=== PATIENT | female | born 1930 | race Caucasian/White ===

== ENCOUNTER 2016-05-06 11:37 | Inpatient (IN) | payer MEDICARE, OTHER ==
[~2016-05-06] VITALS: Ht 152.4 cm; Wt 64.9 kg
[~2016-05-06 11:37] MED LIST: ALLO100T PO; DILT300C PO; LVT.05T PO; OLME40TA14 PO; VITA1CAP21 PO
--- OUTSIDE RECORDS SUMMARY | 2016-05-06 11:42 | XMS REPORT | Continuity of Care Document ---
Author Author [facility] Organization [facility] Address Unknown Phone Unavailable Care Team Providers Care Steam Box Operator Name Role Phone MARISELA BETH MD PCP Insurance Providers Payer Name Policy Number Subscriber Name Relationship [employer] [id number] Noa Tee 18 Self / Same As Patient [facility] [id number] Noa Tee 18 Self / Same As Patient Advance Directives Directive Response Recorded Date/Time Advance Directives No 12/02/13 9:35am Health Care Power of Sas Administrator No 12/02/13 9:35am Organ Donor Yes 12/02/13 9:35am Problems No known problems or medical conditions. Medications Medication Dose Route Sig Days/Qty Instructions Order Date Discontinued Date Status Allopurinol 100 Mg PO DAILY 12/02/13 Active Olmesartan 1 Tab PO DAILY 12/02/13 Active Levothyroxine Sodium (Levothroid) 1 Each PO DAILY 12/02/13 Active Diltiazem HCl (Cardizem Cd) 1 Each PO DAILY 12/02/13 Active Vitamin B Complex 1 Cap PO DAILY 12/02/13 Active Social History No social history. Hospital Discharge Instructions No hospital discharge instructions. Plan of Care No plan of care. Functional Status No functional status results. Allergies, Adverse Reactions, Alerts Allergen Type Severity Reaction Status Last Updated Sulfa (Sulfonamide Antibiotics) ([id number]) Allergy Unknown Active iodine ([id number]) Allergy Unknown Active 12/02/13 hydrocodone ([id number]) Allergy Unknown Active 12/02/13 propoxyphene ([id number]) Allergy Unknown Active 12/02/13 Meperidine Allergy Unknown Active 12/02/13 Immunizations Name Given Type Date of Pneumonia Vaccine 02/03/10 Historical Vital Signs No known vital signs results. Results No known relevant diagnostic tests, laboratory data and/or discharge summary. Procedures No known history of procedures. Encounters Encounter Location Date/Time Registered Clinic [facility] 10/18/14 9:05pm
[2016-05-06] MEDS ORDERED: LACTATED RINGERS 1,000 ML IV ONE (11:44)
--- NOTE | 2016-05-06 11:50 | ED GI ---
General Chief Complaint: Abdominal/GI Problems Stated Complaint: ABD PAIN Source of Information: Patient History of Present Illness Time Seen By Provider: 11:37 Initial Comments PT ARRIVES VIA EMS FROM HOME--LIVES ALONE C/O SEVERE LOWER ABDOMINAL PAIN SINCE 0200 THIS AM PAIN IS CONSTANT AND WORSE WITH WALKING C/O NAUSEA AND DRY HEAVES--EMS GAVE ZOFRAN AND THAT HAS IMPROVED NO DIARRHEA BUT HAS HAD MULTIPLE BM'S SINCE THIS STARTED--NO BLACK/BLOODY/TARRY STOOLS HAS HAD URINARY FREQUENCY, BUT NO PAIN ON URINATION + CHILLS, BUT NO KNOWN FEVER NO HISTORY OF SIMILAR AND NO HISTORY OF ANY GI/COLON PROBLEMS IN THE PAST HAS NOT TAKEN ANY MEDICATIONS TODAY PCP: DR. RODGERS Allergies and Home Medications Allergies Coded Allergies: Sulfa (Sulfonamide Antibiotics) (Verified Allergy, Unknown, 12/02/13) hydrocodone (Verified Allergy, Unknown, 12/02/13) iodine (Verified Allergy, Unknown, 12/02/13) meperidine (Verified Allergy, Unknown, 12/02/13) propoxyphene (Verified Allergy, Unknown, 12/02/13) Home Medications Allopurinol 100 Mg Tab 100 MG PO DAILY (Reported) Diltiazem Hcl 300 Mg Cap.sr.24h 1 EACH PO DAILY (Reported) Levothyroxine Sodium 50 Mcg Tablet 1 EACH PO DAILY (Reported) Olmesartan Medoxomil 40 Mg Tablet 1 TAB PO DAILY (Reported) Vitamin B Complex 1 Cap Capsule 1 CAP PO DAILY (Reported) Review of Systems Constitutional: see HPI chills EENTM: Other (CLEAR RUNNY NOSE SINCE LAST PM) Respiratory: No Symptoms ReportedDenies Cough, Denies Shortness of Air Cardiovascular: No Symptoms ReportedDenies Chest Pain Gastrointestinal: See HPI Abdominal Pain Nausea Poor AppetiteDenies Vomiting Genitourinary: See HPI FrequencyDenies Flank Pain Musculoskeletal: no symptoms reported Skin: no symptoms reported Psychiatric/Neurological: No Symptoms Reported Endocrine: No Symptoms Reported Hematologic/Lymphatic: No Symptoms Reported Past Vpnuunz-Vmxhyz-Oaoips Hx Patient Social History Alcohol Use: Denies Use Recreational Drug Use: No Smoking Status: Never a Smoker Immunizations Up To Date Date of Pneumonia Vaccine: Feb 03, 2010 Surgeries HX Surgeries: Yes (HYST/BSO FOR BENIGN DISEASE; LEFT SHOULDER REPLACEMENT; C- SECTION X 1) Surgeries: Section, Hysterectomy, Joint Replacement, Oophorectomy, Orthopedic Respiratory Hx Respiratory Disorders: No Cardiovascular Hx Cardiac Disorders: Yes Cardiac Disorders: Hypertension Neurological Hx Neurological Disorders: No 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, Menopausal Genitourinary Hx Genitourinary Disorders: No Gastrointestinal Hx Gastrointestinal Disorders: Yes Gastrointestinal Disorders: Diverticulosis Musculoskeletal Hx Musculoskeletal Disorders: Yes (LEFT SHOULDER REPLACEMENT) Musculoskeletal Disorders: Arthritis, Gout Endocrine Hx Endocrine Disorders: Yes Endocrine Disorders: Hypothyroidsim HEENT HX 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) Hearing Impairment: Hard of Hearing Cancer Hx Cancer: No Psychosocial Hx Psychiatric Problems: No Integumentary HX Skin/Integumentary Disorder: No Blood Transfusions Hx Blood Disorders: No Physical Exam Vital Signs VS - Last 72 Hours, by Label 05/06/16 05/06/16 05/06/16 11:41 11:41 12:48 Temp 98.4 98.4 Pulse 110 Resp 16 B/P 191/94 Pulse Ox 93 95 O2 Delivery Room Air Nasal Cannula O2 Flow Rate 2 Capillary Refill : General Appearance: WD/WN no apparent distress HEENT: PERRL/EOMI Neck: normal inspection Respiratory: normal breath sounds no respiratory distress no accessory muscle use Cardiovascular: tachycardia systolic murmur (05/11) Gastrointestinal: no organomegaly no pulsatile mass abnormal bowel sounds ( RARE)No distended, No guarding, No rebound, tenderness (SIGNIFICANT DIFFUSE LOWER ABDOMINAL TENDERNESS, MILD TO MODERATE DIFFUSE UPPER ABDOMINAL TENDERNESS) No hernia, No mass Extremities: normal inspection no pedal edema no calf tenderness normal capillary refill Back: no CVA tenderness Neurologic/Psychiatric: 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 II-XII nml as tested no motor/sensory deficits alert normal mood/affect oriented x 3 Skin: normal color warm/dry Progress/Results/Core Measures Results/Orders Lab Results Laboratory Tests Test 05/06/16 11:39 05/06/16 12:55 Range/Units Alanine Aminotransferase (ALT/SGPT) 19 0-55 U/L Albumin 3.7 3.2-4.5 G/DL Alkaline Phosphatase 76 40-136 U/L Amylase Level 98 25-125 U/L Anion Gap 13 5-14 MMOL/L Aspartate Amino Transf (AST/SGOT) 17 5-34 U/L BUN/Creatinine Ratio 23 Band Neutrophils 4 % Basophils # (Auto) 0.0 0.0-0.1 10^3/uL Basophils % (Manual) 0 % Basophils (%) (Auto) 0 0-10 % Blood Morphology Comment NORMAL Blood Urea Nitrogen 23 H 7-18 MG/DL Calcium Level 9.5 8.5-10.1 MG/DL Carbon Dioxide Level 21 21-32 MMOL/L Chloride Level 107 98-107 MMOL/L Creatinine 1.02 0.60-1.30 MG/DL Eosinophils # (Auto) 0.0 0.0-0.3 10^3/uL Eosinophils % (Manual) 0 % Eosinophils (%) (Auto) 0 0-10 % Estimat Glomerular Filtration Rate 52 Glucose Level 149 H 70-105 MG/DL Hematocrit 43 35-52 % Hemoglobin 13.9 11.5-16.0 G/DL Lipase 8 8-78 U/L Lymphocytes # (Auto) 0.5 L 1.0-4.0 X 10^3 Lymphocytes % (Manual) 7 % Lymphocytes (%) (Auto) 4 L 12-44 % Magnesium Level 1.7 L 1.8-2.4 MG/DL Mean Corpuscular Hemoglobin 29 25-34 PG Mean Corpuscular Hemoglobin Concent 32 32-36 G/DL Mean Corpuscular Volume 92 80-99 FL Mean Platelet Volume 9.9 7.4-10.4 FL Monocytes # (Auto) 0.5 0.0-1.0 X 10^3 Monocytes % (Manual) 1 % Monocytes (%) (Auto) 4 0-12 % Neutrophils # (Auto) 12.4 H 1.8-7.8 X 10^3 Neutrophils % (Manual) 88 % Neutrophils (%) (Auto) 92 H 42-75 % Platelet Count 304 130-400 10^3/uL Potassium Level 4.3 3.6-5.0 MMOL/L Red Blood Count 4.73 4.35-5.85 10^6/uL Red Cell Distribution Width 15.3 H 10.0-14.5 % Sodium Level 141 135-145 MMOL/L TSH [place] Testing 1.36 0.35-4.94 UIU/ML Total Bilirubin 0.7 0.1-1.0 MG/DL Total Protein 6.4 6.4-8.2 G/DL White Blood Count 13.4 H 4.3-11.0 10^3/uL My Orders Orders-OLGA MAGAÑA DO Saline Lock/Iv-Start (05/06/16 11:44) O2 (05/06/16 11:44) Monitor-Rhythm Ecg Trace Only (05/06/16 11:44) Amylase (05/06/16 11:44) Cbc With Automated Diff (05/06/16 11:44) Comprehensive Metabolic Panel (05/06/16 11:44) Lipase (05/06/16 11:44) Magnesium (05/06/16 11:44) Thyroid Analyzer (05/06/16 11:44) Ua Culture If Indicated (05/06/16 11:44) Saline Lock/Iv-Start (05/06/16 11:44) Lactated Ringers (Lr 1000 Ml Iv Solution (05/06/16 11:44) Manual Differential (05/06/16 11:39) Ct Abdomen/Pelvis Wo (05/06/16 12:08) Acute Abd Series (05/06/16 12:08) Ondansetron Injection (Zofran Injectio (05/06/16 12:15) Fentanyl Injection (Sublimaze Injection (05/06/16 12:10) Scopolamine Patch (Transderm-Scop Patch) (05/06/16 13:15) Ondansetron Injection (Zofran Injectio (05/06/16 13:15) Fentanyl Injection (Sublimaze Injection (05/06/16 13:01) Levofloxacin 750 Mg/150 Ml Iv (Levaquin (05/06/16 13:01) Medications Given in ED Current Medications Medications Dose Ordered Sig/Khadijah Route Start Time Stop Time Status Last Admin Dose Admin Lactated Ringer's 1,000 ml @ 0 mls/hr Q0M ONCE IV 05/06/16 11:44 05/06/16 11:46 DC 05/06/16 11:52 1,000 MLS/HR Ondansetron HCl 4 mg ONCE ONCE IVP 05/06/16 12:15 05/06/16 12:16 DC 05/06/16 12:48 4 MG Vital Signs/I&O Vital Sign - Last 12Hours 05/06/16 05/06/16 05/06/16 11:41 11:41 12:48 Temp 98.4 98.4 Pulse 110 Resp 16 B/P 191/94 Pulse Ox 93 95 O2 Delivery Room Air Nasal Cannula O2 Flow Rate 2 Progress Note : Progress Note NO DETERIORATION IN PT'S CONDITION DURING ER STAY AFTER REVIEWING TEST RESULTS AND DX OF DIVERTICULITIS, PT NOW STATES SHE HAS HAD THIS PROBLEM SEVERAL TIMES ( HAD DENIED THIS ON ARRIVAL) Diagnostic Imaging Comments ACUTE ABDOMEN XRAYS--NON SPECIFIC BOWEL GAS CT ABDOMEN/PELVIS--ACUTE SIGMOID DIVERTICULITI PER RADIOLOGIST REPORTS @ 1257 Reviewed: Reviewed by Me Departure Communication Progress Notes 1303--SPOKE WITH DR. GILMORE, [place] [employer] [place] [employer] LAW CLERK FOR DR. RODGERS, ACCEPTS PT FOR ADMIT. Impression Impression: Primary Impression: Sigmoid diverticulitis Additional Impression: Mild dehydration Disposition: ADMITTED INPATIENT Condition: Stable Decision to Admit Reason: Admit from ER (General) Decision to Admit/Date: May 06, 2016 Time/Decision to Admit Time: 13:00 Departure-Patient Inst. Referrals: UNKNOWN (PCP/Family) Primary Care Physician OLGA MAGAÑA DO May 06, 2016 11:50
[2016-05-06 11:53] LABS: BASOPHILS % (AUTO) 0 % (0-10); EOSINOPHILS % (AUTO) 0 % (0-10); LYMPHOCYTES # (AUTO) 0.5 X 10^3 (1.0-4.0); LYMPHOCYTES % (AUTO) 4 % (12-44); MEAN CORPUSCULAR HEMOGLOBIN 29 PG (25-34); MEAN CORPUSCULAR HGB CONC 32 G/DL (32-36); MEAN CORPUSCULAR VOLUME 92 FL (80-99); MEAN PLATELET VOLUME 9.9 FL (7.4-10.4); MONOCYTES # (AUTO) 0.5 X 10^3 (0.0-1.0); MONOCYTES % (AUTO) 4 % (0-12); NEUTROPHILS # (AUTO) 12.4 X 10^3 (1.8-7.8); NEUTROPHILS % (AUTO) 92 % (42-75); PLATELET COUNT 304 10^3/uL (130-400); RED BLOOD COUNT 4.73 10^6/uL (4.35-5.85); RED CELL DISTRIBUTION WIDTH 15.3 % (10.0-14.5); WHITE BLOOD COUNT 13.4 10^3/uL (4.3-11.0)
[2016-05-06 12:06] LABS: BAND NEUTROPHILS 4 %; BASOPHILS % (MANUAL) 0 %; EOSINOPHILS % (MANUAL) 0 %; LYMPHOCYTES % (MANUAL) 7 %; NEUTROPHILS % (MANUAL) 88 %
[2016-05-06 12:07] LABS: ALBUMIN 3.7 G/DL (3.2-4.5); BILIRUBIN,TOTAL 0.7 MG/DL (0.1-1.0); CALCIUM 9.5 MG/DL (8.5-10.1); CREATININE SERUM 1.02 MG/DL (0.60-1.30); MAGNESIUM 1.7 MG/DL (1.8-2.4); POTASSIUM 4.3 MMOL/L (3.6-5.0); TOTAL PROTEIN 6.4 G/DL (6.4-8.2)
[2016-05-06] MEDS ORDERED: fentaNYL INJECTION 100 MCG/2 ML AMP IVP STA ×2 (12:10→13:01)
[2016-05-06] MEDS ORDERED: ONDANSETRON 4 MG/2 ML (SDV) Z0FRAN IVP ONE ×2 (12:15→13:15)
--- NOTE | 2016-05-06 12:47 | Diagnostic Imaging Report ---
PROCEDURE: CT abdomen and pelvis without contrast. TECHNIQUE: Multiple contiguous axial images were obtained through the abdomen and pelvis without the use of intravenous contrast. DATE: May 06, 2016. COMPARISON: CT abdomen and pelvis October 21, 2013. INDICATION: 86-year-old female, abdominal pain, nausea. FINDINGS: There is mild atelectasis in the visualized lung bases. There is no pericardial effusion. The liver is normal in size and contour. There is a small benign-appearing calcification within the left lobe of the liver. The gallbladder is unremarkable. There is no intrahepatic or extrahepatic bile duct dilation. There is mild fatty atrophy of the pancreatic head. The spleen is not enlarged. The adrenal glands are unremarkable. There is an exophytic right renal lesion on image 30 measuring 1 cm in size which is unchanged since October 21, 2013. The urinary collecting systems are not distended. There is no identified renal or ureteral stone. The urinary bladder is unremarkable. There are pelvic calcifications consistent with phleboliths. There is diverticulosis with abnormal wall thickening and inflammatory stranding of the distal sigmoid colon which is most suggestive of acute diverticulitis. There is no identified significant-volume free intraperitoneal air. There is a small focal area of gas on axial image 70 which may relate to a diverticulum. No additional potential extraluminal gas is identified. There is no drainable fluid collection or abscess. The intestinal tract is not distended. There are surgical clips along the anterior abdominal wall likely relating to prior hernia repair. There is a large hiatal hernia. There are atherosclerotic calcifications. There is no identified abnormally enlarged lymph node within the abdomen or pelvis which meets CT size criteria for adenopathy. There is no identified acute bony abnormality. IMPRESSION: CT ABDOMEN AND PELVIS. Findings most consistent with acute diverticulitis involving the distal sigmoid colon. No evidence of abscess or perforation. Dictated by: Dictated on workstation # [id number]
--- NOTE | 2016-05-06 12:52 | Diagnostic Imaging Report ---
EXAMINATION: Abdominal radiographs, acute series. DATE: May 06, 2016. CLINICAL INDICATION: 86-year-old female, abdominal pain, nausea. COMPARISON: CT abdomen and pelvis May 06, 2016. COMMENTS: There is a large hiatal hernia. There is no identified pneumothorax or pleural effusion. There is mild bibasilar atelectasis. There is a left shoulder prosthesis. There is no identified free intraperitoneal air. There are nondistended gas-filled segments of large bowel. There is a moderate amount of colonic stool. There are pelvic calcifications compatible with phleboliths. IMPRESSION: 1. Unremarkable bowel gas pattern. 2. Please see recently dictated CT abdomen and pelvis report for findings most suggestive of acute diverticulitis. 3. Large hiatal hernia. Dictated by: Dictated on workstation # [id number]
[2016-05-06] MEDS ORDERED: LEVOFLOXACIN 750 MG/150 ML IV 150 ML IV STA (13:01)
[2016-05-06 13:06] LABS: BILIRUBIN,URINE NEGATIVE (NEGATIVE); KETONES,URINE NEGATIVE (NEGATIVE); LEUKOCYTE ESTERASE ,URINE NEGATIVE (NEGATIVE); NITRITE,URINE NEGATIVE (NEGATIVE); PH,URINE 6.5 (5-9); PROTEIN,URINE NEGATIVE (NEGATIVE); UROBILINOGEN,URINE NORMAL (NORMAL)
[2016-05-06] MEDS ORDERED: SCOPOLAMINE 1.5 MG (TRANSDERM-SCOP) PATCH TD ONE (13:15)
[2016-05-06 14:20] VITALS: BP 145/78
[2016-05-06] MEDS ORDERED: ONDANSETRON 4 MG/2 ML (SDV) Z0FRAN IV PRN (14:30)
[2016-05-06] MEDS: D5 1/2 NS 1000 ML IV SOLUTION 1,000 ML IV SCH ×2 (14:45→20:48)
[2016-05-06] MEDS: fentaNYL INJECTION 100 MCG/2 ML AMP IV PRN ×2 (14:46→20:52)
[2016-05-06] MEDS: metroNIDAZOLE 500MG/100ML IVPB 100 ML IV SCH ×2 (15:24→21:19)
[2016-05-06] MEDS ORDERED: DILT240C86 PO (15:55)
[2016-05-06] MEDS ORDERED: CYAN10006 PO (15:55)
[2016-05-06] MEDS ORDERED: CHOL100045 PO (15:55)
[2016-05-06] MEDS ORDERED: ESTR0.5T PO (15:56)
[2016-05-06 16:00] VITALS: BP 132/73
[2016-05-06] MEDS: DILTIAZEM 240 MG (CARDIZEM CD) CAP PO SCH (17:30)
--- NOTE | 2016-05-06 19:08 | History & Physicial ---
History of Present Illness History of Present Illness Reason for visit/HPI pain in my belly across my bottom. Patient states she ate some nuts. Onset 3 a.m. this morning. 2 years ago patient had a history of diverticulitis. Patient came out to the emergency room CAT scan of the abdomen and pelvis shows sigmoid diverticulitis area Surgeries hysterectomy's cyst, and left artificial shoulder. Patient states she gets diarrhea and constipation different days Date of Admission May 06, 2016 at 13:03 I consulted on this patient on 05/06/16 19:05 Attending Physician Tamie Owen DO Admitting Physician Tamie Owen DO Consult Allergies and Home Medications Allergies Coded Allergies: Sulfa (Sulfonamide Antibiotics) (Verified Allergy, Unknown, 12/02/13) hydrocodone (Verified Allergy, Unknown, 12/02/13) iodine (Verified Allergy, Unknown, 12/02/13) meperidine (Verified Allergy, Unknown, 12/02/13) propoxyphene (Verified Allergy, Unknown, 12/02/13) Home Medications Allopurinol 100 Mg Tab 100 MG PO DAILY (Reported) Cholecalciferol (Vitamin D3) 1,000 Unit Tablet #1 1,000 UNIT PO DAILY Prescribed by: JARROD JIMENEZ on 05/06/16 155 Cyanocobalamin (Vitamin B-12) 1,000 Mcg Tablet #1 1,000 MCG PO DAILY Prescribed by: JARROD JIMENEZ on 05/06/16 155 Diltiazem HCl 240 Mg Cap.er.24h #1 240 MG PO DAILY Prescribed by: JARROD JIMENEZ on 05/06/16 155 Estradiol 0.5 Mg Tablet #1 0.5 MG PO DAILY Prescribed by: JARROD JIMENEZ on 05/06/16 155 Levothyroxine Sodium 50 Mcg Tablet 1 EACH PO DAILY (Reported) ONE PILL FOUR TIMES A WEEK AND 1/2 PILL THREE TIMES A WEEK Olmesartan Medoxomil 40 Mg Tablet 1 TAB PO DAILY (Reported) Past [id number]-Nppvxx Hx Patient Social History Alcohol Use: Denies Use Recreational Drug Use: No Smoking Status: Never a Smoker Physical Abuse Screen: No Sexual Abuse: No Recent Foreign Travel: No Contact w/other who traveled: No Recent Hopitalizations: No Recent Infectious Disease Expo: No Immunizations Up To Date Tetanus Booster (TDap): More than 5yrs Date of Pneumonia Vaccine: Feb 03, 2010 Seasonal Allergies Seasonal Allergies: No Surgeries HX Surgeries: Yes (HYST/BSO FOR BENIGN DISEASE; LEFT SHOULDER REPLACEMENT; C- SECTION X 1) Surgeries: Section, Hysterectomy, Joint Replacement, Oophorectomy, Orthopedic Respiratory Hx Respiratory Disorders: No Cardiovascular Hx Cardiovascular Disorders: No Cardiac Disorders: Hypertension Neurological Hx Neurological Disorders: No 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 System Hx 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 Disorders: No Genitourinary Hx Genitourinary Disorders: No Gastrointestinal Hx Gastrointestinal Disorders: Yes Gastrointestinal Disorders: Diverticulosis Musculoskeletal Hx Musculoskeletal Disorders: Yes (LEFT SHOULDER REPLACEMENT) Musculoskeletal Disorders: Arthritis, Scoliosis, Gout Endocrine Hx Endocrine Disorders: Yes Endocrine Disorders: Hypothyroidsim HEENT HX 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) Hearing Impairment: Hard of Hearing Cancer Hx Cancer: No Psychosocial Hx Psychiatric Problems: No Integumentary HX Skin/Integumentary Disorder: No Blood Transfusions Hx Blood Disorders: No Family Medical History Family Hx: Cardiovascular disease 19 FATHER Completed stroke G8 BROTHER Myocardial infarction G8 BROTHER G8 BROTHER G8 BROTHER Constitutional: weakness EENTM: no symptoms reported Respiratory: no symptoms reported Cardiovascular: no symptoms reported Gastrointestinal: RLQ LLQ abdominal pain (RLQ) Physical Exam Vital Signs Vital Sign - Last 12Hours 05/06/16 11:41 Temp 98.4 Pulse 110 Resp 16 B/P 191/94 Pulse Ox 93 O2 Delivery Room Air O2 Flow Rate 2 Capillary Refill : Less Than 3 Seconds General Appearance: No Apparent Distress WD/WN Eyes: Bilateral Eye Normal Inspection HEENT: Normal ENT Inspection Neck: Full Range of Motion Normal Inspection Respiratory: Chest Non Tender Lungs Clear Normal Breath Sounds No Accessory Muscle Use No Respiratory Distress Cardiovascular: Regular Rate, Rhythm Tachycardia Gastrointestinal: Other (lower abdominal pain) Assessment/Plan Assessment and Plan acute diverticulitis. Abdominal pain Clinical Quality Measures DVT/VTE Risk/Contraindication: Risk Factor Score Per Nursin RFS Level Per Nursing on Admit: 2=Moderate DENTON GILMORE DO May 06, 2016 19:08
[2016-05-06 20:00] VITALS: BP 112/64
[2016-05-06] MEDS ORDERED: ENOXAPARIN 40 MG/0.4 ML (LOVENOX) SYR ONE (20:36)
[2016-05-06] MEDS: ENOXAPARIN 40 MG/0.4 ML (LOVENOX) SYR SC SCH (20:48)
[2016-05-07 00:52] VITALS: BP 114/64
[2016-05-07] MEDS: fentaNYL INJECTION 100 MCG/2 ML AMP IV PRN ×2 (00:56→04:24)
[2016-05-07 04:25] VITALS: BP 109/61
[2016-05-07 04:27] LABS: BASOPHILS % (AUTO) 0 % (0-10); EOSINOPHILS % (AUTO) 0 % (0-10); LYMPHOCYTES # (AUTO) 0.5 X 10^3 (1.0-4.0); LYMPHOCYTES % (AUTO) 4 % (12-44); MEAN CORPUSCULAR HEMOGLOBIN 30 PG (25-34); MEAN CORPUSCULAR HGB CONC 32 G/DL (32-36); MEAN CORPUSCULAR VOLUME 92 FL (80-99); MEAN PLATELET VOLUME 10.5 FL (7.4-10.4); MONOCYTES # (AUTO) 0.6 X 10^3 (0.0-1.0); MONOCYTES % (AUTO) 5 % (0-12); NEUTROPHILS # (AUTO) 10.9 X 10^3 (1.8-7.8); NEUTROPHILS % (AUTO) 91 % (42-75); PLATELET COUNT 223 10^3/uL (130-400); RED BLOOD COUNT 3.99 10^6/uL (4.35-5.85); RED CELL DISTRIBUTION WIDTH 15.2 % (10.0-14.5)
[2016-05-07 04:55] LABS: ALBUMIN 2.8 G/DL (3.2-4.5); BILIRUBIN,TOTAL 0.8 MG/DL (0.1-1.0); CALCIUM 8.4 MG/DL (8.5-10.1); CREATININE SERUM 1.03 MG/DL (0.60-1.30)
[2016-05-07] MEDS: metroNIDAZOLE 500MG/100ML IVPB 100 ML IV SCH ×3 (05:05→22:04)
[2016-05-07 07:31] VITALS: BP 108/60
[2016-05-07] MEDS: D5 1/2 NS 1000 ML IV SOLUTION 1,000 ML IV SCH ×2 (08:05→14:08)
[2016-05-07] MEDS ORDERED: NON-FORMULARY MEDICATION 1 EA EA (Cyanocobalamin (Vitamin B-12) (Vitamin B-12) 1,000 MCG) PO SCH (09:00)
[2016-05-07] MEDS ORDERED: OLMESARTAN 20 MG (BENICAR) TABLET PO SCH (09:00)
[2016-05-07] MEDS ORDERED: DILTIAZEM 240 MG (CARDIZEM CD) CAP PO SCH (09:00)
[2016-05-07] MEDS ORDERED: methylPREDNISolone 40 MG/ML (Solu-MEDROL) VIAL IV NR (09:01)
[2016-05-07] MEDS: ALLOPURINOL 100 MG (ZYLOPRIM) TAB PO SCH (09:45)
[2016-05-07] MEDS: OLMESARTAN 20 MG (BENICAR) TABLET PO SCH (09:45)
[2016-05-07] MEDS: CYANOCOBALAMIN 500 MCG TAB (VITAMIN B-12) PO SCH (09:45)
[2016-05-07] MEDS: DILTIAZEM 240 MG (CARDIZEM CD) CAP PO SCH (09:45)
[2016-05-07] MEDS: LEVOTHYROXINE 50 MCG (LEVOTHROID) TAB PO SCH (09:46)
[2016-05-07] MEDS: VITAMIN D3 1,000 UNITS (CHOLECALCIFEROL) TABLET PO SCH (09:46)
[2016-05-07 11:08] VITALS: BP 109/65
--- NOTE | 2016-05-07 13:10 | Progress Note (SOAP) ---
Subjective Subjective/Events-last exam Fwup acute diverticulitis, hypertension. C/O of right leg sciatica. Still with abdominal pain and nausea but no further vomiting and no diarrhea. Objective Exam Vital Signs Date Time Temp Pulse Resp B/P Pulse Ox O2 Delivery O2 Flow Rate FiO2 05/07/16 12:23 Nasal Cannula 2.00 05/07/16 11:08 98.6 69 22 109/65 92 Nasal Cannula 2.00 05/07/16 09:00 Nasal Cannula 2.00 05/07/16 07:31 98.7 78 16 108/60 93 Nasal Cannula 2.00 05/07/16 04:25 98.1 81 24 109/61 93 Nasal Cannula 2.00 05/07/16 00:52 97.6 88 20 114/64 92 Nasal Cannula 2.00 05/06/16 21:15 Nasal Cannula 2.00 05/06/16 20:00 97.4 107 16 112/64 93 Nasal Cannula 2.00 05/06/16 17:23 93 Nasal Cannula 2.00 05/06/16 16:00 97.5 120 20 132/73 88 Room Air 05/06/16 15:18 Room Air 05/06/16 14:20 99.5 116 20 145/78 94 Room Air 05/06/16 14:04 92 16 95 Nasal Cannula 2 05/06/16 14:03 98.4 I & O 05/07/16 07:00 Intake Total 520 ml Output Total 500 ml Balance 20 ml Capillary Refill : Less Than 3 Seconds General Appearance: No Apparent Distress Neck: Supple Respiratory: Lungs Clear Cardiovascular: Regular Rate, Rhythm Gastrointestinal: normal bowel sounds soft tenderness (generalized) Extremity: Non Tender No Calf Tenderness No Pedal Edema Neurologic/Psychiatric: Alert Oriented x3 Results Lab Laboratory Tests 05/06/16 19:02: Lactic Acid Level 1.4 05/07/16 03:37: Alanine Aminotransferase (ALT/SGPT) 15, Albumin 2.8L, Alkaline Phosphatase 55, Anion Gap 10, Aspartate Amino Transf (AST/SGOT) 15, BUN/Creatinine Ratio 19, Basophils # (Auto) 0.0, Basophils (%) (Auto) 0, Blood Urea Nitrogen 20H, Calcium Level 8.4L, Carbon Dioxide Level 21, Chloride Level 105, Creatinine 1.03 , Eosinophils # (Auto) 0.0, Eosinophils (%) (Auto) 0, Estimat Glomerular Filtration Rate 51, Glucose Level 131H, Hematocrit 37, Hemoglobin 11.8, Lymphocytes # (Auto) 0.5L, Lymphocytes (%) (Auto) 4L, Mean Corpuscular Hemoglobin 30, Mean Corpuscular Hemoglobin Concent 32, Mean Corpuscular Volume 92, Mean Platelet Volume 10.5H, Monocytes # (Auto) 0.6, Monocytes (%) (Auto) 5, Neutrophils # (Auto) 10.9H, Neutrophils (%) (Auto) 91H, Platelet Count 223, Potassium Level 4.0, Red Blood Count 3.99L, Red Cell Distribution Width 15.2H, Sodium Level 136, Total Bilirubin 0.8, Total Protein 5.0L, White Blood Count 12.0H Assessment/Plan Assessment/Plan Assess & Plan/Chief Complaint 1. Acute Diverticulitis--continue levaquin, flagyl and stay with clear liquids 2. Right Leg Sciatica--dose of solumedrol now 3. Hypertension--back on home BP meds Diagnosis/Problems: Clinical Quality Measures DVT/VTE Risk/Contraindication: Risk Factor Score Per Nursin RFS Level Per Nursing on Admit: 2=Moderate SIDRA RODGERS DO May 07, 2016 1:10 pm
[2016-05-07 16:00] VITALS: BP 98/59
[2016-05-07 19:23] VITALS: BP 105/63
[2016-05-07] MEDS: ENOXAPARIN 40 MG/0.4 ML (LOVENOX) SYR SC SCH (20:32)
[2016-05-08] VITALS (7 sets, daily range): BP systolic 113–189; BP diastolic 64–104
[2016-05-08] MEDS: D5 1/2 NS 1000 ML IV SOLUTION 1,000 ML IV SCH ×2 (02:13→16:30)
[2016-05-08 04:42] LABS: BASOPHILS % (AUTO) 0 % (0-10); EOSINOPHILS % (AUTO) 0 % (0-10); LYMPHOCYTES # (AUTO) 0.4 X 10^3 (1.0-4.0); LYMPHOCYTES % (AUTO) 4 % (12-44); MEAN CORPUSCULAR HEMOGLOBIN 29 PG (25-34); MEAN CORPUSCULAR HGB CONC 33 G/DL (32-36); MEAN CORPUSCULAR VOLUME 90 FL (80-99); MEAN PLATELET VOLUME 10.4 FL (7.4-10.4); MONOCYTES # (AUTO) 0.3 X 10^3 (0.0-1.0); MONOCYTES % (AUTO) 3 % (0-12); NEUTROPHILS # (AUTO) 9.8 X 10^3 (1.8-7.8); NEUTROPHILS % (AUTO) 93 % (42-75); PLATELET COUNT 232 10^3/uL (130-400); RED BLOOD COUNT 3.84 10^6/uL (4.35-5.85); RED CELL DISTRIBUTION WIDTH 15.1 % (10.0-14.5); WHITE BLOOD COUNT 10.5 10^3/uL (4.3-11.0)
[2016-05-08] MEDS: metroNIDAZOLE 500MG/100ML IVPB 100 ML IV SCH ×3 (06:22→22:00)
[2016-05-08] MEDS: VITAMIN D3 1,000 UNITS (CHOLECALCIFEROL) TABLET PO SCH (08:15)
[2016-05-08] MEDS: CYANOCOBALAMIN 500 MCG TAB (VITAMIN B-12) PO SCH (08:15)
[2016-05-08] MEDS: LEVOTHYROXINE 50 MCG (LEVOTHROID) TAB PO SCH (08:15)
[2016-05-08] MEDS: ALLOPURINOL 100 MG (ZYLOPRIM) TAB PO SCH (08:15)
[2016-05-08] MEDS: OLMESARTAN 20 MG (BENICAR) TABLET PO SCH (08:20)
[2016-05-08] MEDS: DILTIAZEM 240 MG (CARDIZEM CD) CAP PO SCH (08:20)
--- NOTE | 2016-05-08 08:31 | Progress Note (SOAP) ---
Subjective Subjective/Events-last exam Fwup acute diverticulitis, hypertension. Abdominal pain improved but having nausea and poor appetite but refusing anti-emetics. Objective Exam Vital Signs Date Time Temp Pulse Resp B/P Pulse Ox O2 Delivery O2 Flow Rate FiO2 05/08/16 08:21 97.2 65 18 128/71 92 Nasal Cannula 2.00 05/08/16 04:00 96.4 63 16 113/64 91 Nasal Cannula 2.00 05/08/16 00:00 97.5 73 18 117/66 90 Nasal Cannula 2.00 05/07/16 21:00 93 Nasal Cannula 2.00 05/07/16 19:23 97.3 62 19 105/63 93 Nasal Cannula 2.00 05/07/16 16:00 98.1 60 20 98/59 92 Nasal Cannula 2.00 05/07/16 12:23 Nasal Cannula 2.00 05/07/16 11:08 98.6 69 22 109/65 92 Nasal Cannula 2.00 05/07/16 09:00 Nasal Cannula 2.00 I & O 05/08/16 07:00 Intake Total 2625 ml Output Total 950 ml Balance 1675 ml Capillary Refill : Less Than 3 Seconds General Appearance: No Apparent Distress Neck: Supple Respiratory: Lungs Clear Cardiovascular: Regular Rate, Rhythm Gastrointestinal: normal bowel sounds soft tenderness (generalized but less) Extremity: Non Tender No Calf Tenderness No Pedal Edema Neurologic/Psychiatric: Alert Oriented x3 Depressed Affect Results Lab Laboratory Tests 05/08/16 04:10: Basophils # (Auto) 0.0, Basophils (%) (Auto) 0, Eosinophils # (Auto) 0.0, Eosinophils (%) (Auto) 0, Hematocrit 35, Hemoglobin 11.3L, Lymphocytes # (Auto) 0.4L, Lymphocytes (%) (Auto) 4L, Mean Corpuscular Hemoglobin 29, Mean Corpuscular Hemoglobin Concent 33, Mean Corpuscular Volume 90, Mean Platelet Volume 10.4, Monocytes # (Auto) 0.3, Monocytes (%) (Auto) 3, Neutrophils # (Auto ) 9.8H, Neutrophils (%) (Auto) 93H, Platelet Count 232, Red Blood Count 3.84L, Red Cell Distribution Width 15.1H, White Blood Count 10.5 Assessment/Plan Assessment/Plan Assess & Plan/Chief Complaint 1. Acute Diverticulitis--continue levaquin, flagyl and advance diet as tolerated 2. Right Leg Sciatica--improved 3. Hypertension--back on home BP meds 4. Nausea/Dyspepsia--add protonix Diagnosis/Problems: Clinical Quality Measures DVT/VTE Risk/Contraindication: Risk Factor Score Per Nursin RFS Level Per Nursing on Admit: 2=Moderate SIDRA RODGERS DO May 08, 2016 8:31 am
[2016-05-08] MEDS: PANTOPRAZOLE 40 MG/10 ML (PROTONIX) VIAL IV SCH (09:31)
[2016-05-08] MEDS ORDERED: DILT240C PO (10:31)
[2016-05-08] MEDS ORDERED: LEVO50TA6 PO (10:31)
[2016-05-08] MEDS ORDERED: LACT1CAP72 PO (10:37)
[2016-05-08] MEDS ORDERED: CHOL10007 PO (10:37)
[2016-05-08] MEDS ORDERED: CYAN10006 PO (10:37)
[2016-05-08] MEDS ORDERED: ESTR0.5T PO (10:37)
[2016-05-08] MEDS ORDERED: LEVOFLOXACIN 750 MG/150 ML IV 150 ML IV SCH (13:00)
[2016-05-08] MEDS ORDERED: CATHETER FLUSH 10 ML SYR IV PRN (15:15)
[2016-05-08] MEDS: fentaNYL INJECTION 100 MCG/2 ML AMP IV PRN ×2 (19:58→21:52)
[2016-05-08] MEDS: ENOXAPARIN 40 MG/0.4 ML (LOVENOX) SYR SC SCH (20:40)
[2016-05-08] MEDS ORDERED: diphenhydrAMINE 25 MG TAB (BENADRYL) PO PRN (23:30)
[2016-05-09] VITALS: BP 131/73
[2016-05-09 04:00] VITALS: BP 145/78
[2016-05-09] MEDS: D5 1/2 NS 1000 ML IV SOLUTION 1,000 ML IV SCH (05:13)
[2016-05-09] MEDS: fentaNYL INJECTION 100 MCG/2 ML AMP IV PRN (06:06)
[2016-05-09] MEDS: metroNIDAZOLE 500MG/100ML IVPB 100 ML IV SCH ×3 (06:09→23:12)
[2016-05-09] MEDS ORDERED: SENNA W/DOCUSATE (SENOKOT S) TABLET PO NR (08:59)
[2016-05-09] MEDS ORDERED: SCOPOLAMINE PATCH REMOVAL TP SCH (08:59)
[2016-05-09] MEDS ORDERED: MILK OF MAGNESIA 400 MG/5 ML 30 ML UDC PO NR (09:00)
[2016-05-09] MEDS ORDERED: SCOPOLAMINE 1.5 MG (TRANSDERM-SCOP) PATCH TOP SCH (09:00)
[2016-05-09] MEDS: ALLOPURINOL 100 MG (ZYLOPRIM) TAB PO SCH (11:16)
[2016-05-09] MEDS: VITAMIN D3 1,000 UNITS (CHOLECALCIFEROL) TABLET PO SCH (11:16)
[2016-05-09] MEDS: DILTIAZEM 240 MG (CARDIZEM CD) CAP PO SCH (11:17)
[2016-05-09] MEDS: LEVOTHYROXINE 50 MCG (LEVOTHROID) TAB PO SCH (11:18)
[2016-05-09] MEDS: OLMESARTAN 20 MG (BENICAR) TABLET PO SCH (11:18)
[2016-05-09] MEDS: CYANOCOBALAMIN 500 MCG TAB (VITAMIN B-12) PO SCH (11:23)
[2016-05-09] MEDS: PANTOPRAZOLE 40 MG/10 ML (PROTONIX) VIAL IV SCH (11:23)
[2016-05-09 11:55] VITALS: BP 131/72
[2016-05-09 16:00] VITALS: BP 167/71
--- NOTE | 2016-05-09 18:36 | Progress Note (SOAP) ---
Subjective Subjective/Events-last exam Fwup acute diverticulitis, hypertension. Patient has very flat affect and depressed mood. Does admit nausea better but having right sided abdominal pain which after examination appears to be in lovenox injection site. Objective Exam Vital Signs Date Time Temp Pulse Resp B/P Pulse Ox O2 Delivery O2 Flow Rate FiO2 05/09/16 16:00 97.5 93 18 167/71 91 Room Air 05/09/16 11:55 98.4 73 18 131/72 91 Room Air 05/09/16 09:00 Nasal Cannula 2.00 05/09/16 07:38 Nasal Cannula 2.00 05/09/16 04:00 97.0 63 18 145/78 92 Nasal Cannula 2.00 05/09/16 00:00 97.4 63 18 131/73 93 Nasal Cannula 2.00 05/08/16 21:00 92 Nasal Cannula 2.00 05/08/16 20:00 97.3 66 18 148/77 92 Nasal Cannula 2.00 I & O 05/09/16 07:00 Intake Total 1873 ml Output Total 1850 ml Balance 23 ml Capillary Refill : Less Than 3 Seconds General Appearance: No Apparent Distress Neck: Supple Respiratory: Lungs Clear Cardiovascular: Regular Rate, Rhythm Systolic Murmur Gallop/S3 Gastrointestinal: normal bowel sounds soft tenderness (right lower quadrant) Extremity: Non Tender No Calf Tenderness No Pedal Edema Neurologic/Psychiatric: Alert Oriented x3 Depressed Affect Assessment/Plan Assessment/Plan Assess & Plan/Chief Complaint 1. Acute Diverticulitis--continue levaquin, flagyl and advance diet as tolerated, Heplock IV, plan DC in AM if oral intake improved 2. Right Leg Sciatica--improved 3. Hypertension--back on home BP meds 4. Nausea/Dyspepsia--improved 5. Discussed underlying depression with son as patient is new to my practice and he states this has been a problem with the patient so will start low dose antidepressant Diagnosis/Problems: Clinical Quality Measures DVT/VTE Risk/Contraindication: Risk Factor Score Per Nursin RFS Level Per Nursing on Admit: 2=Moderate SIDRA RODGERS DO May 09, 2016 6:36 pm
[2016-05-09 20:00] VITALS: BP 171/81
[2016-05-09] MEDS: ENOXAPARIN 40 MG/0.4 ML (LOVENOX) SYR SC SCH (23:12)
[2016-05-10 00:45] VITALS: BP 177/78
[2016-05-10 04:56] VITALS: BP 177/77
[2016-05-10] MEDS: metroNIDAZOLE 500MG/100ML IVPB 100 ML IV SCH (07:05)
[2016-05-10 08:00] VITALS: BP 153/71
[2016-05-10] MEDS ORDERED: METR500T PO (08:57)
[2016-05-10] MEDS ORDERED: LEVO250T46 PO (08:57)
[2016-05-10] MEDS ORDERED: CITA10TA7 PO (08:57)
[2016-05-10] MEDS: PANTOPRAZOLE 40 MG/10 ML (PROTONIX) VIAL IV SCH (09:26)
[2016-05-10] MEDS: LEVOTHYROXINE 50 MCG (LEVOTHROID) TAB PO SCH (09:27)
[2016-05-10] MEDS: OLMESARTAN 20 MG (BENICAR) TABLET PO SCH (09:27)
[2016-05-10] MEDS: VITAMIN D3 1,000 UNITS (CHOLECALCIFEROL) TABLET PO SCH (09:27)
[2016-05-10] MEDS: ALLOPURINOL 100 MG (ZYLOPRIM) TAB PO SCH (09:27)
[2016-05-10] MEDS: DILTIAZEM 240 MG (CARDIZEM CD) CAP PO SCH (09:27)
[2016-05-10] MEDS: CYANOCOBALAMIN 500 MCG TAB (VITAMIN B-12) PO SCH (09:33)
[2016-05-10 11:59] VITALS: BP 153/71
--- NOTE | 2016-05-27 15:52 | Discharge Summary ---
Diagnosis/Chief Complaint Date of Admission May 06, 2016 at 13:03 Date of Discharge May 10, 2016 at 12:15 Discharge Date: May 10, 2016 Admission Diagnosis Admission Diagnosis acute diverticulitis. Abdominal pain Discharge Diagnosis 1. Acute Sigmoid Diverticulitis--improved 2. Hypertension--stable 3. Nausea/Dyspepsia--improved 4. Right Leg Sciatica--improved 5. Hypothyroidism 6. Depression Discharge Summary Hospital Course Hospital Course This is an 86 year old female brought to the emergency room via EMS with the sudden onset of severe lower abdominal pain with nausea and vomiting. She also reported that she had several loose stools prior to the onset of pain. In the emergency room, she was found to have acute sigmoid diverticulitis with an elevated WBC count of 13,400. She was admitted to medical and started on Levaquin and flagyl, IVF and clear liquids. She was started on IV zofran prn nausea or vomiting. She had fentanyl as need for abdominal pain. The first 2 hospital days she continued to complain of abdominal pain and continued to have nausea and poor oral intake. However, nursing reported that she was not asking or refusing to take any antiemetics when they were offered. Protonix was added as well as a scopolamine patch which did help her nausea. Her abdominal pain improved as well and her diet was advanced to a soft, bland diet. She tolerated this with no increase in pain and no worsening of nausea. She did have an exacerbation of right leg sciatic during her hospital stay and this responded to one dose of IV solumedrol. She also has a very flat affect with what appeared to be depression during her hospital stay so low dose citalopram was added after discussion with her son who felt she was depressed as well. By the day of discharge, she was tolerating a bland diet, had been up ambulating, her pain was much improved, and she was anxious to go home. She will be discharged home on oral levaquin and flagyl and bland diet and fwup with me in my office in 1 week. Procedures None. Discharge Physical Examination Allergies: Coded Allergies: Sulfa (Sulfonamide Antibiotics) (Verified Allergy, Unknown, 12/02/13) hydrocodone (Verified Allergy, Unknown, 12/02/13) iodine (Verified Allergy, Unknown, 12/02/13) meperidine (Verified Allergy, Unknown, 12/02/13) propoxyphene (Verified Allergy, Unknown, 12/02/13) General Appearance: Alert, Oriented X3, No Acute Distress Respiratory: Clear to Auscultation Cardiovascular: Regular Rate Abdominal: Normal Bowel Sounds, Soft, Other (minimal tenderness LLQ) Extremities: No Clubbing, No Cyanosis, No Edema Psych/Mental Status: Mental Status NL, Other (affect less flat) Discharge Home Medications Reviewed and agree with Discharge Medication list on patient's Discharge Instruction sheet Instructions to Patient/Family Please see electonic discharge instructions given to patient. Clinical Quality Measures DVT/VTE Risk/Contraindication: Risk Factor Score Per Nursin RFS Level Per Nursing on Admit: 2=Moderate SIDRA RODGERS DO May 27, 2016 15:52
== END 2016-05-10 12:15 | disposition home or self-care (01) | DRG 392 ==
LOC: EDUNIT# 11:37 → ER 11:38 → ICU 13:03 → CSD 05-07 04:20 → 4TH 05-09 19:18
PROVIDERS: ADMIT Family Medicine; ATTEND Family Medicine
DX: K57.32 Diverticulitis of large intestine without perforation or abscess without bleeding (principal); E86.0 Dehydration; I10 Essential (primary) hypertension; E03.9 Hypothyroidism, unspecified; M54.31 Sciatica, right side; M41.9 Scoliosis, unspecified; M19.90 Unspecified osteoarthritis, unspecified site; M10.9 Gout, unspecified; H91.91 Unspecified hearing loss, right ear; F32.9 Major depressive disorder, single episode, unspecified; R11.0 Nausea
CPT/HCPCS: 36415; 74022; 74176; 80053; 81000; 82150; 83605; 83690; 83735; 84443; 85007; 85025; 85027; 93041; 94760; 96361; 96365; 96375; 96376

== ENCOUNTER 2016-07-26 09:45 | Outpatient (RCR) | payer MEDICARE, OTHER ==
--- OUTSIDE RECORDS SUMMARY | 2016-07-02 08:18 | XMS REPORT | Continuity of Care Document ---
Author Author [facility] Organization [facility] Address Unknown Phone Unavailable Care Team Providers Care Edge Baster Name Role Phone MARISELA BETH MD PCP Insurance Providers Payer Name Policy Number Subscriber Name Relationship Wps Medicare [id number] Noa Tee 18 Self / Same As Patient [facility] [id number] Noa Tee 18 Self / Same As Patient Advance Directives Directive Response Recorded Date/Time Advance Directives No 12/02/13 9:35am Health Care Power of Hotel Superintendent No 12/02/13 9:35am Organ Donor Yes 12/02/13 [...] Reaction Status Last Updated Sulfa (Sulfonamide Antibiotics) ([id number]) Allergy Unknown Active iodine (C171152125) Allergy Unknown Active 12/02/13 hydrocodone ([id number]) Allergy Unknown Active 12/02/13 propoxyphene ([id number]) Allergy Unknown Active 12/02/13 Meperidine Allergy Unknown Active 12/02/13 Immunizations Name Given Type Date of Pneumonia Vaccine 02/03/10 Historical Vital Signs No known vital signs results. Results No known relevant diagnostic tests, laboratory data and/or discharge summary. Procedures No known history of procedures. Encounters Encounter Location Date/Time Registered Clinic [facility] 10/18/14 9:05pm
[~2016-07-26 09:45] MED LIST changes: +CHOL100045 PO; +CHOL10007 PO; +CITA10TA7 PO; +CYAN10006 PO; +DILT240C PO; +DILT240C86 PO; +ESTR0.5T PO; +LACT1CAP72 PO; +LEVO250T46 PO; +LEVO50TA6 PO; +METR500T PO
== END 2016-07-26 10:38 | disposition home or self-care (01) ==
PROVIDERS: ATTEND Neurological Surgery
DX: M54.40 Lumbago with sciatica, unspecified side (principal)

== ENCOUNTER 2017-09-02 11:33 | Outpatient (RCR) | payer MEDICARE, OTHER | END 2017-09-04 | disposition home or self-care (01) | LOC: CR3 11:33 | PROVIDERS: ATTEND Neurological Surgery | DX: Z29.8 Encounter for other specified prophylactic measures (principal) ==

== ENCOUNTER 2017-10-04 10:07 | Outpatient (RCR) | payer MEDICARE, OTHER | END 2017-10-06 | disposition home or self-care (01) | LOC: CR3 10:07 | PROVIDERS: ATTEND Neurological Surgery | DX: Z29.8 Encounter for other specified prophylactic measures (principal) ==

== ENCOUNTER 2017-11-04 10:47 | Outpatient (RCR) | payer MEDICARE, OTHER | END 2017-11-06 | disposition home or self-care (01) | LOC: CR3 10:47 | PROVIDERS: ATTEND Neurological Surgery | DX: Z29.8 Encounter for other specified prophylactic measures (principal) ==

== ENCOUNTER → 2017-11-28 | Outpatient (CLI) | payer MEDICARE, OTHER ==
--- NOTE | 2017-11-28 10:40 | Diagnostic Imaging Report ---
PROCEDURE: US left lower extremity venous. TECHNIQUE: Multiple real-time grayscale images were obtained over the left lower extremity in various projections. Additional duplex Doppler and color Doppler images were also obtained. INDICATION: Left leg pain. FINDINGS: The left common femoral, superficial femoral, popliteal veins and tibial veins demonstrate normal response to compression, augmentation, and Valsalva. There is a Alvarez's cyst measuring 3.4 x 1.2 x 2.1 cm. IMPRESSION: No evidence of deep venous thrombosis in the left lower extremity. Alvarez's cyst. Dictated by: Dictated on workstation # [id number]
== END ==
LOC: RAD 10:02
PROVIDERS: ATTEND Nurse Practitioner Family
DX: M79.89 Other specified soft tissue disorders (principal); M79.605 Pain in left leg

== ENCOUNTER 2017-12-04 10:26 | Outpatient (RCR) | payer MEDICARE, OTHER | END 2017-12-08 | disposition home or self-care (01) | LOC: CR3 10:26 | PROVIDERS: ATTEND Neurological Surgery | DX: Z29.8 Encounter for other specified prophylactic measures (principal) ==

== ENCOUNTER → 2018-01-08 | Outpatient (RCR) | payer MEDICARE, OTHER | END | disposition home or self-care (01) | LOC: CR3 12-09 13:28 | PROVIDERS: ATTEND Neurological Surgery | DX: Z29.8 Encounter for other specified prophylactic measures (principal) ==

== ENCOUNTER → 2018-02-12 | Outpatient (RCR) | payer MEDICARE, OTHER | END | disposition home or self-care (01) | LOC: CR3 01-13 10:00 | PROVIDERS: ATTEND Neurological Surgery | DX: Z29.8 Encounter for other specified prophylactic measures (principal) | CPT/HCPCS: 93798 ==

== ENCOUNTER 2018-03-14 10:29 | Outpatient (RCR) | payer MEDICARE, OTHER | END 2018-03-16 | disposition home or self-care (01) | LOC: CR3 10:29 | PROVIDERS: ATTEND Neurological Surgery | DX: Z29.8 Encounter for other specified prophylactic measures (principal) ==

== ENCOUNTER 2018-04-18 11:09 | Outpatient (RCR) | payer MEDICARE, OTHER | END 2018-04-18 12:23 | disposition home or self-care (01) | PROVIDERS: ATTEND Family Medicine | DX: M51.16 Intervertebral disc disorders with radiculopathy, lumbar region (principal) ==

== ENCOUNTER → 2018-04-18 | Outpatient (RCR) | payer MEDICARE, OTHER | END | disposition home or self-care (01) | LOC: CR3 03-19 10:20 | PROVIDERS: ATTEND Family Medicine | DX: Z29.8 Encounter for other specified prophylactic measures (principal) ==

== ENCOUNTER → 2018-05-21 | Outpatient (RCR) | payer MEDICARE, OTHER | END | disposition home or self-care (01) | LOC: CR3 04-21 10:00 | PROVIDERS: ATTEND Family Medicine | DX: Z29.8 Encounter for other specified prophylactic measures (principal) ==

== ENCOUNTER 2018-06-18 10:25 | Outpatient (RCR) | payer MEDICARE, OTHER | END 2018-06-22 | disposition home or self-care (01) | LOC: CR3 10:25 | PROVIDERS: ATTEND Family Medicine | DX: Z29.8 Encounter for other specified prophylactic measures (principal) ==

== ENCOUNTER 2018-07-23 10:21 | Outpatient (RCR) | payer MEDICARE, OTHER | END 2018-07-24 | disposition home or self-care (01) | LOC: CR3 10:21 | PROVIDERS: ATTEND Family Medicine | DX: Z29.8 Encounter for other specified prophylactic measures (principal) ==

== ENCOUNTER 2018-08-20 10:11 | Outpatient (RCR) | payer MEDICARE, OTHER | END 2018-08-24 | disposition home or self-care (01) | LOC: CR3 10:11 | PROVIDERS: ATTEND Family Medicine | DX: Z29.8 Encounter for other specified prophylactic measures (principal) ==

== ENCOUNTER → 2018-09-24 | Outpatient (RCR) | payer MEDICARE, OTHER | END | disposition home or self-care (01) | LOC: CR3 08-25 10:00 | PROVIDERS: ATTEND Family Medicine | DX: Z29.8 Encounter for other specified prophylactic measures (principal) ==

== ENCOUNTER → 2018-11-28 | Outpatient (RCR) | payer MEDICARE, OTHER | END | disposition home or self-care (01) | LOC: CR3 10-29 15:23 | PROVIDERS: ATTEND Family Medicine | DX: Z29.8 Encounter for other specified prophylactic measures (principal) ==

== ENCOUNTER → 2018-12-31 | Outpatient (RCR) | payer MEDICARE, OTHER ==
[~2018-12-31] MED LIST changes: +CYAN-41 PO; -CYAN10006 PO
== END | disposition home or self-care (01) ==
LOC: CR3 12-01 10:00
PROVIDERS: ATTEND Family Medicine
DX: Z29.8 Encounter for other specified prophylactic measures (principal)

== ENCOUNTER 2019-01-30 13:34 | Outpatient (RCR) | payer MEDICARE, OTHER | END 2019-02-01 | disposition home or self-care (01) | LOC: CR3 13:34 | PROVIDERS: ATTEND Family Medicine | DX: Z29.8 Encounter for other specified prophylactic measures (principal) ==

== ENCOUNTER → 2019-03-04 | Outpatient (RCR) | payer MEDICARE, OTHER | END | disposition home or self-care (01) | LOC: CR3 02-02 11:00 | PROVIDERS: ATTEND Family Medicine | DX: Z29.8 Encounter for other specified prophylactic measures (principal) ==

== ENCOUNTER 2019-03-31 06:00 | Outpatient (RCR) | payer MEDICARE, OTHER | END 2019-04-05 | disposition home or self-care (01) | LOC: CR3 06:00 | PROVIDERS: ATTEND Family Medicine | DX: Z29.8 Encounter for other specified prophylactic measures (principal) ==

== ENCOUNTER 2019-05-04 13:27 | Outpatient (RCR) | payer MEDICARE, OTHER | END 2019-05-06 | disposition home or self-care (01) | LOC: CR3 13:27 | PROVIDERS: ATTEND Family Medicine | DX: Z29.8 Encounter for other specified prophylactic measures (principal) ==

== ENCOUNTER 2019-06-04 06:00 | Outpatient (RCR) | payer MEDICARE, OTHER ==
[~2019-06-04 06:00] MED LIST changes: -DILT240C PO; +DILT240C91 PO
== END 2019-06-07 | disposition home or self-care (01) ==
LOC: CR3 06:00
PROVIDERS: ATTEND Family Medicine
DX: Z29.8 Encounter for other specified prophylactic measures (principal)

== ENCOUNTER 2019-06-15 11:02 | Outpatient (RCR) | payer MEDICARE, OTHER ==
[2019-06-17] MEDS ORDERED: CHOL10002 PO (08:46)
[2019-06-17] MEDS ORDERED: OLME40TA12 PO (08:46)
[2019-06-17] MEDS ORDERED: HYDR12.5 PO (08:46)
[2019-06-17] MEDS ORDERED: ALLO100T PO (08:46)
[2019-06-17] MEDS ORDERED: LEVO50TA6 PO (08:46)
[2019-06-17] MEDS ORDERED: ACET-2267 PO (09:50)
[2019-06-20] MEDS ORDERED: PANT40TA3 PO (10:59)
[2019-06-20] MEDS ORDERED: AMLO5TAB9 PO (10:59)
[2019-06-20] MEDS ORDERED: DOXY100T2 PO (10:59)
[2019-06-20] MEDS ORDERED: MTP100TCR PO (10:59)
[2019-06-20] MEDS ORDERED: ONDA-105 PO (11:01)
== END 2019-07-08 | disposition home or self-care (01) ==
LOC: CR3 11:02
PROVIDERS: ATTEND Family Medicine
DX: Z29.8 Encounter for other specified prophylactic measures (principal)

== ENCOUNTER 2019-06-16 16:44 | Inpatient (IN) | payer MEDICARE, OTHER ==
[2019-06-16] VITALS (8 sets, daily range): BP systolic 167–216; BP diastolic 55–67
[~2019-06-16] VITALS: Ht 150 cm; Wt 64.1 kg
[2019-06-16 16:58] LABS: BASOPHILS # (AUTO) 0.1 10^3/uL (0.0-0.1); BASOPHILS % (AUTO) 1 % (0-10); EOSINOPHILS # (AUTO) 0.1 10^3/uL (0.0-0.3); EOSINOPHILS % (AUTO) 2 % (0-10); HEMATOCRIT 42 % (35-52); HEMOGLOBIN 13.1 G/DL (11.5-16.0); LYMPHOCYTES % (AUTO) 33 % (12-44); MEAN CORPUSCULAR HEMOGLOBIN 28 PG (25-34); MEAN CORPUSCULAR HGB CONC 31 G/DL (32-36); MEAN CORPUSCULAR VOLUME 90 FL (80-99); MEAN PLATELET VOLUME 10.3 FL (7.4-10.4); MONOCYTES # (AUTO) 0.8 X 10^3 (0.0-1.0); MONOCYTES % (AUTO) 13 % (0-12); NEUTROPHILS # (AUTO) 3.1 X 10^3 (1.8-7.8); NEUTROPHILS % (AUTO) 52 % (42-75); PLATELET COUNT 272 10^3/uL (130-400)
[2019-06-16] MEDS ORDERED: ASPIRIN 81 MG CHEW (CHILDREN'S ASA) PO ONE (17:00)
--- NOTE | 2019-06-16 17:05 | ED Cardiac General ---
History of Present Illness General Chief Complaint: Cardiac/General Problems Stated Complaint: RAPID HEART RATE Source: patient Exam Limitations: no limitations History of Present Illness Date Seen by Provider: Jun 16, 2019 Time Seen by Provider: 17:02 Initial Comments To ER with reports of high blood pressure. Initially reported as high heart rate, seems to have been a misunderstanding however, because heart rate is 47 sinus bradycardia. She states that she is scheduled for pacemaker placement in the upcoming few weeks. She denies any lightheadedness, does report a slight "dull headache". States her blood pressure has been high 200s over 100s. She denies chest pain or shortness of breath. Timing/Duration: changing over time Severity: moderate Activities at Onset: none NTG SL ELECTRON TUBE ASSEMBLER: No ASA po ELECTRON TUBE ASSEMBLER: No Associated Systoms: Denies Symptoms Allergies and Home Medications Allergies Coded Allergies: Sulfa (Sulfonamide Antibiotics) (Verified Allergy, Unknown, 12/02/13) hydrocodone (Verified Allergy, Unknown, 12/02/13) iodine (Verified Allergy, Unknown, 12/02/13) meperidine (Verified Allergy, Unknown, 12/02/13) propoxyphene (Verified Allergy, Unknown, 12/02/13) Home Medications Allopurinol 100 Mg Tab, 100 MG PO HS, (Reported) Cholecalciferol (Vitamin D3) 1,000 Unit Capsule, 1,000 UNIT PO HS, (Reported) Citalopram Hydrobromide 10 Mg Tablet, 5 MG PO HS Prescribed by: SIDRA RODGERS on 05/10/16856 Cyanocobalamin (Vitamin B-12) 1,000 Mcg Tablet, 1,000 MCG PO HS, (Reported) Diltiazem HCl 240 Mg Cap.er.24h, 240 MG PO HS, (Reported) Lactobacillus Combo No.10 1 Each Capsule, 1 CAP PO HS, (Reported) Levofloxacin 250 Mg Tablet, 250 MG PO DAILY Prescribed by: SIDRA RODGERS on 05/10/16856 Levothyroxine Sodium 50 Mcg Tablet, 50 MCG PO SuMoWeFr, (Reported) ONE PILL FOUR TIMES A WEEK AND 1/2 PILL THREE TIMES A WEEK Levothyroxine Sodium 50 Mcg Tablet, 25 MCG PO TuThSa, (Reported) TAKES 1/2 (50MCG) TABLET Metronidazole 500 Mg Tablet, 500 MG PO TID Prescribed by: SIDRA RODGERS on 05/10/16 0857 Olmesartan Medoxomil 40 Mg Tablet, 40 MG PO HS, (Reported) Patient Home Medication List Home Medication List Reviewed: Yes Review of Systems Review of Systems Constitutional: see HPI EENTM: No Symptoms Reported Respiratory: No Symptoms Reported; Denies Cough, Denies Orthopnea, Denies Shortness of Air, Denies SOA With Exertion, Denies SOA at Rest Cardiovascular: No Symptoms Reported; Denies Chest Pain, Denies Edema, Denies Irregular Heart Rate Gastrointestinal: See HPI; Denies Abdominal Pain, Denies Nausea Genitourinary: No Symptoms Reported Musculoskeletal: no symptoms reported Skin: no symptoms reported Psychiatric/Neurological: See HPI, Headache Endocrine: No Symptoms Reported Hematologic/Lymphatic: No Symptoms Reported Past Cdpjrme-Gxshvn-Bcabux Hx Patient Social History Recent Foreign Travel: No Contact w/Someone Who Travel: No Recent Hopitalizations: No Immunizations Up To Date Tetanus Booster (TDap): More than 5yrs PED Vaccines UTD: No Date of Pneumonia Vaccine: Feb 03, 2010 Date of Influenza Vaccine: Feb 04, 2016 Seasonal Allergies Seasonal Allergies: No Past Medical History Section, Hysterectomy, Joint Replacement, Oophorectomy, Orthopedic Currently Using CPAP: No Currently Using BIPAP: No Hypertension 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 Disorders: No [employer] History: Hysterectomy, Menopausal Diverticulosis Arthritis, Scoliosis, Gout Hypothyroidsim Hearing Impairment: Hard of Hearing Family Medical History Cardiovascular disease 19 FATHER Completed stroke G8 BROTHER Myocardial infarction G8 BROTHER G8 BROTHER G8 BROTHER Physical Exam Vital Signs Vital Signs - First Documented 06/16/19 16:45 Pulse 47 Resp 18 B/P (MAP) 202/67 (112) Pulse Ox 98 O2 Delivery Room Air Capillary Refill : Height, Weight, BMI Height: 5'0.00" Weight: 143lbs. 0.0oz. 64.820809nj; 27.9 BMI Method:Stated General Appearance: No Apparent Distress, WD/WN, Other (alert and oriented no distress, well put together very pleasant. Ambulatory from the waiting room to room 3 without abnormal gait or evidence of difficulty with walking.) HEENT: PERRL/EOMI, TMs Normal Neck: Full Range of Motion, Normal Inspection Respiratory: No Accessory Muscle Use, No Respiratory Distress Cardiovascular: Normal Peripheral Pulses, Bradycardia Gastrointestinal: Normal Bowel Sounds, Non Tender, Soft Neurologic/Psychiatric: Alert, Oriented x3 Skin: Normal Color, Warm/Dry Progress/Results/Core Measures Results/Orders Lab Results Laboratory Tests Test 06/16/19 16:50 Range/Units White Blood Count 6.0 4.3-11.0 10^3/uL Red Blood Count 4.69 4.35-5.85 10^6/uL Hemoglobin 13.1 11.5-16.0 G/DL Hematocrit 42 35-52 % Mean Corpuscular Volume 90 80-99 FL Mean Corpuscular Hemoglobin 28 25-34 PG Mean Corpuscular Hemoglobin Concent 31 L 32-36 G/DL Red Cell Distribution Width 14.0 10.0-14.5 % Platelet Count 272 130-400 10^3/uL Mean Platelet Volume 10.3 7.4-10.4 FL Neutrophils (%) (Auto) 52 42-75 % Lymphocytes (%) (Auto) 33 12-44 % Monocytes (%) (Auto) 13 H 0-12 % Eosinophils (%) (Auto) 2 0-10 % Basophils (%) (Auto) 1 0-10 % Neutrophils # (Auto) 3.1 1.8-7.8 X 10^3 Lymphocytes # (Auto) 2.0 1.0-4.0 X 10^3 Monocytes # (Auto) 0.8 0.0-1.0 X 10^3 Eosinophils # (Auto) 0.1 0.0-0.3 10^3/uL Basophils # (Auto) 0.1 0.0-0.1 10^3/uL Prothrombin Time 12.7 12.2-14.7 SEC INR Comment 0.9 0.8-1.4 Activated Partial Thromboplast Time 30 24-35 SEC Sodium Level 139 135-145 MMOL/L Potassium Level 3.9 3.6-5.0 MMOL/L Chloride Level 106 98-107 MMOL/L Carbon Dioxide Level 23 21-32 MMOL/L Anion Gap 10 5-14 MMOL/L Blood Urea Nitrogen 35 H 7-18 MG/DL Creatinine 1.31 H 0.60-1.30 MG/DL Estimat Glomerular Filtration Rate 38 BUN/Creatinine Ratio 27 Glucose Level 96 70-105 MG/DL Calcium Level 9.2 8.5-10.1 MG/DL Corrected Calcium 9.3 8.5-10.1 MG/DL Magnesium Level 2.2 1.6-2.4 MG/DL Total Bilirubin 0.4 0.1-1.0 MG/DL Aspartate Amino Transf (AST/SGOT) 19 5-34 U/L Alanine Aminotransferase (ALT/SGPT) 18 0-55 U/L Alkaline Phosphatase 78 40-136 U/L Myoglobin 77.7 10.0-92.0 NG/ML Troponin I < 0.028 <0.028 NG/ML B-Type Natriuretic Peptide 229.4 H <100.0 PG/ML Total Protein 6.9 6.4-8.2 GM/DL Albumin 3.9 3.2-4.5 GM/DL My Orders Orders - CALEB DE LOS SANTOS APRN Cbc With Automated Diff (06/16/19 16:51) Magnesium (06/16/19 16:51) Chest 1 View, Ap/Pa Only (06/16/19 16:51) Ekg Tracing (06/16/19 16:51) Comprehensive Metabolic Panel (06/16/19 16:51) Myoglobin Serum (06/16/19 16:51) Protime With Inr (06/16/19 16:51) Partial Thromboplastin Time (06/16/19 16:51) O2 (06/16/19 16:51) Monitor-Rhythm Ecg Trace Only (06/16/19 16:51) Lipid Panel (06/17/19 06:00) Ed Iv/Invasive Line Start (06/16/19 16:51) BNP (06/16/19 16:51) Troponin I (06/16/19 16:51) Aspirin Chewable Tablet (Baby Aspirin Ch (06/16/19 17:00) Hydralazine Tablet (Apresoline Tablet) (06/16/19 17:15) Ekg Tracing (06/16/19 17:22) Medications Given in ED Current Medications Medications Dose Ordered Sig/Khadijah Route Start Time Stop Time Status Last Admin Dose Admin Aspirin 324 mg ONCE ONCE PO 06/16/19 17:00 06/16/19 17:01 DC 06/16/19 17:28 324 MG Vital Signs/I&O 06/16/19 16:45 Pulse 47 Resp 18 B/P (MAP) 202/67 (112) Pulse Ox 98 O2 Delivery Room Air Departure Communication (Admissions) Time/Spoke to Admitting Phy: 17:[address] Rodgers, will admit, consult Dr. Ernandez. I spoke with Dr. Ernandez, recommends Norvasc 5 mg by mouth now, nothing by mouth after clear liquid breakfast tomorrow morning. I also discussed CODE STATUS with the patient. She states that if her heart stops suddenly or she requires ventilator she wants to be a DO NOT RESUSCITATE status. Impression Primary Impression: Bradycardia Disposition: 01 HOME, SELF-CARE Condition: Stable Admissions Decision to Admit Reason: Admit from ER (General) Decision to Admit/Date: Jun 16, 2019 Time/Decision to Admit Time: 17:50 Departure-Patient Inst. Referrals: SIDRA RODGERS DO (PCP/Family) Primary Care Physician CALEB DE LOS SANTOS APRN Jun 16, 2019 17:05
[2019-06-16 17:13] LABS: INR 0.9 (0.8-1.4); PROTHROMBIN TIME PATIENT 12.7 SEC (12.2-14.7)
[2019-06-16] MEDS ORDERED: hydrALAZINE (APRESOLINE) 25 MG TAB PO ONE (17:15)
[2019-06-16 17:24] LABS: ALBUMIN 3.9 GM/DL (3.2-4.5); BILIRUBIN,TOTAL 0.4 MG/DL (0.1-1.0); CALCIUM 9.2 MG/DL (8.5-10.1); CREATININE SERUM 1.31 MG/DL (0.60-1.30); MAGNESIUM 2.2 MG/DL (1.6-2.4); POTASSIUM 3.9 MMOL/L (3.6-5.0); TOTAL PROTEIN 6.9 GM/DL (6.4-8.2)
--- NOTE | 2019-06-16 17:46 | Diagnostic Imaging Report ---
INDICATION: Rapid heart rate. Headache. High blood pressure. EXAMINATION: Chest 06/16/2019. Comparison made to 05/06/2016. FINDINGS: There is cardiomegaly. Pulmonary vasculature is minimally prominent. There may be a mild infiltrate or atelectasis developing at the left lung base. There is a likely large hiatal hernia. Remaining lungs are clear. No effusions. No pneumothorax. Postoperative change in the left shoulder is unremarkable. IMPRESSION: 1. Possible infiltrate or atelectasis in the left lung base. 2. Cardiomegaly with mild pulmonary vascular congestion suspected. Other findings as above. Dictated by: Dictated on workstation # [id number]
[2019-06-16] MEDS ORDERED: amLODIPine 5 MG (NORVASC) TAB PO ONE (18:00)
--- NOTE | 2019-06-16 18:15 | NUR ---
Dr. Ernandez in room visiting with pt et family at this time.
--- NOTE | 2019-06-16 18:23 | NUR ---
Manual blood pressure taken by this RN @ this time with reading of 200/90.
[2019-06-16 18:25] LABS: FREE T4 (FREE THYROXINE) 1.23 NG/DL (0.70-1.48)
--- NOTE | 2019-06-16 18:28 | Consultation-Cardiology ---
HPI-Cardiology Cardiology Consultation: Date of Consultation 06/16/19 Time Seen by a Provider: 18:00 Date of Admission Attending Physician Tamie Owen DO Admitting Physician Tamie Owen DO Consulting Physician ADELINA PUGA MD, MA, FACP, FACC, FSCAI, CCDS HPI: Chief Complaint: CC: slow heart beat, hypertension HPI 89 yo woman who regularly follows with Dr Giordano at [place]. She states Dr Giordano office called her today and told her that she would need to be scheduled for a pacemaker in 2 weeks from now. That caused her concern. She was anxious, took her bp, was high, came to our ER. Denies cp or palp or syncope or leg swelling or shortness of breath. Has mild gen malaise Review of Systems-Cardiology Review of Systems Constitutional: malaise, tiredness; No weight loss, No weight gain Eyes: No vision change Ears/Nose/Throat: No ear discharge, No nasal drainage, No recent hearing loss Respiratory: As described under HPI, other (poor stamina, able to do much less lately than had been able to several months ago) Cardiovascular: As described under HPI Gastrointestinal: As described under HPI Genitourinary: No dysuria, No hematuria, No urine frequency changes, No urine coloration changes Musculoskeletal: back pain (chronic) Skin: No rash on exposed areas, No ulcerations on exposed areas Psychiatric/Neurological: No seizure, No focal weakness, No syncope Hematologic: No bleeding abnormalities WIY-Rzdfdx-Dnwnpy Hx Patient Social History Alcohol Use: Denies Use Recreational Drug Use: No Smoking Status: Never a Smoker Recent Foreign Travel: No Recent Infectious Disease Expo: No Hospitalization with Isolation: Denies Immunizations Up To Date Tetanus Booster (TDap): More than 5yrs Date of Pneumonia Vaccine: Feb 03, 2010 Date of Influenza Vaccine: Feb 04, 2016 Past Medical History PMH As described under Assessment. Family Medical History Family History: Cardiovascular disease 19 FATHER Completed stroke G8 BROTHER Myocardial infarction G8 BROTHER G8 BROTHER G8 BROTHER Allergies and Home Medications Allergies Coded Allergies: Sulfa (Sulfonamide Antibiotics) (Verified Allergy, Unknown, 12/02/13) hydrocodone (Verified Allergy, Unknown, 12/02/13) iodine (Verified Allergy, Unknown, 12/02/13) meperidine (Verified Allergy, Unknown, 12/02/13) propoxyphene (Verified Allergy, Unknown, 12/02/13) Home Medications Allopurinol 100 Mg Tab, 100 MG PO HS, (Reported) Cholecalciferol (Vitamin D3) 1,000 Unit Capsule, 1,000 UNIT PO HS, (Reported) Citalopram Hydrobromide 10 Mg Tablet, 5 MG PO HS Prescribed by: TAMIE OWEN on 05/10/16856 Cyanocobalamin (Vitamin B-12) 1,000 Mcg Tablet, 1,000 MCG PO HS, (Reported) Diltiazem HCl 240 Mg Cap.er.24h, 240 MG PO HS, (Reported) Lactobacillus Combo No.10 1 Each Capsule, 1 CAP PO HS, (Reported) Levofloxacin 250 Mg Tablet, 250 MG PO DAILY Prescribed by: TAMIE OWEN on 05/10/16856 Levothyroxine Sodium 50 Mcg Tablet, 50 MCG PO SuMoWeFr, (Reported) ONE PILL FOUR TIMES A WEEK AND 1/2 PILL THREE TIMES A WEEK Levothyroxine Sodium 50 Mcg Tablet, 25 MCG PO TuThSa, (Reported) TAKES 1/2 (50MCG) TABLET Metronidazole 500 Mg Tablet, 500 MG PO TID Prescribed by: TAMIE OWEN on 05/10/16856 Olmesartan Medoxomil 40 Mg Tablet, 40 MG PO HS, (Reported) Patient Home Medication List Home Medication List Reviewed: Yes Physical Exam-Cardiology Physical Exam Vital Signs/I&O 06/16/19 16:45 Pulse 47 Resp 18 B/P (MAP) 202/67 (112) Pulse Ox 98 O2 Delivery Room Air Capillary Refill : Less Than 3 Seconds Constitutional: AAO x 3, well-developed, well-nourished HEENT: EOMI, hearing is well preserved; No xanthelasmas are seen Neck: carotid pulses are 2 + bilaterally, with good upstrokes Respiratory: No accessory muscle use; lungs clear to percussion, lungs clear to auscultation Cardiovascular: regular rate-rhythm, bradycardia, S1 and S2, systolic murmur (soft ENRIQUE at card base) Gastrointestinal: No tender; soft; No guarding, No rebound; audible bowel sounds Extremities: No clubbing, No cyanosis, No significant edema Neurologic/Psychiatric: oriented x 3, other (moves all limbs equally) Skin: No rash on exposed areas, No ulcerations on exposed areas Data Review Labs Laboratory Tests 06/16/19 16:50: White Blood Count 6.0, Red Blood Count 4.69, Hemoglobin 13.1, Hematocrit 42, Mean Corpuscular Volume 90, Mean Corpuscular Hemoglobin 28, Mean Corpuscular Hemoglobin Concent 31L, Red Cell Distribution Width 14.0, Platelet Count 272, Mean Platelet Volume 10.3, Neutrophils (%) (Auto) 52, Lymphocytes (%) (Auto) 33, Monocytes (%) (Auto) 13H, Eosinophils (%) (Auto) 2, Basophils (%) (Auto) 1, Neutrophils # (Auto) 3.1, Lymphocytes # (Auto) 2.0, Monocytes # (Auto) 0.8, E osinophils # (Auto) 0.1, Basophils # (Auto) 0.1, Prothrombin Time 12.7, INR Comment 0.9, Activated Partial Thromboplast Time 30, Sodium Level 139, Potassium Level 3.9, Chloride Level 106, Carbon Dioxide Level 23, Anion Gap 10, Blood Urea Nitrogen 35H, Creatinine 1.31H, Estimat Glomerular Filtration Rate 38, BUN/Creatinine Ratio 27, Glucose Level 96, Calcium Level 9.2, Corrected Calcium 9.3, Magnesium Level 2.2, Total Bilirubin 0.4, Aspartate Amino Transf (AST/SGOT) 19, Alanine Aminotransferase (ALT/SGPT) 18, Alkaline Phosphatase 78, Myoglobin 77.7, Troponin I < 0.028, B-Type Natriuretic Peptide 229.4H, Total Protein 6.9, Albumin 3.9 Laboratory Tests 06/16/19 16:50 A/P-Cardiology Assessment/Admission Diagnosis 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 She notes symptoms of poor stamina. No syncope Hypertension Renal insuff, moderate, age undetermined Discussion and Recomendations * Given intermittent, advanced AV block in the absence of any rate-lowering agents and in the presence of poor stamina, it appears reasonable to consider pacemaker. (The list of meds noted above is from automatically added from her last visit her in 2017. It lists diltiazem, but pt is not on it. She has informed us that she is on Benicar, HCTZ and levothyroxine * We discussed the rationale, procedure, risks, and benefits of permanent pacemaker. She is considering * Echo in am to eval for structural heart disease * Her regular group leader is in [place]. We gave her the option of transfer to [place]. She wishes to stay here Clinical Quality Measures AMI/AHF: ASA po Prior to arrival: ADELINA Anthony MD FACP FAC CCDS Jun 16, 2019 18:28
[2019-06-16] MEDS ORDERED: hydrALAZINE (APESOLINE) 20 MG/ML VIAL IV ONE (19:00)
[2019-06-16] MEDS ORDERED: hydrALAZINE (APESOLINE) 20 MG/ML VIAL IV PRN (19:30)
[2019-06-16] MEDS ORDERED: LACTATED RINGERS 1,000 ML IV ONE (19:50)
[2019-06-16] MEDS ORDERED: CATHETER FLUSH 10 ML SYR IV PRN (20:00)
[2019-06-16] MEDS: LACTATED RINGERS 1,000 ML IV SCH (21:19)
[2019-06-17] VITALS (21 sets, daily range): BP systolic 115–200; BP diastolic 36–80
[2019-06-17 03:37] LABS: BASOPHILS % (AUTO) 0 % (0-10); EOSINOPHILS # (AUTO) 0.1 10^3/uL (0.0-0.3); EOSINOPHILS % (AUTO) 2 % (0-10); HEMATOCRIT 37 % (35-52); HEMOGLOBIN 11.5 G/DL (11.5-16.0); LYMPHOCYTES # (AUTO) 1.3 X 10^3 (1.0-4.0); LYMPHOCYTES % (AUTO) 25 % (12-44); MEAN CORPUSCULAR HEMOGLOBIN 28 PG (25-34); MEAN CORPUSCULAR HGB CONC 31 G/DL (32-36); MEAN CORPUSCULAR VOLUME 90 FL (80-99); MONOCYTES # (AUTO) 0.7 X 10^3 (0.0-1.0); MONOCYTES % (AUTO) 13 % (0-12); NEUTROPHILS # (AUTO) 3.1 X 10^3 (1.8-7.8); NEUTROPHILS % (AUTO) 60 % (42-75); PLATELET COUNT 225 10^3/uL (130-400); RED CELL DISTRIBUTION WIDTH 13.8 % (10.0-14.5); WHITE BLOOD COUNT 5.2 10^3/uL (4.3-11.0)
[2019-06-17 04:03] LABS: CALCIUM 9.6 MG/DL (8.5-10.1); MAGNESIUM 2.3 MG/DL (1.6-2.4); PHOSPHORUS 4.3 MG/DL (2.3-4.7); POTASSIUM 3.8 MMOL/L (3.6-5.0)
[2019-06-17] MEDS: LACTATED RINGERS 1,000 ML IV SCH ×3 (06:00→21:27)
[2019-06-17] MEDS ORDERED: NS IV 1000 ML 1,000 ML IV ONE (08:00)
[2019-06-17] MEDS ORDERED: BACITRACIN INJECTION 50,000 UNIT, SODIUM CHLORIDE 0.9% IRRIGATIO 500 ML IR ONE ×2 (08:00)
[2019-06-17] MEDS ORDERED: VANCOMYCIN INJECTION 1,000 MG in NS (IVPB) 250 ML IV ONE (08:00)
[2019-06-17] MEDS ORDERED: LIDOCAINE 1% INJ 20 ML 20 ML VIAL ONE (08:01)
[2019-06-17] MEDS ORDERED: HEParin (CATH LAB) 1,000 ML IV ONE (08:01)
--- NOTE | 2019-06-17 08:32 | Diagnostic Imaging Report ---
INDICATION: Bradycardia. Comparison is made with prior examination from 06/16/2019. FINDINGS: There is cardiomegaly. There is some venous congestion. There is patchy right base infiltrate. There is no pleural effusion or pneumothorax. Mediastinum is unremarkable. IMPRESSION: Patchy right base infiltrate. Cardiomegaly and some central pulmonary venous congestion. Dictated by: Dictated on workstation # [id number]
[2019-06-17] MEDS ORDERED: OLME40TA12 PO (08:46)
[2019-06-17] MEDS ORDERED: HYDR12.5 PO (08:46)
[2019-06-17] MEDS ORDERED: LEVO50TA6 PO (08:46)
[2019-06-17] MEDS ORDERED: ALLO100T PO (08:46)
[2019-06-17] MEDS ORDERED: CHOL10003 PO (08:46)
--- NOTE | 2019-06-17 09:09 | Progress Note - Cardiology ---
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 [place] showed a slow heart beat and pacemaker was recommended and she was due to see the implanting physician at the end of this ness, but she came to our hosp because she had been feeling quite unwell and did not wish to wait laura long Objective: I&O/Vital Signs 06/16/19 06/16/19 06/16/19 06/17/19 21:14 22:00 23:00 00:00 Temp 36.5 Pulse 42 42 43 Resp 17 B/P (MAP) 173/58 (96) 167/55 (92) Pulse Ox 95 94 O2 Delivery Room Air Room Air 06/17/19 06/17/19 06/17/19 06/17/19 00:00 00:00 01:00 01:18 Pulse 43 43 43 Resp 21 9 B/P (MAP) 156/51 (86) 134/36 (68) Pulse Ox 96 93 95 O2 Delivery Room Air Room Air Room Air 06/17/19 06/17/19 06/17/19 06/17/19 02:00 03:00 04:00 04:00 Pulse 41 43 39 Resp 16 24 23 B/P (MAP) 115/36 (62) 150/50 (83) 158/48 (84) Pulse Ox 94 94 94 94 O2 Delivery Room Air Room Air Room Air Room Air 06/17/19 06/17/19 05:00 06:00 Pulse 40 37 Resp 23 15 B/P (MAP) 169/58 (95) 148/54 (85) Pulse Ox 95 94 O2 Delivery Room Air Room Air 06/17/19 00:00 Intake Total 0 ml Output Total 200 ml Balance -200 ml Weight (Pounds): 143 Weight (Ounces): 0.0 Weight (Calculated Kilograms): 64.422243 Constitutional: AAO x 3, well-developed, well-nourished Respiratory: No accessory muscle use; lungs clear to percussion, lungs clear to auscultation Cardiovascular: regular rate-rhythm, bradycardia, S1 and S2, systolic murmur (soft ENRIQUE at card base) Gastrointestional: No tender; soft; No guarding, No rebound; audible bowel so unds Extremities: No clubbing, No cyanosis, No significant edema Neurologic/Psychiatric: oriented x 3, other (moves all limbs equally) Skin: No rash on exposed areas, No ulcerations on exposed areas Results/Procedures: Labs Laboratory Tests 06/16/19 16:50: White Blood Count 6.0, Red Blood Count 4.69, Hemoglobin 13.1, Hematocrit 42, Mean Corpuscular Volume 90, Mean Corpuscular Hemoglobin 28, Mean Corpuscular Hemoglobin Concent 31L, Red Cell Distribution Width 14.0, Platelet Count 272, Mean Platelet Volume 10.3, Neutrophils (%) (Auto) 52, Lymphocytes (%) (Auto) 33, Monocytes (%) (Auto) 13H, Eosinophils (%) (Auto) 2, Basophils (%) (Auto) 1, Neutrophils # (Auto) 3.1, Lymphocytes # (Auto) 2.0, Monocytes # (Auto) 0.8, Eosinophils # (Auto) 0.1, Basophils # (Auto) 0.1, Prothrombin Time 12.7, INR Comment 0.9, Activated Partial Thromboplast Time 30, Sodium Level 139, Potassium Level 3.9, Chloride Level 106, Carbon Dioxide Level 23, Anion Gap 10, Blood Urea Nitrogen 35H, Creatinine 1.31H, Estimat Glomerular Filtration Rate 38, BUN/Creatinine Ratio 27, Glucose Level 96, Calcium Level 9.2, Corrected Calcium 9.3, Magnesium Level 2.2, Total Bilirubin 0.4, Aspartate Amino Transf (AST/SGOT) 19, Alanine Aminotransferase (ALT/SGPT) 18, Alkaline Phosphatase 78, Myoglobin 77.7, Troponin I < 0.028, B-Type Natriuretic Peptide 229.4H, Total Protein 6.9, Albumin 3.9, Thyroid Stimulating Hormone (TSH) 1.01, Free Thyroxine 1.23 06/16/19 21:00: Troponin I < 0.028 06/17/19 02:57: White Blood Count 5.2, Red Blood Count 4.10L, Hemoglobin 11.5, Hematocrit 37, Mean Corpuscular Volume 90, Mean Corpuscular Hemoglobin 28, Mean Corpuscular Hemoglobin Concent 31L, Red Cell Distribution Width 13.8, Platelet Count 225, Mean Platelet Volume 11.0H, Neutrophils (%) (Auto) 60, Lymphocytes (%) (Auto) 25, Monocytes (%) (Auto) 13H, Eosinophils (%) (Auto) 2, Basophils (%) (Auto) 0, Neutrophils # (Auto) 3.1, Lymphocytes # (Auto) 1.3, Monocytes # (Auto) 0.7, Eosinophils # (Auto) 0.1, Basophils # (Auto) 0.0, Sodium Level 141, Potassium Level 3.8, Chloride Level 110H, Carbon Dioxide Level 21, Anion Gap 10, Blood Urea Nitrogen 35H, Creatinine 1.00, Estimat Glomerular Filtration Rate 52, BUN/Creatinine Ratio 35, Glucose Level 107H, Calcium Level 9.6, Magnesium Level 2.3, Phosphorus Level 4.3, Triglycerides Level 86, Cholesterol Level 147, LDL Cholesterol Direct 95, VLDL Cholesterol 17, HDL Cholesterol 51 Laboratory Tests 06/16/19 16:50 06/17/19 02:57 A/P: Assessment: 2:1 AV block, symptomatic. One transient episode of complete / advanced AV block documented on ECG of 06/16/19 at 17:22 Hypertension Renal insuff, moderate, age undetermined Plan: * I had a long and detailed discussion with her and her fam (including her mehrdad hter who works at [facility]) * Given persistent, symptomatic 2:1 AV block in absence of any rate-lowering agents, it appears appropriate to proceed with pacemaker implantation * I explained the rationale, procedure, risks, benefits, and potential complications to her and her family. They understand. 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 I again gave her the option of transfer to [place]. She wishes to stay here Clinical Quality Measures AMI/AHF: ASA po Prior to arrival: ADELINA Anthony MD FACP [facility] CCDS Jun 17, 2019 09:09
[2019-06-17] MEDS ORDERED: ACET-2267 PO (09:50)
--- NOTE | 2019-06-17 09:53 | NUR ---
This nurse called to update him on patients SBP 180's DBP 60's HR in the 30's. Order received to give Norvasc 5mg PO now and daily. 1343 this nurse called updating him on patients elevated blood pressure order received for IV Hydralazine 5mg PRN for SBP >180 1540 this nurse called to clarify hydralazine order, order received to change order to 20mg Hydralazine IV PRN for SBP >180 will continue to monitor.
--- NOTE | 2019-06-17 10:00 | NUR ---
PATIENT HAD A LIST OF HER MEDICATIONS. I COMPARED IT WITH THE EXT MED HX AND WENT OVER EACH MEDICATION VERBALLY WITH HER. SHE VERIFIED SHE TAKES EVERYTHING AT HS EXCEPT HER THYROID MEDICATION. SHE STATES THE DILTIAZEM ER 120MG #30 THAT WAS FILLED 05-15-19 WAS DISCONTINUED ABOUT A MONTH AGO. SHE TAKES THE FOLLOWING OTC: VITAMIN D HS B12 DAILY PROBIOTIC DAILY TYLENOL PRN
--- NOTE | 2019-06-17 10:10 | NUR ---
Initial visit with the pt and her . Offered active listening as pt shared she feels ready to have her procedure and feels she will be "a new person." They describe personal anabella in God and express appreciation for pastoral support.
[2019-06-17] MEDS: amLODIPine 5 MG (NORVASC) TAB PO SCH (10:16)
[2019-06-17] MEDS ORDERED: hydrALAZINE (APESOLINE) 20 MG/ML VIAL IV PRN (13:35)
--- NOTE | 2019-06-17 15:37 | NUR ---
This nurse notified att about patients elevated blood pressure. Order placed by
[2019-06-17] MEDS: hydrALAZINE (APRESOLINE) 25 MG TAB PO PRN (16:05)
--- NOTE | 2019-06-17 16:16 | Cardiac Procedure Note-CS/ASA ---
Pre-Procedure Note Pre-Op Procedure Note H&P Reviewed The H&P was reviewed, patient examined and no changes noted. Date H&P Reviewed: Jun 17, 2019 Time H&P Reviewed: 16:16 Conscious Sedation Pre-Proced Time 16:16 ASA Score 3 For ASA 3 and 4: Consider anesthesia and medical clearance. Also, for patients with a history of failed moderate sedation consider anesthesia. Airway Lungs Heart ASA score ASA 1: a normal healthy patient ASA 2: a patient with a mild systemic disease (mid diabetes, controlled hypertension, obesity ASA 3: a patient with a severe systemic disease that limits activity (angina, COPD, prior Myocardial infarction) ASA 4: a patient with an incapacitating disease that is a constant threat to life (CHF, renal failure) ASA 5: a moribund patient not expected to survive 24 hrs. (ruptured aneurysm) ASA 6: a declared brain- patient whose organs are being harvested. For emergent operations, add the letter E after the classification Mallampati Classification Grade 2 Sedation Plan Analgesia, Amnesia, Plan communicated to team members, Discussed options with patient/fam, Discussed risks with patient/fam The patient is an appropriate candidate to undergo the planned procedure, sedation, and anesthesia. The patient immediately re-assessed prior to indication. ADELINA PUGA MD FACP FAC [facility]S Jun 17, 2019 16:16
--- NOTE | 2019-06-17 16:58 | History & Physical ---
History of Present Illness History of Present Illness Reason for visit/HPI This is an 89 year old female who presented to the emergency room with worsening fatigue and chest discomfort. She has been feeling more fatigued since April of 2019 and has seen her visualizer in [place] and was told she needed a pacemaker. She reports her heart rate has been in the 30s to 40 at the highest recently. She was found to be significantly hypertensive with a BP of 202/67 and she was also found to be in a second degree heart block. There were no beds available at [facility] in [place] where her visualizer is on staff so she agreed to admission and pacemaker placement at [facility]. Date of Admission Jun 16, 2019 at 17:47 Date Seen by a Provider: Jun 17, 2019 Time Seen by a Provider: 12:30 I consulted on this patient on 06/17/19 16:53 Attending Physician Tamie Owen DO Admitting Physician Tamie Owen DO Consult Allergies and Home Medications Allergies Coded Allergies: Sulfa (Sulfonamide Antibiotics) (Verified Allergy, Unknown, 12/02/13) acetaminophen (Verified Allergy, Unknown, 06/16/19) cephalexin (Verified Allergy, Unknown, 06/16/19) ciprofloxacin (Verified Allergy, Unknown, 06/16/19) hydrocodone (Verified Allergy, Unknown, 12/02/13) iodine (Verified Allergy, Unknown, 12/02/13) meperidine (Verified Allergy, Unknown, 12/02/13) metronidazole (Verified Allergy, Unknown, 06/16/19) propoxyphene (Verified Allergy, Unknown, 12/02/13) rosuvastatin (Verified Allergy, Unknown, 06/16/19) simvastatin (Verified Allergy, Unknown, 06/16/19) Home Medications Acetaminophen 500 Mg Tablet, 500-1,000 MG PO Q4H PRN for PAIN-MILD (1-4), (Reported) Allopurinol 100 Mg Tablet, 100 MG PO HS, (Reported) Cholecalciferol (Vitamin D3) 25 Mcg Tablet, 25 MCG PO HS, (Reported) Cyanocobalamin (Vitamin B-12) 1,000 Mcg Tablet, 1,000 MCG PO HS, (Reported) Hydrochlorothiazide 12.5 Mg Capsule, 12.5 MG PO MoWeFr, (Reported) Lactobacillus Combo No.10 1 Each Capsule, 1 CAP PO HS, (Reported) Levothyroxine Sodium 50 Mcg Tablet, 50 MCG PO DAILY, (Reported) Olmesartan Medoxomil 40 Mg Tablet, 40 MG PO HS, (Reported) Patient Home Medication List Home Medication List Reviewed: Yes Past Mgskvuw-Dykdxh-Pjmihn Hx Past Med/Social Hx: Reviewed Nursing Past Med/Soc Hx Patient Social History Alcohol Use: Denies Use Recreational Drug Use: No Smoking Status: Never a Smoker Recent Foreign Travel: No Contact w/other who traveled: No Recent Hopitalizations: No Recent Infectious Disease Expo: No Immunizations Up To Date Tetanus Booster (TDap): More than 5yrs Pediatric: No Date of Pneumonia Vaccine: Feb 03, 2010 Date of Influenza Vaccine: Feb 03, 2019 Seasonal Allergies Seasonal Allergies: No Past Medical History Surgeries: Section, Hysterectomy, Joint Replacement, Oophorectomy, Orthopedic Currently Using CPAP: No Currently Using BIPAP: No Cardiac: Hypertension 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: No Hysterectomy, Menopausal Gastrointestinal: Diverticulosis Musculoskeletal: Arthritis, Scoliosis, Gout Endocrine: Hypothyroidsim Hearing Impairment: Hard of Hearing History of Blood Disorders: No Family History Cardiovascular disease 20 FATHER Completed stroke G8 BROTHER Myocardial infarction G8 BROTHER G8 BROTHER G8 BROTHER Review of Systems Constitutional: weakness EENTM: No see HPI, No no symptoms reported, No ear discharge, No hearing loss, No ear pain, No blurred vision, No double vision, No eye pain, No tearing, No vision loss, No dental problems, No hoarseness, No mouth pain, No mouth swelling, No epistaxis, No nose congestion, No nose pain, No throat pain, No throat swelling, No other Respiratory: No no symptoms reported, No see HPI, No cough, No dyspnea on exertion, No hemoptysis, No orthopnea, No phlegm, No short of breath, No stridor, No wheezing, No other Cardiovascular: chest pain, other (bradycardia) Gastrointestinal: No RUQ, No LUQ, No RLQ, No LLQ, No no symptoms reported, No see HPI, No abdominal pain, No constipation, No diarrhea, No dysphagia, No hematemesis, No heartburn, No jaundice, No loss of appetite, No melena, No nausea, No vomiting, No other Genitourinary: No no symptoms reported, No see HPI, No decreased output, No discharge, No dysuria, No frequency, No hematuria, No hesitancy, No incontinence, No nocturia, No pain, No other Musculoskeletal: muscle weakness Skin: No no symptoms reported, No see HPI, No change in color, No change in hair/nails, No dryness, No hx of skin cancer, No lesions, No lumps, No pruritus, No rash, No other Psychiatric/Neurological: Weakness Physical Exam Vital Signs Vital Signs - First Documented 06/16/19 06/16/19 16:45 19:42 Temp 36.6 Pulse 47 Resp 18 B/P (MAP) 202/67 (112) Pulse Ox 98 O2 Delivery Room Air Capillary Refill : Less Than 3 Seconds Height, Weight, BMI Height: 5'0.00" Weight: 143lbs. 0.0oz. 64.060817my; 25.64 BMI Method:Stated General Appearance: No Apparent Distress HEENT: Normal ENT Inspection Neck: Supple Respiratory: Lungs Clear Cardiovascular: Bradycardia, Systolic Murmur Gastrointestinal: Normal Bowel Sounds, Non Tender, Soft Rectal: Deferred Extremity: Non Tender, No Calf Tenderness, No Pedal Edema Neurologic/Psychiatric: Alert, Oriented x3 Skin: Warm/Dry Comments Laboratory Tests 06/16/19 21:00: Troponin I < 0.028 06/17/19 02:57: White Blood Count 5.2, Red Blood Count 4.10L, Hemoglobin 11.5, Hematocrit 37, Mean Corpuscular Volume 90, Mean Corpuscular Hemoglobin 28, Mean Corpuscular Hemoglobin Concent 31L, Red Cell Distribution Width 13.8, Platelet Count 225, Mean Platelet Volume 11.0H, Neutrophils (%) (Auto) 60, Lymphocytes (%) (Auto) 25, Monocytes (%) (Auto) 13H, Eosinophils (%) (Auto) 2, Basophils (%) (Auto) 0, Neutrophils # (Auto) 3.1, Lymphocytes # (Auto) 1.3, Monocytes # (Auto) 0.7, Eosinophils # (Auto) 0.1, Basophils # (Auto) 0.0, Sodium Level 141, Potassium Level 3.8, Chloride Level 110H, Carbon Dioxide Level 21, Anion Gap 10, Blood U ancelmo Nitrogen 35H, Creatinine 1.00, Estimat Glomerular Filtration Rate 52, BUN/Creatinine Ratio 35, Glucose Level 107H, Calcium Level 9.6, Phosphorus Level 4.3, Magnesium Level 2.3, Triglycerides Level 86, Cholesterol Level 147, LDL Cholesterol Direct 95, VLDL Cholesterol 17, HDL Cholesterol 51 Assessment/Plan Assessment and Plan 1. Symptomatic Bradycardia with Second Degree Heart Block--admit for pacemaker placement by cardiology 2. Hypertensive Urgency--started on amlodopine and given one dose of hydralazine and BP is much improved 3. Acute Renal Insufficiency--hydrate and recheck Cr 4. Hypothyroidism--restart levothyroxine Admission Diagnosis Admission Status: Inpatient Order (span 2 midnights) Reason for Inpatient Admission: Will need ICU admission for monitoring of heart rate/BP and cardiology for pacemaker placement Clinical Quality Measures AMI/AHF: ASA po Prior to arrival: No DVT/VTE Risk/Contraindication: Risk Factor Score Per Nursin RFS Level Per Nursing on Admit: 2=Moderate TAMIE OWEN DO Jun 17, 2019 16:58
--- NOTE | 2019-06-17 16:58 | NUR ---
Patient leaving floor via bed with cardiac nurse att. Patients daughter is at bedside.
[2019-06-17] MEDS ORDERED: NS IV 1000 ML 1,000 ML ONE (17:07)
[2019-06-17] MEDS ORDERED: fentaNYL INJECTION 100 MCG/2 ML AMP ONE ×2 (17:09→18:11)
[2019-06-17] MEDS ORDERED: MIDAZOLAM 5 MG/5 ML (VERSED) VIAL ONE ×2 (17:09→18:11)
[2019-06-17] MEDS ORDERED: diphenhydrAMINE 50 MG/ML INJ (BENADRYL) ONE (17:59)
[2019-06-17] MEDS ORDERED: methylPREDNISolone 125 MG (Solu-MEDROL) VIAL ONE (17:59)
[2019-06-17] MEDS ORDERED: NS IV 1000 ML 1,000 ML IV SCH (19:46)
[2019-06-17] MEDS ORDERED: meTOprolol SUCCINATE 100 MG (TOPROL XL) TAB PO NR (20:00)
[2019-06-17] MEDS ORDERED: PATIENT MAY USE OWN MEDS, ALL PO SCH (20:00)
--- NOTE | 2019-06-17 20:24 | Diagnostic Imaging Report ---
INDICATION: Cardiac dysrhythmia PA and lateral views of the chest are obtained with comparison made to the study of earlier in the day. There has been placement of left anterior chest wall dual-chamber cardiac pacemaker with leads projecting over the right atrium and ventricle. There is no evidence of pneumothorax. There is generalized cardiomegaly with blunting of the left costophrenic sulcus and continued atelectasis and/or pneumonitis in the lung bases. IMPRESSION: No evidence of pneumothorax. There is mild basilar atelectasis and/or pneumonitis with probable mild left pleural fluid. Dictated by: Dictated on workstation # [id number]
[2019-06-17] MEDS ORDERED: fentaNYL INJECTION 100 MCG/2 ML AMP IV PRN (23:15)
[2019-06-18] VITALS (24 sets, daily range): BP systolic 127–166; BP diastolic 60–84
[2019-06-18 03:43] LABS: BASOPHILS % (AUTO) 0 % (0-10); EOSINOPHILS % (AUTO) 0 % (0-10); HEMATOCRIT 38 % (35-52); HEMOGLOBIN 11.9 G/DL (11.5-16.0); LYMPHOCYTES # (AUTO) 0.3 X 10^3 (1.0-4.0); LYMPHOCYTES % (AUTO) 5 % (12-44); MEAN CORPUSCULAR HEMOGLOBIN 28 PG (25-34); MEAN CORPUSCULAR HGB CONC 32 G/DL (32-36); MEAN CORPUSCULAR VOLUME 90 FL (80-99); MEAN PLATELET VOLUME 10.9 FL (7.4-10.4); MONOCYTES % (AUTO) 1 % (0-12); NEUTROPHILS % (AUTO) 94 % (42-75); PLATELET COUNT 225 10^3/uL (130-400); RED CELL DISTRIBUTION WIDTH 13.7 % (10.0-14.5); WHITE BLOOD COUNT 6.4 10^3/uL (4.3-11.0)
[2019-06-18 04:06] LABS: ALANINE AMINOTRANSFERASE 13 U/L (0-55); ALBUMIN 3.3 GM/DL (3.2-4.5); ALKALINE PHOSPHATASE 66 U/L (40-136); BILIRUBIN,TOTAL 0.4 MG/DL (0.1-1.0); BUN/CREATININE RATIO 34; CALCIUM 9.2 MG/DL (8.5-10.1); CARBON DIOXIDE 19 MMOL/L (21-32); CHLORIDE 112 MMOL/L (98-107); CREATININE SERUM 0.88 MG/DL (0.60-1.30); GFR ESTIMATED > 60; GLUCOSE 154 MG/DL (70-105); PHOSPHORUS 3.8 MG/DL (2.3-4.7); POTASSIUM 3.9 MMOL/L (3.6-5.0); SODIUM 140 MMOL/L (135-145); TOTAL PROTEIN 5.7 GM/DL (6.4-8.2)
--- NOTE | 2019-06-18 04:06 | OPERATIVE REPORT ---
DATE OF SERVICE: 06/17/2019 PREOPERATIVE DIAGNOSIS: A 2:1 AV block and intermittent advanced AV block, symptomatic. POSTOPERATIVE DIAGNOSIS: A 2:1 AV block and intermittent advanced AV block, symptomatic. PROCEDURE: Dual chamber pacemaker implantation. INDICATIONS: The patient is an 89-year-old lady, who presented to the emergency room with symptoms of marked fatigue and diminishing stamina for several months. She was found to be in permanent 2:1 AV block and she was also exhibiting intermittent complete heart block. Dual chamber pacemaker implantation was carried out after having obtained an informed consent. DESCRIPTION OF PROCEDURE: She was brought to the cardiac catheterization laboratory in a fasting state. The left prepectoral area was prepared and draped in the usual sterile fashion. Lidocaine 1% was used for local anesthesia. We gave 20 mL of intravenous contrast after premedicating with intravenous Benadryl and Solu-Medrol. This was done because she was reporting nonspecific intolerance to contrast. Contrast delineated her left subclavian vein anatomy. We were able to cannulate it. We used the Seldinger technique to advance a guidewire into the subclavian vein and the tip of that was placed in the right atrium. We used sharp and blunt dissection to make a pacemaker pocket. Good hemostasis was assured. The wire was used to advance a 7-Frisian sheath. We were able to place another wire through the sheath and then the sheath was removed. We then used each guidewire for advancing 7-Frisian sheath and the wires were removed and the sheaths were used to advance ventricular and atrial leads. All lead positioning was carried out under fluoroscopy. The ventricular lead is Medtronic model 5076-52 with serial #[id number]. It was difficult to place this lead at the right ventricular apex. We were able to place it at a high septal location with good capture and sensing thresholds. The lead was tested multiple times and it continued to remain stable with excellent capture threshold and stable impedance. The leads were sutured to the prepectoral fascia using sleeves and 0 Ethibond. The atrial lead was placed at the right atrial appendage and good capture and sensing thresholds were obtained. The lead was sutured to the prepectoral fascia using sleeve and Ethibond. Both leads are active fixation leads and we were actively fixed to the site within the right heart. The pocket was thoroughly irrigated with an antibiotic solution. Good hemostasis was assured. The right atrial lead is Medtronic model [id number], serial #[id number]. The leads were attached to a dual chamber Medtronic pacemaker. The pacemaker is Medtronic model [id number] with serial #[id number]. The leads and the pacemaker were placed in the pacemaker pocket and the pocket was closed in two layers using 3.0 Vicryl. She tolerated the procedure well. The atrial lead impedance is 475 ohms. P waves are 1.1 millivolts. Atrial capture threshold is 0.5 volts at 0.4 milliseconds. Right ventricular pacing impedance is 722 ohms. R waves are measured at 4.1 millivolts. Ventricular capture threshold is 0.5 volts at 0.4 milliseconds. Job ID: [id number] DocumentID: [id number] Dictated Date: 06/17/2019 19:42:41 Side Panel Hanger Date: 06/18/2019 04:05:49 Dictated By: ADELINA PUGA MD, MA, FACP, FACC,
[2019-06-18 04:07] LABS: BAND NEUTROPHILS 0 %; BASOPHILS % (MANUAL) 0 %; EOSINOPHILS % (MANUAL) 0 %; LYMPHOCYTES % (MANUAL) 5 %; MONOCYTES % (MANUAL) 1 %; NEUTROPHILS % (MANUAL) 94 %; RBC MORPH NORMAL
[2019-06-18] MEDS ORDERED: VANCOMYCIN INJECTION 1,000 MG in NS (IVPB) 250 ML IV SCH (05:30)
[2019-06-18] MEDS: LEVOTHYROXINE 50 MCG (LEVOTHROID) TAB PO SCH (06:00)
--- NOTE | 2019-06-18 07:40 | NUR ---
PT C/O CHEST PRESSURE 7/10 THAT RADIATES UP BOTH SIDES OF NECK. BP 165/79, PULSE LOW 100'S. EKG OBTAINED AND DR PUGA NOTIFIED. NEW ORDERS RECEIVED.
--- NOTE | 2019-06-18 08:05 | Diagnostic Imaging Report ---
CHEST 1 VIEW, AP/PA ONLY INDICATION: Bradycardia, pacemaker placement. COMPARISON: 06/17/2019 FINDINGS: Stable left pectoral transvenous pacemaker with electrodes terminating in the right atrium and right ventricle. Stable cardiomegaly. Visualized lungs are clear. No pneumothorax. Left total shoulder arthroplasty. IMPRESSION: 1. No pneumothorax status post pacemaker placement. Dictated by: Dictated on workstation # [id number]
[2019-06-18] MEDS: amLODIPine 5 MG (NORVASC) TAB PO SCH (08:15)
[2019-06-18] MEDS: meTOprolol SUCCINATE 100 MG (TOPROL XL) TAB PO SCH (08:15)
[2019-06-18] MEDS ORDERED: fentaNYL INJECTION 100 MCG/2 ML AMP IVP NR (08:15)
[2019-06-18] MEDS ORDERED: IBUPROFEN TABLET 200 MG TAB PO SCH (09:00)
[2019-06-18] MEDS ORDERED: PANTOPRAZOLE 40 MG (PROTONIX) VIAL IV NR (09:45)
[2019-06-18] MEDS ORDERED: IBUPROFEN TABLET 200 MG TAB PO NR (09:45)
[2019-06-18] MEDS: LACTATED RINGERS 1,000 ML IV SCH (12:29)
[2019-06-18] MEDS: IBUPROFEN 600 MG (MOTRIN) TAB PO SCH ×2 (13:19→21:08)
--- NOTE | 2019-06-18 18:58 | Progress Note - Cardiology ---
Cardiology SOAP Progress Note Subjective: Chest discomfort this am: trans-thoracic, mod to mod severe, lasting about an hour, w/o aggravating or relieving factors, self-resolving, w/o associated symptoms No shortness of breath No palp or syncope No n/v/d Feeling better at time of my exam around 8:30 am today Objective: I&O/Vital Signs 06/18/19 06/18/19 06/18/19 06/18/19 07:00 07:00 08:00 08:00 Pulse 83 83 96 Resp 20 22 B/P (MAP) 165/79 (107) 161/75 (103) Pulse Ox 93 96 O2 Delivery Room Air Room Air Room Air 06/18/19 06/18/19 06/18/19 06/18/19 08:32 09:00 09:24 10:00 Temp 36.4 Pulse 70 60 Resp 30 19 B/P (MAP) 156/78 (104) 142/72 (95) Pulse Ox 93 93 O2 Delivery Room Air Room Air Room Air 06/18/19 06/18/19 06/18/19 06/18/19 11:00 12:00 12:00 12:10 Temp 37.0 Pulse 60 65 Resp 20 25 B/P (MAP) 145/73 (97) 144/74 (97) Pulse Ox 94 94 O2 Delivery Room Air Room Air Room Air 06/18/19 06/18/19 06/18/19 06/18/19 12:10 12:23 13:00 14:00 Temp 37.0 Pulse 61 64 60 Resp 22 25 B/P (MAP) 127/60 (82) 140/68 (92) Pulse Ox 93 93 O2 Delivery Room Air Room Air 06/18/19 06/18/19 06/18/19 06/18/19 15:00 15:31 16:00 16:00 Temp 37.1 Pulse 60 62 Resp 25 23 B/P (MAP) 138/65 (89) 144/63 (90) Pulse Ox 94 93 O2 Delivery Room Air Room Air Room Air 06/18/19 06/18/19 17:00 18:00 Pulse 60 63 Resp 22 35 B/P (MAP) 144/70 (94) 138/63 (88) Pulse Ox 94 96 O2 Delivery Room Air Room Air 06/18/19 00:00 Intake Total 0 ml Output Total 670 ml Balance -670 ml Weight (Pounds): 143 Weight (Ounces): 0.0 Weight (Calculated Kilograms): 64.073180 Constitutional: AAO x 3, well-developed, well-nourished Respiratory: No accessory muscle use; lungs clear to percussion, lungs clear to auscultation Cardiovascular: regular rate-rhythm, bradycardia, S1 and S2, systolic murmur (soft ENRIQUE at card base) Gastrointestional: No tender; soft; No guarding, No rebound; audible bowel sounds Extremities: No clubbing, No cyanosis, No significant edema Neurologic/Psychiatric: oriented x 3, other (moves all limbs equally) Skin: No rash on exposed areas, No ulcerations on exposed areas Results/Procedures: Labs Laboratory Tests 06/18/19 03:15: White Blood Count 6.4, Red Blood Count 4.20L, Hemoglobin 11.9, Hematocrit 38, Mean Corpuscular Volume 90, Mean Corpuscular Hemoglobin 28, Mean Corpuscular Hemoglobin Concent 32, Red Cell Distribution Width 13.7, Platelet Count 225, Mean Platelet Volume 10.9H, Neutrophils (%) (Auto) 94H, Lymphocytes (%) (Auto) 5L, Monocytes (%) (Auto) 1, Eosinophils (%) (Auto) 0, Basophils (%) (Auto) 0, Neutrophils # (Auto) 6.0, Lymphocytes # (Auto) 0.3L, Monocytes # (Auto) 0.0, Eosinophils # (Auto) 0.0, Basophils # (Auto) 0.0, Neutrophils % (Manual) 94, Lymphocytes % (Manual) 5, Monocytes % (Manual) 1, Eosinophils % (Manual) 0, Basophils % (Manual) 0, Band Neutrophils 0, Blood Morphology Comment NORMAL, Sodium Level 140, Potassium Level 3.9, Chloride Level 112H, Carbon Dioxide Level 19L, Anion Gap 9, Blood Urea Nitrogen 30H, Creatinine 0.88, Estimat Glomerular Filtration Rate > 60, BUN/Creatinine Ratio 34, Glucose Level 154H, Calcium Level 9.2, Corrected Calcium 9.8, Phosphorus Level 3.8, Magnesium Level 2.0, Total Bilirubin 0.4, Aspartate Amino Transf (AST/SGOT) 14, Alanine Aminotransferase (ALT/SGPT) 13, Alkaline Phosphatase 66, Total Protein 5.7L, Albumin 3.3 Microbiology 06/16/19 MRSA Screen - Final, Complete MRSA not isolated Laboratory Tests 06/17/19 02:57 06/18/19 03:15 A/P: Assessment: Symptomatic, persistent 2:1 AV block corrected with dual chamber pacemaker on 06/17/19, functioning normally on interrogation of 06/18/19 Chest discomfort of undetermined etiology on 04/17/20, resolved Echo on 06/17/19: LVEF 60-65%, mild MR, mild enlargement of LA, RVSP 34 mmHg. Limited echo on 06/18/19: normal LVEF, minimal pericardial fluid (within physiologic limit and not much different from 06/18/19) Hypertension, improved with beta-bubba Renal insuff, mild to mod, resolved with hydration Plan: * No distinct evidence of post-pacemaker pericarditis or other complication at this time. No clinical evidence of ACS * Continue to monitor * Hold d/c today due to episode of chest discomfort this am and keep in ICU Clinical Quality Measures AMI/AHF: ASA po Prior to arrival: ADELINA Anthony MD FACP FAC CCDS Jun 18, 2019 18:58
[2019-06-18] MEDS ORDERED: DOXYCYCLINE 100 MG (VIBRAMYCIN) TABLET PO NR (19:15)
[2019-06-19] VITALS (14 sets, daily range): BP systolic 125–175; BP diastolic 58–87
[2019-06-19 03:45] LABS: BASOPHILS % (AUTO) 0 % (0-10); EOSINOPHILS % (AUTO) 0 % (0-10); HEMATOCRIT 31 % (35-52); HEMOGLOBIN 9.9 G/DL (11.5-16.0); LYMPHOCYTES # (AUTO) 0.8 X 10^3 (1.0-4.0); LYMPHOCYTES % (AUTO) 9 % (12-44); MEAN CORPUSCULAR HEMOGLOBIN 28 PG (25-34); MEAN CORPUSCULAR HGB CONC 32 G/DL (32-36); MEAN CORPUSCULAR VOLUME 90 FL (80-99); MEAN PLATELET VOLUME 10.6 FL (7.4-10.4); MONOCYTES # (AUTO) 0.8 X 10^3 (0.0-1.0); MONOCYTES % (AUTO) 10 % (0-12); NEUTROPHILS # (AUTO) 6.9 X 10^3 (1.8-7.8); NEUTROPHILS % (AUTO) 81 % (42-75); PLATELET COUNT 236 10^3/uL (130-400); RED CELL DISTRIBUTION WIDTH 14.2 % (10.0-14.5); WHITE BLOOD COUNT 8.6 10^3/uL (4.3-11.0)
[2019-06-19 04:08] LABS: CALCIUM 8.8 MG/DL (8.5-10.1); CREATININE SERUM 1.81 MG/DL (0.60-1.30); PHOSPHORUS 4.1 MG/DL (2.3-4.7); POTASSIUM 4.2 MMOL/L (3.6-5.0)
--- NOTE | 2019-06-19 04:54 | NUR ---
NOTIFIED E-ICU OF PT URINE OUTPUT AND DECREASED KIDNEY FX.
[2019-06-19] MEDS ORDERED: NS IV 1000 ML 1,000 ML IV SCH ×2 (05:30→09:30)
[2019-06-19] MEDS: DOXYCYCLINE 100 MG (VIBRAMYCIN) TABLET PO SCH ×2 (06:38→16:24)
[2019-06-19] MEDS: LEVOTHYROXINE 50 MCG (LEVOTHROID) TAB PO SCH (06:38)
--- NOTE | 2019-06-19 07:16 | Diagnostic Imaging Report ---
CHEST 1 VIEW, AP/PA ONLY Indication: Bradycardia Comparison: 06/18/2019 Findings: Low lung volumes. Potential trace bilateral pleural effusions are unchanged. No pneumothorax. Stable cardiomediastinal silhouette with left pectoral transvenous pacemaker in place. Impression: 1. No substantial change since yesterday's exam. Dictated by: Dictated on workstation # [id number]
[2019-06-19] MEDS: amLODIPine 5 MG (NORVASC) TAB PO SCH (09:07)
[2019-06-19] MEDS: PANTOPRAZOLE 40 MG (PROTONIX) TAB PO SCH (09:23)
[2019-06-19] MEDS: meTOprolol SUCCINATE 100 MG (TOPROL XL) TAB PO SCH (09:23)
--- NOTE | 2019-06-19 11:06 | Physical Therapy Evaluation ---
PT Evaluation-General Medical Diagnosis Admission Date Jun 16, 2019 at 17:47 Medical Diagnosis: bradycardia/pacemaker Onset Date: Jun 16, 2019 Therapy Diagnosis Therapy Diagnosis: debility Height/Weight Height (Feet): 5 Height (Inches): 0.00 Weight (Pounds): 143 Weight (Ounces): 0.0 Precautions Precautions/Isolations: Fall Prevention, Standard Precautions Referral Physician: Awais Reason for Referral: Evaluation/Treatment Medical History Pertinent Medical History: HTN, Hypothroidism Additional Medical History scoliosis Current History ER with elevated HTN and fatigue Reviewed History: Yes Social History Home: Single Level Current Living Status: Alone Prior Prior Level of Function SCALE: Activities may be completed with or without assistive devices. 2-Ncraqitdjl-gekhxmd completes the activity by him/herself with no assistance from a helper. 5-Set-up or Clean-up Assistance-helper sets up or cleans up; patient completes activity. Coden assists only prior to or following the activity. 4-Supervision or Touching Assistance-helper provides verbal cues and/or touching/steadying and/or contact guard assistance as patient completes acti vity. Assistance may be provided throughout the activity or intermittently. 3-Partial/Moderate Assistance-helper does LESS THAN HALF the effort. Coden lifts, holds or supports trunk or limbs, but provides less than half the effort. 2-Substantial/Maximal Assistance-helper does MORE THAN HALF the effort. Coden lifts or holds trunk or limbs and provides more than half the effort. 1-Dozenwrvg-zyjuzj does ALL the effort. Patient does none of the effort to complete the activity. Or, the assistance of 2 or more helpers is required for the patient to complete the activity. If activity was not attempted, code reason: 7-Patient Refused. 9-Not Applicable-not attempted and the patient did not perform the activity before the current illness, exacerbation or injury. 10-Not Attempted due to Environmental Limitations-(lack of equipment, weather restraints, etc.). 88-Not Attempted due to Medical Conditions or Safety Concerns. Bed Mobility: 6 Transfers (B,C,W/C): 6 Gait: 6 Stairs: 6 Indoor Mobility (Ambulation): Independent Stairs: Independent Prior Devices Use: Other-see list below [facility] PT Evaluation-Current Subjective Patient is very agreeable to participate with PT. Family present. Pain Numeric Pain Scale: 0-No Pain Location: No Pain Reported Objective Patient Orientation: Normal For Age ROM/Strength ROM Lower Extremities bilateral LE WFL Strength Lower Extremities 4/5 grossly bilateral LE Integumentary/Posture Integumentary refer to nursing notes Bowel Incontinence: No Bladder Incontinence: No Posture scoliosis Neuromuscular (Tone, Coordination, Reflexes) grossly intact Sensory Vision: Functional Hearing: Impaired (right ear) Sensation Right Lower Extremit: Intact Sensation Left Lower Extremity: Intact Transfers Roll Left to Right (QC): 6 Sit to Lying (QC): 6 Lying to Sitting/Side of Bed(Q: 6 Sit to Stand (QC): 6 Chair/Hax-ig-Fxhtg Xfer(QC): 6 Gait Does the Patient Walk?: Yes Mode of Locomotion: Walk Anticipated Mode of Locomotion: Walk Walk 10 feet (QC): 6 Walk 50 ft with 2 Turns(QC): 6 Walk 150 ft (QC): 6 Gait Assistive Device: Cane Small Base Quad Comments/Gait Description safe and functional with AD Balance Sitting Static: Normal Sitting Dynamic: Normal Standing Static: Normal Standing Dynamic: Normal Assessment/Needs Patient will be seen short term to address functional mobility to ensure safe return to home. Patient instructed to ambulate with family or nursing PRN in critical access hospital. Rehab Potential: Fair PT Seed Specialist Goals Mcc Goals PT Mcc Goals Time Frame: Jun 24, 2019 Roll Left & Right (QC): 6 Sit to Lying (QC): 6 Lying-Sitting on Side/Bed(QC): 6 Sit to Stand (QC): 6 Chair/Uxq-dm-Dfxkx Xfer(QC): 6 Toilet Transfer (QC): 6 Does the Patient Walk: Yes Walk 10 feet (QC): 6 Walk 50ft with 2 Turns (QC): 6 Walk 150 ft (QC): 6 PT Plan Treatment/Plan Treatment Plan: Continue Plan of Care Treatment Plan: Education, Functional Activity Getachew, Functional Strength, Gait, Safety, Therapeutic Exercise, Transfers Treatment Duration: Jun 24, 2019 Frequency: 5 times per week Estimated Hrs Per Day: .25 hour per day Patient and/or Family Agrees t: Yes Time/GCodes Time In: 1045 Time Out: 1058 Total Billed Treatment Time: 13 Total Billed Treatment 1 visit EVLowC 13 min KYLE DIEZ PT Jun 19, 2019 11:06
[2019-06-19] MEDS: NS IV 1000 ML 1,000 ML IV SCH (12:33)
[2019-06-19 13:02] LABS: BILIRUBIN,URINE NEGATIVE (NEGATIVE); CLARITY,URINE CLEAR; COLOR,URINE YELLOW; GLUCOSE, URINE (UA) NEGATIVE (NEGATIVE); KETONES,URINE NEGATIVE (NEGATIVE); LEUKOCYTE ESTERASE ,URINE NEGATIVE (NEGATIVE); NITRITE,URINE NEGATIVE (NEGATIVE); PROTEIN,URINE NEGATIVE (NEGATIVE)
[2019-06-19 13:10] LABS: BACTERIA,URINE TRACE /HPF
--- NOTE | 2019-06-19 14:54 | NUR ---
"RD ASSESSMENT PMHx: HTN; diverticulosis; hyperthyroidism PT INTERACTION: Pt was awake and pleasant during nutrition assessment. Pt states current appetite is fine and that she is normally not a big eater. Note avg PO intake of 50% x2d, per chart review. Pt states following a regular diet at home and has no issues with chewing/swallowing food. Pt states no recent issues with n/v/c/d at this time. Note last BM was 06/19 and pt not currently on bowel regimen per chart review. Pt states no recent wt changes. Note unable to determine recent wt hx, per chart review. ABNORMAL NUTRITION-RELATED LAB VALUES LOW: HIGH: Cl 108; BUN 49; cr 1.81; glu 108 Est. kcal needs: 9205-6920 kcal | 25-30 kcal/kg Est. Pro needs: 46-58 g Pro | 0.8-1.0 g Pro/kg PES STATEMENT: Inadequate oral intake (NI-2.1) related to loss of appetite as evidenced by pt interview | avg PO intake 50% x2d INTERVENTION: Continue with current diet order of 2000mg Na diet. Pt may benefit from nutrition supplementation if PO intake declines. Will continue to follow and reassess as pt needs and status change. MONITOR/EVALUATE: PO Intake; Plan of Care; Hydration Status; Weight Status; Lab Values Pastora Steinberg, MS, RD, LD"
--- NOTE | 2019-06-19 15:57 | Progress Note - Cardiology ---
Cardiology SOAP Progress Note Subjective: No cp or palp or syncope Gen malaise and weakness No n/v/d Objective: I&O/Vital Signs 06/19/19 06/19/19 06/19/19 06/19/19 04:00 04:00 04:00 05:00 Temp 36.3 Pulse 60 60 Resp 17 16 B/P (MAP) 134/64 (87) 142/66 (91) Pulse Ox 94 94 O2 Delivery Room Air Room Air Room Air 06/19/19 06/19/19 06/19/19 06/19/19 06:00 07:00 07:00 07:17 Temp 36.0 Pulse 60 60 67 64 Resp 15 18 18 B/P (MAP) 154/70 (98) 148/67 (94) 148/67 (94) Pulse Ox 95 96 93 O2 Delivery Room Air Room Air Room Air 06/19/19 06/19/19 06/19/19 06/19/19 08:00 08:00 09:00 11:57 Pulse 62 75 B/P (MAP) 125/58 (80) 139/68 (91) Pulse Ox 96 95 O2 Delivery Room Air Room Air Room Air Room Air 06/19/19 06/19/19 06/19/19 12:00 12:51 15:09 Temp 36.5 Pulse 59 60 Resp 19 B/P (MAP) 174/87 (116) Pulse Ox 96 O2 Delivery Room Air Room Air 06/19/19 00:00 Intake Total 780 ml Output Total 300 ml Balance 480 ml Weight (Pounds): 143 Weight (Ounces): 0.0 Weight (Calculated Kilograms): 64.246114 Device Insertion Site: without hematoma Bruising: mild bruising Constitutional: AAO x 3, well-developed, well-nourished Respiratory: No accessory muscle use; lungs clear to percussion, lungs clear to auscultation Cardiovascular: regular rate-rhythm, bradycardia, S1 and S2, systolic murmur (soft ENRIQUE at card base) Gastrointestional: No tender; soft; No guarding, No rebound; audible bowel sounds Extremities: No clubbing, No cyanosis, No significant edema Neurologic/Psychiatric: oriented x 3, other (moves all limbs equally) Skin: No rash on exposed areas, No ulcerations on exposed areas Results/Procedures: Labs Laboratory Tests 06/19/19 03:25: White Blood Count 8.6, Red Blood Count 3.49L, Hemoglobin 9.9L, Hematocrit 31L, Mean Corpuscular Volume 90, Mean Corpuscular Hemoglobin 28, Mean Corpuscular Hemoglobin Concent 32, Red Cell Distribution Width 14.2, Platelet Count 236, Mean Platelet Volume 10.6H, Neutrophils (%) (Auto) 81H, Lymphocytes (%) (Auto) 9L, Monocytes (%) (Auto) 10, Eosinophils (%) (Auto) 0, Basophils (%) (Auto) 0, Neutrophils # (Auto) 6.9, Lymphocytes # (Auto) 0.8L, Monocytes # (Auto) 0.8, Eosinophils # (Auto) 0.0, Basophils # (Auto) 0.0, Sodium Level 136, Potassium [place] 4.2, Chloride Level 108H, Carbon Dioxide Level 19L, Anion Gap 9, Blood Urea Nitrogen 49H, Creatinine 1.81H, Estimat Glomerular Filtration Rate 26, BUN/Creatinine Ratio 27, Glucose Level 108H, Calcium Level 8.8, Phosphorus Level 4.1, Magnesium Level 2.0 06/19/19 12:55: Urine Color YELLOW, Urine Clarity CLEAR, Urine pH 6.0, Urine Specific [place] 1.010L, Urine Protein NEGATIVE, Urine Glucose (UA) NEGATIVE, Urine Ketones NEGATIVE, Urine Nitrite NEGATIVE, Urine Bilirubin NEGATIVE, Urine Urobilinogen 0.2, Urine Leukocyte Esterase NEGATIVE, Urine RBC (Auto) NEGATIVE, Urine RBC NONE, Urine WBC 2-5, Urine Squamous Epithelial Cells 2-5, Urine Crystals NONE, Urine Bacteria TRACE, Urine Casts NONE, Urine Mucus NEGATIVE, Urine Culture Indicated NO Microbiology 06/16/19 MRSA Screen - Final, Complete MRSA not isolated Laboratory Tests 06/18/19 03:15 06/19/19 03:25 A/P: Assessment: JULIA - 2, probably due to volume depletion and use of NSAIDs (for suspected post- pacemaker pericarditis) No distinct evidence of pericarditis. 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 L imited echo on 06/18/19: normal LVEF, small amount pericardial fluid (within physiologic limit and not much different from 06/18/19). Limited echo non 06/19/19: normal LVEF, small amount of pericardial fluid (no significant change compared to 06/18/19) Hypertension, improved with beta-bubba Presented with renal insuff that improved with hydration Plan: * D/c NSAIDs * Slow iv hydration * Monitor in cardiac stepdown * Dr Pereyra covering Card svce over the weekend Clinical Quality Measures AMI/AHF: ASA po Prior to arrival: ADELINA Anthony MD FACP FACC CCDS Jun 19, 2019 15:57
[2019-06-19] MEDS ORDERED: TROUGH ORDER-PHARMACY XX NR (16:30)
--- NOTE | 2019-06-19 19:53 | Progress Note ---
Subjective Date Seen by a Provider: Jun 18, 2019 Time Seen by a Provider: 12:30 Subjective/Events-last exam Fwup symptomatic bradycardia with 2nd degree heart block. Had pacemaker placed yesterday but had episode of chest pain with elevated blood pressure last night so cardiology wants her to stay. Objective Exam Vital Signs Date Time Temp Pulse Resp B/P (MAP) Pulse Ox O2 Delivery O2 Flow Rate FiO2 06/19/19 16:00 36.3 60 17 175/78 (110) 94 Room Air 06/19/19 15:09 Room Air 06/19/19 12:51 60 06/19/19 12:00 36.5 59 19 174/87 (116) 96 Room Air 06/19/19 11:57 Room Air 06/19/19 09:00 75 139/68 (91) 95 Room Air 06/19/19 08:00 62 125/58 (80) 96 Room Air 06/19/19 08:00 Room Air 06/19/19 07:17 36.0 64 18 148/67 (94) 93 Room Air 06/19/19 07:00 67 18 148/67 (94) 96 Room Air 06/19/19 07:00 60 06/19/19 06:00 60 15 154/70 (98) 95 Room Air 06/19/19 05:00 60 16 142/66 (91) 94 Room Air 06/19/19 04:00 36.3 06/19/19 04:00 60 17 134/64 (87) 94 Room Air 06/19/19 04:00 Room Air 06/19/19 03:00 60 33 138/65 (89) 95 Room Air 06/19/19 02:00 60 18 143/69 (93) 95 Room Air 06/19/19 01:00 60 33 137/59 (85) 94 Room Air 06/19/19 01:00 60 06/19/19 00:00 60 15 144/64 (90) 94 Room Air 06/19/19 00:00 Room Air 06/18/19 23:59 36.3 06/18/19 23:00 60 20 150/70 (96) 94 Room Air 06/18/19 22:00 60 19 150/74 (99) 95 Room Air 06/18/19 21:00 60 14 143/64 (90) 96 Room Air 06/18/19 20:00 69 23 157/77 (103) 96 Room Air 06/18/19 20:00 Room Air I & O 06/19/19 07:00 Intake Total 1355 ml Output Total 500 ml Balance 855 ml Capillary Refill : Less Than 3 Seconds General Appearance: No Apparent Distress Neck: Supple Respiratory: Lungs Clear Cardiovascular: Regular Rate, Rhythm, Systolic Murmur Gastrointestinal: normal bowel sounds, non tender, soft Extremity: Non Tender, No Calf Tenderness, No Pedal Edema Neurologic/Psychiatric: Alert, Oriented x3 Skin: Warm/Dry Results Lab Laboratory Tests 06/19/19 03:25: White Blood Count 8.6, Red Blood Count 3.49L, Hemoglobin 9.9L, Hematocrit 31L, Mean Corpuscular Volume 90, Mean Corpuscular Hemoglobin 28, Mean Corpuscular Hemoglobin Concent 32, Red Cell Distribution Width 14.2, Platelet Count 236, Mean Platelet Volume 10.6H, Neutrophils (%) (Auto) 81H, Lymphocytes (%) (Auto) 9L, Monocytes (%) (Auto) 10, Eosinophils (%) (Auto) 0, Basophils (%) (Auto) 0, Neutrophils # (Auto) 6.9, Lymphocytes # (Auto) 0.8L, Monocytes # (Auto) 0.8, Eosinophils # (Auto) 0.0, Basophils # (Auto) 0.0, Sodium Level 136, Potassium Level 4.2, Chloride Level 108H, Carbon Dioxide Level 19L, Anion Gap 9, Blood Urea Nitrogen 49H, Creatinine 1.81H, Estimat Glomerular Filtration Rate 26, BUN/Creatinine Ratio 27, Glucose Level 108H, Calcium Level 8.8, Phosphorus Level 4.1, Magnesium Level 2.0 06/19/19 12:55: Urine Color YELLOW, Urine Clarity CLEAR, Urine pH 6.0, Urine Specific [place] 1.010L, Urine Protein NEGATIVE, Urine Glucose (UA) NEGATIVE, Urine Ketones NEGAT [place], Urine Nitrite NEGATIVE, Urine Bilirubin NEGATIVE, Urine Urobilinogen 0.2, Urine Leukocyte Esterase NEGATIVE, Urine RBC (Auto) NEGATIVE, Urine RBC NONE, Urine WBC 2-5, Urine Squamous Epithelial Cells 2-5, Urine Crystals NONE, Urine Bacteria TRACE, Urine Casts NONE, Urine Mucus NEGATIVE, Urine Culture Indicated NO Microbiology 06/16/19 MRSA Screen - Final, Complete MRSA not isolated Assessment/Plan Assessment/Plan Assess & Plan/Chief Complaint 1. Symptomatic Bradycardia with 2nd Degree Heart Block--S/P pacemaker placement 2. Chest Pain--uncertain etiology 3. Hypertensive Urgency--metoprolol added Clinical Quality Measures Admission Status Admission Dx 1. Symptomatic Bradycardia with Second Degree Heart Block--admit for pacemaker placement by cardiology 2. Hypertensive Urgency--started on amlodopine and given one dose of hydralazine and BP is much improved 3. Acute Renal Insufficiency--hydrate and recheck Cr 4. Hypothyroidism--restart levothyroxine AMI/AHF: ASA po Prior to arrival: No DVT/VTE Risk/Contraindication: Risk Factor Score Per Nursin RFS Level Per Nursing on Admit: 2=Moderate SIDRA RODGERS DO Jun 19, 2019 19:53
--- NOTE | 2019-06-19 19:59 | Progress Note ---
Subjective Date Seen by a Provider: Jun 19, 2019 Time Seen by a Provider: 09:30 Subjective/Events-last exam Fwup symptomatic bradycardia/2nd Degree Heart Block--S/P pacemaker placement, Hypertensive Urgency. No further chest pain but creatinine elevated today. Objective Exam Vital Signs Date Time Temp Pulse Resp B/P (MAP) Pulse Ox O2 Delivery O2 Flow Rate FiO2 06/19/19 16:00 36.3 60 17 175/78 (110) 94 Room Air 06/19/19 15:09 Room Air 06/19/19 12:51 60 06/19/19 12:00 36.5 59 19 174/87 (116) 96 Room Air 06/19/19 11:57 Room Air 06/19/19 09:00 75 139/68 (91) 95 Room Air 06/19/19 08:00 62 125/58 (80) 96 Room Air 06/19/19 08:00 Room Air 06/19/19 07:17 36.0 64 18 148/67 (94) 93 Room Air 06/19/19 07:00 67 18 148/67 (94) 96 Room Air 06/19/19 07:00 60 06/19/19 06:00 60 15 154/70 (98) 95 Room Air 06/19/19 05:00 60 16 142/66 (91) 94 Room Air 06/19/19 04:00 36.3 06/19/19 04:00 60 17 134/64 (87) 94 Room Air 06/19/19 04:00 Room Air 06/19/19 03:00 60 33 138/65 (89) 95 Room Air 06/19/19 02:00 60 18 143/69 (93) 95 Room Air 06/19/19 01:00 60 33 137/59 (85) 94 Room Air 06/19/19 01:00 60 06/19/19 00:00 60 15 144/64 (90) 94 Room Air 06/19/19 00:00 Room Air 06/18/19 23:59 36.3 06/18/19 23:00 60 20 150/70 (96) 94 Room Air 06/18/19 22:00 60 19 150/74 (99) 95 Room Air 06/18/19 21:00 60 14 143/64 (90) 96 Room Air 06/18/19 20:00 69 23 157/77 (103) 96 Room Air 06/18/19 20:00 Room Air I & O 06/19/19 07:00 Intake Total 1355 ml Output Total 500 ml Balance 855 ml Capillary Refill : Less Than 3 Seconds General Appearance: No Apparent Distress Neck: Supple Respiratory: Lungs Clear Cardiovascular: Regular Rate, Rhythm, Systolic Murmur Extremity: Non Tender, No Calf Tenderness, No Pedal Edema Neurologic/Psychiatric: Alert, Oriented x3 Skin: Other (left upper chest with dry dressing in place) Results Lab Laboratory Tests 06/19/19 03:25: White Blood Count 8.6, Red Blood Count 3.49L, Hemoglobin 9.9L, Hematocrit 31L, Mean Corpuscular Volume 90, Mean Corpuscular Hemoglobin 28, Mean Corpuscular Hemoglobin Concent 32, Red Cell Distribution Width 14.2, Platelet Count 236, Mean Platelet Volume 10.6H, Neutrophils (%) (Auto) 81H, Lymphocytes (%) (Auto) 9L, Monocytes (%) (Auto) 10, Eosinophils (%) (Auto) 0, Basophils (%) (Auto) 0, Neutrophils # (Auto) 6.9, Lymphocytes # (Auto) 0.8L, Monocytes # (Auto) 0.8, Eosinophils # (Auto) 0.0, Basophils # (Auto) 0.0, Sodium Level 136, Potassium Level 4.2, Chloride Level 108H, Carbon Dioxide Level 19L, Anion Gap 9, Blood Urea Nitrogen 49H, Creatinine 1.81H, Estimat Glomerular Filtration Rate 26, BUN/Creatinine Ratio 27, Glucose Level 108H, Calcium Level 8.8, Phosphorus Level 4.1, Magnesium Level 2.0 06/19/19 12:55: Urine Color YELLOW, Urine Clarity CLEAR, Urine pH 6.0, Urine Specific [place] 1.010L, Urine Protein NEGATIVE, Urine Glucose (UA) NEGATIVE, Urine Ketones NEGATIVE, Urine Nitrite NEGATIVE, Urine Bilirubin NEGATIVE, Urine Urobilinogen 0.2, Urine Leukocyte Esterase NEGATIVE, Urine RBC (Auto) NEGATIVE, Urine RBC NONE, Urine WBC 2-5, Urine Squamous Epithelial Cells 2-5, Urine Crystals NONE, Urine Bacteria TRACE, Urine Casts NONE, Urine Mucus NEGATIVE, Urine Culture Indicated NO Microbiology 06/16/19 MRSA Screen - Final, Complete MRSA not isolated Assessment/Plan Assessment/Plan Assess & Plan/Chief Complaint 1. Symptomatic Bradycardia with 2nd Degree Heart Block--S/P pacemaker placement 2. Chest Pain--resolved 3. Hypertension--improved 4. Acute Renal Failure--check UA, restart IVFs Clinical Quality Measures Admission Status Admission Dx 1. Symptomatic Bradycardia with Second Degree Heart Block--admit for pacemaker placement by cardiology 2. Hypertensive Urgency--started on amlodopine and given one dose of hydralazine and BP is much improved 3. Acute Renal Insufficiency--hydrate and recheck Cr 4. Hypothyroidism--restart levothyroxine AMI/AHF: ASA po Prior to arrival: No DVT/VTE Risk/Contraindication: Risk Factor Score Per Nursin RFS Level Per Nursing on Admit: 2=Moderate SIDRA RODGERS DO Jun 19, 2019 19:59
[2019-06-20 00:07] VITALS: BP 169/66
[2019-06-20 04:00] LABS: BASOPHILS % (AUTO) 0 % (0-10); EOSINOPHILS # (AUTO) 0.1 10^3/uL (0.0-0.3); EOSINOPHILS % (AUTO) 1 % (0-10); HEMATOCRIT 32 % (35-52); HEMOGLOBIN 10.1 G/DL (11.5-16.0); LYMPHOCYTES % (AUTO) 20 % (12-44); MEAN CORPUSCULAR HEMOGLOBIN 29 PG (25-34); MEAN CORPUSCULAR HGB CONC 32 G/DL (32-36); MEAN CORPUSCULAR VOLUME 90 FL (80-99); MEAN PLATELET VOLUME 10.5 FL (7.4-10.4); MONOCYTES # (AUTO) 0.5 X 10^3 (0.0-1.0); MONOCYTES % (AUTO) 10 % (0-12); NEUTROPHILS # (AUTO) 3.2 X 10^3 (1.8-7.8); NEUTROPHILS % (AUTO) 68 % (42-75); PLATELET COUNT 199 10^3/uL (130-400); RED CELL DISTRIBUTION WIDTH 14.1 % (10.0-14.5); WHITE BLOOD COUNT 4.7 10^3/uL (4.3-11.0)
[2019-06-20 04:26] LABS: CALCIUM 8.9 MG/DL (8.5-10.1); CREATININE SERUM 1.14 MG/DL (0.60-1.30); PHOSPHORUS 3.1 MG/DL (2.3-4.7); POTASSIUM 3.7 MMOL/L (3.6-5.0)
[2019-06-20 04:33] VITALS: BP 184/43
[2019-06-20] MEDS: hydrALAZINE (APRESOLINE) 25 MG TAB PO PRN ×2 (04:42→12:34)
[2019-06-20] MEDS: LEVOTHYROXINE 50 MCG (LEVOTHROID) TAB PO SCH (06:52)
[2019-06-20] MEDS: DOXYCYCLINE 100 MG (VIBRAMYCIN) TABLET PO SCH (06:52)
[2019-06-20] MEDS: NS IV 1000 ML 1,000 ML IV SCH (06:53)
[2019-06-20] MEDS: PANTOPRAZOLE 40 MG (PROTONIX) TAB PO SCH (07:52)
[2019-06-20] MEDS: meTOprolol SUCCINATE 100 MG (TOPROL XL) TAB PO SCH (07:53)
--- NOTE | 2019-06-20 07:59 | Diagnostic Imaging Report ---
INDICATION: Bradycardia. TECHNIQUE: Single view chest 3:56 AM. CORRELATION STUDY: 06/19/2019 FINDINGS: Left-sided pacemaker is present. Heart size and mediastinum are generally stable. Vasculature slightly increased from prior study. Elevated right diaphragm. Some atelectasis or infiltrate at the lung bases along with small effusions. Left-sided shoulder prosthesis. IMPRESSION: 1. Stable heart size. Vasculature is slightly prominent may reflect early fluid overload or failure. Right lung volume loss elevated right diaphragm. Dictated by: Dictated on workstation # [id number]
[2019-06-20 08:00] VITALS: BP 165/71
--- NOTE | 2019-06-20 09:11 | Cardiology Progress Note ---
Subjective Date Seen by Provider: Jun 20, 2019 Time Seen by Provider: 09:08 Subjective/Events-last exam Patient is laying down in bed, feeling better, had mild nausea this morning, currently asymptomatic. No chest pain. Review of Systems General: No Chills, No Night Sweats, No Fatigue, No Malaise, No Appetite, No Other HEENT: No Head Aches, No Visual Changes, No Eye Pain, No Ear Pain, No Dysphasia, No Sinus Congestion, No Post Nasal Drip, No Sore Throat, No Other Pulmonary: No Dyspnea, No Cough, No Pleuritic Chest Pain, No Other Cardiovascular: No: Chest Pain, Palpitations, Orthopnea, Paroxysmal Noc. Dyspnea, Edema, Lt Headedness, Other Objective-Cardiology Exam Last Set of Vital Signs Vital Signs 06/18/19 06/20/19 05:00 04:33 Temp 36.5 Pulse 60 Resp 18 B/P (MAP) 184/43 (90) Pulse Ox 95 O2 Delivery Room Air O2 Flow Rate 2.00 Capillary Refill : Less Than 3 Seconds I&O Intake and Output 06/20/19 00:00 Intake Total 1650 ml Output Total 1800 ml Balance -150 ml Intake Oral 1250 ml IV Total 400 ml Output Urine Total 1800 ml # Voids 1 # Bowel Movements 1 General: Alert, Oriented X3, Cooperative HEENT: Atraumatic, PERRLA Neck: Supple, No JVD, No Thyromegaly Lungs: Clear to Auscultation, Normal Air Movement Heart: Regular Rate, Normal S1, Normal S2, No Murmurs Abdomen: Normal Bowel Sounds, Soft, No Tenderness, No Hepatosplenomegaly, No Masses Extremities: No Clubbing, No Cyanosis, No Edema, Normal Pulses, No Tenderness/Swelling Skin: No Rashes, No Breakdown, No Significant Lesion Neuro: Normal Gait, Normal Speech, Strength at 5/5 X4 Ext, Normal Tone, Sensation Intact Psych/Mental Status: Mental Status NL, Mood NL Results Lab Laboratory Tests 06/20/19 03:47 A/P-Cardiology Admission Diagnosis High-grade AV block Cardiac pacemaker Chest pain Hypertension Assessment/Plan High-grade AV block, symptomatic, status post dual-chamber pacemaker implantation on June 17, 2019, done by Dr. Ernandez, functioning normally. Chest pain, resolved. Currently asymptomatic. Acute on chronic renal insufficiency, improved with hydration, renal function are back to normal. Hypertension, poor control, add amlodipine 5 mg daily and monitor blood pressure as an outpatient Clinically stable, okay for discharge from cardiology standpoint, follow-up with Dr. Ernandez in one week for wound check Clinical Quality Measures AMI/AHF: ASA po Prior to arrival: No DVT/VTE Risk/Contraindication: Risk Factor Score Per Nursin RFS Level Per Nursing on Admit: 2=Moderate REYNOLD MALDONADO MD Jun 20, 2019 09:11
[2019-06-20] MEDS ORDERED: amLODIPine 5 MG (NORVASC) TAB PO SCH (09:30)
[2019-06-20] MEDS ORDERED: PANT40TA3 PO (10:59)
[2019-06-20] MEDS ORDERED: DOXY100T2 PO (10:59)
[2019-06-20] MEDS ORDERED: AMLO5TAB9 PO (10:59)
[2019-06-20] MEDS ORDERED: MTP100TCR PO (10:59)
[2019-06-20] MEDS ORDERED: ONDA4TAB10 PO (11:01)
[2019-06-20 12:00] VITALS: BP 216/81
--- NOTE | 2019-06-20 12:10 | Discharge Summary ---
Diagnosis/Chief Complaint Date of Admission Jun 16, 2019 at 17:47 Date of Discharge Discharge Date: Jun 20, 2019 Discharge Diagnosis 1. 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 Hypertensive Urgency--Improved 3. Acute Renal Failure--Improved 4. Hypothyroidism--Stable 5. Dyspepsia--likely due to abx 6. Chest Pain, uncertain etiology, appears noncardiac in origin--resolved Reason Hospital Visit This is an 89 year old female who presented to the emergency room with worsening fatigue and chest discomfort. She has been feeling more fatigued since April of 2019 and has seen her nascar pit crew person in [place] and was told she needed a pacemaker. She reports her heart rate has been in the 30s to 40 at the highest recently. She was found to be significantly hypertensive with a BP of 202/67 and she was also found to be in a second degree heart block. There were no beds available at [facility] where her nascar pit crew person is on staff so she agreed to admission and pacemaker placement at [facility]. Discharge Summary Hospital Course Was the Problem List Reviewed?: Yes Hospital Course This is an 89 year old female who presented to the emergency room with worsening fatigue and chest discomfort. She has been feeling more fatigued since April of 2019 and has seen her nascar pit crew person in [place] and was told she needed a pacemaker. She reports her heart rate has been in the 30s to 40 at the highest recently. She was found to be significantly hypertensive with a BP of 202/67 and she was also found to be in a second degree heart block. There were no beds available at [facility] where her nascar pit crew person is on staff so she agreed to admission and pacemaker placement at [facility]. She was admitted to the ICU and underwent a pacemaker placement by Dr. Ernandez the following day. The evening after her pacemaker placement she had an episode of chest pain with hypertensive urgency. Metoprolol was added for her blood pressure. She was kept another day due to her episode of chest pain and had no further chest pain but the following hospital day, she had an elevation in her creatinine to 1.8. She was started on IVFs at 50cc/hr and a UA was checked which was normal. On the day of discharge, her creatinine is down to 1.14. She has been up ambulating with PT and feels good. She has had no further chest pain. She is having some nausea which seems to be related to the doxycycline dosing. She would like to go home and her daughter states they will be with her this weekend. She will follow up with Dr. Ernandez next week and me in 2 weeks. Labs Laboratory Tests 06/18/19 03:15: Red Blood Count 4.20L, Mean Platelet Volume 10.9H, Neutrophils (%) (Auto) 94H, Lymphocytes (%) (Auto) 5L, Lymphocytes # (Auto) 0.3L, Chloride Level 112H, Carbon Dioxide Level 19L, Blood Urea Nitrogen 30H, Glucose Level 154H, Total Protein 5.7L 06/19/19 03:25: Red Blood Count 3.49L, Mean Platelet Volume 10.6H, Neutrophils (%) (Auto) 81H, Lymphocytes (%) (Auto) 9L, Lymphocytes # (Auto) 0.8L, Chloride Level 108H, Carbon Dioxide Level 19L, Blood Urea Nitrogen 49H, Glucose Level 108H, Hemog lobin 9.9L, Hematocrit 31L, Creatinine 1.81H 06/19/19 12:55: Urine Specific [place] 1.010L 06/20/19 03:47: Red Blood Count 3.54L, Mean Platelet Volume 10.5H, Chloride Level 113H, Carbon Dioxide Level 19L, Blood Urea Nitrogen 39H, Hemoglobin 10.1L, Hematocrit 32L Procedures Pacemaker placement on 06/18/[address] Ernandez Discharge Physical Examination Allergies: Coded Allergies: Sulfa (Sulfonamide Antibiotics) (Verified Allergy, Unknown, 12/02/13) acetaminophen (Verified Allergy, Unknown, 06/16/19) cephalexin (Verified Allergy, Unknown, 06/16/19) ciprofloxacin (Verified Allergy, Unknown, 06/16/19) hydrocodone (Verified Allergy, Unknown, 12/02/13) iodine (Verified Allergy, Unknown, 12/02/13) meperidine (Verified Allergy, Unknown, 12/02/13) metronidazole (Verified Allergy, Unknown, 06/16/19) propoxyphene (Verified Allergy, Unknown, 12/02/13) rosuvastatin (Verified Allergy, Unknown, 06/16/19) simvastatin (Verified Allergy, Unknown, 06/16/19) Vitals & I&Os Vital Signs Date Time Temp Pulse Resp B/P (MAP) Pulse Ox O2 Delivery O2 Flow Rate FiO2 06/20/19 08:00 Room Air 06/20/19 08:00 36.5 63 18 165/71 (102) 97 06/18/19 05:00 2.00 General Appearance: Alert, Oriented X3, Cooperative, No Acute Distress Respiratory: Clear to Auscultation Cardiovascular: Regular Rate Abdominal: Normal Bowel Sounds, Soft, No Tenderness Extremities: No Clubbing, No Cyanosis, No Edema Skin: Other (left upper chest with dry dressing in place) Psych/Mental Status: Mental Status NL Discharge Home Medications Reviewed and agree with Discharge Medication list on patient's Discharge Instruction sheet Instructions to Patient/Family Please see electronic discharge instructions given to patient. Clinical Quality Measures AMI/AHF: ASA po Prior to arrival: No DVT/VTE Risk/Contraindication: Risk Factor Score Per Nursin RFS Level Per Nursing on Admit: 2=Moderate SIDRA RODGERS DO Jun 20, 2019 12:10
[2019-06-20 13:00] VITALS: BP 188/74
--- NOTE | 2019-06-20 13:30 | NUR ---
Pt discharged at this time. IV removed. Pt escorted to private car by Nurse Tech via wheelchair. Daughter at bedside during discharge instructions. No questions at this time.
--- NOTE | 2019-06-22 10:59 | Physician Query Clarification ---
PQ-Conflicting Diagnosis Admission/Discharge Admission Date: Jun 16, 2019 at 17:47 Discharge Date: Jun 20, 2019 at 13:29 The medical record reflects the following clinical scenario: History/Risk Factors: Second degree AV block, Complete AV block, HTN w/ CKD Clinical Findings: Bun/CR 06/16(admit) 35/1.31 2 49/1.81 06/20 39/1.14 Treatment: IVF Question: Do you agree with the impression of the acute renal insufficiency per Dr. Ernandez or acute renal failure per Dr. Owen. Please document a response in Progress Note or Discharge Summary. 1. Yes, acute renal insufficiency per Dr. Ernandez and No to acute renal failure per Dr. Owen 2. No, acute renal insufficiency per Dr. Ernandez and Yes to acute renal failure kper Dr. Owen 3. Other, with explanation of clinical findings 4. Clinically undetermined, no explanation for clinical findings. PHYSICIAN RESPONSE Do you agree w/Consulting Dx?: No Explanation of clincal finding See my discharge summary which says acute renal failure Please remember a lack of response to the above will prompt a phone page by CDI/Coding staff. In responding to this query, please exercise your independent professional judgment. The purpose of this communication is to more accurately reflect the complexity of your patients condition. The fact that a question is asked does not imply that any particular answer is desired or expected. Thank you for your timely response to this clarification. Requestors name: Simona THIS PHYSICIAN QUERY FORM IS A PERMANENT PART OF THE MEDICAL RECORD SIMONA BASS Jun 22, 2019 10:59 SIDRA OWEN DO Jun 22, 2019 18:03
== END 2019-06-20 13:29 | disposition home or self-care (01) | DRG 243 ==
LOC: EDUNIT# 16:44 → ER 16:45 → ICU 17:47 → CSD 06-19 09:38
PROVIDERS: ADMIT Family Medicine; ATTEND Family Medicine
PROC: 02H63JZ Insertion of Pacemaker Lead into Right Atrium, Percutaneous Approach (ICD-10-PCS; principal; 2019-06-17)
PROC: 02HK3JZ Insertion of Pacemaker Lead into Right Ventricle, Percutaneous Approach (ICD-10-PCS; 2019-06-17)
PROC: 0JH606Z Insertion of Pacemaker, Dual Chamber into Chest Subcutaneous Tissue and Fascia, Open Approach (ICD-10-PCS; 2019-06-17)
DX: I44.2 Atrioventricular block, complete (principal); I44.1 Atrioventricular block, second degree; R00.1 Bradycardia, unspecified; N17.9 Acute kidney failure, unspecified; E86.9 Volume depletion, unspecified; I12.9 Hypertensive chronic kidney disease with stage 1 through stage 4 chronic kidney disease, or unspecified chronic kidney disease; N18.9 Chronic kidney disease, unspecified; E03.9 Hypothyroidism, unspecified; Z66 Do not resuscitate; M10.9 Gout, unspecified; R10.13 Epigastric pain; R07.89 Other chest pain
CPT/HCPCS: 33208; 36415; 71045; 71046; 75820; 80048; 80053; 80061; 81000; 83735; 83874; 83880; 84100; 84439; 84443; 84484; 85007; 85025; 85027; 85610; 85730; 87081; 93005; 93041; 93306; 93308; 96374

== ENCOUNTER → 2019-07-08 | Outpatient (CLI) | payer MEDICARE, OTHER ==
[~2019-07-08] MED LIST changes: +ACET-2267 PO; +AMLO5TAB9 PO; +CHOL10002 PO; +DOXY100T2 PO; +HYDR12.5 PO; +MTP100TCR PO; +OLME40TA12 PO; +ONDA-105 PO; +PANT40TA3 PO
[2019-07-08 10:41] LABS: CALCIUM 9.6 MG/DL (8.5-10.1); CREATININE SERUM 0.94 MG/DL (0.60-1.30); POTASSIUM 3.6 MMOL/L (3.6-5.0)
== END ==
LOC: LAB 10:10
PROVIDERS: ATTEND Family Medicine
DX: N28.9 Disorder of kidney and ureter, unspecified (principal)
CPT/HCPCS: 36415; 80048

== ENCOUNTER 2019-11-13 14:31 | Observation (INO) | payer MEDICARE, OTHER ==
[~2019-11-13] VITALS: Ht 149.9 cm; Wt 56.7 kg
[2019-11-13] MEDS ORDERED: ONDANSETRON 4 MG/2 ML (SDV) Z0FRAN IVP PRN (15:00)
[2019-11-13] MEDS ORDERED: MELATONIN 3 MG TABLET PO PRN (15:00)
[2019-11-13] MEDS ORDERED: DOCUSATE SODIUM 100 MG (COLACE) CAP PO PRN (15:00)
[2019-11-13] MEDS ORDERED: ACETAMINOPHEN 500 MG TAB (TYLENOL) PO PRN (15:00)
[2019-11-13] MEDS ORDERED: diphenhydrAMINE 25 MG TAB (BENADRYL) PO PRN (15:00)
[2019-11-13] MEDS ORDERED: ONDANSETRON 4 MG (ZOFRAN) ORAL DISSOLVE TAB PO PRN (15:00)
[2019-11-13] MEDS ORDERED: CALCIUM CARBONATE 500 MG (TUMS) TAB.CHEW PO PRN (15:00)
--- NOTE | 2019-11-13 15:20 | NUR ---
CHARMAINE TORRES admitted to room 407-1, with an admitting diagnosis of hematoma of the right knee, on 11/13/[address] Krishnan office via wheelchair, accompanied by staff.CHARMAINE TORRES introduced to surroundings, call light, bed controls, phone, TV, temperature control, lights, meal times, smoking policy, visitor policy, side rail policy, bathrooms and showers. Patient Rights given to patient in the handbook. CHARMAINE TORRES verbalizes understanding that [facility] is not responsible for the loss or damage to any personal effects or valuables that are kept in the patients posession during their hospitalization.
[2019-11-13 15:24] VITALS: BP 196/88
[2019-11-13] MEDS ORDERED: CLON0.1T PO (15:47)
[2019-11-13] MEDS ORDERED: DILT240C87 PO (15:47)
[2019-11-13] MEDS ORDERED: L GA1CAP2 PO (15:47)
[2019-11-13] MEDS ORDERED: APIX5TAB PO (15:47)
--- NOTE | 2019-11-13 15:54 | NUR ---
SPOKE WITH THE PT (SHE HAD HER MED BOTTLES WITH HER) AND WENT THRU THE EXT MED HISTORY TO COMPLETE THE MED REC ALL MEDICATIONS THE PT HAD ARE LISTED ON THE EXT MED HISTORY AND THE PT WAS ABLE TO TELL ME HOW/WHEN SHE TAKES EACH MED. HER INFORMATION MATCHED THE BOTTLES/EXT MED HISTORY OTC MEDS: VIT D VIT B12 [facility] TYLENOL
[2019-11-13 15:56] VITALS: BP 196/88
--- NOTE | 2019-11-13 16:49 | Consultation-Cardiology ---
HPI-Cardiology Cardiology Consultation Date of Consultation 11/13/19 Date of Admission Time Seen by Provider: 16:44 Indication: atrial fibrillation HPI 89-year-old lady with history of symptomatic AV block and dual-chamber pacemaker, paroxysmal atrial fibrillation. Has been maintained on oral anticoagulation. Had sudden onset right knee pain and swelling and erythema. No trauma to her knee. Developed sudden bruising on her right thigh yesterday. She was seen by Dr. Norris and admitted. On my evaluation she denied any chest pain, no shortness of breath. No palpitation. No syncope or trauma to her thigh or knee. Home Medications & Allergies Allergies: Coded Allergies: Sulfa (Sulfonamide Antibiotics) (Verified Allergy, Unknown, 12/02/13) acetaminophen (Verified Allergy, Unknown, 06/16/19) cephalexin (Verified Allergy, Unknown, 06/16/19) ciprofloxacin (Verified Allergy, Unknown, 06/16/19) hydrocodone (Verified Allergy, Unknown, 12/02/13) iodine (Verified Allergy, Unknown, 12/02/13) meperidine (Verified Allergy, Unknown, 12/02/13) metronidazole (Verified Allergy, Unknown, 06/16/19) propoxyphene (Verified Allergy, Unknown, 12/02/13) rosuvastatin (Verified Allergy, Unknown, 06/16/19) simvastatin (Verified Allergy, Unknown, 06/16/19) Home Medication List Reviewed: Yes DIQ-Sdopnn-Qjikqf Hx Patient Social History Marital Status: Employed/Student: retired Alcohol Use: Denies Use Recreational Drug Use: No Recent Foreign Travel: No Recent Infectious Disease Expo: No Recent Hopitalizations: No Physical Abuse Screen: No Sexual Abuse: No Immunizations Up To Date Tetanus Booster (TDap): More than 5yrs Date of Pneumonia Vaccine: Jul 13, 2017 Date of Influenza Vaccine: Feb 03, 2019 Past Medical History Discussed below Family Medical History Family History: Cardiovascular disease 19 FATHER Completed stroke G8 BROTHER Myocardial infarction G8 BROTHER G8 BROTHER G8 BROTHER Review of Systems-General Review of Systems Constitutional: see HPI, malaise EENTM: see HPI, no symptoms reported Respiratory: see HPI; No cough, No dyspnea on exertion, No hemoptysis, No orthopnea, No phlegm, No short of breath, No stridor, No wheezing, No other Cardiovascular: see HPI; No chest pain, No edema, No Hx of Intervention, No palpitations, No syncope, No vascular heart diseas, No other Gastrointestinal: no symptoms reported, see HPI Genitourinary: no symptoms reported, see HPI Musculoskeletal: see HPI, joint pain (right knee and thigh pain) Skin: no symptoms reported, see HPI Psychiatric/Neurological: No Symptoms Reported, See HPI Physical Exam Physical Exam Vital Signs Vital Signs - First Documented 11/13/19 15:24 Temp 37.1 Pulse 89 Resp 16 B/P (MAP) 196/88 Pulse Ox 95 O2 Delivery Room Air Capillary Refill : Height, Weight, BMI Height: 5'0.00" Weight: 143lbs. 0.0oz. [id number]; 25.23 BMI Method:Stated General Appearance: No Apparent Distress, WD/WN Eyes: Bilateral Eye Normal Inspection, Bilateral Eye PERRL, Bilateral Eye EOMI HEENT: PERRL/EOMI, TMs Normal, Normal ENT Inspection, Pharynx Normal, Moist Muc ous Membranes Neck: Full Range of Motion, Normal Inspection, Non Tender, Supple, Carotid Bruit Respiratory: Chest Non Tender, Normal Breath Sounds, No Accessory Muscle Use, No Respiratory Distress Cardiovascular: Regular Rate, Rhythm, No Edema, No Gallop, No JVD, No Murmur, Normal Peripheral Pulses Gastrointestinal: Normal Bowel Sounds, No Organomegaly, No Pulsatile Mass, Non Tender, Soft Back: Normal Inspection, No CVA Tenderness, No Vertebral Tenderness Extremity: Normal Capillary Refill, Other (bruising on the right thigh, swelling and erythema on the right knee) Neurologic/Psychiatric: Alert, Oriented x3, No Motor/Sensory Deficits, Normal Mood/Affect Skin: Normal Color, Warm/Dry Lymphatic: No Adenopathy A/P-Cardiology Admission Diagnosis Paroxysmal atrial fibrillation High-grade AV block Cardiac pacemaker Hypertension Assessment/Plan Erythema and pain on the right knee patient was admitted, consulting or so for evaluation. Spontaneous bruising on the right thigh probably due to oral anticoagulation, hold for now and monitor Paroxysmal atrial fibrillation, discovered on pacemaker interrogation in July 2019, has been on oral anticoagulation without any complication until this admission Symptomatic bradycardia with 2-1 AV block, had dual-chamber pacemaker implanted on June 17, [address] Ernandez. History of chest pain, no further episodes were reported Mild bilateral carotid stenosis. Continue to monitor Hypertension, restart Cardizem and monitor blood pressure Hypothyroidism maintained on levothyroxine Clinical Quality Measures DVT/VTE Risk/Contraindication: Risk Factor Score Per Nursin RFS Level Per Nursing on Admit: 2=Moderate Contraindications-Pharm: Other *list below* Contraindications-Mechi: Other *list below* Other: hematoma spontaeous and leg hematomas REYNOLD MALDONADO MD Nov 13, 2019 16:49
[2019-11-13] MEDS ORDERED: cloNIDine 0.1 MG (CATAPRES) TAB PO PRN (17:00)
[2019-11-13] MEDS ORDERED: hydrALAZINE (APESOLINE) 20 MG/ML VIAL IV PRN (17:00)
--- NOTE | 2019-11-13 17:06 | Diagnostic Imaging Report ---
INDICATION: Hip pain. EXAMINATION: Two views were obtained. FINDINGS: The alignment is normal. There are mild degenerative changes. There is no fracture or dislocation. Soft tissues are unremarkable. IMPRESSION: Mild degenerative changes, otherwise unremarkable. Dictated by: Dictated on workstation # [id number]
--- NOTE | 2019-11-13 17:07 | Diagnostic Imaging Report ---
HISTORY: Right knee pain. TECHNIQUE: Three views of the right knee. COMPARISON: None. FINDINGS: There are marked degenerative changes in all three compartments of the right knee. No acute fracture or dislocation is seen in the right knee. There is diffuse osteopenia. Alignment appears normal. There is a small right knee joint effusion. IMPRESSION: 1. 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 No acute fracture is seen. Dictated by: Dictated on workstation # [id number]
[2019-11-13 17:50] LABS: BASOPHILS # (AUTO) 0.1 10^3/uL (0.0-0.1); BASOPHILS % (AUTO) 1 % (0-10); EOSINOPHILS % (AUTO) 0 % (0-10); HEMATOCRIT 37 % (35-52); HEMOGLOBIN 12.1 G/DL (11.5-16.0); LYMPHOCYTES # (AUTO) 1.5 X 10^3 (1.0-4.0); LYMPHOCYTES % (AUTO) 20 % (12-44); MEAN CORPUSCULAR HGB CONC 33 G/DL (32-36); MEAN CORPUSCULAR VOLUME 88 FL (80-99); MEAN PLATELET VOLUME 9.6 FL (7.4-10.4); MONOCYTES # (AUTO) 0.6 X 10^3 (0.0-1.0); MONOCYTES % (AUTO) 8 % (0-12); NEUTROPHILS # (AUTO) 5.3 X 10^3 (1.8-7.8); NEUTROPHILS % (AUTO) 71 % (42-75); PLATELET COUNT 316 10^3/uL (130-400); RED CELL DISTRIBUTION WIDTH 14.8 % (10.0-14.5); WHITE BLOOD COUNT 7.4 10^3/uL (4.3-11.0)
[2019-11-13 17:51] LABS: MEAN CORPUSCULAR HEMOGLOBIN 28 PG (25-34)
[2019-11-13 18:00] LABS: POTASSIUM 4.2 MMOL/L (3.6-5.0)
[2019-11-13 18:02] LABS: CALCIUM 10.2 MG/DL (8.5-10.1)
[2019-11-13 18:03] LABS: TOTAL PROTEIN 7.2 GM/DL (6.4-8.2)
[2019-11-13 18:05] LABS: BILIRUBIN,TOTAL 0.6 MG/DL (0.1-1.0)
[2019-11-13 18:06] LABS: CREATININE SERUM 1.15 MG/DL (0.60-1.30)
[2019-11-13 18:16] LABS: INR 0.9 (0.8-1.4); PROTHROMBIN TIME PATIENT 12.9 SEC (12.2-14.7)
[2019-11-13 18:30] VITALS: BP 160/80
--- NOTE | 2019-11-13 18:45 | NUR ---
Attempted to start IV. Patient stuck 6 times by 3 different nurses. All attempts failed. Dr. Norris notified and ordered to leave IV out.
[2019-11-13 19:17] VITALS: BP 156/66
[2019-11-13] MEDS: cloNIDine 0.1 MG (CATAPRES) TAB PO SCH (20:33)
[2019-11-13] MEDS ORDERED: NON-FORMULARY MEDICATION 1 EA EA (Diltiazem HCl (Diltiazem ER) 240 MG) PO SCH (21:00)
--- NOTE | 2019-11-13 22:02 | Consultation - Surgery ---
History of Present Illness History of Present Illness Patient Consulted On(chip/time) 11/13/19 21:56 Date Seen by Provider: Nov 13, 2019 Time Seen by Provider: 17:08 Reason for Visit: atrial fibrillation History of Present Illness Consult requested by Dr. Norris for hematoma Patient is an 89 year old female who states she had sudden swelling and bruising/hematoma to right lower extremity. She denies any trauma to the leg. Has had progressive growth of hematoma/bruising. Making it extremely hard to walk, now having use a walker due to weakness and pain. She is on anticoagulation. Nothing is making it better. Moderate discomfort at right thigh/knee. No other complaints at this time. Denies n/v fever sweats chills shortness of breath or chest pain. Allergies and Home Medications Allergies Coded Allergies: Sulfa (Sulfonamide Antibiotics) (Verified Allergy, Unknown, 12/02/13) acetaminophen (Verified Allergy, Unknown, 06/16/19) cephalexin (Verified Allergy, Unknown, 06/16/19) ciprofloxacin (Verified Allergy, Unknown, 06/16/19) hydrocodone (Verified Allergy, Unknown, 12/02/13) iodine (Verified Allergy, Unknown, 12/02/13) meperidine (Verified Allergy, Unknown, 12/02/13) metronidazole (Verified Allergy, Unknown, 06/16/19) propoxyphene (Verified Allergy, Unknown, 12/02/13) rosuvastatin (Verified Allergy, Unknown, 06/16/19) simvastatin (Verified Allergy, Unknown, 06/16/19) Home Medications Acetaminophen 500 Mg Tablet, 500-1,000 MG PO Q4H PRN for PAIN-MILD (1-4), (Reported) Allopurinol 100 Mg Tablet, 100 MG PO HS, (Reported) Apixaban 5 Mg Tablet, 5 MG PO BID, (Reported) Cholecalciferol (Vitamin D3) 25 Mcg Tablet, 25 MCG PO HS, (Reported) Clonidine HCl 0.1 Mg Tablet, 0.1 MG PO TID, (Reported) Cyanocobalamin (Vitamin B-12) 1,000 Mcg Tablet, 1,000 MCG PO HS, (Reported) Diltiazem HCl 240 Mg Capsule.er, 240 MG PO HS, (Reported) Levothyroxine Sodium 50 Mcg Tablet, 50 MCG PO DAILY, (Reported) l Gasseri/B Bifidum/B Longum 1 Each Capsule, 1 EACH PO HS, (Reported) Patient Home Medication List Home Medication List Reviewed: Yes Past Btntgwj-Wwqmhr-Gsoxru Hx Patient Social History Alcohol Use: Denies Use Recreational Drug Use: No Recent Foreign Travel: No Contact w/Someone Who Travel: No Recent Infectious Disease Expo: No Recent Hopitalizations: No Physical Abuse Screen: No Sexual Abuse: No Immunizations Up To Date Tetanus Booster (TDap): More than 5yrs PED Vaccines UTD: No Date of Pneumonia Vaccine: Jul 13, 2017 Date of Influenza Vaccine: Feb 03, 2019 Seasonal Allergies Seasonal Allergies: No Surgeries History of Surgeries: Yes (HYST/BSO FOR BENIGN DISEASE; LEFT SHOULDER REPLACEMENT; X 1) Surgeries: Section, Hysterectomy, Joint Replacement, Oophorectomy, Orthopedic Respiratory History of Respiratory Disorde: No Cardiovascular History of Cardiac Disorders: Yes Cardiac Disorders: Hypertension Neurological History of Neurological Disord: No 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 System Hx 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 Disorders: No 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, Menopausal Genitourinary History of Genitourinary Disor: No Gastrointestinal History of Gastrointestinal Di: Yes Gastrointestinal Disorders: Diverticulosis Musculoskeletal History of Musculoskeletal Dis: Yes (LEFT SHOULDER REPLACEMENT) Musculoskeletal Disorders: Arthritis, Scoliosis, Gout Endocrine History of Endocrine Disorders: Yes Endocrine Disorders: Hypothyroidsim HEENT Hearing Impairment: Hard of Hearing Cancer History of Cancer: No Psychosocial History of Psychiatric Problem: No Integumentary History of Skin or Integumenta: No Blood Transfusions History of Blood Disorders: No Reviewed Nursing Assessment Reviewed/Agree w Nursing PMH: Yes Family Medical History Significant Family History: No Pertinent Family Hx Family Medial History: Cardiovascular disease 19 FATHER Completed stroke G8 BROTHER Myocardial infarction G8 BROTHER G8 BROTHER G8 BROTHER Review of Systems-General Constitutional: No chills, No diaphoresis, No fever; weakness EENTM: No ear pain, No blurred vision, No double vision Respiratory: No cough, No dyspnea on exertion, No short of breath Cardiovascular: No chest pain, No edema Gastrointestinal: No abdominal pain, No nausea, No vomiting Genitourinary: No dysuria, No frequency Musculoskeletal: No back pain; joint pain (right knee) Skin: change in color Psychiatric/Neurological: Denies Anxiety, Denies Depressed, Denies Emotional Problems All Other Systems Reviewed Negative Unless Noted: Yes (Negative excepted noted.) Physical Exam-General Problems Physical Exam Vital Signs Vital Signs - First Documented 11/13/19 15:24 Temp 37.1 Pulse 89 Resp 16 B/P (MAP) 196/88 Pulse Ox 95 O2 Delivery Room Air Capillary Refill : General Appearance: no apparent distress, thin HEENT: PERRL/EOMI, normal ENT inspection Neck: non-tender, full range of motion, supple, normal inspection Respiratory: chest non-tender, no respiratory distress, no accessory muscle use Cardiovascular: regular rate, rhythm, other (minimal lower extremity edema) Gastrointestinal: non tender, soft, no organomegaly Rectal: deferred Back: normal inspection, no CVA tenderness Extremities: swelling (right knee, echymosis and hematoma right lower extremity tenderness with palpation) Neurologic/Psychiatric: manual plate filler II-XII nml as tested, alert, normal mood/affect, oriented x 3 Skin: warm/dry, ecchymosis (right lower extremity) Lymphatic: no adenopathy Data Review Labs Laboratory Tests 11/13/19 17:40: White Blood Count 7.4, Red Blood Count 4.25L, Hemoglobin 12.1, Hematocrit 37, Mean Corpuscular Volume 88, Mean Corpuscular Hemoglobin 28, Mean Corpuscular Hemoglobin Concent 33, Red Cell Distribution Width 14.8H, Platelet Count 316, Mean Platelet Volume 9.6, Neutrophils (%) (Auto) 71, Lymphocytes (%) (Auto) 20, Monocytes (%) (Auto) 8, Eosinophils (%) (Auto) 0, Basophils (%) (Auto) 1, Neutrophils # (Auto) 5.3, Lymphocytes # (Auto) 1.5, Monocytes # (Auto) 0.6, Eosinophils # (Auto) 0.0, Basophils # (Auto) 0.1, Prothrombin Time 12.9, INR Comment 0.9, Sodium Level 140, Potassium Level 4.2, Chloride Level 105, Carbon Dioxide Level 24, Anion Gap 11, Blood Urea Nitrogen 25H, Creatinine 1.15, Estimat Glomerular Filtration Rate 45, BUN/Creatinine Ratio 22, Glucose Level 117H, Calcium Level 10.2H, Corrected Calcium 10.2H, Total Bilirubin 0.6, Aspartate Amino Transf (AST/SGOT) 28, Alanine Aminotransferase (ALT/SGPT) 19, Alkaline Phosphatase 77, Total Protein 7.2, Albumin 4.0 Assessment/Plan Assessment/Plan Assessment/Plan spontaneous hematoma right lower extremity long-term anticoagulation weakness No surgical intervention needed at this time would hold anticoagulation monitor, hematoma should reabsorb will follow Clinical Quality Measures DVT/VTE Risk/Contraindication: Risk Factor Score Per Nursin RFS Level Per Nursing on Admit: 2=Moderate Contraindications-Pharm: Other *list below* Contraindications-Mechi: Other *list below* Other: hematoma spontaeous and leg hematomas GINA MALHOTRA DO Nov 13, 2019 22:01
--- NOTE | 2019-11-13 22:48 | CONSULTATION REPORT ---
DATE OF SERVICE: REASON FOR CONSULTATION: Right knee hemarthrosis. HISTORY OF PRESENT ILLNESS: The patient is an 89-year-old independently living female who Melissa while getting into bed, noticed some pain in her knee. She reports no fall, no twist, no significant trauma, but following this, she had swelling in her knee and since then has had some bruising noted also in the medial aspect of her thigh. She was seen by Dr. Norris and admitted for observation. The patient anticoagulants, it was felt that this contributed to her spontaneous bleeding. She reports no groin pain. On exam, the right knee demonstrates ecchymosis. There is also ecchymosis noted on her mid aspect of her medial thigh. She has no pain with hip range of motion. Knee range of motion is painful with flexion due to the swelling, but there is no varus valgus laxity. Negative anterior and posterior drawer. No signs of trauma. No skin lesions are noted. ASSESSMENT: Right knee hemarthrosis with right thigh hematoma. PLAN: I discussed options with the patient and offered to aspirate the knee. She asked if this was necessary. I told her it is not necessary as her knee is not tense. She is several days out from her bleeding episode and at this point, I feel that it is fine to continue with observation. I would recommend ice and range of motion. She can weightbear as tolerated. If she elects to proceed with an aspiration at a later date that can be arranged. Otherwise, we will see her as needed. Thank you for the consultation. Job ID: [id number] DocumentID: [id number] Dictated Date: 11/13/2019 16:56:10 Study Assistant Date: 11/13/2019 22:47:27 Dictated By: EDWINA BAÑUELOS MD
--- NOTE | 2019-11-13 23:27 | NUR ---
DR. GALARZA NOTIFIED OF PT'S PAIN NOT BEING CONTROLLED AFTER BEING GIVEN TYLENOL. NEW ORDERS RECEIVED FOR OXYCODONE 5MG PO Q4HR
[2019-11-14] VITALS: BP 135/57
[2019-11-14 04:00] VITALS: BP 153/66
--- NOTE | 2019-11-14 05:33 | Progress Note - Surgery ---
Subjective Date Seen by a Provider: Nov 14, 2019 Time Seen by a Provider: 05:26 Subjective/Events-last exam Patient states right lower extremity about the same. No increase in size and or worsening ecchymosis. Has some aches all over. Still feels weak. Denies n/v fever sweats chills shortness of breath or chest pain. Objective Exam Vital Signs Date Time Temp Pulse Resp B/P (MAP) Pulse Ox O2 Delivery O2 Flow Rate FiO2 11/14/19 04:00 37.1 63 20 153/66 (95) 96 Room Air 11/14/19 01:00 60 11/14/19 00:00 36.7 59 20 135/57 (83) 95 Room Air 11/13/19 20:35 Room Air 11/13/19 19:17 36.6 76 20 156/66 (96) 96 Room Air 11/13/19 19:00 67 11/13/19 18:30 82 16 160/80 (106) 95 11/13/19 17:36 Room Air 11/13/19 16:16 73 11/13/19 15:56 37.1 89 16 196/88 (124) 95 Room Air 11/13/19 15:24 37.1 89 16 196/88 95 Room Air I & O 11/14/19 07:00 Intake Total 340 ml Balance 340 ml Capillary Refill : Less Than 3 Seconds General Appearance: No Apparent Distress, WD/WN HEENT: PERRL/EOMI, Normal ENT Inspection Neck: Full Range of Motion, Normal Inspection, Non Tender, Supple Respiratory: Chest Non Tender, No Accessory Muscle Use, No Respiratory Distress Cardiovascular: Regular Rate, Rhythm, No Edema, Normal Peripheral Pulses Gastrointestinal: non tender, soft, no organomegaly Extremity: Normal Capillary Refill, Other (bruising on the right thigh, swelling and erythema on the right knee unchanged) Neurologic/Psychiatric: Alert, Oriented x3, No Motor/Sensory Deficits, Normal Mood/Affect Skin: Normal Color, Warm/Dry Lymphatic: No Adenopathy Results Lab Laboratory Tests 11/13/19 17:40: White Blood Count 7.4, Red Blood Count 4.25L, Hemoglobin 12.1, Hematocrit 37, M idania Corpuscular Volume 88, Mean Corpuscular Hemoglobin 28, Mean Corpuscular Hemoglobin Concent 33, Red Cell Distribution Width 14.8H, Platelet Count 316, Mean Platelet Volume 9.6, Neutrophils (%) (Auto) 71, Lymphocytes (%) (Auto) 20, Monocytes (%) (Auto) 8, Eosinophils (%) (Auto) 0, Basophils (%) (Auto) 1, Neutrophils # (Auto) 5.3, Lymphocytes # (Auto) 1.5, Monocytes # (Auto) 0.6, Eosinophils # (Auto) 0.0, Basophils # (Auto) 0.1, Prothrombin Time 12.9, INR Comment 0.9, Sodium Level 140, Potassium Level 4.2, Chloride Level 105, Carbon Dioxide Level 24, Anion Gap 11, Blood Urea Nitrogen 25H, Creatinine 1.15, Estimat Glomerular Filtration Rate 45, BUN/Creatinine Ratio 22, Glucose Level 117H, Calcium Level 10.2H, Corrected Calcium 10.2H, Total Bilirubin 0.6, Aspartate Amino Transf (AST/SGOT) 28, Alanine Aminotransferase (ALT/SGPT) 19, Alkaline Phosphatase 77, Total Protein 7.2, Albumin 4.0 Assessment/Plan Assessment/Plan Assessment/Plan spontaneous hematoma right lower extremity long-term anticoagulation weakness monitor, hematoma should reabsorb no surgical intervention will follow try and increase strength Clinical Quality Measures DVT/VTE Risk/Contraindication: Risk Factor Score Per Nursin RFS Level Per Nursing on Admit: 2=Moderate Contraindications-Pharm: Other *list below* Contraindications-Mechi: Other *list below* Other: hematoma spontaeous and leg hematomas GINA MALHOTRA DO Nov 14, 2019 05:33
--- NOTE | 2019-11-14 05:49 | NUR ---
DR. GALARZA NOTIFIED OF PT'S REQUEST FOR DR. BAÑUELOS TO DRAIN THE FLUID FROM HER KNEE, DR. GALARZA INSTRUCTED RN TO NOTIFY DR. BAÑUELOS OF PT'S WISHES.
[2019-11-14 06:04] LABS: BASOPHILS % (AUTO) 1 % (0-10); EOSINOPHILS % (AUTO) 1 % (0-10); HEMATOCRIT 34 % (35-52); HEMOGLOBIN 10.8 G/DL (11.5-16.0); LYMPHOCYTES # (AUTO) 1.2 X 10^3 (1.0-4.0); LYMPHOCYTES % (AUTO) 19 % (12-44); MEAN CORPUSCULAR HEMOGLOBIN 27 PG (25-34); MEAN CORPUSCULAR HGB CONC 32 G/DL (32-36); MEAN CORPUSCULAR VOLUME 87 FL (80-99); MEAN PLATELET VOLUME 10.4 FL (7.4-10.4); MONOCYTES # (AUTO) 0.6 X 10^3 (0.0-1.0); MONOCYTES % (AUTO) 9 % (0-12); NEUTROPHILS # (AUTO) 4.5 X 10^3 (1.8-7.8); NEUTROPHILS % (AUTO) 71 % (42-75); PLATELET COUNT 270 10^3/uL (130-400); RED CELL DISTRIBUTION WIDTH 14.8 % (10.0-14.5); WHITE BLOOD COUNT 6.3 10^3/uL (4.3-11.0)
[2019-11-14 06:23] LABS: ALBUMIN 3.5 GM/DL (3.2-4.5); POTASSIUM 4.3 MMOL/L (3.6-5.0)
[2019-11-14 06:24] LABS: CALCIUM 9.7 MG/DL (8.5-10.1)
[2019-11-14 06:25] LABS: TOTAL PROTEIN 6.2 GM/DL (6.4-8.2)
--- NOTE | 2019-11-14 06:25 | NUR ---
DR. BAÑUELOS NOTIFIED BY REQUEST OF DR. GALARZA OF PT'S WISHES FOR HER KNEE TO BE DRAINED. DR BAÑUELOS TOLD RN HE WILL COME UP LATER AND DRAIN IT. PT NOTIFIED OF DR. BAÑUELOS'S RESPONSE.
[2019-11-14 06:27] LABS: BILIRUBIN,TOTAL 0.7 MG/DL (0.1-1.0)
[2019-11-14 06:29] LABS: CREATININE SERUM 1.03 MG/DL (0.60-1.30)
[2019-11-14 07:47] VITALS: BP 151/62
[2019-11-14] MEDS: cloNIDine 0.1 MG (CATAPRES) TAB PO SCH (09:02)
--- NOTE | 2019-11-14 10:19 | History & Physical ---
History of Present Illness HPI/Chief Complaint CC: Spontaneous right knee hemarthrosis and right thigh hematoma on OAC with anemia from acute blood loss into leg HPI: Pt presents to my clinic for an injured knee Pt's right knee is bruised and swollen. Pt states that Saturday morning at 4 AM she thought she had sprained something. Pt states that it hurt Saturday, but was okay on , but when she went to bed her bruising and swelling was there. I state that since she is on Eliquis she is having spontaneous hematomas. Pt said that she is not brusing or swelling anywhere else. Pt said that she did not take her blood thinner today. Pt's heart doctor is Awais. I state that we will take her off of her blood thinner for a while. I state that she did not hit her leg or thigh and she is having this deep tissue bruising. Pt states she feels better now than she did this morning. I state that she may be losing a lot of blood in her hematomas. Pt denies back pain. Pt states that since she had her heart monitor her sciatica has not been bad at all. I state that I spoke with general surgery for advice and we should probably put her in observation at the hospital. Pt's last dose of Eliquis was last night. I state that sometimes this can bleed more in other areas and we would like to keep an eye on her. Pt states that she is okay with going in over night. I state that I do not want her to have the risk of a fall while she is having issues with her knee. I state that our goal will be to get her home tomorrow. I state that we may need to drain her knee. Pt states that her son lives in town here. Pt will go home and get some things then come to the hospital. I state I need to make sure she does not bleed anymore. Pt states that her son brought her today and will be back to pick him up. Pt will be admitted to observation. Pt will bring her medicines and an overnight bag. Pt's sons _#: [phone] Scribed by: Zain Marshall Patient is currently having less pain than last night and Dr Del Angel came back to see her and attempted to aspirate blood which was unsuccessful. OAC will be held for the time being. Walking with a walker now and not required this before and she has steps in her house so the decision was made to admit her IRF for rahul s brandy. Source: patient Exam Limitations: no limitations Date Seen 11/14/19 Time Seen by a Provider: 10:30 Attending Physician Aliya Galarza DO PCP Aliya Galarza DO Referring Physician Date of Admission Nov 13, 2019 at 15:11 Home Medications & Allergies Home Medications Reviewed patient Home Medication Reconciliation performed by pharmacy medication reconciliations isotope technician and/or nursing. Patients Allergies have been reviewed. Allergies Allergies Coded Allergies Sulfa (Sulfonamide Antibiotics) (Verified Allergy, Unknown, 12/02/13) acetaminophen (Verified Allergy, Unknown, 06/16/19) cephalexin (Verified Allergy, Unknown, 06/16/19) ciprofloxacin (Verified Allergy, Unknown, 06/16/19) hydrocodone (Verified Allergy, Unknown, 12/02/13) iodine (Verified Allergy, Unknown, 12/02/13) meperidine (Verified Allergy, Unknown, 12/02/13) metronidazole (Verified Allergy, Unknown, 06/16/19) propoxyphene (Verified Allergy, Unknown, 12/02/13) rosuvastatin (Verified Allergy, Unknown, 06/16/19) simvastatin (Verified Allergy, Unknown, 06/16/19) Past Hzovonp-Bitusj-Mhfqdb Hx Past Med/Social Hx: Reviewed Nursing Past Med/Soc Hx, Reviewed and Corrections made Patient Social History Marrital Status: Employed/Student: retired Alcohol Use: Denies Use Recreational Drug Use: No Smoking Status: Never a Smoker Physical Abuse Screen: No Sexual Abuse: No Recent Foreign Travel: No Contact w/other who traveled: No Recent Hopitalizations: No Recent Infectious Disease Expo: No Immunizations Up To Date Tetanus Booster (TDap): More than 5yrs Pediatric: No Date of Pneumonia Vaccine: Jul 13, 2017 Date of Influenza Vaccine: Feb 03, 2019 Seasonal Allergies Seasonal Allergies: No Past Medical History Surgeries: Section, Hysterectomy, Joint Replacement, Oophorectomy, Orthopedic Currently Using CPAP: No Currently Using BIPAP: No Cardiac: Atrial Fibrillation, Hypertension pacemaker Dr Ernandez 2019 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: No Hysterectomy, Menopausal Gastrointestinal: Diverticulosis Musculoskeletal: Arthritis, Scoliosis, Gout Endocrine: Hypothyroidsim Hearing Impairment: Hard of Hearing History of Blood Disorders: No Family History Cardiovascular disease 19 FATHER Completed stroke G8 BROTHER Myocardial infarction G8 BROTHER G8 BROTHER G8 BROTHER No Pertinent Family Hx Review of Systems Constitutional: see HPI, malaise, weakness Musculoskeletal: joint pain, muscle pain, muscle stiffness, muscle cramps Physical Exam Physical Exam Vital Signs Vital Signs - First Documented 11/13/19 15:24 Temp 37.1 Pulse 89 Resp 16 B/P (MAP) 196/88 Pulse Ox 95 O2 Delivery Room Air Capillary Refill : Less Than 3 Seconds Height, Weight, BMI Height: 5'0.00" Weight: 143lbs. 0.0oz. [id number]; 25.23 BMI Method:Stated General Appearance: No Apparent Distress, WD/WN, Chronically ill, Thin Eyes: Bilateral Eye Normal Inspection, Bilateral Eye PERRL, Bilateral Eye EOMI HEENT: PERRL/EOMI, Normal ENT Inspection Neck: Full Range of Motion, Normal Inspection, Non Tender, Supple Respiratory: Chest Non Tender, Lungs Clear, Normal Breath Sounds, No Accessory Muscle Use, No Respiratory Distress Cardiovascular: Regular Rate, Rhythm, No Edema, Normal Peripheral Pulses Gastrointestinal: Normal Bowel Sounds, No Organomegaly, No Pulsatile Mass, Non Tender, Soft Back: Normal Inspection, No CVA Tenderness, No Vertebral Tenderness Extremity: Normal Capillary Refill, Other (bruising on the right thigh, swelling and erythema on the right knee unchanged) Neurologic/Psychiatric: Alert, Oriented x3, No Motor/Sensory Deficits, Normal Mood/Affect Skin: Normal Color, Warm/Dry Lymphatic: No Adenopathy Results Results/Procedures Labs Laboratory Tests 11/13/19 17:40 11/14/19 05:34 11/14/19 05:43 Patient resulted labs reviewed. Assessment/Plan Admission Diagnosis Assessment: Spontaneous right knee hemarthrosis and right thigh hematoma on Eliquis for CVA PPx per Cardiology Acute blood loss anemia 2 points loss in right leg tissue Pacemaker permanent Gout HTN CRI Lives alone OP Advanced age Plan: IRF PT OT Appreciate Ortho Surgery Cardiology DVT PPx bit SCD and Lovenox contraindicated Admission Status: Observation Diagnosis/Problems Diagnosis/Problems (1) Spontaneous hematoma of lower leg (2) Debility (3) Pacemaker Clinical Quality Measures DVT/VTE Risk/Contraindication: Risk Factor Score Per Nursin RFS Level Per Nursing on Admit: 2=Moderate Contraindications-Pharm: Other *list below* Contraindications-Mechi: Other *list below* Other: hematoma spontaeous and leg hematomas ALIYA GALARZA DO Nov 14, 2019 10:18
--- NOTE | 2019-11-14 10:37 | Physical Therapy Evaluation ---
PT Evaluation-General Medical Diagnosis Admission Date Nov 13, 2019 at 15:11 Medical Diagnosis: Hematoma right knee Onset Date: Nov 10, 2019 Therapy Diagnosis Therapy Diagnosis: Unsteady gait Height/Weight Height (Feet): 5 Height (Inches): 0.00 Weight (Pounds): 143 Weight (Ounces): 0.0 Precautions Precautions/Isolations: Standard Precautions Weight Bear Status Full Weight Bearing Full Weight Bearing Referral Physician: Aliya Norris Reason for Referral: Evaluation/Treatment, Strengthening, Gait Medical History Pertinent Medical History: HTN, Hypothroidism Additional Medical History pacemaker placement Current History Pt is an independent living 89 y/o female that repoted onset of knee pain and swelling starting 11/10/19. She indicates there was not injury. She was simply getting into bed and felt pain in the knee. She presented to the hospital due to progressive pain and immobility. Social History Home: Single Level Current Living Status: Alone Entry Into Home: Stairs With Railing PT Steps Into Home: 3 Prior Prior Level of Function SCALE: Activities may be completed with or without assistive devices. 8-Jbwqhotzxl-ffoszvc completes the activity by him/herself with no assistance from a helper. 5-Set-up or Clean-up Assistance-helper sets up or cleans up; patient completes activity. [place] assists only prior to or following the activity. 4-Supervision or Touching Assistance-helper provides verbal cues and/or touching/steadying and/or contact guard assistance as patient completes activity. Assistance may be provided throughout the activity or intermittently. 3-Partial/Moderate Assistance-helper does LESS THAN HALF the effort. [place] lifts, holds or supports trunk or limbs, but provides less than half the effort. 2-Substantial/Maximal Assistance-helper does MORE THAN HALF the effort. [place] lifts or holds trunk or limbs and provides more than half the effort. 2-Lvngyexlk-ayszfs does ALL the effort. Patient does none of the effort to complete the activity. Or, the assistance of 2 or more helpers is required for the patient to complete the activity. If activity was not attempted, code reason: 7-Patient Refused. 9-Not Applicable-not attempted and the patient did not perform the activity before the current illness, exacerbation or injury. 10-Not Attempted due to Environmental Limitations-(lack of equipment, weather restraints, etc.). 88-Not Attempted due to Medical Conditions or Safety Concerns. Bed Mobility: 6 Transfers (B,C,W/C): 6 Gait: 6 Stairs: 6 Indoor Mobility (Ambulation): Independent Stairs: Independent Prior Device Use: single point cane PT Evaluation-Current Subjective Pt reports her knee is painful and difficult to bend. She does report progress over the last 24 hours. Objective Patient Orientation: Normal For Age ROM/Strength ROM Lower Extremities right knee 0-85degrees Strength Lower Extremities gross 4/5 with exception of right knee flex/ ext 3/5 Sensory Vision: Functional Hearing: Functional Sensation Right Lower Extremit: Intact Sensation Left Lower Extremity: Intact Transfers Roll Left to Right (QC): 6 Sit to Lying (QC): 5 Lying to Sitting/Side of Bed(Q: 5 Sit to Stand (QC): 4 Chair/Dta-cw-Wtioc Xfer(QC): 4 Toilet Transfer (QC): 4 Car Transfer (QC): 88 Min Assist overall for stability during stand pivot transfers using FWW. Pt is not used to utilizing a walker for mobility. Gait Walk 10 feet (QC): 4 Walk 50 ft with 2 Turns(QC): 4 Distance: 75 Gait Assistive Device: FWW Comments/Gait Description Ambulate 75ft using FWW. Requires verbal cues for walker safety. (R) knee is stiff with decreased flexion during swing through. Wheelchair Training Does the Pt Use a Wheelchair?: No Balance Sitting Static: Normal Sitting Dynamic: Normal Standing Static: Fair Standing Dynamic: Fair Assessment/Needs Pt has stiffness and pain in the right knee that restricts sit to stand, bed mobility, and gait. She has gait instability and walker safety issues. She will benefit from PT to restore (I) function and return to home. Rehab Potential: Good PT Short Term Goals Short Term Goals Time Frame: Nov 18, 2019 PT Metal Template Maker Goals Shelter Goals PT Shelter Goals Time Frame: Nov 20, 2019 Roll Left & Right (QC): 6 Sit to Lying (QC): 6 Lying-Sitting on Side/Bed(QC): 6 Sit to Stand (QC): 6 Chair/Rqw-gm-Lcsze Xfer(QC): 6 Toilet Transfer (QC): 6 Does the Patient Walk: Yes Walk 10 feet (QC): 6 Walk 50ft with 2 Turns (QC): 6 Walk 150 ft (QC): 6 Walking 10ft on Uneven Surface: 6 1 Step (curb) (QC): 6 4 Steps (QC): 6 12 Steps (QC): 9 Picking up an Object (QC): 6 Does the Pt use WC or Scooter?: No PT Plan Problem List Problem List: Activity Tolerance, Functional Strength, Safety, Balance, Gait, ROM Treatment/Plan Treatment Plan: Continue Plan of Care Treatment Duration: Nov 20, 2019 Frequency: 6 times per week Estimated Hrs Per Day: .25 hour per day Safety Risks/Education Patient Education: Gait Training, Steps, Issued Written HEP Teaching Recipient: Patient Teaching Methods: Demonstration, Discussion Discharge Recommendations Therapy Discharge Recommendati: Post Acute PT Target Placement home Time/GCodes Time In: 1000 Time Out: 1040 Total Billed Treatment Time: 40 Total Billed Treatment visit, EVALMODERATE COMPLEXITY 40 MIN BREANNA NAVARRO PT Nov 14, 2019 10:37
--- NOTE | 2019-11-14 11:00 | NUR ---
Dr. Del Angel here, right knee aspirated, bandaid intact. Ice pack to knee.
[2019-11-14 11:54] VITALS: BP 151/62
--- NOTE | 2019-11-14 11:58 | NUR ---
Transferred to room 231 for rehab
--- NOTE | 2019-11-14 12:38 | CONSULTATION REPORT ---
DATE OF SERVICE: HISTORY OF PRESENT ILLNESS: The patient today decided that she would like to attempt to drain her knee. PHYSICAL EXAMINATION: EXTREMITIES: On exam, her knee area demonstrated actually less swelling than yesterday. Unfortunately, it appears that a lot of the swelling is extracapsular. PROCEDURE: Under sterile conditions, the right knee was aspirated with no gross fluid obtained. Attempts were then made to aspirate the prepatellar bursa area and a small amount of bloody fluid was obtained. IMPRESSION: Extracapsular soft tissue swelling secondary to bleeding. RECOMMENDATIONS: She can weightbear as tolerated. She can work on range of motion as tolerated. A compressive wrap may be of benefit symptomatically. I would recommend ice, but would encourage range of motion as tolerated and weightbearing. There are no signs or symptoms of infection. Her radiographs were negative for acute injury. At this point, there is nothing else I can offer other than conservative management as above. Thank you for the consultation. Job ID: [id number] DocumentID: [id number] Dictated Date: 11/14/2019 10:18:50 [place] In Date: 11/14/2019 12:38:01 Dictated By: EDWINA BAÑUELOS MD
--- NOTE | 2019-11-14 13:09 | Discharge Summary ---
Diagnosis/Chief Complaint Date of Admission Nov 13, 2019 at 15:11 Date of Discharge Nov 14, 2019 at 11:50 Discharge Date: Nov 14, 2019 Discharge Diagnosis Right knee hemarthrosis Right thigh hematoma OAC Debility Fall risk Advanced age Discharge Summary Discharge Physical Examination Allergies: Coded Allergies: Sulfa (Sulfonamide Antibiotics) (Verified Allergy, Unknown, 12/02/13) acetaminophen (Verified Allergy, Unknown, 06/16/19) cephalexin (Verified Allergy, Unknown, 06/16/19) ciprofloxacin (Verified Allergy, Unknown, 06/16/19) hydrocodone (Verified Allergy, Unknown, 12/02/13) iodine (Verified Allergy, Unknown, 12/02/13) meperidine (Verified Allergy, Unknown, 12/02/13) metronidazole (Verified Allergy, Unknown, 06/16/19) propoxyphene (Verified Allergy, Unknown, 12/02/13) rosuvastatin (Verified Allergy, Unknown, 06/16/19) simvastatin (Verified Allergy, Unknown, 06/16/19) Vitals & I&Os Vital Signs Date Time Temp Pulse Resp B/P (MAP) Pulse Ox O2 Delivery O2 Flow Rate FiO2 11/14/19 11:54 36.4 67 16 151/62 96 Room Air Hospital Course Was the Problem List Reviewed?: Yes See HPI Labs (last 24 hrs) Laboratory Tests 11/13/19 17:40: White Blood Count 7.4, Red Blood Count 4.25L, Hemoglobin 12.1, Hematocrit 37, Mean Corpuscular Volume 88, Mean Corpuscular Hemoglobin 28, Mean Corpuscular Hemoglobin Concent 33, Red Cell Distribution Width 14.8H, Platelet Count 316, Mean Platelet Volume 9.6, Neutrophils (%) (Auto) 71, Lymphocytes (%) (Auto) 20, Monocytes (%) (Auto) 8, Eosinophils (%) (Auto) 0, Basophils (%) (Auto) 1, Neutrophils # (Auto) 5.3, Lymphocytes # (Auto) 1.5, Monocytes # (Auto) 0.6, Eosinophils # (Auto) 0.0, Basophils # (Auto) 0.1, Prothrombin Time 12.9, INR Comment 0.9, Sodium Level 140, Potassium Level 4.2, Chloride Level 105, Carbon Dioxide Level 24, Anion Gap 11, Blood Urea Nitrogen 25H, Creatinine 1.15, Estimat Glomerular Filtration Rate 45, BUN/Creatinine Ratio 22, Glucose Level 117H, Calcium Level 10.2H, Corrected Calcium 10.2H, Total Bilirubin 0.6, Aspartate Amino Transf (AST/SGOT) 28, Alanine Aminotransferase (ALT/SGPT) 19, Alkaline Phosphatase 77, Total Protein 7.2, Albumin 4.0 11/14/19 05:34: Sodium Level 140, Potassium Level 4.3, Chloride Level 106, Carbon Dioxide Level 24, Anion Gap 10, Blood Urea Nitrogen 25H, Creatinine 1.03, Estimat Glomerular Filtration Rate 51, BUN/Creatinine Ratio 24, Glucose Level 101, Calcium Level 9.7, Corrected Calcium 10.1, Total Bilirubin 0.7, Aspartate Amino Transf (AST/SGOT) 23, Alanine Aminotransferase (ALT/SGPT) 16, Alkaline Phosphatase 74, Total Protein 6.2L, Albumin 3.5 11/14/19 05:43: White Blood Count 6.3, Red Blood Count 3.94L, Hemoglobin 10.8L, Hematocrit 34L, Mean Corpuscular Volume 87, Mean Corpuscular Hemoglobin 27, Mean Corpuscular Hemoglobin Concent 32, Red Cell Distribution Width 14.8H, Platelet Count 270, Mean Platelet Volume 10.4, Neutrophils (%) (Auto) 71, Lymphocytes (%) (Auto) 19, Monocytes (%) (Auto) 9, Eosinophils (%) (Auto) 1, Basophils (%) (Auto) 1, Neutrophils # (Auto) 4.5, Lymphocytes # (Auto) 1.2, Monocytes # (Auto) 0.6, Eosinophils # (Auto) 0.0, Basophils # (Auto) 0.0 Pending Labs Laboratory Tests 11/13/19 17:40: White Blood Count 7.4, Red Blood Count 4.25, Hemoglobin 12.1, Hematocrit 37, Mean Corpuscular Volume 88, Mean Corpuscular Hemoglobin 28, Mean Corpuscular Hemoglobin Concent 33, Red Cell Distribution Width 14.8, Platelet Count 316, Mean Platelet Volume 9.6, Neutrophils (%) (Auto) 71, Lymphocytes (%) (Auto) 20, Monocytes (%) (Auto) 8, Eosinophils (%) (Auto) 0, Basophils (%) (Auto) 1, Neutrophils # (Auto) 5.3, Lymphocytes # (Auto) 1.5, Monocytes # (Auto) 0.6, Eosinophils # (Auto) 0.0, Basophils # (Auto) 0.1, Prothrombin Time 12.9, INR Comment 0.9, Sodium Level 140, Potassium Level 4.2, Chloride Level 105, Carbon Dioxide Level 24, Anion Gap 11, Blood Urea Nitrogen 25, Creatinine 1.15, Estimat Glomerular Filtration Rate 45, BUN/Creatinine Ratio 22, Glucose Level 117, Calcium Level 10.2, Corrected Calcium 10.2, Total Bilirubin 0.6, Aspartate Amino Transf (AST/SGOT) 28, Alanine Aminotransferase (ALT/SGPT) 19, Alkaline Phosphatase 77, Total Protein 7.2, Albumin 4.0 11/14/19 05:34: Sodium Level 140, Potassium Level 4.3, Chloride Level 106, Carbon Dioxide Level 24, Anion Gap 10, Blood Urea Nitrogen 25, Creatinine 1.03, Estimat Glomerular Filtration Rate 51, BUN/Creatinine Ratio 24, Glucose Level 101, Calcium Level 9.7, Corrected Calcium 10.1, Total Bilirubin 0.7, Aspartate Amino Transf (AST/SGOT) 23, Alanine Aminotransferase (ALT/SGPT) 16, Alkaline Phosphatase 74, Total Protein 6.2, Albumin 3.5 11/14/19 05:43: White Blood Count 6.3, Red Blood Count 3.94, Hemoglobin 10.8, Hematocrit 34, Mean Corpuscular Volume 87, Mean Corpuscular Hemoglobin 27, Mean Corpuscular Hemoglobin Concent 32, Red Cell Distribution Width 14.8, Platelet Count 270, Mean Platelet Volume 10.4, Neutrophils (%) (Auto) 71, Lymphocytes (%) (Auto) 19, Monocytes (%) (Auto) 9, Eosinophils (%) (Auto) 1, Basophils (%) (Auto) 1, Neutrophils # (Auto) 4.5, Lymphocytes # (Auto) 1.2, Monocytes # (Auto) 0.6, Eosinophils # (Auto) 0.0, Basophils # (Auto) 0.0 Discharge Home Medications: Active Scripts Active Reported Clonidine HCl 0.1 Mg Tablet 0.1 Mg PO TID Diltiazem ER (Diltiazem HCl) 240 Mg Capsule.er 240 Mg PO HS [employer] FX Capsule (l Gasseri/B Bifidum/B Longum) 1 Each Capsule 1 Each PO HS Tylenol Extra Strength (Acetaminophen) 500 Mg Tablet 500-1,000 Mg PO Q4H PRN Allopurinol 100 Mg Tablet 100 Mg PO HS Vitamin D3 (Cholecalciferol (Vitamin D3)) 25 Mcg Tablet 25 Mcg PO HS Levothyroxine Sodium 50 Mcg Tablet 50 Mcg PO DAILY Vitamin B-12 (Cyanocobalamin (Vitamin B-12)) 1,000 Mcg Tablet 1,000 Mcg PO HS Instructions to patient/family Please see electronic discharge instructions given to patient. Clinical Quality Measures DVT/VTE Risk/Contraindication: Risk Factor Score Per Nursin RFS Level Per Nursing on Admit: 2=Moderate Contraindications-Pharm: Other *list below* Contraindications-Mechi: Other *list below* Other: hematoma spontaeous and leg hematomas DANA GALARZA DO Nov 14, 2019 13:09
== END 2019-11-14 11:50 ==
LOC: 4TH 15:11
PROVIDERS: ADMIT Internal Medicine; ATTEND Internal Medicine
DX: M25.061 Hemarthrosis, right knee (principal); S70.11XA Contusion of right thigh, initial encounter; R53.81 Other malaise; E03.9 Hypothyroidism, unspecified; M10.9 Gout, unspecified; K57.90 Diverticulosis of intestine, part unspecified, without perforation or abscess without bleeding; I12.9 Hypertensive chronic kidney disease with stage 1 through stage 4 chronic kidney disease, or unspecified chronic kidney disease; N18.9 Chronic kidney disease, unspecified; I48.0 Paroxysmal atrial fibrillation; I65.23 Occlusion and stenosis of bilateral carotid arteries; Z79.01 Long term (current) use of anticoagulants; Z79.899 Other long term (current) drug therapy; Z88.2 Allergy status to sulfonamides; Z88.1 Allergy status to other antibiotic agents; Z88.5 Allergy status to narcotic agent; Z88.8 Allergy status to other drugs, medicaments and biological substances; Z91.041 Radiographic dye allergy status; Z90.710 Acquired absence of both cervix and uterus; Z91.81 History of falling; Z95.0 Presence of cardiac pacemaker; Z82.3 Family history of stroke
CPT/HCPCS: 36415; 73502; 73562; 80053; 85025; 85027; 85610

== ENCOUNTER 2019-11-14 11:00 | Inpatient (IN) | payer MEDICARE, OTHER ==
[~2019-11-14] VITALS: Ht 149.9 cm; Wt 56.9 kg
[~2019-11-14 11:00] MED LIST changes: +APIX5TAB PO; +CLON0.1T PO; +DILT240C87 PO; +L GA1CAP2 PO
[2019-11-14] MEDS ORDERED: LOPERAMIDE 2 MG (IMODIUM) TABLET PO PRN (11:15)
[2019-11-14] MEDS ORDERED: ALPRAZolam 0.25 MG (XANAX) TAB PO PRN (11:15)
[2019-11-14] MEDS ORDERED: ONDANSETRON 4 MG (ZOFRAN) ORAL DISSOLVE TAB PO PRN (11:15)
[2019-11-14] MEDS ORDERED: CALCIUM CARBONATE 500 MG (TUMS) TAB.CHEW PO PRN (11:15)
[2019-11-14] MEDS ORDERED: DOCUSATE SODIUM 100 MG (COLACE) CAP PO PRN (11:15)
[2019-11-14] MEDS ORDERED: LACTULOSE SYRUP 10GM/15ML (ENULOSE) 30ML UDC PO PRN (11:15)
[2019-11-14] MEDS ORDERED: guaiFENesin/CODEINE (ROBITUSSIN AC) 10ML UDC PO PRN (11:15)
[2019-11-14] MEDS ORDERED: FLEET ENEMA ADULT 1 EA BTL PR PRN (11:15)
[2019-11-14] MEDS ORDERED: diphenhydrAMINE 25 MG TAB (BENADRYL) PO PRN (11:15)
[2019-11-14] MEDS ORDERED: BISACODYL 10 MG SUPP (DULCOLAX) PR PRN (11:15)
--- NOTE | 2019-11-14 11:45 | NUR ---
CHARMAINE TORRES, admitted to room 231-1, with an admitting diagnosis of DEBILITY, on 11/14/19 from via 4TH FLOOR, accompanied by STAFF.CHARMAINE TORRES introduced to surroundings, call light, bed controls, phone, TV, temperature control, lights, meal times, smoking policy, visitor policy, side rail policy, bathrooms and showers. Patient Rights given to patient in the handbook.CHARMAINE TORRES verbalizes understanding that [facility] is not responsible for the loss or damage to any personal effects or valuables that are kept in the patients posession during their hospitalization. The following Patient Care Plans were discussed with the PATIENT: Discharge Planning, ACTIVITY INTOLERANCE,and FALLS. CHARMAINE TORRES verbalizes understanding of Interdisciplinary Patient Education. Patient and/or family were informed about the Rapid Response Team and its purpose. Patient received Patient Rights Booklet, which includes Privacy Act Statement and Data Collection Information Summary.
--- NOTE | 2019-11-14 13:04 | PM&R Post Admission Assessment ---
PM&R Date of Visit: Nov 14, 2019 Time of Visit: 13:10 History of Present Illness CC: Debility from spontaneous right knee hemarthrosis and right thigh hematoma on OAC with anemia from acute blood loss into leg HPI: Pt presents to my clinic for an injured knee Pt's right knee is bruised and swollen. Pt states that Saturday morning at 4 AM she thought she had sprained something. Pt states that it hurt Saturday, but was okay on , but when she went to bed her bruising and swelling was there. I state that since she is on Eliquis she is having spontaneous hematomas. Pt said that she is not brusing or swelling anywhere else. Pt said that she did not take her blood thinner today. Pt's heart doctor is Awais. I state that we will take her off of her blood thinner for a while. I state that she did not hit her leg or thigh and she is having this deep tissue bruising. Pt states she feels better now than she did this morning. I state that she may be losing a lot of blood in her hematomas. Pt denies back pain. Pt states that since she had her heart monitor her sciatica has not been bad at all. I state that I spoke with general surgery for advice and we should probably put her in observation at the hospital. Pt's last dose of Eliquis was last night. I state that sometimes this can bleed more in other areas and we would like to keep an eye on her. Pt states that she is okay with going in over night. I state that I do not want her to have the risk of a fall while she is having issues with her knee. I state that our goal will be to get her home tomorrow. I state that we may need to drain her knee. Pt states that her son lives in town here. Pt will go home and get some things then come to the hospital. I state I need to make sure she does not bleed anymore. Pt states that her son brought her today and will be back to pick him up. Pt will be admitted to observation. Pt will bring her medicines and an overnight bag. Pt's sons _#: [phone] Scribed by: Zain Marshall Patient is currently having less pain than last night and Dr Del Angel came back to see her and attempted to aspirate blood which was unsuccessful. OAC will be held for the time being. Walking with a walker now and not required this before and she has steps in her house so the decision was made to admit her IRF for short stay. Past Rzrqtly-Xhunjd-Ymmrij Hx Past Med/Social Hx: Reviewed Nursing Past Med/Soc Hx, Reviewed and Corrections made Patient Social History Marrital Status: Employed/Student: retired Alcohol Use: Denies Use Smoking Status: Never a Smoker Recent Hopitalizations: No Immunizations Up To Date Tetanus Booster (TDap): More than 5yrs Pediatric: No Date of Pneumonia Vaccine: Jul 13, 2017 Date of Influenza Vaccine: Feb 03, 2019 Seasonal Allergies Seasonal Allergies: No Past Medical History Surgeries: Section, Hysterectomy, Joint Replacement, Oophorectomy, Orthopedic Currently Using CPAP: No Currently Using BIPAP: No Cardiac: Atrial Fibrillation, Hypertension pacemaker 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: No Hysterectomy, Menopausal Gastrointestinal: Diverticulosis Musculoskeletal: Arthritis, Scoliosis, Gout Endocrine: Hypothyroidsim Hearing Impairment: Hard of Hearing History of Blood Disorders: No Family History Cardiovascular disease 19 FATHER Completed stroke G8 BROTHER Myocardial infarction G8 BROTHER G8 BROTHER G8 BROTHER No Pertinent Family Hx PM&R Allergy/Meds/Data Review Allergies Coded Allergies: Sulfa (Sulfonamide Antibiotics) (Verified Allergy, Unknown, 12/02/13) acetaminophen (Verified Allergy, Unknown, 06/16/19) cephalexin (Verified Allergy, Unknown, 06/16/19) ciprofloxacin (Verified Allergy, Unknown, 06/16/19) hydrocodone (Verified Allergy, Unknown, 12/02/13) iodine (Verified Allergy, Unknown, 12/02/13) meperidine (Verified Allergy, Unknown, 12/02/13) metronidazole (Verified Allergy, Unknown, 06/16/19) propoxyphene (Verified Allergy, Unknown, 12/02/13) rosuvastatin (Verified Allergy, Unknown, 06/16/19) simvastatin (Verified Allergy, Unknown, 06/16/19) Home Medications Scheduled Allopurinol (Allopurinol), 100 MG PO HS, (Reported) Cholecalciferol (Vitamin D3) (Vitamin D3), 25 MCG PO HS, (Reported) Clonidine HCl (Clonidine HCl), 0.1 MG PO TID, (Reported) Cyanocobalamin (Vitamin B-12) (Vitamin B-12), 1,000 MCG PO HS, (Reported) Diltiazem HCl (Diltiazem ER), 240 MG PO HS, (Reported) Levothyroxine Sodium (Levothyroxine Sodium), 50 MCG PO DAILY, (Reported) l Gasseri/B Bifidum/B Longum (M87 Capsule), 1 EACH PO HS, (Reported) Scheduled PRN Acetaminophen (Tylenol Extra Strength), 500-1,000 MG PO Q4H PRN for PAIN-MILD (1-4), (Reported) Discontinued Medications Amlodipine Besylate (Amlodipine Besylate), 5 MG PO DAILY Discontinued Reason: Duplicate Order Apixaban (Eliquis), 5 MG PO BID, (Reported) Doxycycline Hyclate (Doxycycline Hyclate), 100 MG PO BID@ Discontinued Reason: Duplicate Order Lactobacillus Combo No.10 (Probiotic), 1 CAP PO HS, (Reported) Discontinued Reason: Prescription changed Metoprolol Succinate (Metoprolol Succinate), 100 MG PO BID Discontinued Reason: No Longer Taking Ondansetron HCl (Ondansetron HCl), 4 MG PO Q4H Discontinued Reason: No Longer Taking Pantoprazole Sodium (Pantoprazole Sodium), 40 MG PO DAILY Discontinued Reason: No Longer Taking Current Medications Current Medications Reviewed Review of Systems Constitutional: see HPI, malaise, weakness EENTM: no symptoms reported Respiratory: no symptoms reported Cardiovascular: no symptoms reported Gastrointestinal: no symptoms reported Genitourinary: no symptoms reported Musculoskeletal: joint pain, muscle pain, muscle stiffness, muscle cramps, muscle twitching, muscle weakness Skin: no symptoms reported Psychiatric/Neurological: No Symptoms Reported All Other Systems Reviewed Negative Unless Noted: Yes Physical Exam Physical Exam Vital Signs Vital Signs - First Documented 11/14/19 12:57 Pulse 61 Capillary Refill : Height, Weight, BMI Height: 5'0.00" Weight: 143lbs. 0.0oz. [id number]; 25.23 BMI Method:Stated General Appearance: No Apparent Distress, WD/WN, Chronically ill, Thin Eyes: Bilateral Eye Normal Inspection, Bilateral Eye PERRL HEENT: PERRL/EOMI, Normal ENT Inspection, Pharynx Normal Neck: Full Range of Motion, Normal Inspection, Non Tender, Supple, Carotid Bruit Respiratory: Chest Non Tender, Lungs Clear, Normal Breath Sounds, No Accessory Muscle Use, No Respiratory Distress Cardiovascular: Regular Rate, Rhythm, No Edema, No Gallop, No JVD, No Murmur, Normal Peripheral Pulses Gastrointestinal: Normal Bowel Sounds, No Organomegaly, No Pulsatile Mass, Non Tender, Soft Back: Normal Inspection, No CVA Tenderness, No Vertebral Tenderness Extremity: Normal Capillary Refill, Normal Inspection, Normal Range of Motion, Non Tender, No Calf Tenderness, No Pedal Edema Neurologic/Psychiatric: Alert, Oriented x3, No Motor/Sensory Deficits (except right leg with right knee swelling and right thigh hematoma), Normal Mood/Affect, 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-XII Norm as Tested, Abnormal Gait Skin: Normal Color, Warm/Dry Lymphatic: No Adenopathy PM&R Medical Assessment & Plan REHAB/MEDICAL ASSESSMENT AND PLAN: REHAB IMPAIRMENT GROUP: Debility following right knee hemarthrosis and right thigh hematoma spontaneous type with OAC maintenance ETIOLOGIC DIAGNOSIS: Debility following right knee hemarthrosis and right thigh hematoma spontaneous type with OAC maintenance The comorbidities that impact the patients function and/or functional outcome by: advanced age, frail status, fall risk, pacemaker, HTN severe type, acute blood loss anemia REHAB PLAN: The patient is being admitted to our comprehensive inpatient rehabilitation facility and can tolerate the intensity of service consisting of at least: 180 minutes of therapy a day, 5 out of 7 days a week Rehab treatment will consist of: PT OT will help patient navigate walker and focus on fall prevention and increase stamina and increase stair climbing The patient/family has a good understanding of our discharge process and will benefit from an interdisciplinary inpatient rehabilitation program. The patient has potential to make improvement and is in need of at least two of the following multidisciplinary therapies including but not limited to physical, occupational, speech, and prosthetics and orthotics. Additionally the patient will need services from respiratory, nutritional services, wound care, psychology, etc. (Customize this to each patient). Given the patients complex condition and risk of further medical complications, rehabilitation services cannot be safely or effectively provided at a lower level of care such as a [facility]. BARRIERS TO DISCHARGE: Lives alone ESTIMATED LOS: 5 days DISPOSITION: Home RELEVANT CHANGES SINCE PREADMISSION SCREENING: I have compared the patients medical and functional status at the time of the preadmission screening and there are: no changes PROGNOSIS: Good REHABILITATION GOALS: 1. PT OT will help patient navigate walker and focus on fall prevention and increase stamina and increase stair climbing All the above goals were reviewed with the patient and he/she is in agreement. By signing this document, I acknowledge that I have personally performed a full physical examination on this patient within 24 hours of admission to this inpatient rehabilitation facility and have determined the patient to be able to tolerate the above course of treatment at an intensive level for a reasonable period of time. I will be completing a detailed individualized Plan of Care for this patient by day #4 of the patients stay based upon the Preadmission Screen, the Post-Admission Evaluation, and the therapy evaluations. Admission Dx/Comorbidities: (1) Debility ICD Codes: R53.81 - Other malaise (2) Spontaneous hematoma of lower leg ICD Codes: R23.3 - Spontaneous ecchymoses (3) Pacemaker ICD Codes: Z95.0 - Presence of cardiac pacemaker (4) Acute blood loss anemia ICD Codes: D62 - Acute posthemorrhagic anemia (5) Hemarthrosis involving knee joint ICD Codes: M25.069 - Hemarthrosis, unspecified knee (6) On continuous oral anticoagulation ICD Codes: Z79.01 - intermission coordinator (current) use of anticoagulants (7) Hypertension ICD Codes: I10 - Essential (primary) hypertension (8) Diverticulosis ICD Codes: K57.90 - Diverticulosis of intestine, part unspecified, without perforation or abscess without bleeding (9) Advanced age ICD Codes: R54 - Age-related physical debility Assessment/Plan Assessment and Plan Assess & Plan/Chief Complaint Assessment: Spontaneous right knee hemarthrosis and right thigh hematoma on Eliquis for CVA PPx per Cardiology Acute blood loss anemia 2 points loss in right leg tissue Pacemaker permanent Gout HTN CRI Lives alone OP Advanced age Plan: IRF PT OT Appreciate Ortho Surgery Cardiology DVT PPx bit SCD and Lovenox contraindicated DANA GALARZA DO Nov 14, 2019 13:04
[2019-11-14 13:56] VITALS: BP 140/67
--- NOTE | 2019-11-14 14:21 | Physical Therapy Evaluation ---
PT Evaluation-General Medical Diagnosis Admission Date Nov 14, 2019 at 11:35 Medical Diagnosis: (R) knee hematoma Onset Date: Nov 10, 2019 Therapy Diagnosis Therapy Diagnosis: Unsteady gait Height/Weight Height (Feet): 5 Height (Inches): 0.00 Weight (Pounds): 143 Weight (Ounces): 0.0 Precautions Precautions/Isolations: Fall Prevention, Standard Precautions Weight Bear Status Right Lower Extremity: Right Weight Bearing/Tolerated Left Lower Extremity: Left Weight Bearing/Tolerated Referral Reason for Referral: Evaluation/Treatment Medical History Pertinent Medical History: HTN, Hypothroidism Additional 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 5-Iuabddmyst-ntktnwf completes the activity by him/herself with no assistance from a helper. 5-Set-up or Clean-up Assistance-helper sets up or cleans up; patient completes activity. [place] assists only prior to or following the activity. 4-Supervision or Touching Assistance-helper provides verbal cues and/or touching/steadying and/or contact guard assistance as patient completes activity. Assistance may be provided throughout the activity or intermittently. 3-Partial/Moderate Assistance-helper does LESS THAN HALF the effort. [place] lifts, holds or supports trunk or limbs, but provides less than half the effort. 2-Substantial/Maximal Assistance-helper does MORE THAN HALF the effort. [place] lifts or holds trunk or limbs and provides more than half the effort. 1-Bsffbkxpf-aoqynb does ALL the effort. Patient does none of the effort to complete the activity. Or, the assistance of 2 or more helpers is required for the patient to complete the activity. If activity was not attempted, code reason: 7-Patient Refused. 9-Not Applicable-not attempted and the patient did not perform the activity before the current illness, exacerbation or injury. 10-Not Attempted due to Environmental Limitations-(lack of equipment, weather restraints, etc.). 88-Not Attempted due to Medical Conditions or Safety Concerns. Bed Mobility: 6 Transfers (B,C,W/C): 6 Gait: 6 Stairs: 6 Indoor Mobility (Ambulation): Independent Stairs: Independent PT Evaluation-Current Subjective Pt is an independent living 89 y/o female with spontaneous onset of right pain and hematoma. Pt reports she was getting into bed and had sudden onset of knee pain. She was admitted to the hospital due to progressive pain and inability to function at home. Objective Patient Orientation: Normal For Age ROM/Strength ROM Upper Extremities WFL ROM Lower Extremities right knee 0-85 degrees Strength Upper Extremities gross 4/5 Strength Lower Extremities knee 3/5 Sensory Vision: Functional Hearing: Functional Sensation Right Upper Extremit: Intact Sensation Left Upper Extremity: Intact Sensation Right Lower Extremit: Intact Sensation Left Lower Extremity: Intact Transfers Roll Left to Right (QC): 6 Sit to Lying (QC): 6 Lying to Sitting/Side of Bed(Q: 5 Sit to Stand (QC): 5 Chair/Vez-mm-Tftto Xfer(QC): 5 Toilet Transfer (QC): 5 Car Transfer (QC): 88 Gait Does the Patient Walk?: Yes Anticipated Mode of Locomotion: Walk Walk 10 feet (QC): 5 Walk 50 ft with 2 Turns(QC): 5 Walk 150 ft (QC): 1 Walking 10ft/uneven surface-QC: 5 Gait Assistive Device: FWW Comments/Gait Description Pt had instability with turns using FWW. She is not familiar with using an assistive device. Wheelchair Training Does the Pt Use a Wheelchair?: No Wheel 50 ft with 2 turns (QC): 9 Wheel 150 ft (QC): 9 Stairs 1 Step (curb) (QC): 88 4 Steps (QC): 88 12 Steps (QC): 88 Balance Sitting Static: Normal Sitting Dynamic: Normal Standing Static: Fair Standing Dynamic: Fair Picking up an Object (QC): 2 Assessment/Needs Rehab Potential: Good PT Short Term Goals Short Term Goals Time Frame: Nov 17, 2019 Roll Left & Right: 6 Sit to lyin Lying to sitting on side of be: 6 Sit to stand: 5 Chair/jaj-vc-bzwby transfer: 5 Toilet transfer: 5 Car transfer: 5 Walk 10 feet: 5 Walk 50 feet with two turns: 5 Walk 150 feet: 5 Walking 10ft on uneven surface: 5 1 step (curb): 5 4 steps: 5 Picking up objects: 5 PT Administrative Staff Supervisor Goals Administrative Staff Supervisor Goals PT Administrative Staff Supervisor Goals Time Frame: Nov 20, 2019 Roll Left & Right (QC): 6 Sit to Lying (QC): 6 Lying-Sitting on Side/Bed(QC): 6 Sit to Stand (QC): 6 Chair/Vcq-oa-Dezxr Xfer(QC): 6 Toilet Transfer (QC): 6 Car Transfer (QC): 6 Does the Patient Walk: Yes Walk 10 feet (QC): 6 Walk 50ft with 2 Turns (QC): 6 Walk 150 ft (QC): 6 Walking 10ft on Uneven Surface: 6 1 Step (curb) (QC): 6 4 Steps (QC): 6 12 Steps (QC): 6 Picking up an Object (QC): 6 Wheel 50 feet with 2 turns (QC: 9 Type: Manual Wheel 150 feet: 9 Type: Manual PT Plan Problem List Problem List: Balance, Gait, ROM Treatment/Plan Treatment Plan: Continue Plan of Care Treatment Plan: Functional Strength, Group Therapy, Gait, Safety, Therapeutic Exercise Treatment Duration: Nov 20, 2019 Frequency: At least 5 of 7 days/Wk (IRF) Estimated Hrs Per Day: 1.5 hours per day Patient and/or Family Agrees t: Yes Discharge Recommendations Discharge Status/Home Program home Target Placement home Time/GCodes Time In: 1415 Time Out: 1430 Total Billed Treatment Time: 15 Total Billed Treatment visit, eval low complexity 15 min BREANNA NAVARRO PT Nov 14, 2019 14:21
[2019-11-14 18:00] VITALS: BP 151/78
[2019-11-14] MEDS ORDERED: B LONGUM PO SCH (21:00)
[2019-11-14] MEDS ORDERED: B BIFIDUM PO SCH (21:00)
[2019-11-14] MEDS ORDERED: [UNRECOGNIZED DRUG - OTHER] PO SCH (21:00)
[2019-11-14] MEDS ORDERED: GASSERI PO SCH (21:00)
[2019-11-14] MEDS: ALLOPURINOL 100 MG (ZYLOPRIM) TAB PO SCH (21:36)
[2019-11-14] MEDS: MELATONIN 3 MG TABLET PO PRN (21:37)
[2019-11-14] MEDS: CYANOCOBALAMIN 1,000 MCG (VITAMIN B-12) TABLET PO SCH (21:37)
[2019-11-14] MEDS: VITAMIN D3 25 MCG (1,000 UNITS) TABLET PO SCH (21:37)
[2019-11-14] MEDS: cloNIDine 0.1 MG (CATAPRES) TAB PO SCH (21:37)
[2019-11-14] MEDS: DOCUSATE SODIUM 100 MG (COLACE) CAP PO SCH (21:46)
[2019-11-14] MEDS: SENNA W/DOCUSATE (SENOKOT S) TABLET PO SCH (21:47)
[2019-11-14] MEDS: polyethylene glycoL POWDER 17 GM (MIRALAX) PACK PO SCH (21:47)
[2019-11-15 06:00] VITALS: BP 159/77
[2019-11-15] MEDS: cloNIDine 0.1 MG (CATAPRES) TAB PO SCH ×3 (09:46→20:15)
[2019-11-15] MEDS: LEVOTHYROXINE 50 MCG (LEVOTHROID) TAB PO SCH (09:47)
[2019-11-15] MEDS: ACETAMINOPHEN 325 MG TABLET PO PRN ×2 (09:47→23:15)
[2019-11-15] MEDS: DOCUSATE SODIUM 100 MG (COLACE) CAP PO SCH ×2 (09:48→20:22)
[2019-11-15] MEDS: polyethylene glycoL POWDER 17 GM (MIRALAX) PACK PO SCH ×2 (09:49→20:22)
[2019-11-15] MEDS: SENNA W/DOCUSATE (SENOKOT S) TABLET PO SCH ×2 (09:49→20:23)
--- NOTE | 2019-11-15 11:01 | PM&R Progress Note ---
Subjective HPI/CC On Admission Date Seen by Provider: Nov 15, 2019 Time Seen by Provider: 11:00 Subjective/Events-last exam Patient doing very well Short stay suspected Stiffness a bit in her right knee No progression of hematomas No falls No pain otherwise Checked meds and labs Conferred with RN Reviewed therapy notes Review of Systems General: Fatigue, Malaise Musculoskeletal: leg pain Objective Exam Vital Signs Vital Signs Date Time Temp Pulse Resp B/P (MAP) Pulse Ox O2 Delivery O2 Flow Rate FiO2 11/15/19 16:42 36.4 85 20 152/66 (94) 97 Room Air Capillary Refill : Less Than 3 Seconds General Appearance: No Apparent Distress, WD/WN, Chronically ill, Thin HEENT: PERRL/EOMI, Normal ENT Inspection, Pharynx Normal Neck: Full Range of Motion, Normal Inspection, Non Tender, Supple, Carotid Bruit Respiratory: Chest Non Tender, Lungs Clear, Normal Breath Sounds, No Accessory Muscle Use, No Respiratory Distress Cardiovascular: Regular Rate, Rhythm, No Edema, No Gallop, No JVD, No Murmur, Normal Peripheral Pulses Gastrointestinal: Normal Bowel Sounds, No Organomegaly, No Pulsatile Mass, Non Tender, Soft Back: Normal Inspection, No CVA Tenderness, No Vertebral Tenderness Extremity: Normal Capillary Refill, Normal Inspection, Normal Range of Motion, Non Tender, No Calf Tenderness, No Pedal Edema Neurologic/Psychiatric: Alert, Oriented x3, No Motor/Sensory Deficits (except right leg with right knee swelling and right thigh hematoma), Normal Mood/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 FIM Transfers Therapy Code Descriptions/Definitions Functional [place] Measure: 0=Not Assessed/NA 4=Minimal Assistance 1=Total Assistance 5=Supervision or Setup 2=Maximal Assistance 6=Modified [place] 3=Moderate Assistance 7=Complete IndependenceSCALE: Activities may be completed with or without assistive devices. 0-Omacjmthqv-ykjafod completes the activity by him/herself with no assistance from a helper. 5-Set-up or Clean-up Assistance-helper sets up or cleans up; patient completes activity. [place] assists only prior to or following the activity. 4-Supervision or Touching Assistance-helper provides verbal cues and/or touching/steadying and/or contact guard assistance as patient completes a ctivity. Assistance may be provided throughout the activity or intermittently. 3-Partial/Moderate Assistance-helper does LESS THAN HALF the effort. [place] lifts, holds or supports trunk or limbs, but provides less than half the effort. 2-Substantial/Maximal Assistance-helper does MORE THAN HALF the effort. [place] lifts or holds trunk or limbs and provides more than half the effort. 8-Rplpwdrzg-memxbc does ALL the effort. Patient does none of the effort to complete the activity. Or, the assistance of 2 or more helpers is required for the patient to complete the activity. If activity was not attempted, code reason: 7-Patient Refused. 9-Not Applicable-not attempted and the patient did not perform the activity before the current illness, exacerbation or injury. 10-Not Attempted due to Environmental Limitations-(lack of equipment, weather restraints, etc.). 88-Not Attempted due to Medical Conditions or Safety Concerns. Roll Left to Right (QC): 6 Sit to Lying (QC): 6 Sit to Stand (QC): 5 Chair/Unr-ji-Nkhhx Xfer(QC): 5 Car Transfer (QC): 88 Gait Training Does the Patient Walk?: Yes Walk 10 feet (QC): 5 Walk 50 ft with 2 Turns(QC): 5 Walk 150 ft (QC): 1 Walking 10ft/uneven surface-QC: 5 Gait Assistive Device: FWW Wheelchair Training Does the Pt Use a Wheelchair?: No Wheel 50 ft with 2 turns (QC): 9 Wheel 150 ft (QC): 9 Stair Training 1 Step (curb) (QC): 88 4 Steps (QC): 88 12 Steps (QC): 88 Balance Picking up an Object (QC): 2 Assessment/Plan Assessment and Plan Assess & Plan/Chief Complaint Assessment: Spontaneous right knee hemarthrosis and right thigh hematoma on Eliquis for CVA PPx per Cardiology Acute blood loss anemia 2 points loss in right leg tissue Pacemaker permanent Gout HTN CRI Lives alone OP Advanced age Plan: IRF PT OT Appreciate Ortho Surgery Cardiology DVT PPx bit SCD and Lovenox contraindicated (1) Debility (2) Spontaneous hematoma of lower leg (3) Pacemaker (4) Acute blood loss anemia (5) Hemarthrosis involving knee joint (6) On continuous oral anticoagulation (7) Hypertension (8) Diverticulosis (9) Advanced age DANA GALARZA DO Nov 15, 2019 11:01
--- NOTE | 2019-11-15 11:29 | NUR ---
CALL MADE TO [facility] AGAIN REGARDING PHONE NOT WORKING IN PT ROOM. PT IS ABLE TO RECEIVE CALLS, BUT, NOT MAKE CALLS OUT. STAFF HAS PROVIDED PHONE FOR PT TO CALL OUT ON IF DESIRED. THIS RN CALLED [facility] YESTERDAY AFTERNOON REGARDING THE SAME ISSUE.
--- NOTE | 2019-11-15 15:51 | NUR ---
Pt, & belongings transferred to 232 d/t pt phone not working in 231, even after [employer] worked on it a few hours ago. The phone did work immediately after tech worked on it, but isn't now. Pt's dgtr was upset that pt's phone wasn't working yesterday, or today. Dgtr states that they had the same problem when pt was on 4th floor; that the phone didn't work. Notified [facility] supervisor, Romana, of the phone issues. Dgtr moved pt's personal belongings from 231 to 232. Dgtr took pt's home meds home w her with pt's consent. Dgtr is happy now that pt has a working phone. Dgtr & I both checked out the phone in 232 before transferring pt to room. Was able to make & receive calls.
[2019-11-15 16:42] VITALS: BP 152/66
[2019-11-15] MEDS: VITAMIN D3 25 MCG (1,000 UNITS) TABLET PO SCH (20:15)
[2019-11-15] MEDS: ALLOPURINOL 100 MG (ZYLOPRIM) TAB PO SCH (20:15)
[2019-11-15] MEDS: CYANOCOBALAMIN 1,000 MCG (VITAMIN B-12) TABLET PO SCH (20:18)
[2019-11-16 06:00] VITALS: BP 160/71
[2019-11-16 08:00] VITALS: BP 167/69
--- NOTE | 2019-11-16 08:30 | NUR ---
COMPLAIN "PAIN ALL OVER" AND MEDICATED WITH TYLENOL. MILD HYPERTENSION. DR. GALARZA AWARE AND NO CHANGE IN MEDICATIONS. STATES FEELS MORE STIFF TODAY AND DOESN'T FEEL READY TO GO HOME.
[2019-11-16] MEDS: ACETAMINOPHEN 325 MG TABLET PO PRN ×2 (08:33→23:36)
[2019-11-16] MEDS: LEVOTHYROXINE 50 MCG (LEVOTHROID) TAB PO SCH (08:33)
[2019-11-16] MEDS: cloNIDine 0.1 MG (CATAPRES) TAB PO SCH ×3 (08:34→20:12)
[2019-11-16] MEDS: polyethylene glycoL POWDER 17 GM (MIRALAX) PACK PO SCH ×2 (08:34→21:02)
[2019-11-16] MEDS: SENNA W/DOCUSATE (SENOKOT S) TABLET PO SCH ×2 (08:34→21:02)
[2019-11-16] MEDS: DOCUSATE SODIUM 100 MG (COLACE) CAP PO SCH ×2 (08:34→21:02)
--- NOTE | 2019-11-16 10:07 | Physical Therapy Daily Note ---
PT Daily Note-Current Subjective Pt. initially c/o pain in her right knee that she rates at 6/10 and is hesitant to agree to therapies but after slow initiation of exercises in sitting and application of RADHA wrap pt. states she feels much better and is so glad she got up and about. After rx pt. stated all her discomfort was mostly gone Pain Numeric Pain Scale: 6 Location: Right Location Body Site: Knee Pain Description: Pressure Appearance edema and ecchymosis right knee full circumference as well as distal to knee Mental Status Patient Orientation: Listless Transfers SCALE: Activities may be completed with or without assistive devices. 2-Fbsgbrlrbb-zfwbsup completes the activity by him/herself with no assistance from a helper. 5-Set-up or Clean-up Assistance-helper sets up or cleans up; patient completes activity. [place] assists only prior to or following the activity. 4-Supervision or Touching Assistance-helper provides verbal cues and/or touching/steadying and/or contact guard assistance as patient completes activity. Assistance may be provided throughout the activity or intermittently. 3-Partial/Moderate Assistance-helper does LESS THAN HALF the effort. [place] lifts, holds or supports trunk or limbs, but provides less than half the effort. 2-Substantial/Maximal Assistance-helper does MORE THAN HALF the effort. [place] lifts or holds trunk or limbs and provides more than half the effort. 5-Cnfrwhnoc-janjyv does ALL the effort. Patient does none of the effort to complete the activity. Or, the assistance of 2 or more helpers is required for the patient to complete the activity. If activity was not attempted, code reason: 7-Patient Refused. 9-Not Applicable-not attempted and the patient did not perform the activity before the current illness, exacerbation or injury. 10-Not Attempted due to Environmental Limitations-(lack of equipment, weather restraints, etc.). 88-Not Attempted due to Medical Conditions or Safety Concerns. Roll Left & Right (QC): 6 Sit to Lying (QC): 6 Lying to Sitting/Side of Bed(Q: 6 Sit to Stand (QC): 6 Chair/Nan-ve-Pwcfe Xfer(QC): 6 Car Transfer (QC): 5 car TRF required instruction and SBA pt moving slowly , very guarded but SBA throughou Weight Bearing Right Lower Extremity: Right Weight Bearing/Tolerated Left Lower Extremity: Left Weight Bearing/Tolerated Gait Training Does the Patient Walk?: Yes Walk 10 feet (QC): 5 Walk 50 ft with 2 Turns(QC): 5 Walk 150 ft (QC): 5 Gait Persons Needed: 1 Gait Assistive Device: FWW slow, moderate wt bearing on FWW, lacks good extension for heel strike but improves with Rx and activity Wheelchair Training Does the Pt Use a Wheelchair?: No Stair Training Stair Training: Handrails/: 2 handrails #of Steps: 4 1 Step (curb) (QC): 4 4 Steps (QC): 4 12 Steps (QC): 77 Stairs: Pattern: Step to instruction for sequence , CGA and slow careful stepping etc Exercises Supine Ex: Ankle pumps, Quad Set, Rolling, Glut sets, Heel Slides, Short Arc Quads, Scooting, Straight leg raise (assisted right x 5 reps), Hip abd/add Supine Reps: 15 Seated Therapy Exercises: Ankle pumps, Sit to stand, Long arc quads, Hip flexion, Hip abd/add Seated Reps: 12 NuStep Minutes: 10 NuStep Workload: 5 Treatments nustep giving pt. control in increasing flexion of right knee. pt. able to advance and flex further etc Assessment Current Status: Good Progress PT Short Term Goals Short Term Goals Time Frame: Nov 17, 2019 Roll Left & Right: 6 Sit to lyin Lying to sitting on side of be: 6 Sit to stand: 5 Chair/asy-gw-txpar transfer: 5 Toilet transfer: 5 Car transfer: 5 Walk 10 feet: 5 Walk 50 feet with two turns: 5 Walk 150 feet: 5 Walking 10ft on uneven surface: 5 1 step (curb): 5 4 steps: 5 Picking up objects: 5 PT Jail Goals [place] Work Goals PT Jail Goals Time Frame: Nov 20, 2019 Roll Left & Right (QC): 6 Sit to Lying (QC): 6 Lying-Sitting on Side/Bed(QC): 6 Sit to Stand (QC): 6 Chair/Zie-wv-Mrkgt Xfer(QC): 6 Toilet Transfer (QC): 6 Car Transfer (QC): 6 Does the Patient Walk: Yes Walk 10 feet (QC): 6 Walk 50ft with 2 Turns (QC): 6 Walk 150 ft (QC): 6 Walking 10ft on Uneven Surface: 6 1 Step (curb) (QC): 6 4 Steps (QC): 6 12 Steps (QC): 6 Picking up an Object (QC): 6 Wheel 50 feet with 2 turns (QC: 9 Type: Manual Wheel 150 feet: 9 Type: Manual PT Plan Treatment/Plan Treatment Plan: Continue Plan of Care Treatment Plan: Functional Strength, Group Therapy, Gait, Safety, Therapeutic Exercise Treatment Duration: Nov 20, 2019 Frequency: At least 5 of 7 days/Wk (IRF) Estimated Hrs Per Day: 1.5 hours per day Patient and/or Family Agrees t: Yes Safety Risks/Education Patient Education: Gait Training, Transfer Techniques, Steps, Correct Position ing, Disease Process, Safety Issues Teaching Recipient: Patient Teaching Methods: Demonstration, Discussion Response to Teaching: Verbalize Understanding, Return Demonstration, Reinforcement Needed Time/GCodes Time In: 900 Time Out: 1000 Total Billed Treatment Time: 60 Total Billed Treatment 1,EX30m,FA15m,GT15m [employer]IL[employer] Nov 16, 2019 10:07
--- NOTE | 2019-11-16 10:39 | Individualized Plan of Care ---
Individualized Plan of Care Rehab Nursing IPOC Order Admission Date Nov 14, 2019 at 11:35 Current Orders Orders Admission Order(Inpt,Obs,Sdc) (11/14/19 11:01) Vital Signs: Per Unit Policy ( 08,16,00 (11/14/19 11:01) Ricky Lee 09,21 (11/14/19 11:01) Sequential Compression Device Q4H (11/14/19 11:01) Rand Butter-Inpt Rehab Con (11/14/19 11:01) Rehab Nursing Orders-Ipoc (11/14/19 11:01) Physical Therapy Rehab Orders (11/14/19 11:01) Occupational Therapy Rehab Ord (11/14/19 11:01) Speech Therapy Rehab Orders (11/14/19 11:01) General/Regular (11/14/19 Lunch) Intake & Output 06,14,22 (11/14/19 11:01) Precautions (Aru) (11/14/19 11:01) Rehab-Intensity Of Therapy (11/14/19 11:01) Initiate Admission Nursing Pro .admission (11/14/19 11:01) Alprazolam Tablet (Xanax Tablet) (11/14/19 11:15) Calcium Carbonate Chew Tablet (Antacid C (11/14/19 11:15) Diphenhydramine Tablet (Benadryl Tablet) (11/14/19 11:15) Docusate Sodium Capsule (Colace Capsule) (11/14/19 21:00) Docusate Sodium Capsule (Colace Capsule) (11/14/19 11:15) Bisacodyl Suppository (Dulcolax Supposit (11/14/19 11:15) Lactulose Oral Solution (Enulose Oral So (11/14/19 11:15) Na Phos/Na Biphos Enema (Fleet Enema Cisco (11/14/19 11:15) Guaifenesin/Codeine Syrup (Robitussin Ac (11/14/19 11:15) Loperamide Tablet (Imodium Tablet) (11/14/19 11:15) Melatonin Tablet (Melatonin Tablet) (11/14/19 11:15) Polyethylene Glycol Powder Pkt (Miralax (11/14/19 21:00) Ondansetron Oral Dissolve Tab (Zofran (11/14/19 11:15) Senna S Tablet (Senokot S Tablet) (11/14/19 21:00) Initiate Admission Nursing Pro .admission (11/14/19 11:01) Oxycodone Immediate Rel Tablet (Oxyir Ta (11/14/19 11:15) Admission Arrival Bed Request (11/14/19 11:35) Acetaminophen Tablet/Caplet (Tylenol T (11/14/19 13:00) Code/Resuscitation (11/14/19 12:51) Vte Contraindication (11/14/19 13:03) Allopurinol Tablet (Zyloprim Tablet) (11/14/19 21:00) Cholecalciferol Capsule/Tablet (Vitamin (11/14/19 21:00) Clonidine Tablet (Catapres Tablet) (11/14/19 21:00) Cyanocobalamin Tablet (Vitamin B-12 Tabl (11/14/19 21:00) Levothyroxine Tablet (Synthroid Tablet) (11/15/19 09:00) Diltiazem Cd 24 Hr Capsule (Cardizem Cd (11/14/19 21:00) (Nf) L Gasseri/B Bifidum/B Longum (Sam (11/14/19 21:00) Patient Visit (11/14/19 ) Pt Eval Low Complexity (11/14/19 ) Ambulate 08,12,20 (11/14/19 19:46) Sequential Compression Device Q4H (11/14/19 19:46) Dvt/Vte Risk - Notifiy Physici Q4H (11/14/19 19:46) Transfer - Bed/Room/Location (11/15/19 15:50) Patient Visit (11/16/19 ) Exercise Therap, Ea 15 Min (11/16/19 ) Gait Training, Ea 15 Min (11/16/19 ) Functional Activities, Ea 15 (11/16/19 ) Patient Visit (11/16/19 ) Speech Sound Lang Comp (11/16/19 ) Rehab Nursing Orders: Ongoing Assess. of Cognitive Status, Ongoing Assess. of Function Status, Bladder Management, Bladder Scan, Bladder Training, Bowel Management, Bowel Training, Disease Management & Educaiton, DVT Prophylaxis, Fall Prevention, Fluid/Electrolyte/Nutrition Mgmt, Infection Prevention, Medication Management & Education, Management of Risks & Complications, Management of Skin Intergrity, Nutrition Management, Pain Management, Patient/Family Support, Safety Management Intensity of Therapy to be met Patient to be seen: Min.3h per day/5 of 7d PT IPOC Problem List: Balance, Gait, ROM Treatment Plan: Continue Plan of Care Functional Strength, Group Therapy, Gait, Safety, Therapeutic Exercise Treatment Duration: Nov 20, 2019 Frequency: At least 5 of 7 days/Wk (IRF) Estimated Hrs Per Day: 1.5 hours per day OT IPOC Problems: Impaired Bed Mobility, Impaired Coordination, Impaired Funct Balance, Impaired Self-Care Skills, Restricted Funct UE ROM OT Treatment, Training and Edu: Yes Plan of Care: Functional Mobility Treatment Duration: Nov 16, 2019 Frequency: 5 times per week Estimated Hrs Per Day: .[address] IPOC Speech Therapy Treatment Plan: Modify Plan, See Comments Treatment Duration: Nov 16, 2019 Frequency: Modified Program (IRF) Estimated Hrs Per Day: Other Rand Butter/Case Mgmt Rand Butter/Case Managemen: Discharge Planning Dietitian/Jockey Room Custodian Dietitian/Jockey Room Custodian to monitor nutritional status and make changes and/or recommendations as needed and work with speech pathology on dietary upgrades as the occur. Physician IPOC Medical Issues being managed closely and that require the 24 hour availability of a physician: Advanced age with spontaneous hematomas on thigh and right knee hemarthrosis will need close monitoring considering OAC held at risk for CVA Medical Issues: Bowel/Bladder Function, DVT Prophylaxis, Falls Precautions, Fluid/Electrolyte/Nutrition Balance, Infection Protection, Pain Management Brief Synthesis of Preadmission Screen, Post-Admission Evaluation, and Therapy Evaluations: PT OT will focus on navigating with walker with right knee stiffness and right thigh pain from hematoma and will work on fall prevention Medical Prognosis: Good Anticipated Length of Stay: 6 days DANA GALARZA DO Nov 16, 2019 10:39
--- NOTE | 2019-11-16 10:39 | PM&R Progress Note ---
Subjective HPI/CC On Admission Date Seen by Provider: Nov 16, 2019 Time Seen by Provider: 10:00 Subjective/Events-last exam Pt originally though she was going to go home today but now she is really stiff and having a hard time getting around Will hold DC Doing pretty well otherwise Bowels are moving No falls Monitoring closely Checked meds and labs Conferred with RN Reviewed therapy notes Review of Systems General: Fatigue, Malaise Musculoskeletal: leg pain Objective Exam Vital Signs Vital Signs Date Time Temp Pulse Resp B/P (MAP) Pulse Ox O2 Delivery O2 Flow Rate FiO2 11/16/19 18:27 37.0 74 18 131/61 (84) 96 Room Air Capillary Refill : Less Than 3 Seconds General Appearance: No Apparent Distress, WD/WN, Chronically ill, Thin HEENT: PERRL/EOMI, Normal ENT Inspection, Pharynx Normal Neck: Full Range of Motion, Normal Inspection, Non Tender, Supple, Carotid Br uit Respiratory: Chest Non Tender, Lungs Clear, Normal Breath Sounds, No Accessory Muscle Use, No Respiratory Distress Cardiovascular: Regular Rate, Rhythm, No Edema, No Gallop, No JVD, No Murmur, Normal Peripheral Pulses Gastrointestinal: Normal Bowel Sounds, No Organomegaly, No Pulsatile Mass, Non Tender, Soft Back: Normal Inspection, No CVA Tenderness, No Vertebral Tenderness Extremity: Normal Capillary Refill, Normal Inspection, Normal Range of Motion, Non Tender, No Calf Tenderness, No Pedal Edema Neurologic/Psychiatric: Alert, Oriented x3, No Motor/Sensory Deficits, Normal Mood/Affect, external grinder 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 FIM Transfers Therapy Code Descriptions/Definitions Functional [place] Measure: 0=Not Assessed/NA 4=Minimal Assistance 1=Total Assistance 5=Supervision or Setup 2=Maximal Assistance 6=Modified [place] 3=Moderate Assistance 7=Complete IndependenceSCALE: Activities may be completed with or without assistive devices. 9-Zoavvuofai-fhzcytd completes the activity by him/herself with no assistance from a helper. 5-Set-up or Clean-up Assistance-helper sets up or cleans up; patient completes activity. [place] assists only prior to or following the activity. 4-Supervision or Touching Assistance-helper provides verbal cues and/or touching/steadying and/or contact guard assistance as patient completes activity. Assistance may be provided throughout the activity or intermittently. 3-Partial/Moderate Assistance-helper does LESS THAN HALF the effort. [place] lifts, holds or supports trunk or limbs, but provides less than half the effort. 2-Substantial/Maximal Assistance-helper does MORE THAN HALF the effort. [place] lifts or holds trunk or limbs and provides more than half the effort. 8-Nzcjcplvt-exgjru does ALL the effort. Patient does none of the effort to complete the activity. Or, the assistance of 2 or more helpers is required for the patient to complete the activity. If activity was not attempted, code reason: 7-Patient Refused. 9-Not Applicable-not attempted and the patient did not perform the activity before the current illness, exacerbation or injury. 10-Not Attempted due to Environmental Limitations-(lack of equipment, weather restraints, etc.). 88-Not Attempted due to Medical Conditions or Safety Concerns. Roll Left to Right (QC): 6 Sit to Lying (QC): 6 Sit to Stand (QC): 6 Chair/Ulz-qe-Fapnp Xfer(QC): 6 Car Transfer (QC): 5 Gait Training Does the Patient Walk?: Yes Walk 10 feet (QC): 5 Walk 50 ft with 2 Turns(QC): 5 Walk 150 ft (QC): 5 Walking 10ft/uneven surface-QC: 5 Gait Persons Needed: 1 Gait Assistive Device: FWW Wheelchair Training Does the Pt Use a Wheelchair?: No Wheel 50 ft with 2 turns (QC): 9 Wheel 150 ft (QC): 9 Stair Training Stair Training: Handrails/: 2 handrails #of Steps: 4 1 Step (curb) (QC): 4 4 Steps (QC): 4 12 Steps (QC): 77 Stairs: Pattern: Step to Balance Picking up an Object (QC): 2 Assessment/Plan Assessment and Plan Assess & Plan/Chief Complaint Assessment: Spontaneous right knee hemarthrosis and right thigh hematoma on Eliquis for CVA PPx per Cardiology Acute blood loss anemia 2 points loss in right leg tissue Pacemaker permanent Gout HTN CRI Lives alone OP Advanced age Plan: IRF PT OT Appreciate Ortho Surgery Cardiology DVT PPx bit SCD and Lovenox contraindicated Discharge home this week (1) Debility (2) Spontaneous hematoma of lower leg (3) Pacemaker (4) Acute blood loss anemia (5) Hemarthrosis involving knee joint (6) On continuous oral anticoagulation (7) Hypertension (8) Diverticulosis (9) Advanced age DANA GALARZA DO Nov 16, 2019 10:39
--- NOTE | 2019-11-16 11:49 | Occupational Therapy Eval ---
OT Evaluation-General/PLF Medical Diagnosis Admission Date Nov 14, 2019 at 11:35 Medical Diagnosis: (R) knee hematoma Onset Date: Nov 10, 2019 Therapy Diagnosis Therapy Diagnosis: Decreased ADL status Height/Weight Height (Feet): 5 Height (Inches): 0.00 Weight (Pounds): 143 Weight (Ounces): 0.0 Precautions Precautions/Isolations: Fall Prevention, Standard Precautions Weight Bear Status Weight Bearing Restriction: Weight Bearing/Tolerated Referral Physician: Jr Referral Reason: Activity Tolerance, Self Care, Evaluation/Treatment, Strengthening/ROM Medical History Pertinent Medical History: HTN, Hypothroidism Additional Medical History see nursing. Current History Pt attempted to get in to bed by raising RLE in, states felt immediate pain, R knee hematoma and pain. Reviewed History: Yes Social History Home: Single Level Current Living Status: Alone Entry Into Home: Stairs With Railing Steps Into Home: 3 ADL-Prior Level of Function SCALE: Activities may be completed with or without assistive devices. 3-Yjwltwvtjh-hsmtxwz completes the activity by him/herself with no assistance from a helper. 5-Set-up or Clean-up Assistance-helper sets up or cleans up; patient completes activity. [place] assists only prior to or following the activity. 4-Supervision or Touching Assistance-helper provides verbal cues and/or touching/steadying and/or contact guard assistance as patient completes activity. Assistance may be provided throughout the activity or intermittently. 3-Partial/Moderate Assistance-helper does LESS THAN HALF the effort. [place] lifts, holds or supports trunk or limbs, but provides less than half the effort. 2-Substantial/Maximal Assistance-helper does MORE THAN HALF the effort. [place] lifts or holds trunk or limbs and provides more than half the effort. 7-Fghkabppb-rpylui does ALL the effort. Patient does none of the effort to complete the activity. Or, the assistance of 2 or more helpers is required for the patient to complete the activity. If activity was not attempted, code reason: 7-Patient Refused. 9-Not Applicable-not attempted and the patient did not perform the activity before the current illness, exacerbation or injury. 10-Not Attempted due to Environmental Limitations-(lack of equipment, weather restraints, etc.). 88-Not Attempted due to Medical Conditions or Safety Concerns. ADL PLOF Comments Pt was IND, use of AD at times (owns 4WW) Self Care: Independent Functional Cognition: Independent DME/Equipment: Bath Chair, Shower DME/Equipment Comments walk in shower, sc, no gb, high toilet. 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 Pt alert/ oriented, very pleasant. Pt states 2/10 pain in R knee, agrees to OT eval/ treat. Mental Status/Objective Patient Orientation: Person, Place, Time, Situation, Normal For Age Current Glasses/Contacts: Yes (at home) Hearing Aids: No Dentures/Partials: Yes (partials, at home.) Hand Dominance: Right Upper Extremity ROM WFL RUE L limited shoulder flexion (AROM to ~90*) Upper Extremity Coordination WFL BUE Upper Extremity Sensation WFL BUE Upper Extremity Strength Decreased bilaterally (3+/5) Edema: slight non-pitting Rknee ADL-Treatment Eating (QC): 6 Oral Hygiene (QC): 4 (completes with SBA at sink (standing with 4WW)) Shower/Bathe Self (QC): 4 (SBA in stance, SUP in sit.shower transfer with SBA, use of gbs and walker.) Upper Body Dressing (QC): 5 (s/u) Lower Body Dressing (QC): 4 (SBA, educated on use of AE though does not utilize.) On/Off Footwear (QC): 4 (SBA) Toileting Hygiene (QC): 4 (SBA) Other Treatments Pt completes eval/ MMT/ROM screening. 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 Pt completes erwin ex at home, limited to AROM of 90* shoulder flexion. Pt states she has modified activities/ routines due to limited AROM. Pt educated on OT role and ARU expectations, pt states she was told she would only be staying over night. Pt educated on typical standard and to refer to nursing/ DO. Pt completes ADLs in room with SBA primarily, no LOB, good safety awareness, limited pain/ non-restricting. Pt stands at sink, good balance during bilateral UE movements/ no support on walker. Pt returns to chair, completes HEP/ Ther ex with therabands with demonstration and reference to handout with skilled cues throughout for LUE movement. pt instructed to complete AROM (non resistance) of LUE shoulder flexion due to uncomfort. Pt completes 10- 20 reps bilaterally of 5/5 exercises, all needs met, call light in reach, pt left with BLE elevated in chair and ice packs applied. Education OT Patient Education: Correct positioning, Exercise program, Home exercise program, Modified ADL techniques, Progress toward Goal/Update tx plan, Purpose of tx/functional activities, Rehab process, Safety issues, Use of adapted equipment Teaching Recipient: Patient Teaching Methods: Demonstration, Discussion Response to Teaching: Verbalize Understanding, Return Demonstration, [place] nforcement Needed OT Residential Goals Residential Goals Time Frame: Nov 30, 2019 Eating (QC): 6 Oral Hygiene (QC): 6 Toileting Hygiene (QC): 6 Shower/Bathe Self (QC): 6 Upper Body Dressing (QC): 6 Lower Body Dressing (QC): 6 On/Off Footwear (QC): 6 Additional Goals: 1-Demonstrate ADL Tasks, 2-Verbalize Understanding, 3- ImproveStrength/[place] 1=Demonstrate adherence to instructed precautions during ADL tasks. 2=Patient will verbalize/demonstrate understanding of assistive devices/modifications for ADL. 3=Patient will improve strength/tolerance for activity to enable patient to perform ADL's. OT Education/Plan Problem List/Assessment Assessment: Decreased Activ Tolerance, Decreased UE Strength, Edema, Impaired I ADL's, Impaired Self-Care Skills Discharge Recommendations Plan/Recommendations: Continue POC Therapy Discharge Recommendati: Home & Family Equpiment Recommendations-D/C: Rails on Tub/Shower Treatment Plan/Plan of Care Treatment,Training & Education: Yes Patient would benefit from OT for education, treatment and training to promote independence in ADL's, mobility, safety and/or upper extremity function for ADL's. Plan of Care: ADL Retraining, Functional Mobility, Group Exercise/Act as Ind, UE Funct Exercise/Act Treatment Duration: Nov 30, 2019 Frequency: At least 5 of 7 days/Wk (IRF) Estimated Hrs Per Day: 1.5 hours per day Agreement: Yes Rehab Potential: Good Time/GCodes Start Time: 10:00 Stop Time: 11:30 Total Time Billed (hr/min): 90 Billed Treatment Time 1, EVL (15), ADL 3 (45), EX 2 (30)= 90 NANCY SALOMON OTR Nov 16, 2019 11:49
--- NOTE | 2019-11-16 12:46 | ST Cognitive Linguistic Eval ---
Speech Evaluation-General Medical Diagnosis (R) knee hematoma Onset Date: Nov 10, 2019 Therapy Diagnosis Therapy Diagnosis: Cognitive-communication Referral Referring Physician: Dr. Norris Medical History Pertinent Medical History: HTN, Hypothroidism Reviewed History: Yes Social History Current Living Status: Alone Speech PLF-Current Status Prior Level of Function Patient lives alone in her own home where she was independent for most of her daily needs. Subjective Patient was pleasant and cooperative with cognitive assessment. Language Eval: Auditory Comprehends Simple Yes/No Ques: Functional Indent/Objects Multiple Hernandez: Functional Ident/Pics in Multiple Hernandez: Functional Follows 1-Step Commands: Functional Follows Complex Directions: Functional Follows General Conversations: Functional Language Eval: Verbal Language Completes Spontaneous Greeting: Functional Produces Auto, Serial Info: Functional Imitates Simple Words/Phrases: Functional Word Finding: Functional Requests Basic Needs: Functional States Basic Personal Info: Functional Expresses Complex Ideas: Functional Objective Cognitive Domain Attention: WNL Memory: WNL Problem Solving: Functional Executive Functions: WNL Visuospatial Skills: WNL Composite Severity Rating: WNL Clock Drawing Severity Rating: WNL Objective Formal/Standardized Tests [facility] Mental Status ([facility]) Results 28/30, within normal limits Oral Motor/Speech Production Within Normal Limits Impression Patient is a pleasant 89 y/o female who was admitted to the ARU due to a knee hematoma. Patient was given the UMS with a score of 28 obtained. This score is within the normal limits. Patient does not require further ST services at this time. Speech Patient Assess Expression of Ideas/Wants: Expression (4) Understanding Verbal Content: Understands (4) Brief Interview-Mental Status: Yes Repetition of Three Words: Three (3) Temporal Orientation: Year: Correct (3) Temporal Orientation: Month: Accurate within 5 days(2) Temporal Orientation: Day: Correct (1) Recall : Wear to say "Sock": Yes, no cue required (2) Recall : Color: Yes, no cue required (2) Recall : Bed: Yes,after cueing (1) Memory/Recall Ability: Current season, Location of own room, That he or she is in a hsp/hsp unit Speech-Plan Patient/Family Goals Patient/Family Goals: Patient plans on returning to her own home. Treatment Plan Speech Therapy Treatment Plan: Discontinue ST Treatment Duration: Nov 16, 2019 Frequency: 1 time per week Estimated Hrs Per Day: .25 hour per day Rehab Potential: Good Barriers to Learning: None identified Pt/Family Agrees to Plan: Yes Safety Risks/Education Teaching Recipient: Patient Teaching Methods: Discussion Response to Teaching: Verbalize Understanding Education Topics Provided: Safety within her room and communication of wants/needs Time Speech Therapy Time In: 08:45 Speech Therapy Time Out: 09:00 Total Billed Time: 15 Billed Treatment Time 1, SPSNDCOMP KATTY Jacobs Nov 16, 2019 12:46
--- NOTE | 2019-11-16 12:51 | NUR ---
CM/SS ADMISSION Patient was admitted from [facility] OBS status to ARU 11/14/19 for debility. Other comorbidities are, in part, spontaneous hematoma of lower leg, acute blood loss anemia, hemarthrosis involving knee joint, HTN. Patient resides home alone and her goal is return there when able. She has been independent for daily activities but is assisted by her children as needed. 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 PCP: Dr. Aliya Norris, , [place], [place] PHARMACY: [facility] INSURANCE: Medicare, [employer] DME: Has FWW, cane. Her shower has a built in bench and she has her system to use windowsill and door handles for stability. BARRIERS TO DISCHARGE PLAN: Age and recovery, maximum level of functioning if less than before acute onset. CONTACTS: Patient has 3 children, 2 sons and one daughter. Iggy Tee [address] [id number] Mulugeta Tee [address] [place] [address] Laura, Daughter Patient understood the purpose and process of the patient care conference and that her first review will be 11/18/19. 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 He about 7 years ago, the policy has matured and continues to be available for her at any point it is needed.
--- NOTE | 2019-11-16 13:27 | Physical Therapy Daily Note ---
PT Daily Note-Current Subjective Agrees to Rx and states she is feeling so much better than she did this morning. Pain Location: No Pain Reported Mental Status Patient Orientation: Normal For Age Transfers SCALE: Activities may be completed with or without assistive devices. 0-Xozeyaioux-ahbkaor completes the activity by him/herself with no assistance from a helper. 5-Set-up or Clean-up Assistance-helper sets up or cleans up; patient completes activity. [place] assists only prior to or following the activity. 4-Supervision or Touching Assistance-helper provides verbal cues and/or touching/steadying and/or contact guard assistance as patient completes activity. Assistance may be provided throughout the activity or intermittently. 3-Partial/Moderate Assistance-helper does LESS THAN HALF the effort. [place] lifts, holds or supports trunk or limbs, but provides less than half the effort. 2-Substantial/Maximal Assistance-helper does MORE THAN HALF the effort. [place] lifts or holds trunk or limbs and provides more than half the effort. 8-Hiafxhodq-ljmorj does ALL the effort. Patient does none of the effort to complete the activity. Or, the assistance of 2 or more helpers is required for the patient to complete the activity. If activity was not attempted, code reason: 7-Patient Refused. 9-Not Applicable-not attempted and the patient did not perform the activity before the current illness, exacerbation or injury. 10-Not Attempted due to Environmental Limitations-(lack of equipment, weather restraints, etc.). 88-Not Attempted due to Medical Conditions or Safety Concerns. sit to stand indep Weight Bearing Right Lower Extremity: Right Weight Bearing/Tolerated Left Lower Extremity: Left Weight Bearing/Tolerated Gait Training Gait Assistive Device: FWW 165ft x 2 SBA, no LOB, slow, good control Exercises Seated Therapy Exercises: Ankle pumps, Sit to stand, Long arc quads, Hip flexion, Hip abd/add Seated Reps: 12 Standing: Hip Abduction, Heel/toe raises, 3 way Ex=Flex, Abd, Ext, Side steps Standing Reps: 12 Assessment Current Status: Good Progress PT Short Term Goals Short Term Goals Time Frame: Nov 17, 2019 Roll Left & Right: 6 Sit to lyin Lying to sitting on side of be: 6 Sit to stand: 5 Chair/tzx-ks-pcamo transfer: 5 Toilet transfer: 5 Car transfer: 5 Walk 10 feet: 5 Walk 50 feet with two turns: 5 Walk 150 feet: 5 Walking 10ft on uneven surface: 5 1 step (curb): 5 4 steps: 5 Picking up objects: 5 PT Half-Way Goals Nurse Infection Control Goals PT Nurse Infection Control Goals Time Frame: Nov 20, 2019 Roll Left & Right (QC): 6 Sit to Lying (QC): 6 Lying-Sitting on Side/Bed(QC): 6 Sit to Stand (QC): 6 Chair/Ezt-el-Tporh Xfer(QC): 6 Toilet Transfer (QC): 6 Car Transfer (QC): 6 Does the Patient Walk: Yes Walk 10 feet (QC): 6 Walk 50ft with 2 Turns (QC): 6 Walk 150 ft (QC): 6 Walking 10ft on Uneven Surface: 6 1 Step (curb) (QC): 6 4 Steps (QC): 6 12 Steps (QC): 6 Picking up an Object (QC): 6 Wheel 50 feet with 2 turns (QC: 9 Type: Manual Wheel 150 feet: 9 Type: Manual PT Plan Treatment/Plan Treatment Plan: Continue Plan of Care Treatment Plan: Functional Strength, Group Therapy, Gait, Safety, Therapeutic Exercise Treatment Duration: Nov 20, 2019 Frequency: At least 5 of 7 days/Wk (IRF) Estimated Hrs Per Day: 1.5 hours per day Patient and/or Family Agrees t: Yes Safety Risks/Education Patient Education: Gait Training, Transfer Techniques, Correct Positioning, Safety Issues Teaching Recipient: Patient Teaching Methods: Demonstration, Discussion Response to Teaching: Verbalize Understanding, Return Demonstration, Reinforcement Needed discussed LE elevation in bed with head down for edema RLE Time/GCodes Time In: 1130 Time Out: 1200 Total Billed Treatment Time: 30 Total Billed Treatment 1,EX20m,GT10m ZOE CHILDS FAC ENGINEER Nov 16, 2019 13:27
--- NOTE | 2019-11-16 18:00 | NUR ---
AMBULATED WITH ASST. IN MICHAEL SEVERAL TIMES TODAY. STATES FEELING BETTER THIS AFTERNOON.
[2019-11-16 18:27] VITALS: BP 131/61
[2019-11-16] MEDS: VITAMIN D3 25 MCG (1,000 UNITS) TABLET PO SCH (20:12)
[2019-11-16] MEDS: CYANOCOBALAMIN 1,000 MCG (VITAMIN B-12) TABLET PO SCH (20:13)
[2019-11-16] MEDS: ALLOPURINOL 100 MG (ZYLOPRIM) TAB PO SCH (20:13)
[2019-11-17] MEDS: MELATONIN 3 MG TABLET PO PRN (01:18)
[2019-11-17 05:05] VITALS: BP 143/67
--- NOTE | 2019-11-17 06:09 | PM&R Progress Note ---
Subjective HPI/CC On Admission Date Seen by Provider: Nov 17, 2019 Time Seen by Provider: 10:00 Subjective/Events-last exam Pt is doing well overall RADHA wrap to right leg has been helpful Probiotic will be ordered BP really good on home meds Off anticoagulation for now, unsure what her candidacy will because of the spontaneous hemarthrosis and hematoma will be Checked meds and labs Conferred with RN Reviewed therapy notes Review of Systems General: Fatigue Musculoskeletal: leg pain Objective Exam Vital Signs Vital Signs Date Time Temp Pulse Resp B/P (MAP) Pulse Ox O2 Delivery O2 Flow Rate FiO2 11/17/19 17:15 37.0 67 18 147/64 (91) 96 Room Air Capillary Refill : Less Than 3 Seconds General Appearance: No Apparent Distress, WD/WN, Chronically ill, Thin HEENT: PERRL/EOMI, Normal ENT Inspection, Pharynx Normal Neck: Full Range of Motion, Normal Inspection, Non Tender, Supple, Carotid Bruit Respiratory: Chest Non Tender, Lungs Clear, Normal Breath Sounds, No Accessory Muscle Use, No Respiratory Distress Cardiovascular: Regular Rate, Rhythm, No Edema, No Gallop, No JVD, No Murmur, Normal Peripheral Pulses Gastrointestinal: Normal Bowel Sounds, No Organomegaly, No Pulsatile Mass, Non Tender, Soft Back: Normal Inspection, No CVA Tenderness, No Vertebral Tenderness Extremity: Normal Capillary Refill, Normal Inspection, Normal Range of Motion, Non Tender, No Calf Tenderness, No Pedal Edema Neurologic/Psychiatric: Alert, Oriented x3, No Motor/Sensory Deficits, Normal Mood/Affect, vba programmer II-XII Norm as Tested, Abnormal Gait Skin: Normal Color, Warm/Dry Lymphatic: No Adenopathy Results/Procedures Lab Patient resulted labs reviewed. FIM Transfers Therapy Code Descriptions/Definitions Functional [place] Measure: 0=Not Assessed/NA 4=Minimal Assistance 1=Total Assistance 5=Supervision or Setup 2=Maximal Assistance 6=Modified [place] 3=Moderate Assistance 7=Complete IndependenceSCALE: Activities may be completed with or without assistive devices. 7-Hxvlgwmgvv-hgkjwrk completes the activity by him/herself with no assistance from a helper. 5-Set-up or Clean-up Assistance-helper sets up or cleans up; patient completes activity. [place] assists only prior to or following the activity. 4-Supervision or Touching Assistance-helper provides verbal cues and/or touching/steadying and/or contact guard assistance as patient completes activity. Assistance may be provided throughout the activity or intermittently. 3-Partial/Moderate Assistance-helper does LESS THAN HALF the effort. [place] lifts, holds or supports trunk or limbs, but provides less than half the effort. 2-Substantial/Maximal Assistance-helper does MORE THAN HALF the effort. [place] lifts or holds trunk or limbs and provides more than half the effort. 3-Ikpdopnro-ygqnsr does ALL the effort. Patient does none of the effort to complete the activity. Or, the assistance of 2 or more helpers is required for the patient to complete the activity. If activity was not attempted, code reason: 7-Patient Refused. 9-Not Applicable-not attempted and the patient did not perform the activity before the current illness, exacerbation or injury. 10-Not Attempted due to Environmental Limitations-(lack of equipment, weather restraints, etc.). 88-Not Attempted due to Medical Conditions or Safety Concerns. Roll Left to Right (QC): 6 Sit to Lying (QC): 6 Sit to Stand (QC): 6 Chair/Pnw-co-Ngela Xfer(QC): 6 Car Transfer (QC): 5 Gait Training Does the Patient Walk?: Yes Walk 10 feet (QC): 5 Walk 50 ft with 2 Turns(QC): 5 Walk 150 ft (QC): 5 Walking 10ft/uneven surface-QC: 5 Gait Persons Needed: 1 Gait Assistive Device: FWW Wheelchair Training Does the Pt Use a Wheelchair?: No Wheel 50 ft with 2 turns (QC): 9 Wheel 150 ft (QC): 9 Stair Training Stair Training: Handrails/: 2 handrails #of Steps: 4 1 Step (curb) (QC): 4 4 Steps (QC): 4 12 Steps (QC): 77 Stairs: Pattern: Step to Balance Picking up an Object (QC): 2 ADL-Treatment Eating (QC): 6 Oral Hygiene (QC): 4 (completes with SBA at sink (standing with 4WW)) Shower/Bathe Self (QC): 4 (SBA in stance, SUP in sit.shower transfer with SBA, use of gbs and walker.) Upper Body Dressing (QC): 5 (s/u) Lower Body Dressing (QC): 4 (SBA, educated on use of AE though does not utilize.) On/Off Footwear (QC): 4 (SBA) Toileting Hygiene (QC): 4 (SBA) Assessment/Plan Assessment and Plan Assess & Plan/Chief Complaint Assessment: Spontaneous right knee hemarthrosis and right thigh hematoma on Eliquis for CVA PPx per Cardiology Acute blood loss anemia 2 points loss in right leg tissue Pacemaker permanent Gout HTN CRI Lives alone OP Advanced age Plan: IRF PT OT Appreciate Ortho Surgery Cardiology DVT PPx bit SCD and Lovenox contraindicated Discharge home this week (1) Debility (2) Spontaneous hematoma of lower leg (3) Pacemaker (4) Acute blood loss anemia (5) Hemarthrosis involving knee joint (6) On continuous oral anticoagulation (7) Hypertension (8) Diverticulosis (9) Advanced age DANA GALARZA DO Nov 17, 2019 06:09
[2019-11-17 08:00] VITALS: BP 138/71
[2019-11-17] MEDS: LEVOTHYROXINE 50 MCG (LEVOTHROID) TAB PO SCH (08:26)
[2019-11-17] MEDS: cloNIDine 0.1 MG (CATAPRES) TAB PO SCH ×3 (08:26→21:28)
[2019-11-17] MEDS: ACETAMINOPHEN 325 MG TABLET PO PRN (08:28)
[2019-11-17] MEDS: SENNA W/DOCUSATE (SENOKOT S) TABLET PO SCH ×2 (08:34→21:28)
[2019-11-17] MEDS: polyethylene glycoL POWDER 17 GM (MIRALAX) PACK PO SCH ×2 (08:34→21:28)
[2019-11-17] MEDS: DOCUSATE SODIUM 100 MG (COLACE) CAP PO SCH ×2 (08:34→21:27)
--- NOTE | 2019-11-17 09:00 | NUR ---
MEDICATED WITH TYLENOL PRE-THERAPY. STATES MELATONIN DID NOT HELP HER SLEEP LAST NIGHT. RIGHT KNEE SWELLING IMPROVED FROM YESTERDAY AND REFUSES RADHA WRAP TODAY. REQUESTED PROBIOTIC AND ORDER OBTAINED.
--- NOTE | 2019-11-17 09:28 | Occupational Ther Daily Note ---
OT Current Status-Daily Note Subjective Pt in bed, states she did not sleep well last night. Agrees to therapy. Pt reports 4/10 pain at rest and 8/10 pain with movement. ADL-Treatment Therapy Code Descriptions/Definitions Functional [place] Measure: 0=Not Assessed/NA 4=Minimal Assistance 1=Total Assistance 5=Supervision or Setup 2=Maximal Assistance 6=Modified [place] 3=Moderate Assistance 7=Complete IndependenceSCALE: Activities may be completed with or without assistive devices. 0-Ghnsgbzvct-uadvwnu completes the activity by him/herself with no assistance from a helper. 5-Set-up or Clean-up Assistance-helper sets up or cleans up; patient completes activity. [place] assists only prior to or following the activity. 4-Supervision or Touching Assistance-helper provides verbal cues and/or touching/steadying and/or contact guard assistance as patient completes activity. Assistance may be provided throughout the activity or intermittently. 3-Partial/Moderate Assistance-helper does LESS THAN HALF the effort. [place] lifts, holds or supports trunk or limbs, but provides less than half the effort. 2-Substantial/Maximal Assistance-helper does MORE THAN HALF the effort. [place] lifts or holds trunk or limbs and provides more than half the effort. 3-Agrqbxejh-gteuyk does ALL the effort. Patient does none of the effort to complete the activity. Or, the assistance of 2 or more helpers is required for the patient to complete the activity. If activity was not attempted, code reason: 7-Patient Refused. 9-Not Applicable-not attempted and the patient did not perform the activity before the current illness, exacerbation or injury. 10-Not Attempted due to Environmental Limitations-(lack of equipment, weather restraints, etc.). 88-Not Attempted due to Medical Conditions or Safety Concerns. Oral Hygiene (QC): 6 (Pt stood at sink to brush teeth without assist. Pt also combed hair independently) Shower/Bathe Self (QC): 5 (Pt completed bathing tasks after set up while seated on shower bench and using hand held shower. Pt completed shower transfer using grab bars for safety.) Upper Body Dressing (QC): 5 (Pt donned pullover shirt with set up) Lower Body Dressing (QC): 5 (Pt doffed/donned underwear and pants with set up. Stood without LOB during pant hike.) On/Off Footwear: 5 (Pt doffed right sock using dressing stick. Able to doff left sock without assist. Donned slip on shoes with set up.) Other Treatment Pt completed UE exercises to increase strength needed for ADLs and transfers. Pt able to recall exercises from previous session while referencing handout. Rest breaks taken between exercises. Pt sitting in chair with needs met after session. OT Fpc Goals Fpc Goals Time Frame: Nov 30, 2019 Eating (QC): 6 Oral Hygiene (QC): 6 Toileting Hygiene (QC): 6 Shower/Bathe Self (QC): 6 Upper Body Dressing (QC): 6 Lower Body Dressing (QC): 6 On/Off Footwear (QC): 6 Additional Goals: 1-Demonstrate ADL Tasks, 2-Verbalize Understanding, 3- ImproveStrength/Get[place]w 1=Demonstrate adherence to instructed precautions during ADL tasks. 2=Patient will verbalize/demonstrate understanding of assistive devices/modifications for ADL. 3=Patient will improve strength/tolerance for activity to enable patient to perform ADL's. OT Education/Plan Discharge Recommendations Plan/Recommendations: Continue POC Treatment Plan/Plan of Care Patient would benefit from OT for education, treatment and training to promote independence in ADL's, mobility, safety and/or upper extremity function for ADL's. Plan of Care: Functional Mobility Treatment Duration: Nov 16, 2019 Frequency: 5 times per week Estimated Hrs Per Day: .5 hour per day Agreement: Yes Rehab Potential: Good Time/GCodes Start Time: 08:15 Stop Time: 09:15 Total Time Billed (hr/min): 60 Billed Treatment Time 1 visit, ADLx3(45minutes), EX(15minutes) ATILIO WRIGHT OT Nov 17, 2019 09:28
--- NOTE | 2019-11-17 10:11 | Physical Therapy Daily Note ---
PT Daily Note-Current Subjective Pt in recliner upon arrival and agrees to tx. Pt states pain in R knee 10. Pain Numeric Pain Scale: 7 Location: Right Location Body Site: Knee Pain Description: Sharp Mental Status Patient Orientation: Person, Place, Time, Situation Transfers SCALE: Activities may be completed with or without assistive devices. 9-Arsgdjbvxs-wnomnew completes the activity by him/herself with no assistance from a helper. 5-Set-up or Clean-up Assistance-helper sets up or cleans up; patient completes activity. [place] assists only prior to or following the activity. 4-Supervision or Touching Assistance-helper provides verbal cues and/or touching /steadying and/or contact guard assistance as patient completes activity. Assistance may be provided throughout the activity or intermittently. 3-Partial/Moderate Assistance-helper does LESS THAN HALF the effort. [place] lifts, holds or supports trunk or limbs, but provides less than half the effort. 2-Substantial/Maximal Assistance-helper does MORE THAN HALF the effort. [place] lifts or holds trunk or limbs and provides more than half the effort. 9-Fkndyzygx-ogfcyj does ALL the effort. Patient does none of the effort to complete the activity. Or, the assistance of 2 or more helpers is required for the patient to complete the activity. If activity was not attempted, code reason: 7-Patient Refused. 9-Not Applicable-not attempted and the patient did not perform the activity before the current illness, exacerbation or injury. 10-Not Attempted due to Environmental Limitations-(lack of equipment, weather restraints, etc.). 88-Not Attempted due to Medical Conditions or Safety Concerns. Sit to Stand (QC): 6 Weight Bearing Right Lower Extremity: Right Weight Bearing/Tolerated Left Lower Extremity: Left Weight Bearing/Tolerated Gait Training Does the Patient Walk?: Yes Distance: 500 Walk 10 feet (QC): 5 Walk 50 ft with 2 Turns(QC): 5 Walk 150 ft (QC): 5 Gait Persons Needed: 1 Gait Assistive Device: FWW Pt began amb with slow, antalgic, step to gait. At end of tx pt had equal stride length and better speed Stair Training Stair Training: Handrails/: 2 handrails #of Steps: 4 1 Step (curb) (QC): 5 4 Steps (QC): 5 Stairs: Pattern: Step to Pt stated she has hand rails on both sides at home. Exercises Seated Therapy Exercises: Ankle pumps, Sit to stand, Long arc quads, Hip flexion (L leg only), Kicking activity (L leg only), Hip abd/add, Glut set Seated Reps: 12 NuStep Minutes: 15 NuStep Workload: 5 Treatments Pt amb in hallway prior to going to [facility]. Pt performs seated exercises and amb around hallway back to room. Once in room pt walker corrected to right height. Pt is now ad jasmin in room with use of FWW. Pt left in chair with all needs met, call light in hand. Assessment Current Status: Excellent Progress Pt unable to do certain exercises d/t pain but requires few seated rest breaks. PT Short Term Goals Short Term Goals Time Frame: Nov 17, 2019 Roll Left & Right: 6 Sit to lyin Lying to sitting on side of be: 6 Sit to stand: 5 Chair/bok-iy-djjns transfer: 5 Toilet transfer: 5 Car transfer: 5 Walk 10 feet: 5 Walk 50 feet with two turns: 5 Walk 150 feet: 5 Walking 10ft on uneven surface: 5 1 step (curb): 5 4 steps: 5 Picking up objects: 5 PT Snf Goals Snf Goals PT Email Marketing Assistant Goals Time Frame: Nov 20, 2019 Roll Left & Right (QC): 6 Sit to Lying (QC): 6 Lying-Sitting on Side/Bed(QC): 6 Sit to Stand (QC): 6 Chair/Mtn-jx-Oqzkl Xfer(QC): 6 Toilet Transfer (QC): 6 Car Transfer (QC): 6 Does the Patient Walk: Yes Walk 10 feet (QC): 6 Walk 50ft with 2 Turns (QC): 6 Walk 150 ft (QC): 6 Walking 10ft on Uneven Surface: 6 1 Step (curb) (QC): 6 4 Steps (QC): 6 12 Steps (QC): 6 Picking up an Object (QC): 6 Wheel 50 feet with 2 turns (QC: 9 Type: Manual Wheel 150 feet: 9 Type: Manual PT Plan Problem List Problem List: ROM Treatment/Plan Treatment Plan: Continue Plan of Care Treatment Plan: Functional Strength, Group Therapy, Gait, Safety, Therapeutic Exercise Treatment Duration: Nov 20, 2019 Frequency: At least 5 of 7 days/Wk (IRF) Estimated Hrs Per Day: 1.5 hours per day Patient and/or Family Agrees t: Yes Safety Risks/Education Patient Education: Gait Training, Steps, Correct Positioning, Safety Issues Teaching Recipient: Patient Teaching Methods: Demonstration, Discussion Response to Teaching: Verbalize Understanding, Return Demonstration Time/GCodes Time In: 915 Time Out: 1015 Total Billed Treatment Time: 60 Total Billed Treatment 1, Ex x2 (30m), GT (15m), FA (15m) BRADLEY PETERS PSYCHOLOGIST RESEARCH ASSISTANT Nov 17, 2019 10:10
--- NOTE | 2019-11-17 10:30 | NUR ---
UP AD STEVEN PER BRADLEY, PT. PATIENT VOICES UNDERSTANDING TO USE WALKER AND USE CAUTION AND TO CALL NURSE IF NEEDED.
[2019-11-17] MEDS: LACTOBACILLUS ACIDOPHILUS (PROBIOTIC) CAPSULE PO SCH ×2 (13:05→17:19)
--- NOTE | 2019-11-17 13:18 | Occupational Ther Daily Note ---
OT Current Status-Daily Note Subjective Pt sitting in chair, agrees to therapy ADL-Treatment Therapy Code Descriptions/Definitions Functional [place] Measure: 0=Not Assessed/NA 4=Minimal Assistance 1=Total Assistance 5=Supervision or Setup 2=Maximal Assistance 6=Modified [place] 3=Moderate Assistance 7=Complete IndependenceSCALE: Activities may be completed with or without assistive devices. 1-Qibpiywrrw-asgvibi completes the activity by him/herself with no assistance from a helper. 5-Set-up or Clean-up Assistance-helper sets up or cleans up; patient completes activity. [place] assists only prior to or following the activity. 4-Supervision or Touching Assistance-helper provides verbal cues and/or touching/steadying and/or contact guard assistance as patient completes activity. Assistance may be provided throughout the activity or intermittently. 3-Partial/Moderate Assistance-helper does LESS THAN HALF the effort. [place] lifts, holds or supports trunk or limbs, but provides less than half the effort. 2-Substantial/Maximal Assistance-helper does MORE THAN HALF the effort. [place] lifts or holds trunk or limbs and provides more than half the effort. 2-Loocgdqqj-biqexo does ALL the effort. Patient does none of the effort to co mplete the activity. Or, the assistance of 2 or more helpers is required for the patient to complete the activity. If activity was not attempted, code reason: 7-Patient Refused. 9-Not Applicable-not attempted and the patient did not perform the activity before the current illness, exacerbation or injury. 10-Not Attempted due to Environmental Limitations-(lack of equipment, weather restraints, etc.). 88-Not Attempted due to Medical Conditions or Safety Concerns. Other Treatment Pt sit to stand without assist. Gait to therapy gym with FWW, no LOB noted. Pt completed fine motor task with nuts and bolts to increase UE activity tolerance and coordination/manipulation skills. Pt completed task with increased time. Graded clothespins activity with bilateral hands to increase healthcare interpreter/pinch strength. Pt returned to room, transferred to chair with FWW. Sitting in chair with needs met after session. OT Industrial Retrofit Designer Goals Industrial Retrofit Designer Goals Time Frame: Nov 30, 2019 Eating (QC): 6 Oral Hygiene (QC): 6 Toileting Hygiene (QC): 6 Shower/Bathe Self (QC): 6 Upper Body Dressing (QC): 6 Lower Body Dressing (QC): 6 On/Off Footwear (QC): 6 Additional Goals: 1-Demonstrate ADL Tasks, 2-Verbalize Understanding, 3- ImproveStrength/Getachew 1=Demonstrate adherence to instructed precautions during ADL tasks. 2=Patient will verbalize/demonstrate understanding of assistive devices/modifications for ADL. 3=Patient will improve strength/tolerance for activity to enable patient to perform ADL's. OT Education/Plan Discharge Recommendations Plan/Recommendations: Continue POC Treatment Plan/Plan of Care Patient would benefit from OT for education, treatment and training to promote independence in ADL's, mobility, safety and/or upper extremity function for ADL's. Plan of Care: Functional Mobility Treatment Duration: Nov 16, 2019 Frequency: 5 times per week Estimated Hrs Per Day: .5 hour per day Agreement: Yes Rehab Potential: Good Time/GCodes Start Time: 11:30 Stop Time: 12:00 Total Time Billed (hr/min): 30 Billed Treatment Time 1 visit, EXx2(30minutes) ATILIO WRIGHT OT Nov 17, 2019 13:18
--- NOTE | 2019-11-17 13:32 | Physical Therapy Daily Note ---
PT Daily Note-Current Subjective Pt in recliner upon arrival. Pt agrees to tx. Mental Status Patient Orientation: Person, Place, Time, Situation Transfers SCALE: Activities may be completed with or without assistive devices. 5-Bmmwaeonsw-dtssnya completes the activity by him/herself with no assistance from a helper. 5-Set-up or Clean-up Assistance-helper sets up or cleans up; patient completes activity. [place] assists only prior to or following the activity. 4-Supervision or Touching Assistance-helper provides verbal cues and/or touching/steadying and/or contact guard assistance as patient completes activity. Assistance may be provided throughout the activity or intermittently. 3-Partial/Moderate Assistance-helper does LESS THAN HALF the effort. [place] lifts, holds or supports trunk or limbs, but provides less than half the effort. 2-Substantial/Maximal Assistance-helper does MORE THAN HALF the effort. [place] lifts or holds trunk or limbs and provides more than half the effort. 2-Tycutlnjf-bpgpem does ALL the effort. Patient does none of the effort to complete the activity. Or, the assistance of 2 or more helpers is required for the patient to complete the activity. If activity was not attempted, code reason: 7-Patient Refused. 9-Not Applicable-not attempted and the patient did not perform the activity before the current illness, exacerbation or injury. 10-Not Attempted due to Environmental Limitations-(lack of equipment, weather restraints, etc.). 88-Not Attempted due to Medical Conditions or Safety Concerns. Weight Bearing Right Lower Extremity: Right Weight Bearing/Tolerated Left Lower Extremity: Left Weight Bearing/Tolerated Gait Training Does the Patient Walk?: Yes Distance: 600 Walk 10 feet (QC): 5 Walk 50 ft with 2 Turns(QC): 5 Walk 150 ft (QC): 5 Gait Assistive Device: FWW Pt occasionally shuffles R foot, but corrects it herself Wheelchair Training Does the Pt Use a Wheelchair?: No Treatments Pt uses restroom prior to tx. Pt amb in hallway 600', using landscape foreman to pickling drum operator castorena bags placed around sitting around on unit. Pt returned to bed and was left with all needs met, call light in hand. Assessment Current Status: Excellent Progress Pt had no LOB during tx and required no rest breaks. PT Short Term Goals Short Term Goals Time Frame: Nov 17, 2019 Roll Left & Right: 6 Sit to lyin Lying to sitting on side of be: 6 Sit to stand: 5 Chair/yup-up-kalea transfer: 5 Toilet transfer: 5 Car transfer: 5 Walk 10 feet: 5 Walk 50 feet with two turns: 5 Walk 150 feet: 5 Walking 10ft on uneven surface: 5 1 step (curb): 5 4 steps: 5 Picking up objects: 5 PT Programming Specialist Goals Programming Specialist Goals PT [facility]sp Goals Time Frame: Nov 20, 2019 Roll Left & Right (QC): 6 Sit to Lying (QC): 6 Lying-Sitting on Side/Bed(QC): 6 Sit to Stand (QC): 6 Chair/Bss-xp-Hpcgy Xfer(QC): 6 Toilet Transfer (QC): 6 Car Transfer (QC): 6 Does the Patient Walk: Yes Walk 10 feet (QC): 6 Walk 50ft with 2 Turns (QC): 6 Walk 150 ft (QC): 6 Walking 10ft on Uneven Surface: 6 1 Step (curb) (QC): 6 4 Steps (QC): 6 12 Steps (QC): 6 Picking up an Object (QC): 6 Wheel 50 feet with 2 turns (QC: 9 Type: Manual Wheel 150 feet: 9 Type: Manual PT Plan Treatment/Plan Treatment Plan: Continue Plan of Care Treatment Plan: Functional Strength, Group Therapy, Gait, Safety, Therapeutic Exercise Treatment Duration: Nov 20, 2019 Frequency: At least 5 of 7 days/Wk (IRF) Estimated Hrs Per Day: 1.5 hours per day Patient and/or Family Agrees t: Yes Safety Risks/Education Patient Education: Gait Training, Correct Positioning, Safety Issues Teaching Recipient: Patient Teaching Methods: Discussion Response to Teaching: Verbalize Understanding Time/GCodes Time In: 1300 Time Out: 1330 Total Billed Treatment Time: 30 Total Billed Treatment 1, FA (15m), GT (15m) BRADLEY PETERS PTA Nov 17, 2019 13:32
--- NOTE | 2019-11-17 15:23 | NUR ---
RD ASSESSMENT PMHx: afib; HTN; diverticulosis; gout; scoliosis; hypothyroidism PT INTERACTION: Pt was awake and pleasant during nutrition assessment. Pt states current appetite is good. Note avg PO intake 78% x3d, per chart review. Pt states following a regular diet at home, and has no issues with chewing/swallowing food. Pt states no recent issues with nausea, vomiting, constipation, or diarrhea. Note last BM was 11/15 and pt currently on bowel regimen of colace BID; senna BID; and miralax BID, per chart review. Pt states some recent wt loss, but unsure of amount/timeframe. Pt states it "was just a little bit." Note unable to determine recent wt hx, per chart review. ABNORMAL NUTRITION-RELATED LAB VALUES No labs drawn at this time Est. kcal needs: 1425 kcal | 25 kcal/kg Est. Pro needs: 68 g Pro | 1.2 g Pro/kg PES STATEMENT: Given current appetite and PO intake, no nutrition diagnosis at this time (NO-1.1) INTERVENTION: Continue with current diet order of Regular diet. Will continue to follow and reassess as pt needs, intake, and status change. MONITOR/EVALUATE: PO Intake; Plan of Care; Hydration Status; Weight Status; Lab Values Pastora Steinberg, MS, RD, LD
[2019-11-17 17:15] VITALS: BP 147/64
--- NOTE | 2019-11-17 18:00 | NUR ---
A BETTER DAY COMPARED TO YESTERDAY. HAS DENIED NEED FOR ANY FURTHER TYLENOL. RADHA WRAP LEFT OFF RIGHT LEG PER PATIENT REQUEST.
[2019-11-17] MEDS: VITAMIN D3 25 MCG (1,000 UNITS) TABLET PO SCH (21:27)
[2019-11-17] MEDS: CYANOCOBALAMIN 1,000 MCG (VITAMIN B-12) TABLET PO SCH (21:28)
[2019-11-17] MEDS: ALLOPURINOL 100 MG (ZYLOPRIM) TAB PO SCH (21:28)
[2019-11-18] MEDS: ACETAMINOPHEN 325 MG TABLET PO PRN (02:23)
[2019-11-18 05:42] VITALS: BP 147/93
[2019-11-18] MEDS: LEVOTHYROXINE 50 MCG (LEVOTHROID) TAB PO SCH (08:53)
[2019-11-18] MEDS: SENNA W/DOCUSATE (SENOKOT S) TABLET PO SCH (08:53)
[2019-11-18] MEDS: DOCUSATE SODIUM 100 MG (COLACE) CAP PO SCH (08:53)
[2019-11-18] MEDS: polyethylene glycoL POWDER 17 GM (MIRALAX) PACK PO SCH (08:53)
[2019-11-18] MEDS: LACTOBACILLUS ACIDOPHILUS (PROBIOTIC) CAPSULE PO SCH (08:53)
[2019-11-18] MEDS: cloNIDine 0.1 MG (CATAPRES) TAB PO SCH (08:53)
--- NOTE | 2019-11-18 09:37 | Occupational Ther Daily Note ---
OT Current Status-Daily Note Subjective Pt in bed, agrees to treatment. States she is feeling better today. Pt reports 1/10 pain in right LE.. ADL-Treatment Therapy Code Descriptions/Definitions Functional [place] Measure: 0=Not Assessed/NA 4=Minimal Assistance 1=Total Assistance 5=Supervision or Setup 2=Maximal Assistance 6=Modified [place] 3=Moderate Assistance 7=Complete IndependenceSCALE: Activities may be completed with or without assistive devices. 0-Lcujhychnl-yxtlihq completes the activity by him/herself with no assistance from a helper. 5-Set-up or Clean-up Assistance-helper sets up or cleans up; patient completes activity. [place] assists only prior to or following the activity. 4-Supervision or Touching Assistance-helper provides verbal cues and/or touching/steadying and/or contact guard assistance as patient completes activity. Assistance may be provided throughout the activity or intermittently. 3-Partial/Moderate Assistance-helper does LESS THAN HALF the effort. [place] lifts, holds or supports trunk or limbs, but provides less than half the effort. 2-Substantial/Maximal Assistance-helper does MORE THAN HALF the effort. [place] lifts or holds trunk or limbs and provides more than half the effort. 5-Gbarzupza-eukewa does ALL the effort. Patient does none of the effort to complete the activity. Or, the assistance of 2 or more helpers is required for the patient to complete the activity. If activity was not attempted, code reason: 7-Patient Refused. 9-Not Applicable-not attempted and the patient did not perform the activity before the current illness, exacerbation or injury. 10-Not Attempted due to Environmental Limitations-(lack of equipment, weather restraints, etc.). 88-Not Attempted due to Medical Conditions or Safety Concerns. Eating (QC): 6 Oral Hygiene (QC): 6 (Pt completed oral care without assist while standing at sink) Shower/Bathe Self (QC): 6 (Pt able to wash/dry all areas without assist while seated on shower bench and using hand held shower.) Upper Body Dressing (QC): 6 (Pt doffed/donned pullover shirt independently) Lower Body Dressing (QC): 6 (Pt able to thread bilateral LE into underwear and pants without assist. Stood with good balance during pant hike.) On/Off Footwear: 6 (Pt donned slip on shoes without assist) Toileting Hygiene (QC): 6 (Pt completed toileting hygiene and clothing management independently) Toilet Transfer (QC): 6 (Pt completed transfer to [facility] [place] without assist.) Pt ambulated in hallway with FWW, no LOB noted. Pt filled cup with ice and water independently. Pt performed sit to nemours foundation x5 trials to increase safety and strength for transfers. Pt able to stand without assist. Pt performed bilateral UE exercises to increase strength needed for ADLs and transfers. Pt performed bicep curls and triceps extension exercises x10 reps with mild resistance ther aband. Rest breaks between exercises.Pt completed standing cast[place]na bag toss to increase standing balance and activity tolerance. Pt demonstrates good balance during task. Putty activity with bilateral hands to increase strength and manipulation skills. Pt able to remove small beads from moderate resistance putty without difficulty. Pt sitting in chair with needs met after session. OT Delivery Table Feeder Goals Delivery Table Feeder Goals Time Frame: Nov 30, 2019 Eating (QC): 6 Oral Hygiene (QC): 6 Toileting Hygiene (QC): 6 Shower/Bathe Self (QC): 6 Upper Body Dressing (QC): 6 Lower Body Dressing (QC): 6 On/Off Footwear (QC): 6 Additional Goals: 1-Demonstrate ADL Tasks, 2-Verbalize Understanding, 3- ImproveStrength/Getachew 1=Demonstrate adherence to instructed precautions during ADL tasks. 2=Patient will verbalize/demonstrate understanding of assistive devices/modifications for ADL. 3=Patient will improve strength/tolerance for activity to enable patient to perform ADL's. OT Education/Plan Discharge Recommendations Plan/Recommendations: Continue POC Treatment Plan/Plan of Care Patient would benefit from OT for education, treatment and training to promote independence in ADL's, mobility, safety and/or upper extremity function for ADL's. Plan of Care: Functional Mobility Treatment Duration: Nov 16, 2019 Frequency: 5 times per week Estimated Hrs Per Day: .5 hour per day Agreement: Yes Rehab Potential: Good Time/GCodes Start Time: 08:00 Stop Time: 09:30 Total Time Billed (hr/min): 90 Billed Treatment Time 1 visit, ADLx3(50minutes), FAx2(25minutes), EX(15minutes) ATILIO WRIGHT OT Nov 18, 2019 09:37
--- NOTE | 2019-11-18 09:42 | D/C HH Face to Face Order ---
D/C Face to Face Orders Reconcile Patient Problems Problems Reviewed?: Yes Instructions for Patient Via [facility], Patient Instructions/FollowUp: Dr Ernandez in [address] Norris in 1 week Physician to follow Patient: Jr Discharge Diet for Home: No Restrictions Patient Problems: Spontaneous hematoma and right hemarthrosis Patient Data-Allergies,Ht & Wt Patient Allergies: Coded Allergies: Sulfa (Sulfonamide Antibiotics) (Verified Allergy, Unknown, 12/02/13) acetaminophen (Verified Allergy, Unknown, 06/16/19) cephalexin (Verified Allergy, Unknown, 06/16/19) ciprofloxacin (Verified Allergy, Unknown, 06/16/19) hydrocodone (Verified Allergy, Unknown, 12/02/13) iodine (Verified Allergy, Unknown, 12/02/13) meperidine (Verified Allergy, Unknown, 12/02/13) metronidazole (Verified Allergy, Unknown, 06/16/19) propoxyphene (Verified Allergy, Unknown, 12/02/13) rosuvastatin (Verified Allergy, Unknown, 06/16/19) simvastatin (Verified Allergy, Unknown, 06/16/19) Height (Feet): 5 Height (Inches): 0.00 Weight (Pounds): 143 Weight (Ounces): 0.0 Home Health Need/Face to Face Date of Face to Face: Nov 18, 2019 Clinical Findings: Instability, Muscle weakness, Unsteady gait I have seen Pt [id number]-mt-[id number]: Yes Discharged To: Home Diagnosis/Conditions: Spontaneous hematoma and right hemarthrosis Patient is Homebound due to: Jose M fall risk due to instabilty, Muscle weakness, Pain w/ambulation Homebound Status Due to the above stated illness, injury or surgical procedure (medical condition or diagnosis) and associated clinical findings, the patient is homebound because of his/her inability to leave home except with aid of a supportive device and/or person AND leaving the home requires a considerable and taxing effort or is medically contraindicated. Pt req the following assistanc: Walker Home Health Nursing Orders Home Health Services Order: Physical Therapy-Evaluate & Treat Certify Stmt I certify that this patient is under my care and that I, a nurse practitioner or a physician; a endodontic assistant working with me, had a face to face encounter that -violeta ts the physician face to face encounter requirements with this patient as dated. DANA NORRIS DO Nov 18, 2019 09:42
--- NOTE | 2019-11-18 09:44 | Discharge Summary ---
Diagnosis/Chief Complaint Date of Admission Nov 14, 2019 at 11:35 Date of Discharge Discharge Date: Nov 18, 2019 Discharge Diagnosis Assess & Plan/Chief Complaint Assessment: Spontaneous right knee hemarthrosis and right thigh hematoma on Eliquis for CVA PPx per Cardiology Acute blood loss anemia 2 points loss in right leg tissue Pacemaker permanent Gout HTN CRI Lives alone OP Advanced age Plan: IRF PT OT Appreciate Ortho Surgery Cardiology DVT PPx bit SCD and Lovenox contraindicated Discharge home (1) Debility (2) Spontaneous hematoma of lower leg (3) Pacemaker (4) Acute blood loss anemia (5) Hemarthrosis involving knee joint (6) On continuous oral anticoagulation (7) Hypertension (8) Diverticulosis (9) Advanced age Discharge Summary Discharge Physical Examination Allergies: Coded Allergies: Sulfa (Sulfonamide Antibiotics) (Verified Allergy, Unknown, 12/02/13) acetaminophen (Verified Allergy, Unknown, 06/16/19) cephalexin (Verified Allergy, Unknown, 06/16/19) ciprofloxacin (Verified Allergy, Unknown, 06/16/19) hydrocodone (Verified Allergy, Unknown, 12/02/13) iodine (Verified Allergy, Unknown, 12/02/13) meperidine (Verified Allergy, Unknown, 12/02/13) metronidazole (Verified Allergy, Unknown, 06/16/19) propoxyphene (Verified Allergy, Unknown, 12/02/13) rosuvastatin (Verified Allergy, Unknown, 06/16/19) simvastatin (Verified Allergy, Unknown, 06/16/19) Vitals & I&Os Vital Signs Date Time Temp Pulse Resp B/P (MAP) Pulse Ox O2 Delivery O2 Flow Rate FiO2 11/18/19 11:48 11/18/19 08:10 Room Air 11/18/19 05:42 36.5 62 16 98 General Appearance: Alert Respiratory: Clear to Auscultation Cardiovascular: Regular Rate Neuro: Normal Gait, Normal Speech, Strength at 5/5 X4 Ext Psych/Mental Status: Mental Status NL Hospital Course Was the Problem List Reviewed?: Yes Hospital Course: Pt had an uneventful five day hospital course in inpatient fang ab after she was admitted for observation for right knee hemarthrosis in addition to spontaneous right hematoma without trauma. Oral anticoagulation was held. Cardiology monitored pt closely. Telemetry was DC and pt overall was able to regain enough function and strength and was DC in an uncomplicated manner with no significant concerns and will have home PT to continue strengthening. I will see her in one week and she will see Dr. Ernandez in one week also. Discharge Home Medications: Active Scripts Active Reported Clonidine HCl 0.1 Mg Tablet 0.1 Mg PO TID Diltiazem ER (Diltiazem HCl) 240 Mg Capsule.er 240 Mg PO HS Channelinsight Capsule (l Gasseri/B Bifidum/B Longum) 1 Each Capsule 1 Each PO HS Tylenol Extra Strength (Acetaminophen) 500 Mg Tablet 500-1,000 Mg PO Q4H PRN Allopurinol 100 Mg Tablet 100 Mg PO HS Vitamin D3 (Cholecalciferol (Vitamin D3)) 25 Mcg Tablet 25 Mcg PO HS Levothyroxine Sodium 50 Mcg Tablet 50 Mcg PO DAILY Vitamin B-12 (Cyanocobalamin (Vitamin B-12)) 1,000 Mcg Tablet 1,000 Mcg PO HS Instructions to patient/family Please see electronic discharge instructions given to patient. Diagnosis/Problems Diagnosis/Problems (1) Debility (2) Spontaneous hematoma of lower leg (3) Pacemaker (4) Acute blood loss anemia (5) Hemarthrosis involving knee joint (6) On continuous oral anticoagulation (7) Hypertension (8) Diverticulosis (9) Advanced age Clinical Quality Measures DVT/VTE Risk/Contraindication: Risk Factor Score Per Nursin RFS Level Per Nursing on Admit: 3=High Contraindications-Pharm: Other *list below* Contraindications-Mechi: Other *list below* Other: spontaneous hematoma into right knee and thigh cant have lovenox or scd DANA GALARZA DO Nov 18, 2019 09:44
--- NOTE | 2019-11-18 10:22 | NUR ---
CM/SS DISCHARGE Patient discharged home as before. IMM2 presented, reviewed, signed, charted. [facility]: Medicare compare reviewed with patient, coordinated home PT with her preferred agency, [facility]. Patient will contact her son Mulugeta for transport once all discharge process is completed, Unit RN aware.
--- NOTE | 2019-11-18 11:28 | Physical Therapy Daily Note ---
PT Daily Note-Current Subjective Pt in recliner and agrees to PT. Pt supposed to be DC soon. Mental Status Patient Orientation: Person, Place, Time, Situation Transfers SCALE: Activities may be completed with or without assistive devices. 6-Ohtdwwieqc-heanvgw completes the activity by him/herself with no assistance from a helper. 5-Set-up or Clean-up Assistance-helper sets up or cleans up; patient completes activity. [place] assists only prior to or following the activity. 4-Supervision or Touching Assistance-helper provides verbal cues and/or touching/steadying and/or contact guard assistance as patient completes activity. Assistance may be provided throughout the activity or intermittently. 3-Partial/Moderate Assistance-helper does LESS THAN HALF the effort. [place] lifts, holds or supports trunk or limbs, but provides less than half the effort. 2-Substantial/Maximal Assistance-helper does MORE THAN HALF the effort. [place] lifts or holds trunk or limbs and provides more than half the effort. 0-Uxwgplnga-flpjxs does ALL the effort. Patient does none of the effort to complete the activity. Or, the assistance of 2 or more helpers is required for the patient to complete the activity. If activity was not attempted, code reason: 7-Patient Refused. 9-Not Applicable-not attempted and the patient did not perform the activity before the current illness, exacerbation or injury. 10-Not Attempted due to Environmental Limitations-(lack of equipment, weather restraints, etc.). 88-Not Attempted due to Medical Conditions or Safety Concerns. Roll Left & Right (QC): 6 Sit to Lying (QC): 6 Lying to Sitting/Side of Bed(Q: 6 Sit to Stand (QC): 6 Chair/Ttj-wp-Oguov Xfer(QC): 6 Toilet Transfer (QC): 6 Car Transfer (QC): 6 Weight Bearing Right Lower Extremity: Right Weight Bearing/Tolerated Left Lower Extremity: Left Weight Bearing/Tolerated Gait Training Does the Patient Walk?: Yes Distance: 150 Walk 10 feet (QC): 6 Walk 50 ft with 2 Turns(QC): 6 Walk 150 ft (QC): 6 Walking 10ft/uneven surface-QC: 6 Gait Assistive Device: FWW Wheelchair Training Does the Pt Use a Wheelchair?: No Stair Training Stair Training: Handrails/: 2 handrails #of Steps: 4 1 Step (curb) (QC): 6 4 Steps (QC): 6 12 Steps (QC): 7 Stairs: Pattern: Step to Pt reports only having 3 steps at home. Balance Picking up an Object (QC): 6 Treatments Pt performs bed mobility in room prior to amb to car transfer. Pt amb in hallway then to gym. Pt amb on uneven surface and on stairs. Pt returns to room and was left with all needs met. Assessment Current Status: Excellent Progress Pt didn't require any rest breaks throughout tx. PT Short Term Goals Short Term Goals Time Frame: Nov 17, 2019 Roll Left & Right: 6 Sit to lyin Lying to sitting on side of be: 6 Sit to stand: 5 Chair/uco-sw-tpgay transfer: 5 Toilet transfer: 5 Car transfer: 5 Walk 10 feet: 5 Walk 50 feet with two turns: 5 Walk 150 feet: 5 Walking 10ft on uneven surface: 5 1 step (curb): 5 4 steps: 5 Picking up objects: 5 PT Tank Driver Goals Tank Driver Goals PT Tank Driver Goals Time Frame: Nov 20, 2019 Roll Left & Right (QC): 6 Sit to Lying (QC): 6 Lying-Sitting on Side/Bed(QC): 6 Sit to Stand (QC): 6 Chair/Lvh-ki-Nkixo Xfer(QC): 6 Toilet Transfer (QC): 6 Car Transfer (QC): 6 Does the Patient Walk: Yes Walk 10 feet (QC): 6 Walk 50ft with 2 Turns (QC): 6 Walk 150 ft (QC): 6 Walking 10ft on Uneven Surface: 6 1 Step (curb) (QC): 6 4 Steps (QC): 6 12 Steps (QC): 6 Picking up an Object (QC): 6 Wheel 50 feet with 2 turns (QC: 9 Type: Manual Wheel 150 feet: 9 Type: Manual PT Plan Treatment/Plan Treatment Plan: Continue Plan of Care Treatment Plan: Functional Strength, Group Therapy, Gait, Safety, Therapeutic Exercise Treatment Duration: Nov 20, 2019 Frequency: At least 5 of 7 days/Wk (IRF) Estimated Hrs Per Day: 1.5 hours per day Patient and/or Family Agrees t: Yes Safety Risks/Education Patient Education: Gait Training, Transfer Techniques, Correct Positioning, Safety Issues Teaching Recipient: Patient Teaching Methods: Discussion Response to Teaching: Verbalize Understanding Time/GCodes Time In: 1100 Time Out: 1115 Total Billed Treatment Time: 15 Total Billed Treatment 1, BRADLEY BROWN WOOD BORING MACHINE OPERATOR Nov 18, 2019 11:28
--- NOTE | 2019-11-18 14:51 | Therapy Team Discharge Summary ---
Therapy Discharge Summary Discharge Recommendations Date of Discharge Nov 18, 2019 at 11:48 Therapy D/C Recommendations: Physical Therapy Home Care Physical Therapy This patient was admitted to ARU with dx of debility and noted right knee hematoma. Pt transferred from acute to ARU> Prior to her hospital stay, she was indep at home. Upon admit to ARU, pt was indep with bed mobility, setup with transfers and gait and CGA on steps. Treatment has focused on pain management right knee, functional strength and balance to improve transfers and gait. She has made good progress and is mod indep with all functional mobiltiy. She has achieved all goals. Pt expresses that she feels ready to discharge home. DC this date. Occupational Therapy Impaired Bed Mobility, Impaired Coordination, Impaired Funct Balance, Impaired Self-Care Skills, Restricted Funct UE ROM PT Halfway Goals Halfway Goals PT Chemical Research Engineer Goals Time Frame: Nov 20, 2019 Roll Left to Right (QC): 6 Sit to Lying (QC): 6 Lying-Sitting on Side/Bed(QC): 6 Sit to Stand (QC): 6 Chair/Lmz-lb-Fqnao Xfer(QC): 6 Car Transfer (QC): 6 Does the Patient Walk: Yes Walk 10 feet (QC): 6 Walk 10ft-Uneven Surface(QC): 6 Walk 50ft with 2 Turns (QC): 6 Walk 150 ft (QC): 6 Wheel 50 feet with 2 turns (QC: 9 1 Step (curb) (QC): 6 4 Steps (QC): 6 12 Steps (QC): 6 Picking up an Object (QC): 6 All goals met to a satisfactory level. OT Chemical Research Engineer Goals Halfway Goals Time Frame: Nov 30, 2019 Eating (QC): 6 Oral Hygiene (QC): 6 Shower/Bathe Self (QC): 6 Upper Body Dressing (QC): 6 Lower Body Dressing (QC): 6 On/Off Footwear (QC): 6 Toileting Hygiene (QC): 6 Toilet/Commode Transfer (QC): 6 Additional Goals: 1-Demonstrate ADL Tasks, 2-Verbalize Understanding, 3- ImproveStrength/Getachew 1=Demonstrate adherence to instructed precautions during ADL tasks. 2=Patient will verbalize/demonstrate understanding of assistive devices/modifications for ADL. 3=Patient will improve strength/tolerance for activity to enable patient to perform ADL's. CAITLYN PARR PT Nov 18, 2019 14:51
--- NOTE | 2019-11-20 08:20 | Therapy Team Discharge Summary ---
Therapy Discharge Summary Discharge Recommendations Date of Discharge Nov 18, 2019 at 11:48 Therapy D/C Recommendations: Physical Therapy Home Care Occupational Therapy Pt admitted to ARU with right knee hematoma. On admission pt required SBA for bathing and LE dressing, and was set up for UE dressing. Skilled OT intervention focused on ADL training, transfers, strengthening, and safety. Pt made good progress with therapy and by discharge is completing basic ADLs and transfers with modified independence. Pt met all OT LTG. Pt discharged home. D/c ARU OT. Impaired Bed Mobility, Impaired Coordination, Impaired Funct Balance, Impaired Self-Care Skills, Restricted Funct UE ROM PT Shelter Goals Vocational Nursing Instructor Goals PT Shelter Goals Time Frame: Nov 20, 2019 Roll Left to Right (QC): 6 Sit to Lying (QC): 6 Lying-Sitting on Side/Bed(QC): 6 Sit to Stand (QC): 6 Chair/Xso-nq-Gaxub Xfer(QC): 6 Car Transfer (QC): 6 Does the Patient Walk: Yes Walk 10 feet (QC): 6 Walk 10ft-Uneven Surface(QC): 6 Walk 50ft with 2 Turns (QC): 6 Walk 150 ft (QC): 6 Wheel 50 feet with 2 turns (QC: 9 1 Step (curb) (QC): 6 4 Steps (QC): 6 12 Steps (QC): 6 Picking up an Object (QC): 6 OT Vocational Nursing Instructor Goals Vocational Nursing Instructor Goals Time Frame: Nov 30, 2019 Eating (QC): 6 Oral Hygiene (QC): 6 Shower/Bathe Self (QC): 6 Upper Body Dressing (QC): 6 Lower Body Dressing (QC): 6 On/Off Footwear (QC): 6 Toileting Hygiene (QC): 6 Toilet/Commode Transfer (QC): 6 Additional Goals: 1-Demonstrate ADL Tasks, 2-Verbalize Understanding, 3- ImproveStrength/Getachew 1=Demonstrate adherence to instructed precautions during ADL tasks. 2=Patient will verbalize/demonstrate understanding of assistive devices/modifications for ADL. 3=Patient will improve strength/tolerance for activity to enable patient to perform ADL's. ATILIO WRIGHT OT Nov 20, 2019 08:20
== END 2019-11-18 11:48 | disposition home health service (06) | DRG 554 ==
PROVIDERS: ADMIT Internal Medicine; ATTEND Internal Medicine
DX: M25.061 Hemarthrosis, right knee (principal); D62 Acute posthemorrhagic anemia; R23.3 Spontaneous ecchymoses; Z79.01 Long term (current) use of anticoagulants; I48.91 Unspecified atrial fibrillation; I12.9 Hypertensive chronic kidney disease with stage 1 through stage 4 chronic kidney disease, or unspecified chronic kidney disease; N18.9 Chronic kidney disease, unspecified; R54 Age-related physical debility; Z66 Do not resuscitate; K57.90 Diverticulosis of intestine, part unspecified, without perforation or abscess without bleeding; M19.91 Primary osteoarthritis, unspecified site; M41.9 Scoliosis, unspecified; M10.9 Gout, unspecified; E03.9 Hypothyroidism, unspecified; M81.0 Age-related osteoporosis without current pathological fracture; Z95.0 Presence of cardiac pacemaker; Z90.710 Acquired absence of both cervix and uterus; Z90.722 Acquired absence of ovaries, bilateral

== ENCOUNTER → 2019-11-26 | Outpatient (CLI) | payer MEDICARE, OTHER ==
--- NOTE | 2019-11-26 15:46 | Diagnostic Imaging Report ---
PROCEDURE: US right lower extremity venous. TECHNIQUE: Multiple real-time grayscale images were obtained over the right lower extremity in various projections. Additional spectral analysis and color Doppler duplex images were also obtained. INDICATION: Right lower extremity edema and bruising. FINDINGS: Color Doppler imaging shows normal blood flow throughout the right lower extremity venous system from external iliac vein to the ankle. Calf compression showed normal augmentation of flow at the popliteal level. No evidence of popliteal cyst. IMPRESSION: Negative right lower extremity venous ultrasound for venous thrombosis. Dictated by: Dictated on workstation # [id number]
== END ==
LOC: RAD 14:39
PROVIDERS: ATTEND Internal Medicine
DX: S80.11XA Contusion of right lower leg, initial encounter (principal); X58.XXXA Exposure to other specified factors, initial encounter

== ENCOUNTER 2020-07-04 15:21 | Observation (INO) | payer MEDICARE, OTHER ==
[~2020-07-04] VITALS: Ht 149.9 cm; Wt 57.0 kg
[~2020-07-04 15:21] MED LIST changes: +AMLO-250 PO; -AMLO5TAB9 PO; +CHOL-34 PO; -CHOL10002 PO; +CLN.1T PO; -CLON0.1T PO; -PANT40TA3 PO; +PANT40TA52 PO
[2020-07-04] MEDS ORDERED: CALCIUM CARBONATE 500 MG (TUMS) TAB.CHEW PO PRN (15:45)
[2020-07-04] MEDS ORDERED: diphenhydrAMINE 25 MG TAB (BENADRYL) PO PRN (15:45)
[2020-07-04] MEDS ORDERED: MELATONIN 3 MG TABLET PO PRN (15:45)
[2020-07-04] MEDS ORDERED: DOCUSATE SODIUM 100 MG (COLACE) CAP PO PRN (15:45)
[2020-07-04] MEDS ORDERED: ONDANSETRON 4 MG/2 ML (SDV) Z0FRAN IVP PRN (15:45)
[2020-07-04] MEDS ORDERED: ACETAMINOPHEN 500 MG TAB (TYLENOL) PO PRN (15:45)
[2020-07-04] MEDS ORDERED: ASPI-999 PO (15:54)
[2020-07-04] MEDS ORDERED: DILT240C91 PO (15:54)
[2020-07-04] MEDS ORDERED: ACETAMINOPHEN 325 MG TABLET PO PRN (16:00)
[2020-07-04] MEDS ORDERED: CATHETER FLUSH 10 ML SYR IV PRN (16:00)
[2020-07-04] MEDS ORDERED: PIPERACILLIN/TAZO 4.5 GM/NS 100 ML IV NR ×2 (16:00)
[2020-07-04] MEDS: NS IV 1000 ML 1,000 ML IV SCH (16:07)
[2020-07-04 16:27] VITALS: BP 163/76
[2020-07-04 16:44] LABS: BASOPHILS # (AUTO) 0.1 10^3/uL (0.0-0.1); BASOPHILS % (AUTO) 1 % (0-10); EOSINOPHILS % (AUTO) 0 % (0-10); HEMATOCRIT 41 % (35-52); HEMOGLOBIN 12.9 g/dL (11.5-16.0); LYMPHOCYTES # (AUTO) 0.8 10^3/uL (1.0-4.0); LYMPHOCYTES % (AUTO) 8 % (12-44); MEAN CORPUSCULAR HEMOGLOBIN 28 pg (25-34); MEAN CORPUSCULAR HGB CONC 31 g/dL (32-36); MEAN CORPUSCULAR VOLUME 90 fL (80-99); MEAN PLATELET VOLUME 10.1 fL (9.0-12.2); MONOCYTES # (AUTO) 0.7 10^3/uL (0.0-1.0); MONOCYTES % (AUTO) 8 % (0-12); NEUTROPHILS # (AUTO) 7.6 10^3/uL (1.8-7.8); NEUTROPHILS % (AUTO) 83 % (42-75); PLATELET COUNT 248 10^3/uL (130-400); WHITE BLOOD COUNT 9.2 10^3/uL (4.3-11.0)
[2020-07-04 18:02] LABS: ALBUMIN 3.6 GM/DL (3.2-4.5); POTASSIUM 4.4 MMOL/L (3.6-5.0)
[2020-07-04 18:06] LABS: BILIRUBIN,TOTAL 0.8 MG/DL (0.1-1.0)
[2020-07-04 18:08] LABS: CREATININE SERUM 0.99 MG/DL (0.60-1.30)
[2020-07-04 19:20] VITALS: BP 169/71
--- NOTE | 2020-07-04 19:23 | Diagnostic Imaging Report ---
INDICATION: Fever and left-sided neck swelling. History of iodine allergy. TECHNIQUE: Multiple contiguous axial images were obtained through the neck without the use of intravenous contrast. Auto Exposure Controls were utilized during the CT exam to meet ALARA standards for radiation dose reduction. COMPARISON: There is no previous study for comparison. There is asymmetric enlargement of the left parotid gland with some edema in the adjacent fat. I do not see a definitive mass without contrast, although the lack of contrast limits this study. The right parotid gland appears normal. The submandibular glands appear symmetric. Thyroid gland appears normal. There are no appreciably enlarged nodes in the neck soft tissues. There is a prominent retention cyst or polyp in the right maxillary sinus. Bony windows show diffuse degenerative changes in the cervical spine. There is anterolisthesis of C4 on C5 which is probably degenerative. IMPRESSION: There is asymmetric enlargement of the left parotid gland with some edema in the adjacent fat. This may represent an inflammatory process. A discrete mass is not visualized without contrast. There is no definitive abscess. There is a prominent retention cyst versus polyp in the right maxillary sinus. There are degenerative changes in the cervical spine. Dictated by: Dictated on workstation # [id number]
[2020-07-04] MEDS: SENNA W/DOCUSATE (SENOKOT S) TABLET PO SCH (20:29)
[2020-07-04] MEDS: PIPERACILLIN/TAZOBACTAM (BULK) 4.5 GM in NS (IVPB) 100 ML IV SCH (21:30)
[2020-07-04 23:37] VITALS: BP 170/76
[2020-07-05 04:00] VITALS: BP 187/89
[2020-07-05 05:01] VITALS: BP 187/89
[2020-07-05 05:43] LABS: BASOPHILS % (AUTO) 1 % (0-10); EOSINOPHILS # (AUTO) 0.1 10^3/uL (0.0-0.3); EOSINOPHILS % (AUTO) 1 % (0-10); HEMATOCRIT 38 % (35-52); LYMPHOCYTES # (AUTO) 1.1 10^3/uL (1.0-4.0); LYMPHOCYTES % (AUTO) 18 % (12-44); MEAN CORPUSCULAR HEMOGLOBIN 29 pg (25-34); MEAN CORPUSCULAR HGB CONC 32 g/dL (32-36); MEAN CORPUSCULAR VOLUME 89 fL (80-99); MEAN PLATELET VOLUME 9.6 fL (9.0-12.2); MONOCYTES # (AUTO) 0.7 10^3/uL (0.0-1.0); MONOCYTES % (AUTO) 11 % (0-12); NEUTROPHILS # (AUTO) 4.3 10^3/uL (1.8-7.8); NEUTROPHILS % (AUTO) 69 % (42-75); PLATELET COUNT 268 10^3/uL (130-400); WHITE BLOOD COUNT 6.2 10^3/uL (4.3-11.0)
[2020-07-05 05:54] LABS: ALBUMIN 3.3 GM/DL (3.2-4.5)
[2020-07-05 05:55] LABS: POTASSIUM 3.8 MMOL/L (3.6-5.0)
[2020-07-05 05:56] LABS: CALCIUM 8.4 MG/DL (8.5-10.1)
[2020-07-05 05:57] LABS: TOTAL PROTEIN 6.3 GM/DL (6.4-8.2)
[2020-07-05 05:59] LABS: BILIRUBIN,TOTAL 0.6 MG/DL (0.1-1.0)
[2020-07-05 06:01] LABS: CREATININE SERUM 1.09 MG/DL (0.60-1.30)
[2020-07-05] MEDS: PIPERACILLIN/TAZOBACTAM (BULK) 4.5 GM in NS (IVPB) 100 ML IV SCH ×3 (06:21→21:39)
[2020-07-05] MEDS: cloNIDine 0.1 MG (CATAPRES) TAB PO SCH ×3 (07:45→21:38)
[2020-07-05] MEDS: ASPIRIN 81 MG CHEW (CHILDREN'S ASA) PO SCH (07:45)
[2020-07-05] MEDS: LEVOTHYROXINE 50 MCG (LEVOTHROID) TAB PO SCH (07:45)
[2020-07-05] MEDS: NS IV 1000 ML 1,000 ML IV SCH ×2 (07:45→21:39)
[2020-07-05] MEDS: SENNA W/DOCUSATE (SENOKOT S) TABLET PO SCH ×2 (07:46→21:38)
[2020-07-05 08:13] VITALS: BP 199/91
[2020-07-05] MEDS ORDERED: METOCLOPRAMIDE INJ 10 MG/2 ML (REGLAN) IVP NR (09:30)
--- NOTE | 2020-07-05 10:41 | History & Physical-Hospitalist ---
SUDHA MONTANO MED STUDENT 07/05/20 1041: History of Present Illness HPI/Chief Complaint 89 yo F presents to [facility] from Dr. Krishnan office due to left facial cellulitis with parotid swelling. Pt notes that the swelling began the previous Saturday (07/01) evening with tenderness, erythema, swelling, and over all not feeling well. Through the weekend it continued to progressively grown in size and the erythema to spread to the neck/ chest. The pt decided to wait until her scheduled appointment with Dr. Galarza on Saturday (07/04) to be seen. Pt was di rectly admitted from the clinic by Dr. Galarza for observation and initiation of IV antibiotics. Today the swelling has decreased and the erythema has dulled in color. Pt still remains tender to palpation on left face/ neck. Source: patient Exam Limitations: no limitations Date Seen 07/05/20 Time Seen by a Provider: 07:45 Attending Physician Aliya Galarza DO PCP Aliya Galarza DO Referring Physician Date of Admission Jul 04, 2020 at 15:36 Home Medications & Allergies Home Medications Reviewed patient Home Medication Reconciliation performed by pharmacy medication reconciliations skin care technician and/or nursing. Patients Allergies have been reviewed. Allergies Allergies Coded Allergies Sulfa (Sulfonamide Antibiotics) (Verified Allergy, Unknown, 07/04/20) acetaminophen (Verified Allergy, Unknown, 07/04/20) cephalexin (Verified Allergy, Unknown, 07/04/20) ciprofloxacin (Verified Allergy, Unknown, 07/04/20) hydrocodone (Verified Allergy, Unknown, 07/04/20) iodine (Verified Allergy, Unknown, 07/04/20) meperidine (Verified Allergy, Unknown, 07/04/20) metronidazole (Verified Allergy, Unknown, 07/04/20) propoxyphene (Verified Allergy, Unknown, 07/04/20) rosuvastatin (Verified Allergy, Unknown, 07/04/20) simvastatin (Verified Allergy, Unknown, 07/04/20) Past Irzbbyq-Qzbitw-Jyzkra Hx Patient Social History Marrital Status: Recent Foreign Travel: No Contact w/other who traveled: No Recent Hopitalizations: Yes Immunizations Up To Date Tetanus Booster (TDap): More than 5yrs Pediatric: No Date of Pneumonia Vaccine: Jul 13, 2017 Date of Influenza Vaccine: Feb 03, 2021 Seasonal Allergies Seasonal Allergies: No Past Medical History Surgeries: Section, Hysterectomy, Joint Replacement, Oophorectomy, Orthopedic Currently Using CPAP: No Currently Using BIPAP: No Cardiac: Atrial Fibrillation, Hypertension pacemaker 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: No Hysterectomy, Menopausal Gastrointestinal: Diverticulosis Musculoskeletal: Arthritis, Scoliosis, Gout Endocrine: Hypothyroidsim Hearing Impairment: Deaf History of Blood Disorders: No Family History Cardiovascular disease 19 FATHER Completed stroke G8 BROTHER Myocardial infarction G8 BROTHER G8 BROTHER G8 BROTHER No Pertinent Family Hx Review of Systems Constitutional: chills; No weakness EENTM: No hearing loss, No hoarseness Respiratory: No cough, No short of breath Cardiovascular: No chest pain, No edema, No palpitations Gastrointestinal: No abdominal pain, No dysphagia; nausea; No vomiting Genitourinary: No dysuria, No hematuria : No Musculoskeletal: No back pain, No muscle pain Skin: see HPI Psychiatric/Neurological: Denies Headache, Denies Numbness Physical Exam Physical Exam Vital Signs Vital Signs - First Documented 07/04/20 16:27 Temp 36.6 Pulse 80 Resp 18 B/P (MAP) 163/76 (105) Pulse Ox 92 O2 Delivery Room Air Capillary Refill : Height, Weight, BMI Height: 5'0.00" Weight: 143lbs. 0.0oz. [id number]; 25.36 BMI Method:Stated General Appearance: No Apparent Distress, WD/WN Eyes: Bilateral Eye PERRL, Bilateral Eye EOMI HEENT: PERRL/EOMI, Moist Mucous Membranes Neck: Full Range of Motion, Supple, Tender Lateral (Left), Other (Left cellulitis) Respiratory: Chest Non Tender, Lungs Clear, Normal Breath Sounds, No Accessory Muscle Use, No Respiratory Distress Cardiovascular: Regular Rate, Rhythm, No Edema, No Murmur Gastrointestinal: Normal Bowel Sounds, Non Tender, Soft Rectal: Deferred Back: Normal Inspection, No Vertebral Tenderness Extremity: Normal Inspection, No Calf Tenderness, No Pedal Edema, Other (Anteri or tibia tenderness bilateral) Neurologic/Psychiatric: Alert, Oriented x3, No Motor/Sensory Deficits, Normal Mood/Affect Skin: Warm/Dry, Erythema (cellulitis left neck/ chest), Other (Left facial/ parotid swelling) Lymphatic: Other (Left submandibular node tenderness) Results Results/Procedures Labs Laboratory Tests 07/04/20 14:32 07/04/20 17:44 07/05/20 05:35 Patient resulted labs reviewed. Assessment/Plan Assessment and Plan ASSESSMENT: Facial/ neck/ chest cellulitis Parotid swelling HTN PLAN: IV zosyn Monitor labs Continue home medication Control nausea ALIYA GALARZA DO 07/06/20 0533: History of Present Illness HPI/Chief Complaint CC: Left facial swelling with cellulitis HPI: This is an 89yoWF I admitted from my clinic directly due to left jaw mass with cellulitis of the neck. Corresponded with Dr. Alvarez who recommended CT scan and IV antibiotics. CT scan revealed enlarged parotid gland and Zosyn was initiated. Currently she is much better. She is doing overall very well. Source: patient Exam Limitations: no limitations Past Bjcqkaw-Fsfvtw-Raotyh Hx Past Med/Social Hx: Reviewed Nursing Past Med/Soc Hx, Reviewed and Corrections made Patient Social History Marrital Status: Employed/Student: retired Alcohol Use: Denies Use Smoking Status: Never a Smoker Past Medical History Surgeries: Pacemaker Cardiac: Atrial Fibrillation, High Cholesterol, Hypertension Neurological: Neuropathy Genitourinary: Bladder Infection Musculoskeletal: Gout Family History Cardiovascular disease 19 FATHER Completed stroke G8 BROTHER Myocardial infarction G8 BROTHER G8 BROTHER G8 BROTHER Review of Systems Constitutional: see HPI EENTM: throat pain, throat swelling Physical Exam Physical Exam General Appearance: No Apparent Distress, Chronically ill Eyes: Right Eye Normal Inspection, Right Eye PERRL HEENT: PERRL/EOMI, Normal ENT Inspection, Pharynx Normal, Moist Mucous Membranes Neck: Full Range of Motion, Tender Lateral (Left), Other (Left cellulitis) Respiratory: Chest Non Tender, Lungs Clear, Normal Breath Sounds, No Accessory Muscle Use, No Respiratory Distress Cardiovascular: Regular Rate, Rhythm, No Edema, No Gallop, No JVD, No Murmur, Normal Peripheral Pulses Gastrointestinal: Normal Bowel Sounds, No Organomegaly, No Pulsatile Mass, Non Tender, Soft Back: Normal Inspection, No CVA Tenderness, No Vertebral Tenderness Extremity: Normal Capillary Refill, Normal Inspection, Normal Range of Motion, Non Tender, No Calf Tenderness, No Pedal Edema Neurologic/Psychiatric: Alert, Oriented x3, No Motor/Sensory Deficits, Normal Mood/Affect Skin: Normal Color, Warm/Dry Lymphatic: No Adenopathy Assessment/Plan Admission Diagnosis Assessment: Left parotitis Cellulitis HTN severe type h/o right leg hematoma severe tranfusion requiring preventing restart of Coumadin treatment Pacemaker Gout OA Plan: IV abx Monitor BP Home meds CT scan Admission Status: Observation Diagnosis/Problems Diagnosis/Problems (1) Swelling of left parotid gland (2) Cellulitis, neck (3) Hypertension (4) Pacemaker Supervisory-Addendum Brief Verification & Attestation Participated in pt care: history, MDM, physical Personally performed: exam, history, MDM, supervision of care Care discussed with: Medical Student Procedures: n/a Results interpretation: Verified all documentation Verification and Attestation of Medical Student E/M Service A medical student performed and documented this service in my presence. I reviewed and verified all information documented by the medical student and made modifications to such information, when appropriate. I personally performed the physical exam and medical decision making. Aliya Galarza, Jul 06, 2020,05:33 SUDHA MONTANO MED STUDENT Jul 05, 2020 10:41 ALIYA GALARZA DO Jul 06, 2020 05:33
[2020-07-05] MEDS ORDERED: METOCLOPRAMIDE INJ 10 MG/2 ML (REGLAN) IVP PRN (11:15)
[2020-07-05 12:00] VITALS: BP 170/81
[2020-07-05] MEDS: cloNIDine 0.1 MG (CATAPRES) TAB PO PRN (13:51)
[2020-07-05 14:15] LABS: ERYTHROCYTE SEDIMENTATION RATE 36 MM/HR (0-30)
[2020-07-05 16:00] VITALS: BP 134/63
[2020-07-05 21:35] VITALS: BP 185/77
[2020-07-05] MEDS: ALLOPURINOL 100 MG (ZYLOPRIM) TAB PO SCH (21:38)
[2020-07-05] MEDS: VITAMIN D3 25 MCG (1,000 UNITS) TABLET PO SCH (21:38)
[2020-07-05] MEDS: CYANOCOBALAMIN 1,000 MCG (VITAMIN B-12) TABLET PO SCH (21:38)
[2020-07-06] VITALS (7 sets, daily range): BP systolic 148–183; BP diastolic 67–77
[2020-07-06 05:44] LABS: BASOPHILS % (AUTO) 1 % (0-10); EOSINOPHILS # (AUTO) 0.1 10^3/uL (0.0-0.3); EOSINOPHILS % (AUTO) 2 % (0-10); HEMATOCRIT 34 % (35-52); HEMOGLOBIN 10.6 g/dL (11.5-16.0); LYMPHOCYTES # (AUTO) 1.1 10^3/uL (1.0-4.0); LYMPHOCYTES % (AUTO) 23 % (12-44); MEAN CORPUSCULAR HEMOGLOBIN 29 pg (25-34); MEAN CORPUSCULAR HGB CONC 32 g/dL (32-36); MEAN CORPUSCULAR VOLUME 90 fL (80-99); MEAN PLATELET VOLUME 9.8 fL (9.0-12.2); MONOCYTES # (AUTO) 0.6 10^3/uL (0.0-1.0); MONOCYTES % (AUTO) 12 % (0-12); NEUTROPHILS # (AUTO) 3.1 10^3/uL (1.8-7.8); NEUTROPHILS % (AUTO) 62 % (42-75); PLATELET COUNT 269 10^3/uL (130-400); WHITE BLOOD COUNT 4.9 10^3/uL (4.3-11.0)
[2020-07-06 05:57] LABS: ALBUMIN 2.9 GM/DL (3.2-4.5); POTASSIUM 3.9 MMOL/L (3.6-5.0)
[2020-07-06 05:59] LABS: CALCIUM 8.3 MG/DL (8.5-10.1)
[2020-07-06 06:00] LABS: TOTAL PROTEIN 5.5 GM/DL (6.4-8.2)
[2020-07-06 06:02] LABS: BILIRUBIN,TOTAL 0.5 MG/DL (0.1-1.0)
[2020-07-06 06:03] LABS: CREATININE SERUM 1.01 MG/DL (0.60-1.30)
[2020-07-06] MEDS: PIPERACILLIN/TAZOBACTAM (BULK) 4.5 GM in NS (IVPB) 100 ML IV SCH ×3 (06:12→21:49)
[2020-07-06] MEDS: LEVOTHYROXINE 50 MCG (LEVOTHROID) TAB PO SCH (06:12)
[2020-07-06] MEDS: ASPIRIN 81 MG CHEW (CHILDREN'S ASA) PO SCH (08:24)
[2020-07-06] MEDS: cloNIDine 0.1 MG (CATAPRES) TAB PO SCH ×3 (08:24→20:35)
[2020-07-06] MEDS: SENNA W/DOCUSATE (SENOKOT S) TABLET PO SCH ×2 (08:25→20:35)
--- NOTE | 2020-07-06 10:43 | Progress Note - Hospitalist ---
SUDHA MONTANO MED STUDENT 07/06/20 1043: Subjective HPI/CC On Admission Date Seen by Provider: Jul 06, 2020 Time Seen by Provider: 07:30 CC: Left facial swelling with cellulitis HPI: This is an 89yoWF I admitted from my clinic directly due to left jaw mass with cellulitis of the neck. Corresponded with Dr. Alvarez who recommended CT scan and IV antibiotics. CT scan revealed enlarged parotid gland and Zosyn was initiated. Currently she is much better. She is doing overall very well. Subjective/Events-last exam Pt up and in the process of grooming. Pt notes change in the shape of her neck swelling. It went from being round to more flat and spread out which has caused her concern. There is still tenderness to palpation. Pt has no other complaints. No BM since Saturday. No acute events over night. Review of Systems General: No Chills, No Fatigue HEENT: No Head Aches, No Dysphasia; Other (Left neck tenderness) Pulmonary: No Dyspnea, No Cough Cardiovascular: No: Chest Pain, Palpitations, Edema Gastrointestinal: No: Nausea, Vomiting, Abdominal Pain Genitourinary: No Dysuria, No Hematuria Musculoskeletal: No: back pain, leg pain Neurological: No: Weakness, Numbness Focused Exam Lactate Level 07/04/20 17:44: Lactic Acid Level 1.00 Objective Exam Vital Signs Vital Signs Date Time Temp Pulse Resp B/P (MAP) Pulse Ox O2 Delivery O2 Flow Rate FiO2 07/06/20 08:00 36.8 67 20 178/74 (108) 93 Room Air Capillary Refill : General Appearance: No Apparent Distress, WD/WN HEENT: PERRL/EOMI, Pharynx Normal Neck: Full Range of Motion, Tender Lateral (Left), Other (Noticable decrease in swelling, now exdending into neck) Respiratory: Chest Non Tender, Lungs Clear, Normal Breath Sounds, No Accessory Muscle Use, No Respiratory Distress Cardiovascular: Regular Rate, Rhythm, No Edema, No Murmur, Normal Peripheral Pulses Gastrointestinal: Normal Bowel Sounds, Non Tender, Soft Rectal: Deferred Back: Normal Inspection, No Vertebral Tenderness Extremity: Normal Inspection, No Calf Tenderness, No Pedal Edema, Other (Anterior tibia tenderness right) Neurologic/Psychiatric: Oriented x3, No Motor/Sensory Deficits, Normal Mood/Affect Skin: Normal Color, Warm/Dry Lymphatic: No Adenopathy (supraclavicular, axillary), Other (left cervical tenderness) Results/Procedures Lab Laboratory Tests 07/06/20 05:20 Patient resulted labs reviewed. Assessment/Plan Assessment and Plan Assess & Plan/Chief Complaint ASSESSMENT: Facial/ neck/ chest cellulitis Parotid swelling HTN PLAN: Consult Kim IV zosyn - continue Monitor labs Continue home medication Control nausea ALIYA GALARZA DO 07/07/20 0452: Subjective Subjective/Events-last exam Pt having some worsening of swelling in the left neck Dr. Alvarez will see her in consultation Pt is definitely worse but her WBC is normal May need an MRI and her pacemaker is compatible per Dr. Pereyra Review of Systems HEENT: Other (Left neck tenderness) Objective Exam General Appearance: No Apparent Distress, WD/WN, Chronically ill Neck: Other (Noticable decrease in swelling, now exdending into neck) Respiratory: Lungs Clear Cardiovascular: Regular Rate, Rhythm Assessment/Plan Assessment and Plan Assess & Plan/Chief Complaint IV abx Dr Alvarez appreciated Supervisory-Addendum Brief Verification & Attestation Participated in pt care: history, MDM, physical Personally performed: exam, history, MDM, supervision of care Care discussed with: Medical Student Procedures: n/a Results interpretation: Verified all documentation Verification and Attestation of Medical Student E/M Service A medical student performed and documented this service in my presence. I reviewed and verified all information documented by the medical student and made modifications to such information, when appropriate. I personally performed the physical exam and medical decision making. Aliya Galarza, Jul 07, 2020,04:51 SUDHA MONTANO MED STUDENT Jul 06, 2020 10:43 ALIYA GALARZA DO Jul 07, 2020 04:52
[2020-07-06] MEDS: NS IV 1000 ML 1,000 ML IV SCH ×2 (11:06→19:30)
[2020-07-06] MEDS: cloNIDine 0.1 MG (CATAPRES) TAB PO PRN (13:33)
--- NOTE | 2020-07-06 16:42 | Progress Note ---
Standard Progress Note Progress Notes/Assess & Plan Date Seen by a Provider: Jul 06, 2020 Time Seen by a Provider: 16:00 Progress/Assessment & Plan ENT-Kim arcos note dictated Imp: Acute Left Parotitis Rec: 1. lots of fluids 2. warm moist heat 3. massage gland forward 4. something sour-maybe lemon ice ewith lemon juice packet in it initially will get more swelling but then should go down no stone seen on x-ray/no abscess seen will follow up in am wbc today-4.9 these get bad quickly and resolve slowly-overall would expect slow resolution Final Diagnosis Acute Left Parotitis Focused Exam Lactate Level 07/04/20 17:44: Lactic Acid Level 1.00 EDWINA COLMENARES MD Jul 06, 2020 16:42
[2020-07-06] MEDS: VITAMIN D3 25 MCG (1,000 UNITS) TABLET PO SCH (20:35)
[2020-07-06] MEDS: ALLOPURINOL 100 MG (ZYLOPRIM) TAB PO SCH (20:35)
[2020-07-06] MEDS: CYANOCOBALAMIN 1,000 MCG (VITAMIN B-12) TABLET PO SCH (20:35)
[2020-07-07] MEDS: cloNIDine 0.1 MG (CATAPRES) TAB PO PRN ×2 (00:29→23:53)
[2020-07-07 04:24] VITALS: BP 163/73
[2020-07-07] MEDS: LEVOTHYROXINE 50 MCG (LEVOTHROID) TAB PO SCH (05:35)
[2020-07-07] MEDS: PIPERACILLIN/TAZOBACTAM (BULK) 4.5 GM in NS (IVPB) 100 ML IV SCH ×3 (05:35→21:23)
[2020-07-07 05:47] LABS: BASOPHILS # (AUTO) 0.1 10^3/uL (0.0-0.1); BASOPHILS % (AUTO) 1 % (0-10); EOSINOPHILS # (AUTO) 0.2 10^3/uL (0.0-0.3); EOSINOPHILS % (AUTO) 4 % (0-10); HEMATOCRIT 34 % (35-52); LYMPHOCYTES # (AUTO) 1.2 10^3/uL (1.0-4.0); LYMPHOCYTES % (AUTO) 27 % (12-44); MEAN CORPUSCULAR HEMOGLOBIN 29 pg (25-34); MEAN CORPUSCULAR HGB CONC 32 g/dL (32-36); MEAN CORPUSCULAR VOLUME 90 fL (80-99); MEAN PLATELET VOLUME 9.4 fL (9.0-12.2); MONOCYTES # (AUTO) 0.5 10^3/uL (0.0-1.0); MONOCYTES % (AUTO) 12 % (0-12); NEUTROPHILS # (AUTO) 2.5 10^3/uL (1.8-7.8); NEUTROPHILS % (AUTO) 55 % (42-75); PLATELET COUNT 283 10^3/uL (130-400); WHITE BLOOD COUNT 4.4 10^3/uL (4.3-11.0)
[2020-07-07 05:54] LABS: ALBUMIN 3.1 GM/DL (3.2-4.5); POTASSIUM 3.8 MMOL/L (3.6-5.0)
[2020-07-07 05:55] LABS: CALCIUM 8.7 MG/DL (8.5-10.1)
[2020-07-07 05:57] LABS: TOTAL PROTEIN 5.8 GM/DL (6.4-8.2)
[2020-07-07 05:58] LABS: BILIRUBIN,TOTAL 0.4 MG/DL (0.1-1.0)
[2020-07-07 06:00] LABS: CREATININE SERUM 1.15 MG/DL (0.60-1.30)
--- NOTE | 2020-07-07 06:50 | CONSULTATION REPORT ---
DATE OF SERVICE: ENT CONSULT REFERRING PHYSICIAN: Dr. Norris. ROOM NUMBER: [id number]. LOCATION: [facility]. REASON FOR CONSULTATION: Swollen left face/neck. HISTORY OF PRESENT ILLNESS: The patient was admitted to the hospital approximately 36 to 48 hours ago with acute swelling of the left parotid region. A CT at that time was reviewed. It showed no evidence of abscess but did show a swollen left parotid gland. No stone was seen on the CT scan. At the time of admission, she did have cellulitis type symptoms on the left. Those have since resolved with the use of her IV antibiotics. She is on Zosyn. She reports she does continue to swell when she eats, but then it goes back down. It is still moderately tender. Her white count this morning was 4.9. PAST MEDICAL HISTORY: Reviewed. ALLERGIES: SHE HAS MULTIPLE DRUG ALLERGIES LISTED IN THE CHART. MEDICATIONS: Zosyn. SYSTEMS REVIEW: The patient has not had any prior episodes of problems with swelling of the parotid gland. No abnormal mass was seen on the CT. PHYSICAL EXAMINATION: GENERAL: She was in no acute distress. She is alert and oriented x3. Communication, her speech and voice were normal. FACE: She has swelling of the left parotid region at the angle of the jaw on the left side, it was moderately tender on palpation. There was no abscess palpable. Facial movements were symmetrical. NECK: The skin in the neck, the cellulitis has resolved. There was minimal tenderness palpable lower in the neck and no adenopathy palpable lower in the neck on the left. EARS: Clear. NOSE: Normal nasal mucosa, no masses or lesions seen. Oral cavity, no trismus. The mucosa was dry. I could not exude any saliva from the left parotid duct today and I could not feel a stone. PHARYNX: There was no swelling of the pharynx. She has a good airway present. No stridor. Neck as noted above. NEUROLOGIC: Cranial nerves II-XII are intact. SKIN: Exposed skin surfaces were clear. IMPRESSION: 1. Acute left parotitis. 2. Left neck cellulitis - resolved. RECOMMENDATIONS: The patient has symptoms of acute left parotitis. Zosyn is a good antibiotic choice as the choices are limited given her drug allergies to Bactrim. In addition to the above, we will start her on the I discussed potentially using lemon ice with a packet of lemon juice placed in it to stimulate saliva production. I discussed this with her and the fact that it may temporarily swell more, but then hopefully will build up pressure and help cleanse the gland and resolve it. Warm, moist heat to the area along with massage of the gland was recommended. I encouraged her fluid intake as well. We will follow up with her in 24 hours to see how she is doing. Thank you for the consultation. Job ID: [id number] DocumentID: [id number] Dictated Date: 07/07/2020 06:06:22 Embedded Firmware Developer Date: 07/07/2020 06:48:56 Dictated By: EDWINA COLMENARES MD
--- NOTE | 2020-07-07 07:00 | Progress Note ---
Standard Progress Note Progress Notes/Assess & Plan Date Seen by a Provider: Jul 07, 2020 Time Seen by a Provider: 06:30 Progress/Assessment & Plan ENT-Kim arcos note dictated Imp: Acute Left Parotitis Rec: 1. lots of fluids 2. warm moist heat 3. massage gland forward 4. something sour-maybe lemon ice ewith lemon juice packet in it initially will get more swelling but then should go down no stone seen on x-ray/no abscess seen will follow up in am wbc today-4.9 these get bad quickly and resolve slowly-overall would expect slow resolution Guero doing alittle better taking liquids/ using heat/sialogues Face-still swollen-no abscess palpable continue antibiotics and conservative measures Focused Exam Lactate Level 07/04/20 17:44: Lactic Acid Level 1.00 EDWINA COLMENARES MD Jul 07, 2020 07:00
[2020-07-07 07:45] VITALS: BP 178/72
[2020-07-07] MEDS: ASPIRIN 81 MG CHEW (CHILDREN'S ASA) PO SCH (08:01)
[2020-07-07] MEDS: SENNA W/DOCUSATE (SENOKOT S) TABLET PO SCH ×2 (08:01→20:32)
[2020-07-07] MEDS: cloNIDine 0.1 MG (CATAPRES) TAB PO SCH ×3 (08:01→20:32)
[2020-07-07] MEDS: NS IV 1000 ML 1,000 ML IV SCH (11:10)
[2020-07-07 11:52] VITALS: BP 191/74
[2020-07-07] MEDS: LACTATED RINGERS 1,000 ML IV SCH (12:05)
--- NOTE | 2020-07-07 12:30 | Progress Note - Hospitalist ---
[facility] 07/07/20 1230: Subjective HPI/CC On Admission Date Seen by Provider: Jul 07, 2020 Time Seen by Provider: 10:40 CC: Left facial swelling with cellulitis HPI: This is an 89yoWF I admitted from my clinic directly due to left jaw mass with cellulitis of the neck. Corresponded with Dr. Alvarez who recommended CT scan and IV antibiotics. CT scan revealed enlarged parotid gland and Zosyn was initiated. Currently she is much better. She is doing overall very well. Subjective/Events-last exam Patient is alert and oriented. No acute events overnight. She states she is f eeling much better. She has been using the recommended techniques by Dr. Alvarez to reduce parotid swelling and pain. She has not had a good appetite but she says she will try and increase her intake today. Transferring from bed to chair. No BM. Urinating without issue. Denies pain at this time. Denies the following: dysphagia, pooling of saliva, SOB, chest pain, abdominal pain, dysuria, F/C and N/V at this time. Review of Systems General: No Chills HEENT: No Head Aches Pulmonary: No Dyspnea, No Cough Cardiovascular: No: Chest Pain, Palpitations Gastrointestinal: No: Nausea, Vomiting, Abdominal Pain Genitourinary: No Dysuria Focused Exam Lactate Level 07/04/20 17:44: Lactic Acid Level 1.00 Objective Exam Vital Signs Vital Signs Date Time Temp Pulse Resp B/P (MAP) Pulse Ox O2 Delivery O2 Flow Rate FiO2 07/07/20 11:52 36.2 64 20 191/74 (113) 95 Room Air Capillary Refill : General Appearance: No Apparent Distress, Thin Neck: Full Range of Motion, Other (left parotid gland appears to have decreased in size. No pain with palpation. No appearance of the infection going beyond the outliend borders. ) Respiratory: Chest Non Tender, No Accessory Muscle Use, No Respiratory Distress Cardiovascular: Regular Rate, Rhythm, No Edema, Normal Peripheral Pulses Gastrointestinal: Normal Bowel Sounds, Non Tender, Soft Back: No CVA Tenderness Extremity: No Calf Tenderness Neurologic/Psychiatric: Alert, Oriented x3, Normal Mood/Affect Skin: Normal Color, Warm/Dry Lymphatic: No Adenopathy Results/Procedures Lab Laboratory Tests 07/07/20 05:39 Patient resulted labs reviewed. Assessment/Plan Assessment and Plan Assess & Plan/Chief Complaint ASSESSMENT: Facial/ neck/ chest cellulitis Parotid swelling HTN PLAN: Reveiwed Dr. Molina note IV zosyn - continue Monitor labs Continue home medication Control nausea Ordered PT Monitor for BM Anticipated D/C tomorrow ALIYA GALARZA DO 07/08/20 0546: Subjective Subjective/Events-last exam Pt doing a little better Warm wet compresses are helping Lemon juice packets are working a little better Antibiotic will continue Dr. Alvarez will look at her tomorrow Ordered PT and OT No bowels moving yet but she is only taking Colace and does not want anything more Changing normal saline IV fluid to lactated ringers Review of Systems General: Fatigue, Malaise Neurological: Weakness Objective Exam General Appearance: No Apparent Distress, WD/WN, Chronically ill HEENT: Other (left neck enlargement) Respiratory: Lungs Clear Cardiovascular: Regular Rate, Rhythm Neurologic/Psychiatric: Alert, Oriented x3, No Motor/Sensory Deficits, Normal Mood/Affect Assessment/Plan Assessment and Plan Assess & Plan/Chief Complaint IV abx Pain control Supervisory-Addendum Brief Verification & Attestation Participated in pt care: history, MDM, physical Personally performed: exam, history, MDM, supervision of care Care discussed with: Medical Student Procedures: n/a Results interpretation: Verified all documentation Verification and Attestation of Medical Student E/M Service A medical student performed and documented this service in my presence. I reviewed and verified all information documented by the medical student and made modifications to such information, when appropriate. I personally performed the physical exam and medical decision making. Aliya Galarza Jul 08, 2020,05:45 [facility] Jul 07, 2020 12:30 ALIYA GALARZA DO Jul 08, 2020 05:46
--- NOTE | 2020-07-07 14:27 | Occ Therapy Progress Note ---
Therapy Progress Note OT order received, chart reviewed. Attempted to see pt. for evaluation. Pt. sitting independently on side of bed and is on phone. OT spoke with nursing informatics specialist regarding pt's current functional status. Pt. has already been up and showered herself after set up. She has been up to toilet and toileted self, and has been ambulating with IV pole around room independently. Based on pt's independence with ADL skills and mobility in room, no OT needs are warranted at this time. Thank you for this referral. 1, visit 1330 No charge Discharge pt. MATTHEW FARIA OT Jul 07, 2020 14:27
--- NOTE | 2020-07-07 14:37 | Physical Therapy Evaluation ---
PT Evaluation-General Medical Diagnosis Admission Date Jul 04, 2020 at 15:36 Medical Diagnosis: facial cellulitis Onset Date: Jul 04, 2020 Therapy Diagnosis Therapy Diagnosis: debility Height/Weight Height (Feet): 5 Height (Inches): 0.00 Weight (Pounds): 143 Weight (Ounces): 0.0 Precautions Precautions/Isolations: Standard Precautions Referral Physician: Jr Reason for Referral: Evaluation/Treatment Medical History Pertinent Medical History: Atrial Fib, HTN, Hypothroidism Current History Direct admit from physicians office secondary to left facial edema Reviewed History: Yes Social History Home: Single Level Current Living Status: Alone Prior Prior Level of Function SCALE: Activities may be completed with or without assistive devices. 5-Fyubpfjztp-znqsimv completes the activity by him/herself with no assistance from a helper. 5-Set-up or Clean-up Assistance-helper sets up or cleans up; patient completes activity. [place] assists only prior to or following the activity. 4-Supervision or Touching Assistance-helper provides verbal cues and/or touching/steadying and/or contact guard assistance as patient completes activity. Assistance may be provided throughout the activity or intermittently. 3-Partial/Moderate Assistance-helper does LESS THAN HALF the effort. [place] lift s, holds or supports trunk or limbs, but provides less than half the effort. 2-Substantial/Maximal Assistance-helper does MORE THAN HALF the effort. [place] lifts or holds trunk or limbs and provides more than half the effort. 8-Jduugiafa-lfdput does ALL the effort. Patient does none of the effort to complete the activity. Or, the assistance of 2 or more helpers is required for the patient to complete the activity. If activity was not attempted, code reason: 7-Patient Refused. 9-Not Applicable-not attempted and the patient did not perform the activity before the current illness, exacerbation or injury. 10-Not Attempted due to Environmental Limitations-(lack of equipment, weather restraints, etc.). 88-Not Attempted due to Medical Conditions or Safety Concerns. Bed Mobility: 6 Transfers (B,C,W/C): 6 Gait: 6 Stairs: 6 Indoor Mobility (Ambulation): Independent Stairs: Independent Prior Devices Use: Other-see list below Prior Device Use: SBQC PT Evaluation-Current Subjective Patient agrees to PT. Objective Patient Orientation: Normal For Age Attachments: IV ROM/Strength ROM Lower Extremities bilateral LE WFL Strength Lower Extremities 4/5 grossly bilateral LE Integumentary/Posture Integumentary refer to nursing notes Bowel Incontinence: No Bladder Incontinence: No Posture scoliosis Neuromuscular (Tone, Coordination, Reflexes) grossly intact Sensory Vision: Functional Hearing: Impaired Sensation Right Lower Extremit: Intact Sensation Left Lower Extremity: Intact Transfers Roll Left to Right (QC): 6 Sit to Lying (QC): 6 Lying to Sitting/Side of Bed(Q: 6 Sit to Stand (QC): 6 Chair/Ubp-xa-Uwllp Xfer(QC): 6 Gait Does the Patient Walk?: Yes Mode of Locomotion: Walk Anticipated Mode of Locomotion: Walk Walk 10 feet (QC): 6 Walk 50 ft with 2 Turns(QC): 6 Walk 150 ft (QC): 6 Gait Assistive Device: Cane Small Base Quad Comments/Gait Description safe and functional with no deviation Balance Sitting Static: Normal Sitting Dynamic: Normal Standing Static: Normal Standing Dynamic: Normal Picking up an Object (QC): 6 Assessment/Needs 89 y.o. female, will be seen x 2 sessions to ensure functional mobility remains safe to return to home independently. Rehab Potential: Fair PT Short Term Goals Short Term Goals Time Frame: Jul 08, 2020 Roll Left & Right: 6 Sit to lyin Lying to sitting on side of be: 6 Sit to stand: 6 Chair/anj-ic-nhfqa transfer: 6 Toilet transfer: 6 Walk 10 feet: 6 Walk 50 feet with two turns: 6 Walk 150 feet: 6 PT Plan Treatment/Plan Treatment Plan: Continue Plan of Care Treatment Plan: Education, Functional Strength, Gait, Safety Treatment Duration: Jul 08, 2020 Frequency: 2 times per week Estimated Hrs Per Day: .25 hour per day Patient and/or Family Agrees t: Yes Discharge Recommendations Therapy Discharge Recommendati: Home & Family Time/GCodes Time In: 1340 Time Out: 1355 Total Billed Treatment Time: 15 Total B[facility] KYLE DIEZ PT Jul 07, 2020 14:37
[2020-07-07 15:22] VITALS: BP 164/75
[2020-07-07 19:55] VITALS: BP 194/81
[2020-07-07] MEDS: VITAMIN D3 25 MCG (1,000 UNITS) TABLET PO SCH (20:31)
[2020-07-07] MEDS: CYANOCOBALAMIN 1,000 MCG (VITAMIN B-12) TABLET PO SCH (20:31)
[2020-07-07] MEDS: ALLOPURINOL 100 MG (ZYLOPRIM) TAB PO SCH (20:31)
[2020-07-07 23:20] VITALS: BP 183/74
[2020-07-08 04:20] VITALS: BP 147/77
[2020-07-08] MEDS: LACTATED RINGERS 1,000 ML IV SCH (06:07)
[2020-07-08] MEDS: LEVOTHYROXINE 50 MCG (LEVOTHROID) TAB PO SCH (06:07)
[2020-07-08] MEDS: PIPERACILLIN/TAZOBACTAM (BULK) 4.5 GM in NS (IVPB) 100 ML IV SCH (06:07)
[2020-07-08 06:45] LABS: BASOPHILS # (AUTO) 0.1 10^3/uL (0.0-0.1); BASOPHILS % (AUTO) 1 % (0-10); EOSINOPHILS # (AUTO) 0.1 10^3/uL (0.0-0.3); EOSINOPHILS % (AUTO) 4 % (0-10); HEMATOCRIT 37 % (35-52); HEMOGLOBIN 11.7 g/dL (11.5-16.0); LYMPHOCYTES # (AUTO) 1.1 10^3/uL (1.0-4.0); LYMPHOCYTES % (AUTO) 29 % (12-44); MEAN CORPUSCULAR HEMOGLOBIN 28 pg (25-34); MEAN CORPUSCULAR HGB CONC 32 g/dL (32-36); MEAN CORPUSCULAR VOLUME 88 fL (80-99); MEAN PLATELET VOLUME 9.6 fL (9.0-12.2); MONOCYTES # (AUTO) 0.5 10^3/uL (0.0-1.0); MONOCYTES % (AUTO) 12 % (0-12); NEUTROPHILS # (AUTO) 2.1 10^3/uL (1.8-7.8); NEUTROPHILS % (AUTO) 54 % (42-75); PLATELET COUNT 317 10^3/uL (130-400); WHITE BLOOD COUNT 3.9 10^3/uL (4.3-11.0)
--- NOTE | 2020-07-08 06:58 | Progress Note ---
Standard Progress Note Progress Notes/Assess & Plan Date Seen by a Provider: Jul 08, 2020 Time Seen by a Provider: 06:30 Progress/Assessment & Plan Guero arcos note dictated Imp: Acute Left Parotitis Rec: 1. lots of fluids 2. warm moist heat 3. massage gland forward 4. something sour-maybe lemon ice ewith lemon juice packet in it initially will get more swelling but then should go down no stone seen on x-ray/no abscess seen will follow up in am wbc today-4.9 these get bad quickly and resolve slowly-overall would expect slow resolution Guero doing alittle better taking liquids/ using heat/sialogues Face-still swollen-no abscess palpable continue antibiotics and conservative measures Guero-3/ much improved mild swelling and minimal tenderness over left parotid gland fine with me to d ischarge-home on augmentin? for ten days no need for retrun apt-f/u with DR Norris home on sialadenitis regimen as well EDWINA COLMENARES MD Jul 08, 2020 06:58
[2020-07-08 07:04] LABS: ALBUMIN 3.1 GM/DL (3.2-4.5); BILIRUBIN,TOTAL 0.4 MG/DL (0.1-1.0); CALCIUM 9.5 MG/DL (8.5-10.1); CREATININE SERUM 1.05 MG/DL (0.60-1.30); POTASSIUM 3.7 MMOL/L (3.6-5.0); TOTAL PROTEIN 6.3 GM/DL (6.4-8.2)
[2020-07-08] MEDS: SENNA W/DOCUSATE (SENOKOT S) TABLET PO SCH (07:35)
[2020-07-08] MEDS: ASPIRIN 81 MG CHEW (CHILDREN'S ASA) PO SCH (07:35)
[2020-07-08] MEDS: cloNIDine 0.1 MG (CATAPRES) TAB PO SCH (07:35)
[2020-07-08 08:00] VITALS: BP 192/73
[2020-07-08] MEDS ORDERED: AMOX-358 PO (11:40)
--- NOTE | 2020-07-08 11:41 | Discharge Summary ---
Diagnosis/Chief Complaint Date of Admission Jul 04, 2020 at 15:36 Date of Discharge Discharge Date: Jul 08, 2020 Discharge Diagnosis Acute bacterial parotitis Discharge Summary Discharge Physical Examination Allergies: Coded Allergies: Sulfa (Sulfonamide Antibiotics) (Verified Allergy, Unknown, 07/04/20) acetaminophen (Verified Allergy, Unknown, 07/04/20) cephalexin (Verified Allergy, Unknown, 07/04/20) ciprofloxacin (Verified Allergy, Unknown, 07/04/20) hydrocodone (Verified Allergy, Unknown, 07/04/20) iodine (Verified Allergy, Unknown, 07/04/20) meperidine (Verified Allergy, Unknown, 07/04/20) metronidazole (Verified Allergy, Unknown, 07/04/20) propoxyphene (Verified Allergy, Unknown, 07/04/20) rosuvastatin (Verified Allergy, Unknown, 07/04/20) simvastatin (Verified Allergy, Unknown, 07/04/20) Vitals & I&Os Vital Signs Date Time Temp Pulse Resp B/P (MAP) Pulse Ox O2 Delivery O2 Flow Rate FiO2 07/08/20 12:15 36.4 63 20 192/73 94 Room Air General Appearance: Alert, Oriented X3, Cooperative HEENT: Other (left neck improved edema) Hospital Course Was the Problem List Reviewed?: Yes Hospital Course: Brandan Tee is a 89 y/o female that was admitted directly from Dr. Krishnan clinic on 07/05/20 and will be discharged today 07/08/20. She was admitted for Acute Left Prostatis. PMH includes AFIB. HTN, Hypothyroidism and Gout. Both her acute and chronic conditions were managed while hospitalized at [facility]. While admitted she was under the care of Internal Medicine Dr. Galarza and ENT Dr. Alvarez. During admission her labs were checked and she received CT imaging. Imaging showed inflammatory process of the left parotid gland. Physical exam was positive for a enlarged, tender and erythematous left parotid gland. The patient had difficulty with swallowing and poor nutritional intake. She received IV fluids and antibiotics. Since admission her left parotid gland has greatly improved. It has reduced in size, is only minimally tender and has decrease erythema. The patient is tolerating food and liquids. She states " I feel so much better". She will be discharged today in stable condition. She should follow all instructions outlined in D/C packet, which includes medications and follow up visits. The following information is only a summary of the patients admission while at [facility] and is not all inclusive. Please review entire chart for more information. [facility] Labs (last 24 hrs) Laboratory Tests 07/04/20 14:32: White Blood Count 9.2, Red Blood Count 4.58, Hemoglobin 12.9, Hematocrit 41, Mean Corpuscular Volume 90, Mean Corpuscular Hemoglobin 28, Mean Corpuscular Hemoglobin Concent 31L, Red Cell Distribution Width 13.9, Platelet Count 248, Me an Platelet Volume 10.1, Immature Granulocyte % (Auto) 0, Neutrophils (%) (Auto) 83H, Lymphocytes (%) (Auto) 8L, Monocytes (%) (Auto) 8, Eosinophils (%) (Auto) 0, Basophils (%) (Auto) 1, Neutrophils # (Auto) 7.6, Lymphocytes # (Auto) 0.8L, Monocytes # (Auto) 0.7, Eosinophils # (Auto) 0.0, Basophils # (Auto) 0.1, Immature Granulocyte # (Auto) 0.0, Erythrocyte Sedimentation Rate 36H 07/04/20 17:44: Sodium Level 138, Potassium Level 4.4, Chloride Level 103, Carbon Dioxide Level 23, Anion Gap 12, Blood Urea Nitrogen 18, Creatinine 0.99, Estimat Glomerular Filtration Rate 53, BUN/Creatinine Ratio 18, Glucose Level 104, Lactic Acid Level 1.00, Calcium Level 9.0, Corrected Calcium 9.3, Total Bilirubin 0.8, Aspartate Amino Transf (AST/SGOT) 19, Alanine Aminotransferase (ALT/SGPT) 13, Alkaline Phosphatase 75, C-Reactive Protein High Sensitivity 4.32H, Total Protein 7.0, Albumin 3.6, Procalcitonin 0.06 07/05/20 05:35: White Blood Count 6.2, Red Blood Count 4.21, Hemoglobin 12.0, Hematocrit 38, Mean Corpuscular Volume 89, Mean Corpuscular Hemoglobin 29, Mean Corpuscular Hemoglobin Concent 32, Red Cell Distribution Width 13.7, Platelet Count 268, Donna n Platelet Volume 9.6, Immature Granulocyte % (Auto) 0, Neutrophils (%) (Auto) 69, Lymphocytes (%) (Auto) 18, Monocytes (%) (Auto) 11, Eosinophils (%) (Auto) 1, Basophils (%) (Auto) 1, Neutrophils # (Auto) 4.3, Lymphocytes # (Auto) 1.1, Monocytes # (Auto) 0.7, Eosinophils # (Auto) 0.1, Basophils # (Auto) 0.0, Immature Granulocyte # (Auto) 0.0, Sodium Level 139, Potassium Level 3.8, Chloride Level 108H, Carbon Dioxide Level 22, Anion Gap 9, Blood Urea Nitrogen 17, Creatinine 1.09, Estimat Glomerular Filtration Rate 47, BUN/Creatinine Ratio 16, Glucose Level 95, Calcium Level 8.4L, Corrected Calcium 9.0, Total Bilirubin 0.6, Aspartate Amino Transf (AST/SGOT) 15, Alanine Aminotransferase (ALT/SGPT) 12, Alkaline Phosphatase 67, Total Protein 6.3L, Albumin 3.3 07/06/20 05:20: White Blood Count 4.9, Red Blood Count 3.72L, Hemoglobin 10.6L, Hematocrit 34L, Mean Corpuscular Volume 90, Mean Corpuscular Hemoglobin 29, Mean Corpuscular Hemoglobin Concent 32, Red Cell Distribution Width 13.5, Platelet Count 269, Mean Platelet Volume 9.8, Immature Granulocyte % (Auto) 0, Neutrophils (%) (Auto) 62, Lymphocytes (%) (Auto) 23, Monocytes (%) (Auto) 12, Eosinophils (%) (Auto) 2, Basophils (%) (Auto) 1, Neutrophils # (Auto) 3.1, Lymphocytes # (Auto) 1.1, Monocytes # (Auto) 0.6, Eosinophils # (Auto) 0.1, Basophils # (Auto) 0.0, Immature Granulocyte # (Auto) 0.0, Sodium Level 141, Potassium Level 3.9, Chloride Level 111H, Carbon Dioxide Level 22, Anion Gap 8, Blood Urea Nitrogen 13, Creatinine 1.01, Estimat Glomerular Filtration Rate 52, BUN/Creatinine Ratio 13, Glucose Level 93, Calcium Level 8.3L, Corrected Calcium 9.2, Total Bilirubin 0.5, Aspartate Amino Transf (AST/SGOT) 17, Alanine Aminotransferase (ALT/SGPT) 12, Alkaline Phosphatase 54, Total Protein 5.5L, Albumin 2.9L 07/07/20 05:39: White Blood Count 4.4, Red Blood Count 3.83, Hemoglobin 11.0L, Hematocrit 34L, Mean Corpuscular Volume 90, Mean Corpuscular Hemoglobin 29, Mean Corpuscular Hemoglobin Concent 32, Red Cell Distribution Width 13.6, Platelet Count 283, Mean Platelet Volume 9.4, Immature Granulocyte % (Auto) 0, Neutrophils (%) (Auto) 55, Lymphocytes (%) (Auto) 27, Monocytes (%) (Auto) 12, Eosinophils (%) (Auto) 4, Basophils (%) (Auto) 1, Neutrophils # (Auto) 2.5, Lymphocytes # (Auto) 1.2, Monocytes # (Auto) 0.5, Eosinophils # (Auto) 0.2, Basophils # (Auto) 0.1, Immature Granulocyte # (Auto) 0.0, Sodium Level 140, Potassium Level 3.8, Chloride Level 110H, Carbon Dioxide Level 23, Anion Gap 7, Blood Urea Nitrogen 13, Creatinine 1.15, Estimat Glomerular Filtration Rate 44, BUN/Creatinine Ratio 11, Glucose Level 97, Calcium Level 8.7, Corrected Calcium 9.4, Total Bilirubin 0.4, Aspartate Amino Transf (AST/SGOT) 14, Alanine Aminotransferase (ALT/SGPT) 9, Alkaline Phosphatase 61, Total Protein 5.8L, Albumin 3.1L 07/08/20 06:38: White Blood Count 3.9L, Red Blood Count 4.15, Hemoglobin 11.7, Hematocrit 37, Mean Corpuscular Volume 88, Mean Corpuscular Hemoglobin 28, Mean Corpuscular Hemoglobin Concent 32, Red Cell Distribution Width 13.3, Platelet Count 317, Mean Platelet Volume 9.6, Immature Granulocyte % (Auto) 0, Neutrophils (%) (Auto) 54, Lymphocytes (%) (Auto) 29, Monocytes (%) (Auto) 12, Eosinophils (%) (Auto) 4, Basophils (%) (Auto) 1, Neutrophils # (Auto) 2.1, Lymphocytes # (Auto) 1.1, Monocytes # (Auto) 0.5, Eosinophils # (Auto) 0.1, Basophils # (Auto) 0.1, Immature Granulocyte # (Auto) 0.0, Sodium Level 141, Potassium Level 3.7, Chloride Level 106, Carbon Dioxide Level 23, Anion Gap 12, Blood Urea Nitrogen 10, Creatinine 1.05, Estimat Glomerular Filtration Rate 49, BUN/Creatinine Ratio 10, Glucose Level 85, Calcium Level 9.5, Corrected Calcium 10.2H, Total Bilirubin 0.4, Aspartate Amino Transf (AST/SGOT) 19, Alanine Aminotransferase (ALT/SGPT) 13, Alkaline Phosphatase 55, Total Protein 6.3L, Albumin 3.1L Microbiology 07/04/20 Blood Culture - Preliminary, Resulted No growth Pending Labs Microbiology Date/Time Source Procedure Growth Status 07/04/20 14:32 Peripheral Lt Hand Blood Culture - Preliminary No growth Resulted 07/04/20 14:32 Peripheral Lt Ac Blood Culture - Preliminary No growth Resulted Laboratory Tests 07/04/20 14:32: White Blood Count 9.2, Red Blood Count 4.58, Hemoglobin 12.9, Hematocrit 41, Mean Corpuscular Volume 90, Mean Corpuscular Hemoglobin 28, Mean Corpuscular Hemoglobin Concent 31, Red Cell Distribution Width 13.9, Platelet Count 248, Mean Platelet Volume 10.1, Immature Granulocyte % (Auto) 0, Neutrophils (%) (Auto) 83, Lymphocytes (%) (Auto) 8, Monocytes (%) (Auto) 8, Eosinophils (%) (Auto) 0, Basophils (%) (Auto) 1, Neutrophils # (Auto) 7.6, Lymphocytes # (Auto) 0.8, Monocytes # (Auto) 0.7, Eosinophils # (Auto) 0.0, Basophils # (Auto) 0.1, Immature Granulocyte # (Auto) 0.0, Erythrocyte Sedimentation Rate 36 07/04/20 17:44: Sodium Level 138, Potassium Level 4.4, Chloride Level 103, Carbon Dioxide Level 23, Anion Gap 12, Blood Urea Nitrogen 18, Creatinine 0.99, Estimat Glomerular Filtration Rate 53, BUN/Creatinine Ratio 18, Glucose Level 104, Lactic Acid Level 1.00, Calcium Level 9.0, Corrected Calcium 9.3, Total Bilirubin 0.8, Aspartate Amino Transf (AST/SGOT) 19, Alanine Aminotransferase (ALT/SGPT) 13, Alkaline Phosphatase 75, C-Reactive Protein High Sensitivity 4.32, Total Protein 7.0, Albumin 3.6, Procalcitonin 0.06 07/05/20 05:35: White Blood Count 6.2, Red Blood Count 4.21, Hemoglobin 12.0, Hematocrit 38, Mean Corpuscular Volume 89, Mean Corpuscular Hemoglobin 29, Mean Corpuscular Hemoglobin Concent 32, Red Cell Distribution Width 13.7, Platelet Count 268, Mean Platelet Volume 9.6, Immature Granulocyte % (Auto) 0, Neutrophils (%) (Auto) 69, Lymphocytes (%) (Auto) 18, Monocytes (%) (Auto) 11, Eosinophils (%) (Auto) 1, Basophils (%) (Auto) 1, Neutrophils # (Auto) 4.3, Lymphocytes # (Auto) 1.1, Monocytes # (Auto) 0.7, Eosinophils # (Auto) 0.1, Basophils # (Auto) 0.0, Immature Granulocyte # (Auto) 0.0, Sodium Level 139, Potassium Level 3.8, Chloride Level 108, Carbon Dioxide Level 22, Anion Gap 9, Blood Urea Nitrogen 17, Creatinine 1.09, Estimat Glomerular Filtration Rate 47, BUN/Creatinine Ratio 16, Glucose Level 95, Calcium Level 8.4, Corrected Calcium 9.0, Total Bilirubin 0.6, Aspartate Amino Transf (AST/SGOT) 15, Alanine Aminotransferase (ALT/SGPT) 12, Alkaline Phosphatase 67, Total Protein 6.3, Albumin 3.3 07/06/20 05:20: White Blood Count 4.9, Red Blood Count 3.72, Hemoglobin 10.6, Hematocrit 34, Mean Corpuscular Volume 90, Mean Corpuscular Hemoglobin 29, Mean Corpuscular Hemoglobin Concent 32, Red Cell Distribution Width 13.5, Platelet Count 269, Mean Platelet Volume 9.8, Immature Granulocyte % (Auto) 0, Neutrophils (%) (Auto) 62, Lymphocytes (%) (Auto) 23, Monocytes (%) (Auto) 12, Eosinophils (%) (Auto) 2, Basophils (%) (Auto) 1, Neutrophils # (Auto) 3.1, Lymphocytes # (Auto) 1.1, Monocytes # (Auto) 0.6, Eosinophils # (Auto) 0.1, Basophils # (Auto) 0.0, Immature Granulocyte # (Auto) 0.0, Sodium Level 141, Potassium Level 3.9, Chloride Level 111, Carbon Dioxide Level 22, Anion Gap 8, Blood Urea Nitrogen 13, Creatinine 1.01, Estimat Glomerular Filtration Rate 52, BUN/Creatinine Ratio 13, Glucose Level 93, Calcium Level 8.3, Corrected Calcium 9.2, Total Bilirubin 0.5, Aspartate Amino Transf (AST/SGOT) 17, Alanine Aminotransferase (ALT/SGPT) 12, Alkaline Phosphatase 54, Total Protein 5.5, Albumin 2.9 07/07/20 05:39: White Blood Count 4.4, Red Blood Count 3.83, Hemoglobin 11.0, Hematocrit 34, Mean Corpuscular Volume 90, Mean Corpuscular Hemoglobin 29, Mean Corpuscular Hemoglobin Concent 32, Red Cell Distribution Width 13.6, Platelet Count 283, Mean Platelet Volume 9.4, Immature Granulocyte % (Auto) 0, Neutrophils (%) (Auto) 55, Lymphocytes (%) (Auto) 27, Monocytes (%) (Auto) 12, Eosinophils (%) (Auto) 4, Basophils (%) (Auto) 1, Neutrophils # (Auto) 2.5, Lymphocytes # (Auto) 1.2, Monocytes # (Auto) 0.5, Eosinophils # (Auto) 0.2, Basophils # (Auto) 0.1, Immature Granulocyte # (Auto) 0.0, Sodium Level 140, Potassium Level 3.8, Chloride Level 110, Carbon Dioxide Level 23, Anion Gap 7, Blood Urea Nitrogen 13, Creatinine 1.15, Estimat Glomerular Filtration Rate 44, BUN/Creatinine Ratio 11, Glucose Level 97, Calcium Level 8.7, Corrected Calcium 9.4, Total Bilirubin 0.4, Aspartate Amino Transf (AST/SGOT) 14, Alanine Aminotransferase (ALT/SGPT) 9, Alkaline Phosphatase 61, Total Protein 5.8, Albumin 3.1 07/08/20 06:38: White Blood Count 3.9, Red Blood Count 4.15, Hemoglobin 11.7, Hematocrit 37, Mean Corpuscular Volume 88, Mean Corpuscular Hemoglobin 28, Mean Corpuscular Hemoglobin Concent 32, Red Cell Distribution Width 13.3, Platelet Count 317, Mean Platelet Volume 9.6, Immature Granulocyte % (Auto) 0, Neutrophils (%) (Auto) 54, Lymphocytes (%) (Auto) 29, Monocytes (%) (Auto) 12, Eosinophils (%) (Auto) 4, Basophils (%) (Auto) 1, Neutrophils # (Auto) 2.1, Lymphocytes # (Auto) 1.1, Monocytes # (Auto) 0.5, Eosinophils # (Auto) 0.1, Basophils # (Auto) 0.1, Immature Granulocyte # (Auto) 0.0, Sodium Level 141, Potassium Level 3.7, Chloride Level 106, Carbon Dioxide Level 23, Anion Gap 12, Blood Urea Nitrogen 10, Creatinine 1.05, Estimat Glomerular Filtration Rate 49, BUN/Creatinine Ratio 10, Glucose Level 85, Calcium Level 9.5, Corrected Calcium 10.2, Total Bilirubin 0.4, Aspartate Amino Transf (AST/SGOT) 19, Alanine Aminotransferase (ALT/SGPT) 13, Alkaline Phosphatase 55, Total Protein 6.3, Albumin 3.1 Discharge Home Medications: Active Scripts Active Augmentin 875-125 Tablet (Amoxicillin/Potassium Clav) 1 Each Tablet 1 Each PO BID Reported Aspirin 81 Mg Tab.chew 81 Mg PO DAILY Diltiazem 24Hr ER (Diltiazem HCl) 240 Mg Cap.er.24h 240 Mg PO HS Clonidine HCl 0.1 Mg Tablet 0.1 Mg PO TID Prevacus Capsule (l Gasseri/B Bifidum/B Longum) 1 Each Capsule 1 Each PO HS Allopurinol 100 Mg Tablet 100 Mg PO HS Vitamin D3 (Cholecalciferol (Vitamin D3)) 25 Mcg Tablet 25 Mcg PO HS Levothyroxine Sodium 50 Mcg Tablet 50 Mcg PO DAILY Vitamin B-12 (Cyanocobalamin (Vitamin B-12)) 1,000 Mcg Tablet 1,000 Mcg PO HS Instructions to patient/family Please see electronic discharge instructions given to patient. Diagnosis/Problems Diagnosis/Problems (1) Swelling of left parotid gland (2) Cellulitis, neck (3) Hypertension (4) Pacemaker DANA GALARZA DO Jul 08, 2020 11:41
[2020-07-08 12:15] VITALS: BP 192/73
--- NOTE | 2020-07-08 12:34 | Progress Note ---
[facility] 07/08/20 1234: Progress Note Hospital Course: Brandan Tee is a 89 y/o female that was admitted directly from Dr. Krishnan clinic on 07/05/20 and will be discharged today 07/08/20. She was admitted for Acute Left Prostatis. PMH includes AFIB. HTN, Hypothyroidism and Gout. Both her acute and chronic conditions were managed while hospitalized at [facility]. While admitted she was under the care of Internal Medicine Dr. Galarza and ENT Dr. Alvarez. During admission her labs were checked and she received CT imaging. Imaging showed inflammatory process of the left parotid gland. Physical exam was positive for a enlarged, tender and erythematous left parotid gland. The patient had difficulty with swallowing and poor nutritional intake. She received IV fluids and antibiotics. Since admission her left parotid gland has greatly improved. It has reduced in size, is only minimally tender and has decrease erythema. The patient is tolerating food and liquids. She states " I feel so much better". She will be discharged today in stable condition. She should follow all instructions outlined in D/C packet, which includes medications and follow up visits. The following information is only a summary of the patients admission while at [facility] and is not all inclusive. Please review entire chart for more information. ALIYA GALARZA DO 07/09/20 0639: Supervisory-Addendum Brief Verification & Attestation Participated in pt care: history, MDM, physical Personally performed: exam, history, MDM, supervision of care Care discussed with: Medical Student Procedures: n/a Results interpretation: Verified all documentation Verification and Attestation of Medical Student E/M Service A medical student performed and documented this service in my presence. I reviewed and verified all information documented by the medical student and made modifications to such information, when appropriate. I personally performed the physical exam and medical decision making. Aliya Galarza Jul 09, 2020,06:39 [facility] Jul 08, 2020 12:34 ALIYA GALARZA DO Jul 09, 2020 06:39
== END 2020-07-08 12:15 | disposition home or self-care (01) ==
LOC: 4TH 15:36 → UNDOADMOB 15:36 → 4TH 23:18 → UNDODISOB 07-08 12:15
PROVIDERS: ADMIT Internal Medicine; ATTEND Internal Medicine
DX: K11.21 Acute sialoadenitis (principal); I10 Essential (primary) hypertension; E03.9 Hypothyroidism, unspecified; I48.91 Unspecified atrial fibrillation; M10.9 Gout, unspecified; L03.221 Cellulitis of neck; R59.9 Enlarged lymph nodes, unspecified; Z79.82 Long term (current) use of aspirin; Z79.899 Other long term (current) drug therapy; Z88.2 Allergy status to sulfonamides; Z88.1 Allergy status to other antibiotic agents; Z91.041 Radiographic dye allergy status; Z88.8 Allergy status to other drugs, medicaments and biological substances; Z90.710 Acquired absence of both cervix and uterus; Z95.0 Presence of cardiac pacemaker
CPT/HCPCS: 36410; 70490; 76937; 80053 ×5; 83605; 84145; 85025 ×5; 85652; 86141; 87040; 97162; C1751; G0378; G0379; 36415; 99211

== ENCOUNTER 2020-08-15 11:39 | Outpatient (RCR) | payer MEDICARE, OTHER ==
[~2020-08-15 11:39] MED LIST changes: +AMOX-358 PO; +ASPI-999 PO
[2020-08-18] MEDS ORDERED: CEFD300C3 PO (11:59)
[2020-08-18] MEDS ORDERED: ASPI-1238 PO (11:59)
[2020-08-18] MEDS ORDERED: ACET325T38 PO (11:59)
[2020-08-21] MEDS ORDERED: ASPI-1238 PO (12:40)
== END 2020-08-17 | disposition home or self-care (01) ==
LOC: CR3 11:39
PROVIDERS: ATTEND Family Medicine
DX: Z29.8 Encounter for other specified prophylactic measures (principal)

== ENCOUNTER 2020-08-17 19:45 | Inpatient (IN) | payer MEDICARE, OTHER ==
[~2020-08-17] VITALS: Ht 149 cm; Wt 61.0 kg
[2020-08-17 20:23] LABS: BASOPHILS # (AUTO) 0.1 10^3/uL (0.0-0.1); BASOPHILS % (AUTO) 1 % (0-10); EOSINOPHILS % (AUTO) 0 % (0-10); HEMATOCRIT 41 % (35-52); HEMOGLOBIN 13.2 g/dL (11.5-16.0); LYMPHOCYTES # (AUTO) 0.5 10^3/uL (1.0-4.0); LYMPHOCYTES % (AUTO) 5 % (12-44); MEAN CORPUSCULAR HEMOGLOBIN 29 pg (25-34); MEAN CORPUSCULAR HGB CONC 32 g/dL (32-36); MEAN CORPUSCULAR VOLUME 90 fL (80-99); MEAN PLATELET VOLUME 9.7 fL (9.0-12.2); MONOCYTES # (AUTO) 0.2 10^3/uL (0.0-1.0); MONOCYTES % (AUTO) 3 % (0-12); NEUTROPHILS # (AUTO) 8.6 10^3/uL (1.8-7.8); NEUTROPHILS % (AUTO) 92 % (42-75); PLATELET COUNT 268 10^3/uL (130-400); WHITE BLOOD COUNT 9.3 10^3/uL (4.3-11.0)
[2020-08-17] MEDS ORDERED: ONDANSETRON 4 MG/2 ML (SDV) Z0FRAN IVP ONE ×2 (20:30→22:15)
[2020-08-17] MEDS ORDERED: LACTATED RINGERS 1,000 ML IV ONE (20:30)
[2020-08-17 20:36] LABS: PROTHROMBIN TIME PATIENT 13.3 SEC (12.2-14.7)
--- NOTE | 2020-08-17 20:45 | ED General ---
General Chief Complaint: Abdominal/GI Problems Stated Complaint: WEAKNESS / N/V / IRREGULAR HR Nursing Triage Note: patient states nausea since yesterday, dry heives, patient verbalized irregular heartbeats, since saturday, has a pacemaker Nursing Sepsis Screen: No Definite Risk Source of Information: Patient, Old Records, Other (FEMALE FRIEND) History of Present Illness Date Seen by Provider: Aug 17, 2020 Time Seen by Provider: 20:10 Initial Comments PT ARRIVES VIA POV FROM HOME WITH DAUGHTER PT STATES SHE HAS BEEN HAVING NAUSEA AND DRY HEAVES SINCE LAST NIGHT SAW DR. GALARZA TODAY AND DX WITH UTI AND PLACED ON UNKNOWN ANTIBIOTIC--HAS HAD ONE DOSE ( OMNICEF) C/O "IRREGULAR HEARTBEAT WITH MY PACEMAKER" FOR THE LAST 3 DAYS NO CHEST PAIN NO SHORTNESS OF BREATH NO SYNCOPE C/O MILD LOW BACK PAIN NO ABDOMINAL PAIN NO DIARRHEA--LAST BM YESTERDAY OR DAY BEFORE--NORMAL FOR PT NO FEVER, BUT WOKE UP LAST NIGHT WITH SWEATS AND THEN HAD CHILLS TODAY PT HAS BEEN TOO WEAK TO STAND FEMALE FRIEND STATES SHE HAS BEEN SICK SINCE WITH GENERALIZED WEAKNESS AND "JUST NOT FEELING WELL" WITHOUT ANY OTHER SPECIFIC SYMPTOMS TOOK AM MEDICATIONS BUT NONE OF HER REGULAR MEDICATIONS SINCE THEN PT ADMITTED LAST MONTH FOR FACIAL CELLULITIS/ PAROTID GLAND INFECTION-PAROTITIS PCP: DR. GALARZA BICYCLE MECHANIC: DR. PUGA Allergies and Home Medications Allergies Coded Allergies: Sulfa (Sulfonamide Antibiotics) (Verified Allergy, Unknown, 07/04/20) cephalexin (Verified Allergy, Unknown, 07/04/20) ciprofloxacin (Verified Allergy, Unknown, 07/04/20) hydrocodone (Verified Allergy, Unknown, 07/04/20) iodine (Verified Allergy, Unknown, 07/04/20) meperidine (Verified Allergy, Unknown, 07/04/20) metronidazole (Verified Allergy, Unknown, 07/04/20) propoxyphene (Verified Allergy, Unknown, 07/04/20) rosuvastatin (Verified Allergy, Unknown, 07/04/20) simvastatin (Verified Allergy, Unknown, 07/04/20) Home Medications Allopurinol 100 Mg Tablet, 100 MG PO HS, (Reported) Amoxicillin/Potassium Clav 1 Each Tablet, 1 EACH PO BID Prescribed by: DANA GALARZA on 07/08/20 1140 Aspirin 81 Mg Tab.chew, 81 MG PO DAILY, (Reported) Cholecalciferol (Vitamin D3) 25 Mcg Tablet, 25 MCG PO HS, (Reported) Clonidine HCl 0.1 Mg Tablet, 0.1 MG PO TID, (Reported) Cyanocobalamin (Vitamin B-12) 1,000 Mcg Tablet, 1,000 MCG PO HS, (Reported) Diltiazem HCl 240 Mg Cap.er.24h, 240 MG PO HS, (Reported) Levothyroxine Sodium 50 Mcg Tablet, 50 MCG PO DAILY, (Reported) l Gasseri/B Bifidum/B Longum 1 Each Capsule, 1 EACH PO HS, (Reported) Patient Home Medication List Home Medication List Reviewed: Yes Review of Systems Review of Systems Constitutional: see HPI, chills, diaphoresis, dizziness, malaise, weakness EENTM: no symptoms reported Respiratory: no symptoms reported; No cough, No short of breath Cardiovascular: see HPI; No chest pain, No edema; palpitations; No syncope Gastrointestinal: see HPI, abdominal pain; No constipation, No diarrhea; nausea, vomiting (DRY HEAVES) Genitourinary: see HPI, dysuria Musculoskeletal: see HPI, back pain Skin: no symptoms reported Psychiatric/Neurological: No Symptoms Reported Hematologic/Lymphatic: No Symptoms Reported Immunological/Allergic: no symptoms reported Past Efrcbzc-Osasrz-Zznoyh Hx Past Med/Social Hx: Reviewed and Corrections made Patient Social History Alcohol Use: Denies Use Drug of Choice: DENIES Smoking Status: Never a Smoker Recent Infectious Disease Expo: No Recent Hopitalizations: Yes Immunizations Up To Date Tetanus Booster (TDap): More than 5yrs PED Vaccines UTD: No Date of Pneumonia Vaccine: Jul 13, 2017 Date of Influenza Vaccine: Feb 03, 2021 Seasonal Allergies Seasonal Allergies: No Past Medical History Surgeries: Yes (HYST/BSO FOR BENIGN DISEASE; LEFT SHOULDER REPLACEMENT; C- SECTION X 1) Section, Hysterectomy, Oophorectomy, Orthopedic, Pacemaker Respiratory: No Currently Using CPAP: No Currently Using BIPAP: No Cardiac: Yes (PERMANENT PACEMAKER IN PLACE) Atrial Fibrillation, High Cholesterol, Hypertension Neurological: Yes Neuropathy 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, 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 PT HAD BEEN ON ELIQUIS FOR ATRIAL FIBRILLATION AT THAT TIME, IT WAS DISCONTINUED AND PT MAINTAINED ON ASPIRIN SINCE THEN. Physical Exam Vital Signs Vital Signs - First Documented 08/17/20 20:15 Temp 36.7 Pulse 83 Resp 20 B/P (MAP) 194/77 (116) Pulse Ox 93 O2 Delivery Room Air Capillary Refill : Less Than 3 Seconds Height, Weight, BMI Height: 5'0.00" Weight: 143lbs. 0.0oz. 64.782562xd; 21.00 BMI Method:Stated General Appearance: No Apparent Distress, WD/WN, Thin, Other (FRAIL, SOMEWHAT LETHARGIC. 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 Norm as Tested Skin: Normal Color, Warm/Dry Progress/Results/Core Measures Suspected Sepsis Recent Fever Within 48 Hours: No Infection Criteria Present: None New/Unexplained Altered Menta: No Sepsis Screen: No Definite Risk SIRS Temperature: Pulse: 83 Respiratory Rate: 20 Laboratory Tests 08/17/20 20:10: White Blood Count 9.3 Blood Pressure 194 /77 Mean: 116 Laboratory Tests 08/17/20 20:10: Creatinine 1.51H, INR Comment 1.0, Platelet Count 268, Total Bilirubin 1.2H Results/Orders Lab Results Laboratory Tests Test 08/17/20 20:10 Range/Units White Blood Count 9.3 4.3-11.0 10^3/uL Red Blood Count 4.61 3.80-5.11 10^6/uL Hemoglobin 13.2 11.5-16.0 g/dL Hematocrit 41 35-52 % Mean Corpuscular Volume 90 80-99 fL Mean Corpuscular Hemoglobin 29 25-34 pg Mean Corpuscular Hemoglobin Concent 32 32-36 g/dL Red Cell Distribution Width 14.2 10.0-14.5 % Platelet Count 268 130-400 10^3/uL Mean Platelet Volume 9.7 9.0-12.2 fL Immature Granulocyte % (Auto) 0 % Neutrophils (%) (Auto) 92 H 42-75 % Lymphocytes (%) (Auto) 5 L 12-44 % Monocytes (%) (Auto) 3 0-12 % Eosinophils (%) (Auto) 0 0-10 % Basophils (%) (Auto) 1 0-10 % Neutrophils # (Auto) 8.6 H 1.8-7.8 10^3/uL Lymphocytes # (Auto) 0.5 L 1.0-4.0 10^3/uL Monocytes # (Auto) 0.2 0.0-1.0 10^3/uL Eosinophils # (Auto) 0.0 0.0-0.3 10^3/uL Basophils # (Auto) 0.1 0.0-0.1 10^3/uL Immature Granulocyte # (Auto) 0.0 0.0-0.1 10^3/uL Neutrophils % (Manual) 88 % Lymphocytes % (Manual) 5 % Monocytes % (Manual) 6 % Eosinophils % (Manual) 1 % Blood Morphology Comment NORMAL Prothrombin Time 13.3 12.2-14.7 SEC INR Comment 1.0 0.8-1.4 Activated Partial Thromboplast Time 29 24-35 SEC Sodium Level 135 135-145 MMOL/L Potassium Level 4.1 3.6-5.0 MMOL/L Chloride Level 100 98-107 MMOL/L Carbon Dioxide Level 19 L 21-32 MMOL/L Anion Gap 16 H 5-14 MMOL/L Blood Urea Nitrogen 31 H 7-18 MG/DL Creatinine 1.51 H 0.60-1.30 MG/DL Estimat Glomerular Filtration Rate 32 BUN/Creatinine Ratio 21 Glucose Level 143 H 70-105 MG/DL Calcium Level 9.1 8.5-10.1 MG/DL Corrected Calcium 9.3 8.5-10.1 MG/DL Magnesium Level 1.9 1.6-2.4 MG/DL Total Bilirubin 1.2 H 0.1-1.0 MG/DL Aspartate Amino Transf (AST/SGOT) 57 H 5-34 U/L Alanine Aminotransferase (ALT/SGPT) 38 0-55 U/L Alkaline Phosphatase 109 40-136 U/L Total Creatine Kinase 230 H 29-168 U/L Creatine Kinase MB 7.0 *H <6.6 NG/ML Myoglobin 540.0 H 10.0-92.0 NG/ML Troponin I 0.099 H <0.028 NG/ML B-Type Natriuretic Peptide 511.3 H <100.0 PG/ML Total Protein 7.1 6.4-8.2 GM/DL Albumin 3.7 3.2-4.5 GM/DL Amylase Level 60 25-125 U/L Lipase < 4 L 8-78 U/L TSH [place] Testing 1.37 0.35-4.94 UIU/ML My Orders Orders - OLGA MAGAÑA DO Ed Iv/Invasive Line Start (08/17/20 20:11) Ekg Tracing (08/17/20 20:11) Monitor-Rhythm Ecg Trace Only (08/17/20 20:11) Amylase (08/17/20 20:11) BNP (08/17/20 20:11) Cbc With Automated Diff (08/17/20 20:11) Comprehensive Metabolic Panel (08/17/20 20:11) Creatine Kinase (08/17/20 20:11) Creatine Kinase Mb (08/17/20 20:11) Lipase (08/17/20 20:11) Magnesium (08/17/20 20:11) Protime With Inr (08/17/20 20:11) Partial Thromboplastin Time (08/17/20 20:11) Thyroid Analyzer (08/17/20 20:11) Ua Culture If Indicated (08/17/20 20:11) Myoglobin Serum (08/17/20 20:11) Troponin I (08/17/20 20:11) Ondansetron Injection (Zofran Injectio (08/17/20 20:30) Ed Iv/Invasive Line Start (08/17/20 20:20) Lactated Ringers (Lr 1000 Ml Iv Solution (08/17/20 20:30) Manual Differential (08/17/20 20:10) Catheter(Urinary) Insert & Ass 03,15 (08/17/20 20:46) Meropenem (Merrem 500 Mg) (08/17/20 21:00) Vancomycin Injection (Vancomycin Injecti (08/17/20 21:00) Metoprolol Tartrate Injection (Lopressor (08/17/20 21:00) Ekg Tracing (08/17/20 21:04) Medications Given in ED Current Medications Medications Dose Ordered Sig/Khadijah Route Start Time Stop Time Status Last Admin Dose Admin Lactated Ringer's 1,000 ml @ 0 mls/hr Q0M ONCE IV 08/17/20 20:30 08/17/20 20:31 DC 08/17/20 20:35 0 MLS/HR Meropenem 500 mg/ Sterile Water 10 ml @ 200 mls/hr ONCE ONCE IV 08/17/20 21:00 08/17/20 21:02 DC 08/17/20 21:18 200 MLS/HR Metoprolol Tartrate 5 mg ONCE ONCE IV 08/17/20 21:00 08/17/20 21:01 DC 08/17/20 21:49 5 MG Ondansetron HCl 4 mg ONCE ONCE IVP 08/17/20 20:30 08/17/20 20:31 DC 08/17/20 20:35 4 MG Vancomycin HCl 1000 mg/Sodium Chloride 250 ml @ 250 mls/hr ONCE ONCE IV 08/17/20 21:00 08/17/20 21:59 DC 08/17/20 21:21 250 MLS/HR Vital Signs/I&O 08/17/20 20:15 Temp 36.7 Pulse 83 Resp 20 B/P (MAP) 194/77 (116) Pulse Ox 93 O2 Delivery Room Air Capillary Refill : Less Than 3 Seconds Blood Pressure Mean: 116 Progress Note : Progress Note GIVEN IV FLUIDS, ZOFRAN AND ANTIBIOTICS ALSO GAVE LOPRESSOR FOR PERSISTENTLY ELEVATED BLOOD PRESSURE--PT HAS NOT BEEN ABLE TO TAKE HER MEDICATIONS TODAY DUE TO NAUSEA/VOMITING ALSO GAVE DOSE OF LASIX FOR CHF, AND DOSE OF LOVENOX FOR ELEVATED TROPONIN PT SPIKED TEMP OF 39.1 PRIOR TO ADMIT ( 102.4) --GIVEN TYLENOL ECG Initial ECG Impression Date: Aug 17, 2020 Initial ECG Impression Time: 20:21 Initial ECG Rate: 105 Initial ECG Comparisson: Unchanged Comment 100% VENTRICULAR PACED RHYTHM, WITH FREQUENT PVC'S EKG : EKG Time: 21:08 Rate: 114 ECG Comparisson: Unchanged Comment 100% VENTRICULAR PACED, WITH FREQUENT PVC'S Diagnostic Imaging Comments CXR--PER RADIOLOGIST REPORT AT 2144 There is suboptimal inspiration which limits evaluation. Heart size and pulmonary vascularity are at the upper limits of normal with mild increased density in the perihilar regions. There does appear to be large hiatal hernia. There is no evidence for pneumothorax. IMPRESSION: Limited study due to hypoventilation with probable bilateral perihilar edema and/or pneumonitis. There is also large hiatal hernia and follow-up PA and lateral views of the chest would be useful. Reviewed: Reviewed by Me Departure Communication (Admissions) 2045--DR. GALARZA CALLED, TEST RESULTS STILL PENDING. SHE ADVISES TO ADMIT PT AND START ON MEROPENEN AND GIVE 1 DOSE OF VANCOMYCIN IN ER. SHE REPORTS THAT PT HAS TOLERATED MEROPENEM IN PAST. ALSO ADVISES CONSULTING CARDIOLOGY REGARDING PALPITATIONS AND FREQUENT PVC'S 2050--SPOKE WITH DR. MALDONADO, BICYCLE MECHANIC RAILWAYS ASSISTANT. LAB STILL PENDING. HE ADVISES GIVING LOPRESSOR 5 MG EVERY 6 HOURS PT IS NOT ABLE TO TOLERATE PO MEDICATIONS DUE TO NAUSEA AT THIS TIME 2114--SPOKE WITH DR. GALARZA, UPDATED HER ON CONDITION AND LAB RESULTS. WILL ADMIT TO ICU AND CONTINUE PREVIOUS RECOMMENDATIONS 2119--SPOKE WITH DR. MALDONADO AND UPDATED HIM ON PT'S CONDITION, WILL GIVE A SINGLE DOSE OF LOVENOX HERE IN HER, HAVE ECHOCARDIOGRAM IN AM. 2134--REPORT GIVEN TO E-ICU PHYSICIAN Impression Primary Impression: Urinary tract infection Additional Impressions: Dehydration Elevated troponin Presence of permanent cardiac pacemaker Frequent PVCs HTN (hypertension) Failure of outpatient treatment Generalized weakness CHF (congestive heart failure) Sepsis Disposition: ADMITTED INPATIENT Condition: Stable Admissions Decision to Admit Reason: Admit from ER (General) Decision to Admit/Date: Aug 17, 2020 Time/Decision to Admit Time: 20:45 Departure-Patient Inst. Referrals: DANA GALARZA DO (PCP/Family) Primary Care Physician OLGA MAGAÑA DO Aug 17, 2020 20:45
[2020-08-17 20:46] LABS: ALANINE AMINOTRANSFERASE 38 U/L (0-55); ALBUMIN 3.7 GM/DL (3.2-4.5); ALKALINE PHOSPHATASE 109 U/L (40-136); AMYLASE 60 U/L (25-125); BILIRUBIN,TOTAL 1.2 MG/DL (0.1-1.0); BUN/CREATININE RATIO 21; CALCIUM 9.1 MG/DL (8.5-10.1); CARBON DIOXIDE 19 MMOL/L (21-32); CHLORIDE 100 MMOL/L (98-107); CREATINE KINASE 230 U/L (29-168); CREATININE SERUM 1.51 MG/DL (0.60-1.30); GFR ESTIMATED 32; GLUCOSE 143 MG/DL (70-105); LIPASE < 4 U/L (8-78); MAGNESIUM 1.9 MG/DL (1.6-2.4); POTASSIUM 4.1 MMOL/L (3.6-5.0); SODIUM 135 MMOL/L (135-145); TOTAL PROTEIN 7.1 GM/DL (6.4-8.2)
[2020-08-17 20:47] LABS: EOSINOPHILS % (MANUAL) 1 %; LYMPHOCYTES % (MANUAL) 5 %; MONOCYTES % (MANUAL) 6 %; NEUTROPHILS % (MANUAL) 88 %; RBC MORPH NORMAL
[2020-08-17] MEDS ORDERED: meTOprolol 5 MG/5 ML (LOPRESSOR) VIAL IV ONE (21:00)
[2020-08-17] MEDS ORDERED: MEROPENEM 500 MG in WATER (STERILE) FOR INJECTION 10 ML IV ONE (21:00)
[2020-08-17] MEDS ORDERED: VANCOMYCIN INJECTION 1,000 MG in NS (IVPB) 250 ML IV ONE (21:00)
[2020-08-17 21:05] LABS: TSH (THYROID ANALYZER) 1.37 UIU/ML (0.35-4.94)
[2020-08-17] MEDS ORDERED: ENOXAPARIN 60 MG/0.6 ML (LOVENOX) SYR SC ONE (21:30)
--- NOTE | 2020-08-17 21:41 | Diagnostic Imaging Report ---
INDICATION: Hives and irregular heart beat. EXAMINATION: AP view of the chest was obtained. COMPARISON: Study of 06/20/2019. There is suboptimal inspiration which limits evaluation. Heart size and pulmonary vascularity are at the upper limits of normal with mild increased density in the perihilar regions. There does appear to be large hiatal hernia. There is no evidence for pneumothorax. IMPRESSION: Limited study due to hypoventilation with probable bilateral perihilar edema and/or pneumonitis. There is also large hiatal hernia and follow-up PA and lateral views of the chest would be useful. Dictated by: Dictated on workstation # [id number]
[2020-08-17] MEDS ORDERED: FUROSEMIDE 40 MG/4 ML INJ (LASIX) IVP ONE (21:45)
[2020-08-17 21:55] LABS: BILIRUBIN,URINE NEGATIVE (NEGATIVE); CLARITY,URINE CLEAR; COLOR,URINE YELLOW; GLUCOSE, URINE (UA) NEGATIVE (NEGATIVE); KETONES,URINE TRACE (NEGATIVE); LEUKOCYTE ESTERASE ,URINE 2+ (NEGATIVE); NITRITE,URINE NEGATIVE (NEGATIVE); PROTEIN,URINE 2+ (NEGATIVE)
[2020-08-17] MEDS ORDERED: ACETAMINOPHEN 500 MG TAB (TYLENOL) PO ONE (22:15)
[2020-08-17 22:20] LABS: AMORPHOUS SEDIMENT,UR FEW AMOR URATES /LPF; BACTERIA,URINE MODERATE /HPF; SQUAMOUS EPITHELIAL CELL,UR 0-2 /HPF; WBC,URINE 25-50 /HPF
[2020-08-17] MEDS ORDERED: D5 1/2 NS W/KCL 40 MEQ/L 1,000 ML IV ONE (22:44)
[2020-08-17] MEDS ORDERED: ACETAMINOPHEN 500 MG TAB (TYLENOL) PO PRN (23:15)
[2020-08-17] MEDS ORDERED: D5 1/2 NS W/KCL 40 MEQ/L 1,000 ML IV SCH (23:15)
[2020-08-17] MEDS ORDERED: ONDANSETRON 4 MG/2 ML (SDV) Z0FRAN IV PRN (23:15)
[2020-08-18] MEDS ORDERED: meTOprolol 5 MG/5 ML (LOPRESSOR) VIAL IV SCH (03:00)
[2020-08-18 03:43] LABS: ALBUMIN 2.8 GM/DL (3.2-4.5); BILIRUBIN,TOTAL 0.6 MG/DL (0.1-1.0); CALCIUM 8.1 MG/DL (8.5-10.1); CREATININE SERUM 1.49 MG/DL (0.60-1.30); POTASSIUM 4.4 MMOL/L (3.6-5.0); TOTAL PROTEIN 5.4 GM/DL (6.4-8.2)
[2020-08-18 04:36] LABS: BASOPHILS # (AUTO) 0.1 10^3/uL (0.0-0.1); BASOPHILS % (AUTO) 0 % (0-10); EOSINOPHILS # (AUTO) 0.1 10^3/uL (0.0-0.3); EOSINOPHILS % (AUTO) 1 % (0-10); HEMATOCRIT 33 % (35-52); HEMOGLOBIN 10.4 g/dL (11.5-16.0); LYMPHOCYTES # (AUTO) 0.9 10^3/uL (1.0-4.0); LYMPHOCYTES % (AUTO) 8 % (12-44); MEAN CORPUSCULAR HEMOGLOBIN 28 pg (25-34); MEAN CORPUSCULAR HGB CONC 31 g/dL (32-36); MEAN CORPUSCULAR VOLUME 90 fL (80-99); MEAN PLATELET VOLUME 10.8 fL (9.0-12.2); MONOCYTES # (AUTO) 1.4 10^3/uL (0.0-1.0); MONOCYTES % (AUTO) 12 % (0-12); NEUTROPHILS # (AUTO) 9.1 10^3/uL (1.8-7.8); NEUTROPHILS % (AUTO) 79 % (42-75); PLATELET COUNT 254 10^3/uL (130-400); WHITE BLOOD COUNT 11.5 10^3/uL (4.3-11.0)
[2020-08-18 05:10] LABS: BAND NEUTROPHILS 3 %; LYMPHOCYTES % (MANUAL) 5 %; MONOCYTES % (MANUAL) 10 %; NEUTROPHILS % (MANUAL) 86 %; RBC MORPH NORMAL
--- NOTE | 2020-08-18 05:29 | Pulmonary Consultation ---
History of Present Illness History of Present Illness Date Seen by Provider: Aug 18, 2020 Time Seen by Provider: 05:23 Date of Admission Allergies and Home Medications Allergies Coded Allergies: Sulfa (Sulfonamide Antibiotics) (Verified Allergy, Unknown, 07/04/20) cephalexin (Verified Allergy, Unknown, 07/04/20) ciprofloxacin (Verified Allergy, Unknown, 07/04/20) hydrocodone (Verified Allergy, Unknown, 07/04/20) iodine (Verified Allergy, Unknown, 07/04/20) meperidine (Verified Allergy, Unknown, 07/04/20) metronidazole (Verified Allergy, Unknown, 07/04/20) propoxyphene (Verified Allergy, Unknown, 07/04/20) rosuvastatin (Verified Allergy, Unknown, 07/04/20) simvastatin (Verified Allergy, Unknown, 07/04/20) Home Medications Allopurinol 100 Mg Tablet, 100 MG PO HS, (Reported) Amoxicillin/Potassium Clav 1 Each Tablet, 1 EACH PO BID Prescribed by: DANA GALARZA on 07/08/20 1140 Aspirin 81 Mg Tab.chew, 81 MG PO DAILY, (Reported) Cholecalciferol (Vitamin D3) 25 Mcg Tablet, 25 MCG PO HS, (Reported) Clonidine HCl 0.1 Mg Tablet, 0.1 MG PO TID, (Reported) Cyanocobalamin (Vitamin B-12) 1,000 Mcg Tablet, 1,000 MCG PO HS, (Reported) Diltiazem HCl 240 Mg Cap.er.24h, 240 MG PO HS, (Reported) Levothyroxine Sodium 50 Mcg Tablet, 50 MCG PO DAILY, (Reported) l Gasseri/B Bifidum/B Longum 1 Each Capsule, 1 EACH PO HS, (Reported) Past Pxffjuf-[id number]-Qurjtc Hx Past Med/Social Hx: Reviewed and Corrections made Patient Social History Alcohol Use: Denies Use Drug of Choice: DENIES Smoking Status: Never a Smoker Recent Infectious Disease Expo: No Recent Hopitalizations: Yes Have you traveled recently?: No Alcohol Use?: No Immunizations Up To Date Tetanus Booster (TDap): More than 5yrs PED Vaccines UTD: No Date of Pneumonia Vaccine: Jul 13, 2017 Date of Influenza Vaccine: Feb 03, 2021 Seasonal Allergies Seasonal Allergies: No Past Medical History Surgeries: Yes (HYST/BSO FOR BENIGN DISEASE; LEFT SHOULDER REPLACEMENT; C- SECTION X 1) Section, Hysterectomy, Oophorectomy, Orthopedic, Pacemaker Respiratory: No Currently Using CPAP: No Currently Using BIPAP: No Cardiac: Yes (PERMANENT PACEMAKER IN PLACE) Atrial Fibrillation, High Cholesterol, Hypertension Neurological: Yes Neuropathy 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, 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 PT HAD BEEN ON ELIQUIS FOR ATRIAL FIBRILLATION AT THAT TIME, IT WAS DISCONTINUED AND PT MAINTAINED ON ASPIRIN SINCE THEN. Review of Systems Time Seen by Provider: 05:33 Sepsis Event Evaluation Height, Weight, BMI Height: 5'0.00" Weight: 143lbs. 0.0oz. 64.530779kr; 27.11 BMI Method:Stated Exam Exam Vital Signs Date Time Temp Pulse Resp B/P (MAP) Pulse Ox O2 Delivery O2 Flow Rate FiO2 08/18/20 05:00 60 20 122/60 (80) 97 Nasal Cannula 2.00 08/18/20 04:00 61 18 120/58 (78) 97 Nasal Cannula 2.00 08/18/20 04:00 95 Nasal Cannula 2.00 08/18/20 03:00 60 16 104/54 (71) 98 Nasal Cannula 2.00 08/18/20 02:00 61 16 114/53 (73) 97 Nasal Cannula 2.00 08/18/20 01:00 70 08/18/20 01:00 54 22 106/52 (70) 97 Nasal Cannula 2.00 08/18/20 00:45 69 21 104/55 (71) 98 Nasal Cannula 2.00 08/18/20 00:40 Nasal Cannula 2.00 08/18/20 00:15 70 18 116/53 (74) 96 Nasal Cannula 2.00 08/17/20 23:59 95 Nasal Cannula 2.00 08/17/20 23:45 71 22 108/56 (73) 96 Nasal Cannula 2.00 08/17/20 23:30 74 18 117/57 (77) 96 Nasal Cannula 2.00 08/17/20 23:15 78 23 120/59 (79) 96 Nasal Cannula 2.00 08/17/20 23:14 80 08/17/20 23:00 65 17 134/62 (86) 94 Nasal Cannula 2.00 08/17/20 22:45 95 Nasal Cannula 2.00 08/17/20 22:45 38.1 73 20 121/64 (116) 95 Room Air 2.00 08/17/20 22:28 95 Nasal Cannula 2.00 08/17/20 22:17 39.1 08/17/20 20:15 36.7 83 20 194/77 (116) 93 Room Air I & O 08/18/20 06:59 Intake Total 1260 ml Balance 1260 ml Height & Weight Height: 5'0.00" Weight: 143lbs. 0.0oz. 64.121587gv; 27.11 BMI Method:Stated General Appearance: No Apparent Distress, WD/WN, Thin, Other (FRAIL, SOMEWHAT LETHARGIC. 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
[2020-08-18] MEDS ORDERED: LACTATED RINGERS 1,000 ML IV SCH (05:30)
[2020-08-18] MEDS ORDERED: LACTATED RINGERS 1,000 ML IV ONE (05:32)
[2020-08-18] MEDS ORDERED: POTASSIUM CL 10MEQ/50ML IVPB 50 ML IV SCH (06:00)
[2020-08-18] MEDS ORDERED: MAGNESIUM 1 GM/100 ML IVPB 100 ML IV SCH (06:00)
[2020-08-18] MEDS ORDERED: KCL 20 MEQ TAB (K-DUR) PO SCH (06:00)
[2020-08-18] MEDS ORDERED: CATHETER FLUSH 10 ML SYR IV PRN (07:00)
--- NOTE | 2020-08-18 07:53 | Consultation-Cardiology ---
HPI-Cardiology Cardiology Consultation: Date of Consultation 08/18/20 Time Seen by a Provider: 08:45 Date of Admission 08-17-20 Attending Physician Aliya Galarza DO Admitting Physician Aliya Galarza DO Consulting Physician Haylee Ernandez MD HPI: Chief Complaint: Gen weakness Ms. Tee is an 89 yr old female admitted to ICU 7 from the ED. She reports over the last several days she has had increasing weakness, chills, fatigue, nausea and vomiting. She reports she checked her BP at home and it has been elevated. She reports she has had a feeling of an irregular heartbeat. No c/o LE swelling. No c/o syncope or near syncope. She reports she did a UA yesterday and was diagnosed with a UTI by her PCP. She took one dose of abx, but d/t continually feeling unwell she came to the ED. She is sitting on the side of the bed and states she is feeling better this morning. Review of Systems-Cardiology Review of Systems Constitutional: chills, fever, malaise Eyes: No vision change Ears/Nose/Throat: No recent hearing loss Gastrointestinal: As described under HPI Genitourinary: As described under HPI; No hematuria Musculoskeletal: no symptoms reported Skin: No rash on exposed areas, No ulcerations on exposed areas Psychiatric/Neurological: No anxiety, No depression, No seizure, No focal weakness, No syncope Hematologic: No bleeding abnormalities [facility] Hx Patient Social History Smoking Status: Never a Smoker Have you traveled recently?: No Alcohol Use?: No Pt feels they are or have been: No Immunizations Up To Date Tetanus Booster (TDap): More than 5yrs Date of Pneumonia Vaccine: Jul 13, 2017 Date of Influenza Vaccine: Feb 03, 2021 Past Medical History PMH As described under Assessment. Family Medical History Family Medical History: She has a reported family h/o father and brothers x 3 with CAD. She reports she had a brother who had a CVA Family History: 19 FATHER Cardiovascular disease G8 BROTHER Myocardial infarction G8 BROTHER Myocardial infarction Completed stroke G8 BROTHER Myocardial infarction Allergies and Home Medications Allergies Coded Allergies: Sulfa (Sulfonamide Antibiotics) (Verified Allergy, Unknown, 07/04/20) cephalexin (Verified Allergy, Unknown, 07/04/20) ciprofloxacin (Verified Allergy, Unknown, 07/04/20) hydrocodone (Verified Allergy, Unknown, 07/04/20) iodine (Verified Allergy, Unknown, 07/04/20) meperidine (Verified Allergy, Unknown, 07/04/20) metronidazole (Verified Allergy, Unknown, 07/04/20) propoxyphene (Verified Allergy, Unknown, 07/04/20) rosuvastatin (Verified Allergy, Unknown, 07/04/20) simvastatin (Verified Allergy, Unknown, 07/04/20) Home Medications Acetaminophen 325 Mg Tablet, 325-650 MG PO Q8H PRN for PAIN-MILD (1-4), (Reported) Last Action: Continued Allopurinol 100 Mg Tablet, 100 MG PO HS, (Reported) Last Action: Continued Aspirin 81 Mg Tablet.dr, 81 MG PO DAILY Prescribed by: ALIYA GALARZA on 08/21/20 1240 Cefdinir 300 Mg Capsule, 300 MG PO BID, (Reported) FILLED 08-17-2020 #14/7 DAY SUPPLY Last Action: Held Cholecalciferol (Vitamin D3) 25 Mcg Tablet, 25 MCG PO HS, (Reported) Last Action: Continued Clonidine HCl 0.1 Mg Tablet, 0.1 MG PO TID, (Reported) Last Action: Continued Diltiazem HCl 240 Mg Cap.er.24h, 240 MG PO HS, (Reported) Last Action: Continued Levothyroxine Sodium 50 Mcg Tablet, 50 MCG PO DAILY, (Reported) Last Action: Continued l Gasseri/B Bifidum/B Longum 1 Each Capsule, 1 EACH PO HS, (Reported) Last Action: Held Physical Exam-Cardiology Physical Exam Vital Signs/I&O Capillary Refill : Less Than 3 Seconds Constitutional: AAO x 3, well-developed, well-nourished HEENT: PERRL, hearing is well preserved, oral hygience is good Neck: No carotid bruit; carotid pulses are 2 + bilaterally Respiratory: No accessory muscle use, No respiratory distress; chest expansion is symmetric, chest is bilaterally symmetric, lungs clear to auscultation Cardiovascular: irregularly irregular; No JVD; S1 and S2 Gastrointestinal: No tender; soft, round, audible bowel sounds Extremities: no lower extremity edema bilateral Neurologic/Psychiatric: grossly intact (moves all extremities) Skin: No rash on exposed areas, No ulcerations on exposed areas Data Review Labs Microbiology 08/17/20 MRSA Screen - Final, Complete MRSA not isolated 08/17/20 Urine Culture - Final, Complete NO GROWTH Radiology NAME: CHARMAINE TEE [facility] REC#: [id number] PT STATUS: ADM Puja : 1930 PHYSICIAN: OLGA MAGAÑA DO ADMIT DATE: 08/17/20/ICU Signed Date of Exam:08/17/20 CHEST 1 VIEW, AP/PA ONLY INDICATION: Hives and irregular heart beat. EXAMINATION: AP view of the chest was obtained. COMPARISON: Study of 06/20/2019. There is suboptimal inspiration which limits evaluation. Heart size and pulmonary vascularity are at the upper limits of normal with mild increased density in the perihilar regions. There does appear to be large hiatal hernia. There is no evidence for pneumothorax. IMPRESSION: Limited study due to hypoventilation with probable bilateral perihilar edema and/or pneumonitis. There is also large hiatal hernia and follow-up PA and lateral views of the chest would be useful. 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 No distinct evidence of pericarditis. 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 Limited echo on 06/18/19: normal LVEF, small amount pericardial fluid (within physiologic limit and not much different from 06/18/19). Limited echo non 06/19/19: normal LVEF, small amount of pericardial fluid (no significant change compared to 06/18/19) Mild carotid arterial disease on carotid u/s of 08/24/19 Hypertension Reported intolerance to BB tx d/t insomnia Discussion and Recomendations Management of UTI per medical services Mildly elevated troponin NSTEMI - no c/o CP Continue current medication regimen Previously taking OAC in 2019 d/t PAF - stopped d/t spontaneous hematoma - has been on ASA tx alone since Continue ASA Continue Cardizem CD Monitor lab Replace electrolytes as indicated Further recs will be based on her hospital course We would like to thank medical services for this consult JYOTHI CLARK Aug 18, 2020 07:52
[2020-08-18] MEDS: MEROPENEM 1,000 MG/SWFI 20 ML IV PUSH IV SCH ×4 (08:37→20:29)
[2020-08-18] MEDS ORDERED: ASPIRIN E.C. 81 MG (ECOTRIN) TAB PO SCH (09:00)
--- NOTE | 2020-08-18 09:01 | Diagnostic Imaging Report ---
INDICATION: Follow-up shortness of air. Time of exam: 3:32 AM Correlation is made with prior chest from one day earlier. Heart size is stable. Cardiac pacemaker remains in place. Right hemidiaphragm is chronically elevated. There appears to be a large hiatal hernia present. Lungs are fairly clear. No significant effusion or pneumothorax is seen. IMPRESSION: Overall stable appearance of chest when compared with examination one day earlier. Dictated by: Dictated on workstation # [id number]
[2020-08-18] MEDS ORDERED: CEFD300C3 PO (11:59)
[2020-08-18] MEDS ORDERED: ACET325T38 PO (11:59)
[2020-08-18] MEDS ORDERED: ASPI-1238 PO (11:59)
--- NOTE | 2020-08-18 12:18 | History & Physical ---
MERIRADHAYUN MED STUDENT 08/18/20 1218: History of Present Illness History of Present Illness Reason for visit/HPI HPI Per ER: PT ARRIVES VIA POV FROM HOME WITH DAUGHTER. PT STATES SHE HAS BEEN HAVING NAUSEA AND DRY HEAVES SINCE LAST NIGHT. SAW DR. GALARZA TODAY AND DX WITH UTI AND PLACED ON UNKNOWN ANTIBIOTIC--HAS HAD ONE DOSE ( OMNICEF). C/O "IRREGULAR HEARTBEAT WITH MY PACEMAKER" FOR THE LAST 3 DAYS. NO CHEST PAIN. NO SHORTNESS OF BREATH. NO SYNCOPE. C/O MILD LOW BACK PAIN. NO ABDOMINAL PAIN. NO DIARRHEA--LAST BM YESTERDAY OR DAY BEFORE--NORMAL FOR PT. NO FEVER, BUT WOKE UP LAST NIGHT WITH SWEATS AND THEN HAD CHILLS. TODAY PT HAS BEEN TOO WEAK TO STAND. FEMALE FRIEND STATES SHE HAS BEEN SICK SINCE WITH GENERALIZED WEAKNESS AND "JUST NOT FEELING WELL" WITHOUT ANY OTHER SPECIFIC SYMPTOMS. TOOK AM MEDICATIONS BUT NONE OF HER REGULAR MEDICATIONS SINCE THEN. Pt is a 89y/o F PMH: hx of Parotitis last month, PAF, HTN, HLP, Hypothyroidism who presents to ED yesterday from home due to generalized malaise weakness and dehydration. Pt states intractable vomiting/dry heaving starting 08/16 nighttime. Pt was diagnosed with a UTI yesterday as outpt and placed on cefdinir. Pt initially did not have a fever at ER but developed 102.4F temp pending admission. Pt endores a hx of generalized malaise and weakness for the last co uple weeks. Pt denied any recent chest pain, abd pain, cough or diarrhea. Additionally, patient states her pacemaker has been telling her she has a irregular heartbeat the past several days. Subsequent workup in the ER showed a elevated creatinine over baseline and elevated troponin. Pt has a hx of spontaneous hemarthrosis in November while on eliquis for PAF, which was thus discontinued and aspirin added. Today she states nausea is much improved, though still present with anorexia. Pt endores unilateral R leg swelling with calf pain. No other complaints today. Date of Admission Aug 17, 2020 at 21:15 Date Seen by a Provider: Aug 18, 2020 I consulted on this patient on 08/18/20 12:01 Attending Physician Aliya Galarza DO Admitting Physician Aliya Galarza DO Consult Pulmonology, Dr. Martinez Cardiology, Dr. Pereyra Allergies and Home Medications Allergies Coded Allergies: Sulfa (Sulfonamide Antibiotics) (Verified Allergy, Unknown, 07/04/20) cephalexin (Verified Allergy, Unknown, 07/04/20) ciprofloxacin (Verified Allergy, Unknown, 07/04/20) hydrocodone (Verified Allergy, Unknown, 07/04/20) iodine (Verified Allergy, Unknown, 07/04/20) meperidine (Verified Allergy, Unknown, 07/04/20) metronidazole (Verified Allergy, Unknown, 07/04/20) propoxyphene (Verified Allergy, Unknown, 07/04/20) rosuvastatin (Verified Allergy, Unknown, 07/04/20) simvastatin (Verified Allergy, Unknown, 07/04/20) Home Medications Acetaminophen 325 Mg Tablet, 325-650 MG PO Q8H PRN for PAIN-MILD (1-4), (Reported) Last Action: Continued Allopurinol 100 Mg Tablet, 100 MG PO HS, (Reported) Last Action: Continued Aspirin 81 Mg Tablet.dr, 81 MG PO RITCHIE,,,,,SAT, (Reported) TAKES EVERYDAY EXCEPT SATURDAY Last Action: Continued Cefdinir 300 Mg Capsule, 300 MG PO BID, (Reported) FILLED 08-17-2020 #14/7 DAY SUPPLY Last Action: Held Cholecalciferol (Vitamin D3) 25 Mcg Tablet, 25 MCG PO HS, (Reported) Last Action: Continued Clonidine HCl 0.1 Mg Tablet, 0.1 MG PO TID, (Reported) Last Action: Continued Diltiazem HCl 240 Mg Cap.er.24h, 240 MG PO HS, (Reported) Last Action: Continued Levothyroxine Sodium 50 Mcg Tablet, 50 MCG PO DAILY, (Reported) Last Action: Continued l Gasseri/B Bifidum/B Longum 1 Each Capsule, 1 EACH PO HS, (Reported) Last Action: Held Past Gzbswlm-Isxhqj-Pqpclz Hx Patient Social History Drug of Choice: DENIES Smoking Status: Never a Smoker Recent Hopitalizations: Yes Have you traveled recently?: No Alcohol Use?: No Pt feels they are or have been: No Immunizations Up To Date Tetanus Booster (TDap): More than 5yrs Pediatric: No Date of Pneumonia Vaccine: Jul 13, 2017 Date of Influenza Vaccine: Feb 03, 2021 Seasonal Allergies Seasonal Allergies: No Surgeries Yes (HYST/BSO FOR BENIGN DISEASE; LEFT SHOULDER REPLACEMENT; X 1) Section, Hysterectomy, Oophorectomy, Orthopedic, Pacemaker Respiratory No Currently Using CPAP: No Currently Using BIPAP: No Cardiovascular Yes (PERMANENT PACEMAKER IN PLACE) Atrial Fibrillation, High Cholesterol, Hypertension Neurological Yes Neuropathy 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 System Hx 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 Disorders: 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 History: Hysterectomy, Menopausal Genitourinary No Bladder Infection Gastrointestinal Yes Diverticulosis, Hiatal Hernia Musculoskeletal Yes (LEFT SHOULDER REPLACEMENT) Gout Endocrine History of Endocrine Disorders: Yes Endocrine Disorders: Hypothyroidsim HEENT 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 PT HAD BEEN ON ELIQUIS FOR ATRIAL FIBRILLATION AT THAT TIME, IT WAS DISCONTINUED AND PT MAINTAINED ON ASPIRIN SINCE THEN. Family Hx: Cardiovascular disease 19 FATHER Completed stroke G8 BROTHER Myocardial infarction G8 BROTHER G8 BROTHER G8 BROTHER Review of Systems Constitutional: chills (endores night sweats); No dizziness; malaise, weakness EENTM: No hoarseness, No throat pain Respiratory: No cough, No dyspnea on exertion Cardiovascular: No chest pain, No palpitations Gastrointestinal: No abdominal pain, No constipation, No diarrhea Genitourinary: other (catheter in place) Musculoskeletal: gout (hx of gout ), joint swelling (R 1st MTP ) Skin: No pruritus, No rash Psychiatric/Neurological: Denies Headache, Denies Tremors; Weakness Physical Exam Vital Signs Vital Signs - First Documented 08/17/20 08/17/20 20:15 22:28 Temp 36.7 Pulse 83 Resp 20 B/P (MAP) 194/77 (116) Pulse Ox 93 O2 Delivery Room Air O2 Flow Rate 2.00 Capillary Refill : Less Than 3 Seconds Height, Weight, BMI Height: 5'0.00" Weight: 143lbs. 0.0oz. 64.962655rd; 27.11 BMI Method:Stated General Appearance: No Apparent Distress, Thin HEENT: Normal ENT Inspection, Moist Mucous Membranes Neck: Normal Inspection Respiratory: Lungs Clear, Normal Breath Sounds, No Accessory Muscle Use, No Respiratory Distress Cardiovascular: No Murmur, Normal Peripheral Pulses, Irregularly Irregular Gastrointestinal: Normal Bowel Sounds, Non Tender, Soft Rectal: Deferred Genital/Rectal: Other (cather in place ) Extremity: Calf Tenderness (R sided ), Pedal Edema Neurologic/Psychiatric: Alert, Oriented x3, Normal Mood/Affect Skin: Normal Color, Warm/Dry Lymphatic: No Adenopathy Assessment/Plan Assessment and Plan ACS Troponin 0.167 this am from 0.099 yesterday echocardiogram this am Cardiology and pulmonology consulted Prerenal JULIA creatinine 1.49 this am from 1.51 yesterday. IV LRs UTI urine cultures pending IV meropenam and vanc Possible R-sided DVT Ultrasound R LE Normocytic anemia within pts baseline. PAF HTN hypothyroidism HLP gout diverticulosis restart home meds DVT prophylaxis SCD and aspirin Admission Diagnosis Admission Status: Inpatient Order (span 2 midnights) Reason for Inpatient Admission: ACS & UTI ALIYA GALARZA DO 08/19/20 0600: History of Present Illness History of Present Illness Reason for visit/HPI CC: Weakness with UTI HPI: This is an 89yoWF clinic pt of [employer] who I had just sent in Omnicef for a UTI who presented to the ER with weakness and nausea and vomiting with palpitations. She was found to have an elevated an elevated Troponin with acute coronary syndrome. Cardiology was consulted, BP has been stale although high, echocardiogram done. Pt was placed on Aspirin and her home medications along with Vancomycin and Meropenem due to recent parotid gland cellulitis with early abscess. Pt is at risk for early ESBL UTI. Pt will be transferred to the floor since she is stable. Date of Admission 08/17/20 Time Seen by a Provider: 11:00 Allergies and Home Medications Allergies Coded Allergies: Sulfa (Sulfonamide Antibiotics) (Verified Allergy, Unknown, 07/04/20) cephalexin (Verified Allergy, Unknown, 07/04/20) ciprofloxacin (Verified Allergy, Unknown, 07/04/20) hydrocodone (Verified Allergy, Unknown, 07/04/20) iodine (Verified Allergy, Unknown, 07/04/20) meperidine (Verified Allergy, Unknown, 07/04/20) metronidazole (Verified Allergy, Unknown, 07/04/20) propoxyphene (Verified Allergy, Unknown, 07/04/20) rosuvastatin (Verified Allergy, Unknown, 07/04/20) simvastatin (Verified Allergy, Unknown, 07/04/20) Home Medications Acetaminophen 325 Mg Tablet, 325-650 MG PO Q8H PRN for PAIN-MILD (1-4), (Reported) Last Action: Continued Allopurinol 100 Mg Tablet, 100 MG PO HS, (Reported) Last Action: Continued Aspirin 81 Mg Tablet.dr, 81 MG PO ,,,,,SAT, (Reported) TAKES EVERYDAY EXCEPT SATURDAY Last Action: Continued Cefdinir 300 Mg Capsule, 300 MG PO BID, (Reported) FILLED 08-17-2020 #14/7 DAY SUPPLY Last Action: Held Cholecalciferol (Vitamin D3) 25 Mcg Tablet, 25 MCG PO HS, (Reported) Last Action: Continued Clonidine HCl 0.1 Mg Tablet, 0.1 MG PO TID, (Reported) Last Action: Continued Diltiazem HCl 240 Mg Cap.er.24h, 240 MG PO HS, (Reported) Last Action: Continued Levothyroxine Sodium 50 Mcg Tablet, 50 MCG PO DAILY, (Reported) Last Action: Continued l Gasseri/B Bifidum/B Longum 1 Each Capsule, 1 EACH PO HS, (Reported) Last Action: Held Patient Home Medication List Home Medication List Reviewed: Yes Past Letetgf-Iyzvva-Codjdc Hx Patient Social History Marrital Status: Employed/Student: retired Smoking Status: Never a Smoker Alcohol Use?: No Cardiovascular Atrial Fibrillation, High Cholesterol, Hypertension Musculoskeletal Arthritis, Gout Family Medical History Family Hx: Cardiovascular disease 19 FATHER Completed stroke G8 BROTHER Myocardial infarction G8 BROTHER G8 BROTHER G8 BROTHER Review of Systems Constitutional: see HPI, fever, malaise, weakness Gastrointestinal: loss of appetite, nausea, vomiting Physical Exam General Appearance: No Apparent Distress, WD/WN, Chronically ill Eyes: Bilateral Eye Normal Inspection, Bilateral Eye PERRL, Bilateral Eye EOMI HEENT: PERRL/EOMI, Normal ENT Inspection, Pharynx Normal Neck: Full Range of Motion, Normal Inspection, Non Tender, Supple, Carotid Bruit Respiratory: Chest Non Tender, Lungs Clear, Normal Breath Sounds, No Accessory Muscle Use, No Respiratory Distress Cardiovascular: Regular Rate, Rhythm, No Edema, No Gallop, No JVD, No Murmur, Normal Peripheral Pulses Gastrointestinal: Normal Bowel Sounds, No Organomegaly, No Pulsatile Mass, Non Tender, Soft Back: Normal Inspection, No CVA Tenderness, No Vertebral Tenderness Extremity: Normal Capillary Refill, Normal Inspection, Normal Range of Motion, Non Tender, No Calf Tenderness, No Pedal Edema Neurologic/Psychiatric: Alert, Oriented x3, No Motor/Sensory Deficits, Normal Mood/Affect Skin: Normal Color, Warm/Dry Lymphatic: No Adenopathy Assessment/Plan Assessment and Plan Assessment: UTI ACS AF Right leg pain Plan: USG Monitor closely Cards Problems: (1) Urinary tract infection Status: Acute (2) Failure of outpatient treatment Status: Acute (3) Frequent PVCs Status: Acute (4) Presence of permanent cardiac pacemaker Status: Acute (5) Elevated troponin Status: Acute (6) HTN (hypertension) Status: Acute (7) CHF (congestive heart failure) Status: Acute Admission Diagnosis Admission Status: Observation Supervisory-Addendum Brief Verification & Attestation Participated in pt care: history, MDM, physical Personally performed: exam, history, MDM, supervision of care Care discussed with: Medical Student Procedures: n/a Results interpretation: Verified all documentation Verification and Attestation of Medical Student E/M Service A medical student performed and documented this service in my presence. I reviewed and verified all information documented by the medical student and made modifications to such information, when appropriate. I personally performed the physical exam and medical decision making. Aliya Galarza, Aug 19, 2020,06:00 YUN BUCKNER MED STUDENT Aug 18, 2020 12:18 ALIYA GALARZA DO Aug 19, 2020 06:00
--- NOTE | 2020-08-18 12:21 | Diagnostic Imaging Report ---
INDICATION: Pain and edema. TECHNIQUE: Multiple real-time grayscale images were obtained over the right lower extremity in various projections. Duplex and color Doppler imaging is performed. There are triphasic waveforms in the right common femoral artery and proximal right superficial femoral artery. Flow becomes biphasic in the mid to distal right superficial femoral artery and continues distally. Both the dorsalis pedis and posterior tibial patent up to the ankle. There is a heterogeneous area along the posterior medial popliteal fossa measuring 1.5 x 0.7 x 0.8 cm. Area of bruising and likely reflects hematoma. IMPRESSION: No evidence of high-grade stenosis or occlusion in the right lower extremity arterial system. Findings suspect for a hematoma along the posterior medial right popliteal fossa. Dictated by: Dictated on workstation # [id number]
[2020-08-18] MEDS: cloNIDine 0.1 MG (CATAPRES) TAB PO SCH ×2 (13:36→20:29)
[2020-08-18] MEDS: ACETAMINOPHEN 325 MG TABLET PO PRN ×2 (13:37→21:51)
[2020-08-18] MEDS: VANCOMYCIN INJECTION 1,000 MG in NS (IVPB) 250 ML IV SCH (13:38)
--- NOTE | 2020-08-18 13:45 | Physical Therapy Evaluation ---
PT Evaluation-General Medical Diagnosis Admission Date Aug 17, 2020 at 21:15 Medical Diagnosis: UTI/dehydration/HTN Onset Date: Aug 17, 2020 Therapy Diagnosis Therapy Diagnosis: generalized weakness/debility Height/Weight Height (Feet): 5 Height (Inches): 0.00 Weight (Pounds): 143 Weight (Ounces): 0.0 Precautions Precautions/Isolations: Fall Prevention, Standard Precautions Referral Physician: Jr Reason for Referral: Evaluation/Treatment Medical History Pertinent Medical History: Atrial Fib (pacemaker), Heart Failure, HTN, Hypothroidism, Neuropathy Current History ER secondary to N&V/weakness/fever/confusion Reviewed History: Yes Social History Home: Single Level Current Living Status: Alone Entry Into Home: Stairs With Railing PT Steps Into Home: 3 Prior Prior Level of Function SCALE: Activities may be completed with or without assistive devices. 3-Urkjpnskms-ztifbuo completes the activity by him/herself with no assistance from a helper. 5-Set-up or Clean-up Assistance-helper sets up or cleans up; patient completes activity. [place] assists only prior to or following the activity. 4-Supervision or Touching Assistance-helper provides verbal cues and/or touching/steadying and/or contact guard assistance as patient completes activ ity. Assistance may be provided throughout the activity or intermittently. 3-Partial/Moderate Assistance-helper does LESS THAN HALF the effort. [place] lifts, holds or supports trunk or limbs, but provides less than half the effort. 2-Substantial/Maximal Assistance-helper does MORE THAN HALF the effort. [place] lifts or holds trunk or limbs and provides more than half the effort. 3-Eczuscpuh-fwagmd does ALL the effort. Patient does none of the effort to complete the activity. Or, the assistance of 2 or more helpers is required for the patient to complete the activity. If activity was not attempted, code reason: 7-Patient Refused. 9-Not Applicable-not attempted and the patient did not perform the activity before the current illness, exacerbation or injury. 10-Not Attempted due to Environmental Limitations-(lack of equipment, weather restraints, etc.). 88-Not Attempted due to Medical Conditions or Safety Concerns. Bed Mobility: 6 Transfers (B,C,W/C): 6 Gait: 6 Stairs: 6 Indoor Mobility (Ambulation): Independent Prior Devices Use: Other-see list below SB PT Evaluation-Current Subjective Patient reluctantly agrees to PT. Family present. Objective Patient Orientation: Confused Attachments: Najera Catheter, IV ROM/Strength ROM Lower Extremities right LE limited due to pain/left LE WFL Strength Lower Extremities 3-/5 grossly bilateral LE Integumentary/Posture Integumentary refer to nursing notes Bladder Incontinence: Najera Cath Posture kyphosis (slight) Neuromuscular (Tone, Coordination, Reflexes) grossly intact Sensory Vision: Functional Hearing: Impaired Transfers Roll Left to Right (QC): 3 Sit to Lying (QC): 3 Lying to Sitting/Side of Bed(Q: 3 Sit to Stand (QC): 2 Gait Does the Patient Walk?: No and Walking Goal IS indicated Gait Assistive Device: FWW Balance Sitting Static: Fair Sitting Dynamic: Fair Standing Static: Fair Standing Dynamic: Poor Assessment/Needs 89 y.o.female, will benefit from skilled PT to address functional strength and mobility to improve current LOF to safely return to home at maximum LOF. Rehab Potential: Fair PT Land Acquisition Manager Goals Land Acquisition Manager Goals PT Land Acquisition Manager Goals Time Frame: September 03, 2020 Roll Left & Right (QC): 6 Sit to Lying (QC): 6 Lying-Sitting on Side/Bed(QC): 6 Sit to Stand (QC): 6 Chair/Dyb-et-Ccejo Xfer(QC): 6 Toilet Transfer (QC): 6 Does the Patient Walk: Yes Walk 10 feet (QC): 6 Walk 50ft with 2 Turns (QC): 6 Walk 150 ft (QC): 6 1 Step (curb) (QC): 6 4 Steps (QC): 6 PT Plan Problem List Problem List: Activity Tolerance, Functional Strength, Safety, Balance, Gait, Transfer, Bed Mobility Treatment/Plan Treatment Plan: Continue Plan of Care Treatment Plan: Bed Mobility, Education, Functional Activity [place], Functional Strength, Gait, Safety, Therapeutic Exercise, Transfers Treatment Duration: September 03, 2020 Frequency: 6 times per week Estimated Hrs Per Day: .25 hour per day Patient and/or Family Agrees t: Yes Time/GCodes Time In: 1300 Time Out: 1315 Total Billed Treatment Time: 15 Total Billed Treatment 1 visit EVModC 15 min KYLE DIEZ PT Aug 18, 2020 13:45
--- NOTE | 2020-08-18 14:37 | Occupational Ther Daily Note ---
OT Current Status-Daily Note ADL-Treatment Therapy Code Descriptions/Definitions Functional [place] Measure: 0=Not Assessed/NA 4=Minimal Assistance 1=Total Assistance 5=Supervision or Setup 2=Maximal Assistance 6=Modified [place] 3=Moderate Assistance 7=Complete IndependenceSCALE: Activities may be completed with or without assistive devices. 3-Cvbevipndu-zqsryfo completes the activity by him/herself with no assistance from a helper. 5-Set-up or Clean-up Assistance-helper sets up or cleans up; patient completes activity. [place] assists only prior to or following the activity. 4-Supervision or Touching Assistance-helper provides verbal cues and/or touching/steadying and/or contact guard assistance as patient completes activity. Assistance may be provided throughout the activity or intermittently. 3-Partial/Moderate Assistance-helper does LESS THAN HALF the effort. [place] lifts, holds or supports trunk or limbs, but provides less than half the effort. 2-Substantial/Maximal Assistance-helper does MORE THAN HALF the effort. [place] lifts or holds trunk or limbs and provides more than half the effort. 4-Tyeshjuff-amsnnw does ALL the effort. Patient does none of the effort to complete the activity. Or, the assistance of 2 or more helpers is required for the patient to complete the activity. If activity was not attempted, code reason: 7-Patient Refused. 9-Not Applicable-not attempted and the patient did not perform the activity before the current illness, exacerbation or injury. 10-Not Attempted due to Environmental Limitations-(lack of equipment, weather restraints, etc.). 88-Not Attempted due to Medical Conditions or Safety Concerns. OT Shelter Goals Division Human Resources Manager Goals 1=Demonstrate adherence to instructed precautions during ADL tasks. 2=Patient will verbalize/demonstrate understanding of assistive devices/modifications for ADL. 3=Patient will improve strength/tolerance for activity to enable patient to perform ADL's. OT Education/Plan Treatment Plan/Plan of Care Patient would benefit from OT for education, treatment and training to promote independence in ADL's, mobility, safety and/or upper extremity function for ADL's. Rehab Potential: MATTHEW Xie OT Aug 18, 2020 14:37
--- NOTE | 2020-08-18 14:58 | Occupational Therapy Eval ---
OT Evaluation-General/PLF Medical Diagnosis Admission Date Aug 17, 2020 at 21:15 Medical Diagnosis: UTI/dehydration/HTN Onset Date: Aug 17, 2020 Therapy Diagnosis Therapy Diagnosis: Weakness Height/Weight Height (Feet): 5 Height (Inches): 0.00 Weight (Pounds): 143 Weight (Ounces): 0.0 Precautions Precautions/Isolations: Fall Prevention, Standard Precautions Weight Bear Status Weight Bearing Restriction: Weight Bearing/Tolerated Referral Physician: Jr Referral Reason: Activity Tolerance, Self Care, Evaluation/Treatment, Strengthening/ROM Medical History Pertinent Medical History: Atrial Fib (pacemaker), Heart Failure, HTN, Hypothroidism, Neuropathy Additional Medical History Left shoulder replacement, gout, Diverticulitis, DVT, Hypothyroidism. Reviewed History: Yes Social History Home: Single Level Current Living Status: Alone Entry Into Home: Stairs With Railing Steps Into Home: 3 ADL-Prior Level of Function SCALE: Activities may be completed with or without assistive devices. 8-Yyedztrniu-xtsaeof completes the activity by him/herself with no assistance from a helper. 5-Set-up or Clean-up Assistance-helper sets up or cleans up; patient completes activity. [place] assists only prior to or following the activity. 4-Supervision or Touching Assistance-helper provides verbal cues and/or touching/steadying and/or contact guard assistance as patient completes activity. Assistance may be provided throughout the activity or intermittently. 3-Partial/Moderate Assistance-helper does LESS THAN HALF the effort. [place] lifts, holds or supports trunk or limbs, but provides less than half the effort. 2-Substantial/Maximal Assistance-helper does MORE THAN HALF the effort. [place] lifts or holds trunk or limbs and provides more than half the effort. 5-Dlkklveny-ahvynl does ALL the effort. Patient does none of the effort to complete the activity. Or, the assistance of 2 or more helpers is required for the patient to complete the activity. If activity was not attempted, code reason: 7-Patient Refused. 9-Not Applicable-not attempted and the patient did not perform the activity before the current illness, exacerbation or injury. 10-Not Attempted due to Environmental Limitations-(lack of equipment, weather restraints, etc.). 88-Not Attempted due to Medical Conditions or Safety Concerns. ADL PLOF Comments Pt. states that she is independent with daily skills. She still drives, and does her own shopping. Family is involved. Pt. goes to [facility] for exercises several times a week. Self Care: Independent Functional Cognition: Independent DME/Equipment: Bath Chair, Shower DME/Equipment Comments Pt. has a quad cane and a walker. Drive Self: Yes OT Current Status Subjective No pain reported. Appearance Pt. up in chair eating lunch. Agreeable to OT. Mental Status/Objective Patient Orientation: Person, Place, Time, Situation Current Upper Extremity ROM WFL ADL-Treatment Eating (QC): 5 Shower/Bathe Self (QC): 7 On/Off Footwear (QC): 3 (Mod assist) Other Treatments Pt. up in chair eating lunch after set up. Declines bathing at this time. Pt. states that she showered yesterday before coming to hospital. She will bathe tomorrow. Pt. is able to doff/don left slipper sock, but has difficulty with her right. She sustained a hematoma several months ago on her right leg, and states that she is still having some swelling and trouble with it. Pt. is able to stand at chair side with SBA and use of quad cane. Pt. hooked to multiple lines for IV at this time. Did not take steps. Pt. demonstrates appropriate AROM in bilateral UE. Reports that she still drives, and is able to get her groceries when the stores, "aren't busy." Pt. reports that she would like to gain strength. Pt. up in chair with lunch in front. All needs met. Education OT Patient Education: Correct positioning, Modified ADL techniques, Progress toward Goal/Update tx plan, Purpose of tx/functional activities, Reviewed precautions, Rehab process, Transfer techniques Teaching Recipient: Patient Teaching Methods: Demonstration, Discussion Response to Teaching: Verbalize Understanding, Return Demonstration OT Short Term Goals Short Term Goals Time Frame: Aug 25, 2020 Eatin Oral hygiene: 4 Toileting hygiene: 3 Shower/bathe self: 3 Upper body dressin Lower body dressin Putting on/taking off footwear: 4 OT College And Career Counselor Goals College And Career Counselor Goals Time Frame: Sep 01, 2020 Eating (QC): 6 Oral Hygiene (QC): 6 Toileting Hygiene (QC): 6 Shower/Bathe Self (QC): 4 Upper Body Dressing (QC): 5 Lower Body Dressing (QC): 4 On/Off Footwear (QC): 5 Additional Goals: 1-Demonstrate ADL Tasks, 2-Verbalize Understanding, 3- ImproveStrength/[place] 1=Demonstrate adherence to instructed precautions during ADL tasks. 2=Patient will verbalize/demonstrate understanding of assistive devices/modifications for ADL. 3=Patient will improve strength/tolerance for activity to enable patient to perform ADL's. OT Education/Plan Problem List/Assessment Assessment: Decreased Activ Tolerance, Impaired I ADL's, Impaired Self-Care Skills Discharge Recommendations Plan/Recommendations: Continue POC Therapy Discharge Recommendati: Post Acute OT Treatment Plan/Plan of Care Treatment,Training & Education: Yes Patient would benefit from OT for education, treatment and training to promote independence in ADL's, mobility, safety and/or upper extremity function for ADL's. Plan of Care: ADL Retraining, Functional Mobility, UE Funct Exercise/Act Treatment Duration: Sep 01, 2020 Frequency: 5 times per week Estimated Hrs Per Day: .5 hour per day Agreement: Yes Rehab Potential: Good Time/GCodes Start Time: 13:55 Stop Time: 14:20 Total Time Billed (hr/min): 25 Billed Treatment Time 1, EVM x 10minutes, ADL x 15minutes MATTHEW FARIA OT Aug 18, 2020 14:58
--- NOTE | 2020-08-18 15:34 | Consultation-Cardiology ---
HPI-Cardiology Cardiology Consultation: Date of Consultation 08/18/20 Time Seen by a Provider: 13:15 Date of Admission Attending Physician Aliya Norris DO Admitting Physician Aliya Norris DO Consulting Physician ADELINA PUGA MD, MA, FACP, FACC, FSCAI, CCDS HPI: Chief Complaint: CC: Gen weakness HPI Ms. Tee is an 89 yr old female admitted to ICU 7 from the ED. She reports over the last several days she has had increasing weakness, chills, fatigue, na usea and vomiting. She reports she checked her BP at home and it has been elevated. She reports she has had a feeling of an irregular heartbeat. No c/o LE swelling. No c/o syncope or near syncope. She reports she did a UA yesterday and was diagnosed with a UTI by her PCP. She took one dose of abx, but d/t continually feeling unwell she came to the ED. She is sitting on the s ravin of the bed and states she is feeling better this morning. Review of Systems-Cardiology Review of Systems Constitutional: chills, fever, malaise Eyes: No vision change Ears/Nose/Throat: No recent hearing loss Gastrointestinal: As described under HPI Genitourinary: As described under HPI; No hematuria Musculoskeletal: no symptoms reported Skin: No rash on exposed areas, No ulcerations on exposed areas Psychiatric/Neurological: No anxiety, No depression, No seizure, No focal weakness, No syncope Hematologic: No bleeding abnormalities GPX-Rccdxf-Jgebqo Hx Patient Social History Smoking Status: Never a Smoker Have you traveled recently?: No Alcohol Use?: No Pt feels they are or have been: No Immunizations Up To Date Tetanus Booster (TDap): More than 5yrs Date of Pneumonia Vaccine: Jul 13, 2017 Date of Influenza Vaccine: Feb 03, 2021 Past Medical History PMH As described under Assessment. Family Medical History Family Medical History: She has a reported family h/o father and brothers x 3 with CAD. She reports she had a brother who had a CVA Family History: Cardiovascular disease 19 FATHER Completed stroke G8 BROTHER Myocardial infarction G8 BROTHER G8 BROTHER G8 BROTHER Allergies and Home Medications Allergies Coded Allergies: Sulfa (Sulfonamide Antibiotics) (Verified Allergy, Unknown, 07/04/20) cephalexin (Verified Allergy, Unknown, 07/04/20) ciprofloxacin (Verified Allergy, Unknown, 07/04/20) hydrocodone (Verified Allergy, Unknown, 07/04/20) iodine (Verified Allergy, Unknown, 07/04/20) meperidine (Verified Allergy, Unknown, 07/04/20) metronidazole (Verified Allergy, Unknown, 07/04/20) propoxyphene (Verified Allergy, Unknown, 07/04/20) rosuvastatin (Verified Allergy, Unknown, 07/04/20) simvastatin (Verified Allergy, Unknown, 07/04/20) Home Medications Acetaminophen 325 Mg Tablet, 325-650 MG PO Q8H PRN for PAIN-MILD (1-4), (Reported) Last Action: Continued Allopurinol 100 Mg Tablet, 100 MG PO HS, (Reported) Last Action: Continued Aspirin 81 Mg Tablet.dr, 81 MG PO [place],MO,,,,SAT, (Reported) TAKES EVERYDAY EXCEPT SATURDAY Last Action: Continued Cefdinir 300 Mg Capsule, 300 MG PO BID, (Reported) FILLED 08-17-2020 #14/7 DAY SUPPLY Last Action: Held Cholecalciferol (Vitamin D3) 25 Mcg Tablet, 25 MCG PO HS, (Reported) Last Action: Continued Clonidine HCl 0.1 Mg Tablet, 0.1 MG PO TID, (Reported) Last Action: Continued Diltiazem HCl 240 Mg Cap.er.24h, 240 MG PO HS, (Reported) Last Action: Continued Levothyroxine Sodium 50 Mcg Tablet, 50 MCG PO DAILY, (Reported) Last Action: Continued l Gasseri/B Bifidum/B Longum 1 Each Capsule, 1 EACH PO HS, (Reported) Last Action: Held Patient Home Medication List Home Medication List Reviewed: Yes Physical Exam-Cardiology Physical Exam Vital Signs/I&O 08/18/20 08/18/20 08/18/20 08/18/20 04:00 04:00 04:00 05:00 Temp 36.0 Pulse 61 60 Resp 18 20 B/P (MAP) 120/58 (78) 122/60 (80) Pulse Ox 95 97 97 O2 Delivery Nasal Cannula Nasal Cannula Nasal Cannula O2 Flow Rate 2.00 2.00 2.00 08/18/20 08/18/20 08/18/20 08/18/20 06:00 07:00 07:00 07:58 Temp 36.2 Pulse 65 60 60 Resp 18 15 B/P (MAP) 128/62 (84) 126/62 (83) Pulse Ox 99 95 O2 Delivery Nasal Cannula Nasal Cannula O2 Flow Rate 2.00 2.00 08/18/20 08/18/20 08/18/20 08/18/20 08:00 08:00 09:00 10:00 Pulse 64 70 71 Resp 23 B/P (MAP) 140/65 (90) 151/70 (97) 146/71 (96) Pulse Ox 95 93 O2 Delivery Room Air Nasal Cannula Nasal Cannula Nasal Cannula O2 Flow Rate 0.00 2.00 2.00 2.00 08/18/20 08/18/20 08/18/20 08/18/20 11:00 12:00 12:00 12:01 Temp 36.9 Pulse 71 78 Resp 24 25 B/P (MAP) 152/73 (99) 163/83 (109) Pulse Ox 94 92 95 O2 Delivery Nasal Cannula Nasal Cannula Room Air O2 Flow Rate 2.00 2.00 0.00 08/18/20 08/18/20 08/18/20 08/18/20 12:37 13:00 13:00 14:00 Pulse 71 83 93 97 Resp 24 23 20 B/P (MAP) 152/73 (99) 170/82 (111) 129/80 (96) Pulse Ox 94 94 94 O2 Delivery Nasal Cannula Nasal Cannula Nasal Cannula O2 Flow Rate 2.00 2.00 2.00 08/18/20 00:00 Intake Total 1260 ml Balance 1260 ml Capillary Refill : Less Than 3 Seconds Constitutional: AAO x 3, well-developed, well-nourished HEENT: PERRL, hearing is well preserved, oral hygience is good Neck: No carotid bruit; carotid pulses are 2 + bilaterally Respiratory: No accessory muscle use, No respiratory distress; chest expansion is symmetric, chest is bilaterally symmetric, lungs clear to auscultation Cardiovascular: irregularly irregular; No JVD; S1 and S2 Gastrointestinal: No tender; soft, round, audible bowel sounds Extremities: no lower extremity edema bilateral Neurologic/Psychiatric: grossly intact (moves all extremities) Skin: No rash on exposed areas, No ulcerations on exposed areas Data Review Labs Laboratory Tests 08/17/20 20:10: White Blood Count 9.3, Red Blood Count 4.61, Hemoglobin 13.2, Hematocrit 41, Mean Corpuscular Volume 90, Mean Corpuscular Hemoglobin 29, Mean Corpuscular Hemoglobin Concent 32, Red Cell Distribution Width 14.2, Platelet Count 268, Mean Platelet Volume 9.7, Immature Granulocyte % (Auto) 0, Neutrophils (%) (Auto) 92H, Lymphocytes (%) (Auto) 5L, Monocytes (%) (Auto) 3, Eosinophils (%) (Auto) 0, Basophils (%) (Auto) 1, Neutrophils # (Auto) 8.6H, Lymphocytes # (Auto) 0.5L, Monocytes # (Auto) 0.2, Eosinophils # (Auto) 0.0, Basophils # (Auto) 0.1, Immature Granulocyte # (Auto) 0.0, Neutrophils % (Manual) 88, Lymphocytes % (Manual) 5, Monocytes % (Manual) 6, Eosinophils % (Manual) 1, Blood Morphology Comment NORMAL, Prothrombin Time 13.3, INR Comment 1.0, Activated Partial Thromboplast Time 29, Sodium Level 135, Potassium Level 4.1, Chloride Level 100, Carbon Dioxide Level 19L, Anion Gap 16H, Blood Urea Nitrogen 31H, Creatinine 1.51H, Estimat Glomerular Filtration Rate 32, BUN/Creatinine Ratio 21, Glucose Level 143H, Calcium Level 9.1, Corrected Calcium 9.3, Magnesium Level 1.9, Total Bilirubin 1.2H, Aspartate Amino Transf (AST/SGOT) 57H , Alanine Aminotransferase (ALT/SGPT) 38, Alkaline Phosphatase 109, Total Creatine Kinase 230H, Creatine Kinase MB 7.0*H, Myoglobin 540.0H, Troponin I 0.099H, B-Type Natriuretic Peptide 511.3H, Total Protein 7.1, Albumin 3.7, Amyl ase Level 60, Lipase < 4L, TSH [place] Testing 1.37 08/17/20 21:45: Urine Color YELLOW, Urine Clarity CLEAR, Urine pH 6.0, Urine Specific [place] 1.020, Urine Protein 2+H, Urine Glucose (UA) NEGATIVE, Urine Ketones TRACEH, Urine Nitrite NEGATIVE, Urine Bilirubin NEGATIVE, Urine Urobilinogen 0.2, Urine Leukocyte Esterase 2+H, Urine RBC (Auto) 2+H, Urine RBC 10-25H, Urine WBC 25-50H , Urine Squamous Epithelial Cells 0-2, Urine Crystals PRESENTH, Urine Amorphous Sediment FEW CHEN URATESH, Urine Bacteria MODERATEH, Urine Casts NONE, Urine Mucus NEGATIVE, Urine Culture Indicated YES 08/18/20 02:53: Sodium Level 134L, Potassium Level 4.4, Chloride Level 104, Carbon Dioxide Level 21, Anion Gap 9, Blood Urea Nitrogen 30H, Creatinine 1.49H, Estimat Glomerular Filtration Rate 33, BUN/Creatinine Ratio 20, Glucose Level 179H, Calcium Level 8.1L, Corrected Calcium 9.1, Total Bilirubin 0.6, Aspartate Amino Transf (AST/SGOT) 34, Alanine Aminotransferase (ALT/SGPT) 27, Alkaline Phosphatase 77, Total Protein 5.4L, Albumin 2.8L 08/18/20 03:09: Magnesium Level 2.0 08/18/20 03:30: Total Creatine Kinase 260H, Myoglobin 536.4H, Troponin I 0.167H 08/18/20 04:29: White Blood Count 11.5H, Red Blood Count 3.67L, Hemoglobin 10.4#L, Hematocrit 33L, Mean Corpuscular Volume 90, Mean Corpuscular Hemoglobin 28, Mean Corpuscular Hemoglobin Concent 31L, Red Cell Distribution Width 14.1, Platelet Count 254, Mean Platelet Volume 10.8, Immature Granulocyte % (Auto) 0, Neutrophils (%) (Auto) 79H, Lymphocytes (%) (Auto) 8L, Monocytes (%) (Auto) 12, Eosinophils (%) (Auto) 1, Basophils (%) (Auto) 0, Neutrophils # (Auto) 9.1H, Lymphocytes # (Auto) 0.9L, Monocytes # (Auto) 1.4H, Eosinophils # (Auto) 0.1, Basophils # (Auto) 0.1, Immature Granulocyte # (Auto) 0.0, Neutrophils % (Manual) 86, Lymphocytes % (Manual) 5, Monocytes % (Manual) 10, Band Neutrophils 3, Blood Morphology Comment NORMAL A/P-Cardiology Assessment/Admission Diagnosis UTI and probable sepsis - management per medical services Mildy elevated troponin - Type 2 DE due to sepsis PAF - first diagnosed on pacemaker interrogation of Dec 16, 2019 Spontaneous hematoma of the R leg in mid November 2019 and since been off apixaban; currently considered intolerant to anticoag Symptomatic, 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 No distinct evidence of pericarditis. 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 Limited echo on 06/18/19: normal LVEF, small amount pericardial fluid (within ph ysiologic limit and not much different from 06/18/19). Limited echo non 06/19/19: normal LVEF, small amount of pericardial fluid (no significant change compared to 06/18/19) Mild carotid arterial disease on carotid u/s of 08/24/19 Hypertension Reported intolerance to BB tx d/t insomnia Discussion and Recomendations Complex management due to multiple comorbidities (see above) and competing issues of need to give oral anticoag and contraindication to anticoag Management of UTI per Medical Services Previously taking OAC in 2019 d/t PAF - stopped d/t spontaneous hematoma - has been on ASA tx alone since Continue ASA Continue Cardizem CD Monitor lab Replace electrolytes as indicated Further recs will be based on her hospital course We would like to thank Medical services for this consult ADELINA PUGA MD FACP FACC CCDS Aug 18, 2020 15:34
[2020-08-18] MEDS: VITAMIN D3 25 MCG (1,000 UNITS) TABLET PO SCH (20:29)
[2020-08-18] MEDS: ALLOPURINOL 100 MG (ZYLOPRIM) TAB PO SCH (20:30)
[2020-08-19 04:04] LABS: BASOPHILS % (AUTO) 1 % (0-10); EOSINOPHILS # (AUTO) 0.1 10^3/uL (0.0-0.3); EOSINOPHILS % (AUTO) 1 % (0-10); HEMATOCRIT 37 % (35-52); HEMOGLOBIN 11.6 g/dL (11.5-16.0); LYMPHOCYTES # (AUTO) 0.7 10^3/uL (1.0-4.0); LYMPHOCYTES % (AUTO) 11 % (12-44); MEAN CORPUSCULAR HEMOGLOBIN 28 pg (25-34); MEAN CORPUSCULAR HGB CONC 31 g/dL (32-36); MEAN CORPUSCULAR VOLUME 91 fL (80-99); MEAN PLATELET VOLUME 10.6 fL (9.0-12.2); MONOCYTES # (AUTO) 0.9 10^3/uL (0.0-1.0); MONOCYTES % (AUTO) 15 % (0-12); NEUTROPHILS # (AUTO) 4.5 10^3/uL (1.8-7.8); NEUTROPHILS % (AUTO) 72 % (42-75); PLATELET COUNT 249 10^3/uL (130-400); WHITE BLOOD COUNT 6.2 10^3/uL (4.3-11.0)
[2020-08-19 04:13] LABS: ALBUMIN 2.8 GM/DL (3.2-4.5); POTASSIUM 4.1 MMOL/L (3.6-5.0)
[2020-08-19 04:15] LABS: CALCIUM 8.2 MG/DL (8.5-10.1)
[2020-08-19 04:16] LABS: TOTAL PROTEIN 5.6 GM/DL (6.4-8.2)
[2020-08-19 04:18] LABS: BILIRUBIN,TOTAL 0.5 MG/DL (0.1-1.0)
[2020-08-19 04:19] LABS: CREATININE SERUM 1.18 MG/DL (0.60-1.30)
[2020-08-19] MEDS: ASPIRIN E.C. 81 MG (ECOTRIN) TAB PO SCH (08:02)
[2020-08-19] MEDS: MEROPENEM 1,000 MG/SWFI 20 ML IV PUSH IV SCH ×4 (08:02→20:22)
[2020-08-19] MEDS: cloNIDine 0.1 MG (CATAPRES) TAB PO SCH ×3 (08:02→20:22)
[2020-08-19] MEDS: LEVOTHYROXINE 50 MCG (LEVOTHROID) TAB PO SCH (08:02)
--- NOTE | 2020-08-19 09:57 | Physical Therapy Daily Note ---
PT Daily Note-Current Subjective Patient reports she is feeling better today and agrees to PT. Mental Status Patient Orientation: Normal For Age Attachments: Oxygen, Najera Catheter Transfers SCALE: Activities may be completed with or without assistive devices. 3-Geslvqduvw-trnwkkx completes the activity by him/herself with no assistance from a helper. 5-Set-up or Clean-up Assistance-helper sets up or cleans up; patient completes activity. [place] assists only prior to or following the activity. 4-Supervision or Touching Assistance-helper provides verbal cues and/or touching/steadying and/or contact guard assistance as patient completes activity. Assistance may be provided throughout the activity or intermittently. 3-Partial/Moderate Assistance-helper does LESS THAN HALF the effort. [place] lifts, holds or supports trunk or limbs, but provides less than half the effort. 2-Substantial/Maximal Assistance-helper does MORE THAN HALF the effort. [place] lifts or holds trunk or limbs and provides more than half the effort. 0-Xetvftwkh-aentvd does ALL the effort. Patient does none of the effort to complete the activity. Or, the assistance of 2 or more helpers is required for the patient to complete the activity. If activity was not attempted, code reason: 7-Patient Refused. 9-Not Applicable-not attempted and the patient did not perform the activity before the current illness, exacerbation or injury. 10-Not Attempted due to Environmental Limitations-(lack of equipment, weather restraints, etc.). 88-Not Attempted due to Medical Conditions or Safety Concerns. Lying to Sitting/Side of Bed(Q: 4 Sit to Stand (QC): 4 Chair/Ljq-fi-Fkafa Xfer(QC): 4 Gait Training Does the Patient Walk?: Yes Distance: 225' Walk 10 feet (QC): 4 Walk 50 ft with 2 Turns(QC): 4 Walk 150 ft (QC): 4 Gait Assistive Device: FWW slow, steady, functional gait sequence Exercises Seated Therapy Exercises: Ankle pumps, Long arc quads, Hip flexion Seated Reps: 15 Assessment Patient is up in recliner with needs met. Increase activity as tolerated by patient. PT Agency Sales Representative Goals Detention Goals PT Agency Sales Representative Goals Time Frame: September 03, 2020 Roll Left & Right (QC): 6 Sit to Lying (QC): 6 Lying-Sitting on Side/Bed(QC): 6 Sit to Stand (QC): 6 Chair/Zlg-lq-Qywhv Xfer(QC): 6 Toilet Transfer (QC): 6 Does the Patient Walk: Yes Walk 10 feet (QC): 6 Walk 50ft with 2 Turns (QC): 6 Walk 150 ft (QC): 6 1 Step (curb) (QC): 6 4 Steps (QC): 6 PT Plan Treatment/Plan Treatment Plan: Continue Plan of Care Treatment Plan: Bed Mobility, Education, Functional Activity Getachew, Functional Strength, Gait, Safety, Therapeutic Exercise, Transfers Treatment Duration: September 03, 2020 Frequency: 6 times per week Estimated Hrs Per Day: .25 hour per day Patient and/or Family Agrees t: Yes Time/GCodes Time In: 830 Time Out: 843 Total Billed Treatment Time: 13 Total Billed Treatment 1 visit FA 13 min KYLE DIEZ PT Aug 19, 2020 09:57
--- NOTE | 2020-08-19 11:19 | Progress Note ---
YUN BUCKNER MED STUDENT 08/19/20 1119: Subjective Date Seen by a Provider: Aug 19, 2020 Time Seen by a Provider: 09:15 Subjective/Events-last exam Pt overall feels improved. Nausea a little better - couple episodes of dry heaving yesterday. Tried some solid food this morning with moderate appetite. R thigh pain with changes in position and night sweats/chills is patients main concerns during visit. R thigh pain resolved once pt got moving with PT this morning. Creatinine at baseline today. Pt denies any BMs since Saturday, pt frequently passing gas though. Review of Systems General: No Chills; Night Sweats, Fatigue Pulmonary: No Dyspnea, No Cough, No Pleuritic Chest Pain Cardiovascular: No: Chest Pain, Palpitations Gastrointestinal: Nausea, Constipation; No: Vomiting, Abdominal Pain, Diarrhea (no stool since saturday, passing gas) Genitourinary: Other (salazar cath placed) Musculoskeletal: leg pain Objective Exam Last Set of Vital Signs Vital Signs Date Time Temp Pulse Resp B/P (MAP) Pulse Ox O2 Delivery O2 Flow Rate FiO2 08/19/20 10:00 63 137/68 (91) 95 Nasal Cannula 2.00 08/19/20 07:46 37.2 08/19/20 01:00 23 Capillary Refill : Less Than 3 Seconds I&O Intake and Output 08/18/20 23:59 Intake Total 1650 ml Output Total 2000 ml Balance -350 ml Intake Oral 1150 ml IV Total 500 ml Output Urine Total 2000 ml General: Alert, Oriented X3, Cooperative, No Acute Distress Lungs: Clear to Auscultation, Normal Air Movement Heart: Regular Rate, No Murmurs Abdomen: Soft, No Tenderness Results Lab Laboratory Tests 08/19/20 03:17: White Blood Count 6.2, Red Blood Count 4.10, Hemoglobin 11.6, Hematocrit 37, Mean Corpuscular Volume 91, Mean Corpuscular Hemoglobin 28, Mean Corpuscular Hemoglobin Concent 31L, Red Cell Distribution Width 14.1, Platelet Count 249, Mean Platelet Volume 10.6, Immature Granulocyte % (Auto) 1, Neutrophils (%) (Auto) 72, Lymphocytes (%) (Auto) 11L, Monocytes (%) (Auto) 15H, Eosinophils (%) (Auto) 1, Basophils (%) (Auto) 1, Neutrophils # (Auto) 4.5, Lymphocytes # (Auto) 0.7L, Monocytes # (Auto) 0.9, Eosinophils # (Auto) 0.1, Basophils # (Auto) 0.0, Immature Granulocyte # (Auto) 0.0, Sodium Level 136, Potassium Level 4.1, Chloride Level 102, Carbon Dioxide Level 22, Anion Gap 12, Blood Urea Nitrogen 24H, Creatinine 1.18, Estimat Glomerular Filtration Rate 43, BUN/Creatinine Ratio 20, Glucose Level 103, Calcium Level 8.2L, Corrected Calcium 9.2, Total Bilirubin 0.5, Aspartate Amino Transf (AST/SGOT) 39H, Alanine Aminotransferase (ALT/SGPT) 33, Alkaline Phosphatase 87, Total Protein 5.6L, Albumin 2.8L Microbiology 08/17/20 MRSA Screen - Final, Complete MRSA not isolated 08/17/20 Urine Culture - Final, Complete NO GROWTH Assessment/Plan Assessment/Plan Assess & Plan/Chief Complaint ACS Cardiology following. Transfer to 4th floor. d/c salazar cath UTI urine cultures pending IV meropenam and vanc R thigh pain likely multifactorial etiology. 2/2 degenerative joint changes and chronic soft tissue changes from spontaneous LE hemorrhage in November. PT/OT constipation consider bowel regimen. s/p Prerenal JULIA creatinine at baseline today. Normocytic anemia within pts baseline. PAF HTN hypothyroidism HLP gout diverticulosis Continue home meds DVT prophylaxis SCD and aspirin Clinical Quality Measures Admission Status Admission Dx ACS Troponin 0.167 this am from 0.099 yesterday echocardiogram this am Cardiology and pulmonology consulted Prerenal JULIA creatinine 1.49 this am from 1.51 yesterday. IV LRs UTI urine cultures pending IV meropenam and vanc Possible R-sided DVT Ultrasound R LE Normocytic anemia within pts baseline. PAF HTN hypothyroidism HLP gout diverticulosis restart home meds DVT prophylaxis SCD and aspirin ALIYA NORRIS DO 08/20/20 1040: Subjective Subjective/Events-last exam Improved status Hematoma on USG right leg from November spontaneous hemorrhagic episode on OAC DC first of week Review of Systems General: Fatigue Musculoskeletal: leg pain Objective Exam General: Alert, Oriented X3, Cooperative Lungs: Clear to Auscultation Heart: Regular Rate Psych/Mental Status: Mental Status NL Assessment/Plan Assessment/Plan Assess & Plan/Chief Complaint USG reviewed Transfer to floor Appreciate Cardiology Supervisory-Addendum Brief Verification & Attestation Participated in pt care: history, MDM, physical Personally performed: exam, history, MDM, supervision of care Care discussed with: Medical Student Procedures: n/a Results interpretation: Verified all documentation Verification and Attestation of Medical Student E/M Service A medical student performed and documented this service in my presence. I reviewed and verified all information documented by the medical student and made modifications to such information, when appropriate. I personally performed the physical exam and medical decision making. Aliya Norris, Aug 20, 2020,10:39 YUN BUCKNER MED STUDENT Aug 19, 2020 11:19 ALIYA NORRIS DO Aug 20, 2020 10:40
--- NOTE | 2020-08-19 12:12 | Cardiology Progress Note ---
Cardiology SOAP Progress Note Subjective: Complains of weakness. Objective: I&O/Vital Signs 08/19/20 08/19/20 08/19/20 08/19/20 01:00 02:00 03:00 04:00 Pulse 70 65 61 62 Resp 23 B/P (MAP) 149/67 (94) 145/63 (90) 134/67 (89) 145/66 (92) Pulse Ox 92 90 86 86 O2 Delivery Room Air Room Air Room Air Room Air 08/19/20 08/19/20 08/19/20 08/19/20 04:00 04:00 05:00 06:00 Temp 37.4 37.7 Pulse 62 B/P (MAP) 144/63 (90) Pulse Ox 92 92 O2 Delivery Nasal Cannula Nasal Cannula Room Air Nasal Cannula O2 Flow Rate 2.00 2.00 2.00 08/19/20 08/19/20 08/19/20 08/19/20 06:00 07:00 07:00 07:46 Temp 37.2 Pulse 68 73 76 B/P (MAP) 155/73 (100) 159/77 (104) Pulse Ox 94 92 O2 Delivery Nasal Cannula O2 Flow Rate 2.00 08/19/20 08/19/20 08/19/20 08/19/20 08:00 08:00 09:00 10:00 Pulse 71 73 63 B/P (MAP) 163/77 (105) 164/89 (114) 137/68 (91) Pulse Ox 92 94 94 95 O2 Delivery Nasal Cannula Nasal Cannula Nasal Cannula Nasal Cannula O2 Flow Rate 2.00 2.00 2.00 2.00 08/19/20 00:00 Intake Total 1550 ml Output Total 925 ml Balance 625 ml Weight (Pounds): 143 Weight (Ounces): 0.0 Weight (Calculated Kilograms): [id number] Constitutional: AAO x 3, well-developed, well-nourished Respiratory: No accessory muscle use, No respiratory distress; chest expansion is symmetric, chest is bilaterally symmetric, lungs clear to auscultation Cardiovascular: irregularly irregular; No JVD; S1 and S2 Gastrointestional: No tender; soft, round, audible bowel sounds Extremities: no lower extremity edema bilateral Neurologic/Psychiatric: grossly intact (moves all extremities) Skin: No rash on exposed areas, No ulcerations on exposed areas Results/Procedures: Labs Laboratory Tests 08/19/20 03:17: White Blood Count 6.2, Red Blood Count 4.10, Hemoglobin 11.6, Hematocrit 37, Mean Corpuscular Volume 91, Mean Corpuscular Hemoglobin 28, Mean Corpuscular Hemoglobin Concent 31L, Red Cell Distribution Width 14.1, Platelet Count 249, Mean Platelet Volume 10.6, Immature Granulocyte % (Auto) 1, Neutrophils (%) (Auto) 72, Lymphocytes (%) (Auto) 11L, Monocytes (%) (Auto) 15H, Eosinophils (%) (Auto) 1, Basophils (%) (Auto) 1, Neutrophils # (Auto) 4.5, Lymphocytes # (Auto) 0.7L, Monocytes # (Auto) 0.9, Eosinophils # (Auto) 0.1, Basophils # (Auto) 0.0, Immature Granulocyte # (Auto) 0.0, Sodium Level 136, Potassium Level 4.1, Chloride Level 102, Carbon Dioxide Level 22, Anion Gap 12, Blood Urea Nitrogen 24H, Creatinine 1.18, Estimat Glomerular Filtration Rate 43, BUN/Creatinine Ratio 20, Glucose Level 103, Calcium Level 8.2L, Corrected Calcium 9.2, Total Bilirubin 0.5, Aspartate Amino Transf (AST/SGOT) 39H, Alanine Aminotransferase (ALT/SGPT) 33, Alkaline Phosphatase 87, Total Protein 5.6L, Albumin 2.8L Microbiology 08/17/20 MRSA Screen - Final, Complete MRSA not isolated 08/17/20 Urine Culture - Final, Complete NO GROWTH A/P: Assessment/Dx: UTI and probable sepsis - management per medical services Mildy elevated troponin - Type 2 ME due to sepsis PAF - first diagnosed on pacemaker interrogation of Dec 16, 2019 Spontaneous hematoma of the R leg in mid November 2019 and since been off apixaban; currently considered intolerant to anticoag Symptomatic, 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 No distinct evidence of pericarditis. 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 Limited echo on 06/18/19: normal LVEF, small amount pericardial fluid (within physiologic limit and not much different from 06/18/19). Limited echo non 06/19/19: normal LVEF, small amount of pericardial fluid (no significant change compared to 06/18/19) Mild carotid arterial disease on carotid u/s of 08/24/19 Hypertension Reported intolerance to BB tx d/t insomnia Plan: Complex management due to multiple comorbidities (see above) and competing issues of need to give oral anticoag and contraindication to anticoag Management of UTI per Medical Services Previously taking OAC in 2019 d/t PAF - stopped d/t spontaneous hematoma - has been on ASA tx alone since Continue ASA Continue Cardizem CD Monitor lab Replace electrolytes as indicated Further recs will be based on her hospital course Thank you for your consultation. Please call me if you have any questions. Christiano Floyd MD, FACP, FACC, FSCAI, FHRS, CCDS Interventional Cardiology Cardiac Electrophysiology Vascular Medicine and Endovascular Interventions Matilda FLOYD MD Aug 19, 2020 12:12
--- NOTE | 2020-08-19 13:24 | Occupational Ther Daily Note ---
OT Current Status-Daily Note Subjective Pt alert, sitting EOB. Pt agrees to therapy. No c/o pain at this time. Pt to move to 4th sometime today. Mental Status/Objective Patient Orientation: Person, Place, Time, Situation Attachments: IV, Telemetry ADL-Treatment Therapy Code Descriptions/Definitions Functional Blanca Measure: 0=Not Assessed/NA 4=Minimal Assistance 1=Total Assistance 5=Supervision or Setup 2=Maximal Assistance 6=Modified Blanca 3=Moderate Assistance 7=Complete IndependenceSCALE: Activities may be completed with or without assistive devices. 7-Evmslrhstq-jrzkqid completes the activity by him/herself with no assistance from a helper. 5-Set-up or Clean-up Assistance-helper sets up or cleans up; patient completes activity. [place] assists only prior to or following the activity. 4-Supervision or Touching Assistance-helper provides verbal cues and/or touching/steadying and/or contact guard assistance as patient completes activity. Assistance may be provided throughout the activity or intermittently. 3-Partial/Moderate Assistance-helper does LESS THAN HALF the effort. [place] lifts, holds or supports trunk or limbs, but provides less than half the effort. 2-Substantial/Maximal Assistance-helper does MORE THAN HALF the effort. [place] lifts or holds trunk or limbs and provides more than half the effort. 7-Qsrhdkfex-jommou does ALL the effort. Patient does none of the effort to complete the activity. Or, the assistance of 2 or more helpers is required for the patient to complete the activity. If activity was not attempted, code reason: 7-Patient Refused. 9-Not Applicable-not attempted and the patient did not perform the activity before the current illness, exacerbation or injury. 10-Not Attempted due to Environmental Limitations-(lack of equipment, weather restraints, etc.). 88-Not Attempted due to Medical Conditions or Safety Concerns. Other Treatment Pt given HEP and light resistance theraband to strengthen B UE for daily functional tasks. Skilled instruction on technique and exercise was given. Pt demonstrated understanding of each exercise then fatigued quickly. B shldr abd, B shldr horizontal abd, bicep flex and tricep ext, 2 sets 10 reps. Pt then was able to scoot self up in bed and make self comfortable. After session, pt lying in bed with call light/phone in reach. All needs met in room. OT Short Term Goals Short Term Goals Time Frame: Aug 25, 2020 Eatin Oral hygiene: 4 Toileting hygiene: 3 Shower/bathe self: 3 Upper body dressin Lower body dressin Putting on/taking off footwear: 4 OT Quality Head Goals Retirement Goals Time Frame: Sep 01, 2020 Eating (QC): 6 Oral Hygiene (QC): 6 Toileting Hygiene (QC): 6 Shower/Bathe Self (QC): 4 Upper Body Dressing (QC): 5 Lower Body Dressing (QC): 4 On/Off Footwear (QC): 5 Additional Goals: 1-Demonstrate ADL Tasks, 2-Verbalize Understanding, 3- ImproveStrength/Getachew 1=Demonstrate adherence to instructed precautions during ADL tasks. 2=Patient will verbalize/demonstrate understanding of assistive devices/modifications for ADL. 3=Patient will improve strength/tolerance for activity to enable patient to perform ADL's. OT Education/Plan Problem List/Assessment Assessment: Decreased Activ Tolerance, Decreased UE Strength Discharge Recommendations Plan/Recommendations: Continue POC Treatment Plan/Plan of Care Patient would benefit from OT for education, treatment and training to promote independence in ADL's, mobility, safety and/or upper extremity function for ADL's. Plan of Care: ADL Retraining, Functional Mobility, UE Funct Exercise/Act Treatment Duration: Sep 01, 2020 Frequency: 5 times per week Estimated Hrs Per Day: .5 hour per day Agreement: Yes Rehab Potential: Good Time/GCodes Start Time: 12:50 Stop Time: 13:05 Total Time Billed (hr/min): 15 Billed Treatment Time 1 visit-EX 1 (15 min) CAITLYN FORTUNE Aug 19, 2020 13:24
[2020-08-19 14:07] VITALS: BP 158/72
[2020-08-19 15:32] VITALS: BP 134/62
[2020-08-19] MEDS ORDERED: TROUGH ORDER-PHARMACY XX NR (17:00)
[2020-08-19] MEDS: VANCOMYCIN INJECTION 1,000 MG in NS (IVPB) 250 ML IV SCH (18:13)
[2020-08-19 20:00] VITALS: BP 109/58
[2020-08-19] MEDS: VITAMIN D3 25 MCG (1,000 UNITS) TABLET PO SCH (20:22)
[2020-08-19] MEDS: ALLOPURINOL 100 MG (ZYLOPRIM) TAB PO SCH (20:22)
[2020-08-20] VITALS: BP 126/81
[2020-08-20 04:00] VITALS: BP 144/65
[2020-08-20 08:00] VITALS: BP 177/85
[2020-08-20 08:02] LABS: BASOPHILS % (AUTO) 1 % (0-10); EOSINOPHILS % (AUTO) 0 % (0-10); HEMATOCRIT 38 % (35-52); LYMPHOCYTES # (AUTO) 0.8 10^3/uL (1.0-4.0); LYMPHOCYTES % (AUTO) 14 % (12-44); MEAN CORPUSCULAR HEMOGLOBIN 28 pg (25-34); MEAN CORPUSCULAR HGB CONC 31 g/dL (32-36); MEAN CORPUSCULAR VOLUME 90 fL (80-99); MEAN PLATELET VOLUME 9.7 fL (9.0-12.2); MONOCYTES # (AUTO) 1.1 10^3/uL (0.0-1.0); MONOCYTES % (AUTO) 20 % (0-12); NEUTROPHILS # (AUTO) 3.6 10^3/uL (1.8-7.8); NEUTROPHILS % (AUTO) 65 % (42-75); PLATELET COUNT 268 10^3/uL (130-400); WHITE BLOOD COUNT 5.6 10^3/uL (4.3-11.0)
[2020-08-20 08:20] LABS: ALBUMIN 3.1 GM/DL (3.2-4.5); BILIRUBIN,TOTAL 0.4 MG/DL (0.1-1.0); CALCIUM 8.9 MG/DL (8.5-10.1); CREATININE SERUM 0.99 MG/DL (0.60-1.30); POTASSIUM 4.2 MMOL/L (3.6-5.0); TOTAL PROTEIN 6.2 GM/DL (6.4-8.2)
[2020-08-20] MEDS ORDERED: WATER (STERILE) FOR INJECTION 10 ML ONE ×2 (08:33→08:39)
[2020-08-20] MEDS ORDERED: MEROPENEM 500 MG VIAL (MERREM) IV ONE (08:33)
[2020-08-20] MEDS: cloNIDine 0.1 MG (CATAPRES) TAB PO SCH ×3 (09:00→20:15)
[2020-08-20] MEDS: MEROPENEM 1,000 MG/SWFI 20 ML IV PUSH IV SCH ×2 (09:00)
[2020-08-20] MEDS: LEVOTHYROXINE 50 MCG (LEVOTHROID) TAB PO SCH (09:00)
[2020-08-20] MEDS: ASPIRIN E.C. 81 MG (ECOTRIN) TAB PO SCH (09:00)
[2020-08-20 09:01] LABS: BAND NEUTROPHILS 1 %; BASOPHILS % (MANUAL) 1 %; EOSINOPHILS % (MANUAL) 0 %; LYMPHOCYTES % (MANUAL) 20 %; MONOCYTES % (MANUAL) 20 %; NEUTROPHILS % (MANUAL) 58 %; RBC MORPH NORMAL
--- NOTE | 2020-08-20 10:29 | Physical Therapy Daily Note ---
PT Daily Note-Current Subjective Pt reports she has not been getting much sleep. Transfers SCALE: Activities may be completed with or without assistive devices. 4-Nypyqzvyoo-sojokyl completes the activity by him/herself with no assistance from a helper. 5-Set-up or Clean-up Assistance-helper sets up or cleans up; patient completes activity. [place] assists only prior to or following the activity. 4-Supervision or Touching Assistance-helper provides verbal cues and/or touching/steadying and/or contact guard assistance as patient completes activity. Assistance may be provided throughout the activity or intermittently. 3-Partial/Moderate Assistance-helper does LESS THAN HALF the effort. [place] lifts, holds or supports trunk or limbs, but provides less than half the effort. 2-Substantial/Maximal Assistance-helper does MORE THAN HALF the effort. [place] lifts or holds trunk or limbs and provides more than half the effort. 8-Uwhzvgooi-hnqpmn does ALL the effort. Patient does none of the effort to complete the activity. Or, the assistance of 2 or more helpers is required for the patient to complete the activity. If activity was not attempted, code reason: 7-Patient Refused. 9-Not Applicable-not attempted and the patient did not perform the activity before the current illness, exacerbation or injury. 10-Not Attempted due to Environmental Limitations-(lack of equipment, weather restraints, etc.). 88-Not Attempted due to Medical Conditions or Safety Concerns. Gait Training Ambulate 250ft SBA using quad cane in non dominant hand due to IV placement. Verbal cues for safety and advised to return to cane to the right hand as soon as able. Assessment Pt endurance is improving as well as gait stability. Pt will benefit from continued PT. PT Hardboard Supervisor Goals Correction Goals PT Correction Goals Time Frame: September 03, 2020 Roll Left & Right (QC): 6 Sit to Lying (QC): 6 Lying-Sitting on Side/Bed(QC): 6 Sit to Stand (QC): 6 Chair/Ovg-yz-Lcnwr Xfer(QC): 6 Toilet Transfer (QC): 6 Does the Patient Walk: Yes Walk 10 feet (QC): 6 Walk 50ft with 2 Turns (QC): 6 Walk 150 ft (QC): 6 1 Step (curb) (QC): 6 4 Steps (QC): 6 PT Plan Treatment/Plan Treatment Plan: Continue Plan of Care Treatment Plan: Bed Mobility, Education, Functional Activity Getachew, Functional Strength, Gait, Safety, Therapeutic Exercise, Transfers Treatment Duration: September 03, 2020 Frequency: 6 times per week Estimated Hrs Per Day: .25 hour per day Patient and/or Family Agrees t: Yes Time/GCodes Time In: 0900 Time Out: 919 Total Billed Treatment Time: 20 Total Billed Treatment visit, gait 20 min BREANNA NAVARRO PT Aug 20, 2020 10:29
[2020-08-20 12:00] VITALS: BP 142/64
--- NOTE | 2020-08-20 13:47 | Progress Note ---
Subjective Date Seen by a Provider: Aug 20, 2020 Time Seen by a Provider: 13:00 Subjective/Events-last exam Patient feels good No pain No confusion Insomnia discussed has not rested for 4 nights Melatonin and Remeron 7.5mg will be given tonight BP varies Wants DC tomorrow Review of Systems General: Fatigue, Malaise Objective Exam Last Set of Vital Signs Vital Signs Date Time Temp Pulse Resp B/P (MAP) Pulse Ox O2 Delivery O2 Flow Rate FiO2 08/20/20 12:00 36.7 63 20 142/64 (90) 90 Nasal Cannula 1.00 Capillary Refill : Less Than 3 Seconds I&O Intake and Output 08/20/20 00:00 Intake Total 1260 ml Output Total 600 ml Balance 660 ml Intake Oral 1000 ml IV Total 260 ml Output Urine Total 600 ml # Voids 3 General: Alert, Oriented X3, Cooperative, No Acute Distress Lungs: Clear to Auscultation, Normal Air Movement Heart: Regular Rate, Normal S1, Normal S2, No Murmurs Neuro: Normal Gait, Normal Speech, Strength at 5/5 X4 Ext, Normal Tone Psych/Mental Status: Mental Status NL, Mood NL Results Lab Laboratory Tests 08/19/20 17:22: Vancomycin Level Trough 13.0 08/20/20 07:53: White Blood Count 5.6, Red Blood Count 4.26, Hemoglobin 12.0, Hematocrit 38, Mean Corpuscular Volume 90, Mean Corpuscular Hemoglobin 28, Mean Corpuscular Hemoglobin Concent 31L, Red Cell Distribution Width 13.9, Platelet Count 268, Mean Platelet Volume 9.7, Immature Granulocyte % (Auto) 1, Neutrophils (%) (Auto) 65, Lymphocytes (%) (Auto) 14, Monocytes (%) (Auto) 20H, Eosinophils (%) (Auto) 0, Basophils (%) (Auto) 1, Neutrophils # (Auto) 3.6, Lymphocytes # (Auto) 0.8L, Monocytes # (Auto) 1.1H, Eosinophils # (Auto) 0.0, Basophils # (Auto) 0.0, Immature Granulocyte # (Auto) 0.0, Neutrophils % (Manual) 58, Lymphocytes % (Manual) 20, Monocytes % (Manual) 20, Eosinophils % (Manual) 0, Basophils % (Manual) 1, Band Neutrophils 1, Blood Morphology Comment NORMAL, Sodium Level 138, Potassium Level 4.2, Chloride Level 105, Carbon Dioxide Level 19L, Anion Gap 14, Blood Urea Nitrogen 18, Creatinine 0.99, Estimat Glomerular Filtration Rate 53, BUN/Creatinine Ratio 18, Glucose Level 102, Calcium Level 8.9, Corrected Calcium 9.6, Total Bilirubin 0.4, Aspartate Amino Transf (AST/SGOT) 25, Alanine Aminotransferase (ALT/SGPT) 28, Alkaline Phosphatase 86, Total Protein 6.2L, Albumin 3.1L Microbiology 08/17/20 MRSA Screen - Final, Complete MRSA not isolated 08/17/20 Urine Culture - Final, Complete NO GROWTH Assessment/Plan Assessment/Plan Assess & Plan/Chief Complaint Assessment: UTI Type 2 [place] Pacemaker AF Intolerant to OAC due to life threatening spontaneous right leg bleed/hematoma Advanced age Recent left parotid cellulitis Plan: Omnicef Insomnia treatment DC Saturday? Declines HH Diagnosis/Problems Diagnosis/Problems (1) Urinary tract infection Status: Acute (2) Failure of outpatient treatment Status: Acute (3) Frequent PVCs Status: Acute (4) Presence of permanent cardiac pacemaker Status: Acute (5) Elevated troponin Status: Acute (6) HTN (hypertension) Status: Acute (7) CHF (congestive heart failure) Status: Acute Clinical Quality Measures Admission Status Admission Dx Assessment: UTI ACS AF Right leg pain Plan: USG Monitor closely DANA Carl DO Aug 20, 2020 13:47
--- NOTE | 2020-08-20 14:49 | Cardiology Progress Note ---
Cardiology SOAP Progress Note Subjective: Complains of insomnia. Objective: I&O/Vital Signs 08/20/20 08/20/20 08/20/20 08/20/20 04:00 08:00 08:00 12:00 Temp 36.6 36.5 36.7 Pulse 69 69 63 Resp 18 24 20 B/P (MAP) 144/65 (91) 177/85 (115) 142/64 (90) Pulse Ox 91 90 90 90 O2 Delivery Nasal Cannula Nasal Cannula Room Air Nasal Cannula O2 Flow Rate 2.00 1.00 1.00 08/20/20 00:00 Intake Total 1060 ml Balance 1060 ml Weight (Pounds): 143 Weight (Ounces): 0.0 Weight (Calculated Kilograms): 64.240520 Constitutional: AAO x 3, well-developed, well-nourished Respiratory: No accessory muscle use, No respiratory distress; chest expansion is symmetric, chest is bilaterally symmetric, lungs clear to auscultation Cardiovascular: irregularly irregular; No JVD; S1 and S2 Gastrointestional: No tender; soft, round, audible bowel sounds Extremities: no lower extremity edema bilateral Neurologic/Psychiatric: grossly intact (moves all extremities) Skin: No rash on exposed areas, No ulcerations on exposed areas Results/Procedures: Labs Laboratory Tests 08/19/20 17:22: Vancomycin Level Trough 13.0 08/20/20 07:53: White Blood Count 5.6, Red Blood Count 4.26, Hemoglobin 12.0, Hematocrit 38, Mean Corpuscular Volume 90, Mean Corpuscular Hemoglobin 28, Mean Corpuscular Hemoglobin Concent 31L, Red Cell Distribution Width 13.9, Platelet Count 268, Mean Platelet Volume 9.7, Immature Granulocyte % (Auto) 1, Neutrophils (%) (Auto) 65, Lymphocytes (%) (Auto) 14, Monocytes (%) (Auto) 20H, Eosinophils (%) (Auto) 0, Basophils (%) (Auto) 1, Neutrophils # (Auto) 3.6, Lymphocytes # (Auto) 0.8L, Monocytes # (Auto) 1.1H, Eosinophils # (Auto) 0.0, Basophils # (Auto) 0.0, Immature Granulocyte # (Auto) 0.0, Neutrophils % (Manual) 58, Lymphocytes % (Manual) 20, Monocytes % (Manual) 20, Eosinophils % (Manual) 0, Basophils % (Manual) 1, Band Neutrophils 1, Blood Morphology Comment NORMAL, Sodium Level 138, Potassium Level 4.2, Chloride Level 105, Carbon Dioxide Level 19L, Anion Gap 14, Blood Urea Nitrogen 18, Creatinine 0.99, Estimat Glomerular Filtration Rate 53, BUN/Creatinine Ratio 18, Glucose Level 102, Calcium Level 8.9, Corrected Calcium 9.6, Total Bilirubin 0.4, Aspartate Amino Transf (AST/SGOT) 25, Alanine Aminotransferase (ALT/SGPT) 28, Alkaline Phosphatase 86, Total Protein 6.2L, Albumin 3.1L Microbiology 08/17/20 MRSA Screen - Final, Complete MRSA not isolated 08/17/20 Urine Culture - Final, Complete NO GROWTH A/P: Assessment/Dx: UTI and probable sepsis - management per medical services Mildy elevated troponin - Type 2 [place] due to sepsis PAF - first diagnosed on pacemaker interrogation of Dec 16, 2019 Spontaneous hematoma of the R leg in mid November 2019 and since been off apixaban; currently considered intolerant to anticoag Symptomatic, 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 No distinct evidence of pericarditis. 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 Limited echo on 06/18/19: normal LVEF, small amount pericardial fluid (within physiologic limit and not much different from 06/18/19). Limited echo non 0: normal LVEF, small amount of pericardial fluid (no significant change compared to 06/18/19) Mild carotid arterial disease on carotid u/s of 08/24/19 Hypertension Reported intolerance to BB tx d/t insomnia Plan: Complex management due to multiple comorbidities (see above) and competing issues of need to give oral anticoag and contraindication to anticoag Management of UTI per Medical Services Previously taking OAC in 2019 d/t PAF - stopped d/t spontaneous hematoma - has been on ASA tx alone since Continue ASA Continue Cardizem CD Monitor lab Replace electrolytes as indicated Further recs will be based on her hospital course Thank you for your consultation. Please call me if you have any questions. Christiano Floyd MD, FACP, FACC, FSCAI, FHRS, CCDS Interventional Cardiology Cardiac Electrophysiology Vascular Medicine and Endovascular Interventions Matilda FLOYD MD Aug 20, 2020 14:49
[2020-08-20 16:00] VITALS: BP 181/79
[2020-08-20 20:00] VITALS: BP 158/84
[2020-08-20] MEDS: ALLOPURINOL 100 MG (ZYLOPRIM) TAB PO SCH (20:14)
[2020-08-20] MEDS: VITAMIN D3 25 MCG (1,000 UNITS) TABLET PO SCH (20:14)
[2020-08-20] MEDS: CEFDINIR 300 MG (OMNICEF) CAP PO SCH (20:15)
[2020-08-20] MEDS ORDERED: MELATONIN 3 MG TABLET PO SCH (21:00)
[2020-08-20] MEDS ORDERED: MIRTAZAPINE 15 MG (REMERON) TAB PO SCH (21:00)
[2020-08-21] VITALS: BP 163/71
[2020-08-21 04:00] VITALS: BP 171/74
[2020-08-21 08:00] VITALS: BP 185/85
[2020-08-21] MEDS: CEFDINIR 300 MG (OMNICEF) CAP PO SCH (09:55)
[2020-08-21] MEDS: LEVOTHYROXINE 50 MCG (LEVOTHROID) TAB PO SCH (09:55)
[2020-08-21] MEDS: ASPIRIN E.C. 81 MG (ECOTRIN) TAB PO SCH (09:55)
[2020-08-21] MEDS: cloNIDine 0.1 MG (CATAPRES) TAB PO SCH ×2 (09:55→13:39)
[2020-08-21 12:00] VITALS: BP 188/77
[2020-08-21] MEDS ORDERED: ASPI-1238 PO (12:40)
--- NOTE | 2020-08-21 12:40 | Discharge Summary ---
Diagnosis/Chief Complaint Date of Admission Aug 19, 2020 at 14:14 Date of Discharge Discharge Date: Aug 21, 2020 Discharge Diagnosis UTI ACS Type 2 AK AF Pacemaker Frail status Reason Hospital Visit CC: Weakness with UTI HPI: This is an [id number] clinic pt of [employer] who I had just sent in Omnicef for a UTI who presented to the ER with weakness and nausea and vomiting with palpitations. She was found to have an elevated an elevated Troponin with acute coronary syndrome. Cardiology was consulted, BP has been stale although high, echocardiogram done. Pt was placed on Aspirin and her home medications along with Vancomycin and Meropenem due to recent parotid gland cellulitis with early abscess. Pt is at risk for early ESBL UTI. Pt will be transferred to the floor since she is stable. Discharge Summary Discharge Physical Examination Allergies: Coded Allergies: Sulfa (Sulfonamide Antibiotics) (Verified Allergy, Unknown, 07/04/20) cephalexin (Verified Allergy, Unknown, 07/04/20) ciprofloxacin (Verified Allergy, Unknown, 07/04/20) hydrocodone (Verified Allergy, Unknown, 07/04/20) iodine (Verified Allergy, Unknown, 07/04/20) meperidine (Verified Allergy, Unknown, 07/04/20) metronidazole (Verified Allergy, Unknown, 07/04/20) propoxyphene (Verified Allergy, Unknown, 07/04/20) rosuvastatin (Verified Allergy, Unknown, 07/04/20) simvastatin (Verified Allergy, Unknown, 07/04/20) Vitals & I&Os Vital Signs Date Time Temp Pulse Resp B/P (MAP) Pulse Ox O2 Delivery O2 Flow Rate FiO2 08/21/20 14:42 96 Nasal Cannula 2.00 08/21/20 13:30 08/21/20 12:00 36.1 155 16 General Appearance: Alert, Oriented X3, Cooperative Respiratory: Clear to Auscultation Cardiovascular: Regular Rate Hospital Course Was the Problem List Reviewed?: Yes Standard course after admitted for UTI and SIRS and elevated troponin. Patient was moved to 4th floor and received PT OT with good results. IV abx switched to PO. Labs remained stable. Patient was deemed stable for DC. Labs (last 24 hrs) Laboratory Tests 08/17/20 20:10: White Blood Count 9.3, Red Blood Count 4.61, Hemoglobin 13.2, Hematocrit 41, Mean Corpuscular Volume 90, Mean Corpuscular Hemoglobin 29, Mean Corpuscular Hemoglobin Concent 32, Red Cell Distribution Width 14.2, Platelet Count 268, Mean Platelet Volume 9.7, Immature Granulocyte % (Auto) 0, Neutrophils (%) (Auto) 92H, Lymphocytes (%) (Auto) 5L, Monocytes (%) (Auto) 3, Eosinophils (%) (Auto) 0, Basophils (%) (Auto) 1, Neutrophils # (Auto) 8.6H, Lymphocytes # (Auto) 0.5L, Monocytes # (Auto) 0.2, Eosinophils # (Auto) 0.0, Basophils # (Auto) 0.1, Immature Granulocyte # (Auto) 0.0, Neutrophils % (Manual) 88, Lymphocytes % (Manual) 5, Monocytes % (Manual) 6, Eosinophils % (Manual) 1, Blood Morphology Comment NORMAL, Prothrombin Time 13.3, INR Comment 1.0, Activated Partial Thromboplast Time 29, Sodium Level 135, Potassium Level 4.1, Chloride Level 100, Carbon Dioxide Level 19L, Anion Gap 16H, Blood Urea Nitrogen 31H, Creatinine 1.51H, Estimat Glomerular Filtration Rate 32, BUN/Creatinine Ratio 21, Glucose Level 143H, Calcium Level 9.1, Corrected Calcium 9.3, Magnesium Level 1.9, Total Bilirubin 1.2H, Aspartate Amino Transf (AST/SGOT) 57H , Alanine Aminotransferase (ALT/SGPT) 38, Alkaline Phosphatase 109, Total Creatine Kinase 230H, Creatine Kinase MB 7.0*H, Myoglobin 540.0H, Troponin I 0.099H, B-Type Natriuretic Peptide 511.3H, Total Protein 7.1, Albumin 3.7, Amylase Level 60, Lipase < 4L, TSH [place] Testing 1.37 08/17/20 21:45: Urine Color YELLOW, Urine Clarity CLEAR, Urine pH 6.0, Urine Specific [place] 1.020, Urine Protein 2+H, Urine Glucose (UA) NEGATIVE, Urine Ketones TRACEH, Urine Nitrite NEGATIVE, Urine Bilirubin NEGATIVE, Urine Urobilinogen 0.2, Urine Leukocyte Esterase 2+H, Urine RBC (Auto) 2+H, Urine RBC 10-25H, Urine WBC 25-50H , Urine Squamous Epithelial Cells 0-2, Urine Crystals PRESENTH, Urine Amorphous Sediment FEW CHEN URATESH, Urine Bacteria MODERATEH, Urine Casts NONE, Urine Mucus NEGATIVE, Urine Culture Indicated YES 08/18/20 02:53: Sodium Level 134L, Potassium Level 4.4, Chloride Level 104, Carbon Dioxide Level 21, Anion Gap 9, Blood Urea Nitrogen 30H, Creatinine 1.49H, Estimat Glomerular Filtration Rate 33, BUN/Creatinine Ratio 20, Glucose Level 179H, Calcium Level 8.1L, Corrected Calcium 9.1, Total Bilirubin 0.6, Aspartate Amino Transf (AST/SGOT) 34, Alanine Aminotransferase (ALT/SGPT) 27, Alkaline Phosphatase 77, Total Protein 5.4L, Albumin 2.8L 08/18/20 03:09: Magnesium Level 2.0 08/18/20 03:30: Total Creatine Kinase 260H, Myoglobin 536.4H, Troponin I 0.167H 08/18/20 04:29: White Blood Count 11.5H, Red Blood Count 3.67L, Hemoglobin 10.4#L, Hematocrit 33L, Mean Corpuscular Volume 90, Mean Corpuscular Hemoglobin 28, Mean Corpuscular Hemoglobin Concent 31L, Red Cell Distribution Width 14.1, Platelet Count 254, Mean Platelet Volume 10.8, Immature Granulocyte % (Auto) 0, Neutrophils (%) (Auto) 79H, Lymphocytes (%) (Auto) 8L, Monocytes (%) (Auto) 12, Eosinophils (%) (Auto) 1, Basophils (%) (Auto) 0, Neutrophils # (Auto) 9.1H, Lymphocytes # (Auto) 0.9L, Monocytes # (Auto) 1.4H, Eosinophils # (Auto) 0.1, Basophils # (Auto) 0.1, Immature Granulocyte # (Auto) 0.0, Neutrophils % (Manual) 86, Lymphocytes % (Manual) 5, Monocytes % (Manual) 10, Band Neutrophils 3, Blood Morphology Comment NORMAL 08/19/20 03:17: White Blood Count 6.2, Red Blood Count 4.10, Hemoglobin 11.6, Hematocrit 37, Mean Corpuscular Volume 91, Mean Corpuscular Hemoglobin 28, Mean Corpuscular Hemoglobin Concent 31L, Red Cell Distribution Width 14.1, Platelet Count 249, Mean Platelet Volume 10.6, Immature Granulocyte % (Auto) 1, Neutrophils (%) (Auto) 72, Lymphocytes (%) (Auto) 11L, Monocytes (%) (Auto) 15H, Eosinophils (%) (Auto) 1, Basophils (%) (Auto) 1, Neutrophils # (Auto) 4.5, Lymphocytes # (Auto) 0.7L, Monocytes # (Auto) 0.9, Eosinophils # (Auto) 0.1, Basophils # (Auto) 0.0, Immature Granulocyte # (Auto) 0.0, Sodium Level 136, Potassium Level 4.1, Chloride Level 102, Carbon Dioxide Level 22, Anion Gap 12, Blood Urea Nitrogen 24H, Creatinine 1.18, Estimat Glomerular Filtration Rate 43, BUN/Creatinine Ratio 20, Glucose Level 103, Calcium Level 8.2L, Corrected Calcium 9.2, Total Bilirubin 0.5, Aspartate Amino Transf (AST/SGOT) 39H, Alanine Aminotransferase (ALT/SGPT) 33, Alkaline Phosphatase 87, Total Protein 5.6L, Albumin 2.8L 08/19/20 17:22: Vancomycin Level Trough 13.0 08/20/20 07:53: White Blood Count 5.6, Red Blood Count 4.26, Hemoglobin 12.0, Hematocrit 38, Mean Corpuscular Volume 90, Mean Corpuscular Hemoglobin 28, Mean Corpuscular Hemoglobin Concent 31L, Red Cell Distribution Width 13.9, Platelet Count 268, Mean Platelet Volume 9.7, Immature Granulocyte % (Auto) 1, Neutrophils (%) (Auto) 65, Lymphocytes (%) (Auto) 14, Monocytes (%) (Auto) 20H, Eosinophils (%) (Auto) 0, Basophils (%) (Auto) 1, Neutrophils # (Auto) 3.6, Lymphocytes # (Auto) 0.8L, Monocytes # (Auto) 1.1H, Eosinophils # (Auto) 0.0, Basophils # (Auto) 0.0, Immature Granulocyte # (Auto) 0.0, Neutrophils % (Manual) 58, Lymphocytes % (Manual) 20, Monocytes % (Manual) 20, Eosinophils % (Manual) 0, Basophils % (Manual) 1, Band Neutrophils 1, Blood Morphology Comment NORMAL, Sodium Level 138, Potassium Level 4.2, Chloride Level 105, Carbon Dioxide Level 19L, Anion Gap 14, Blood Urea Nitrogen 18, Creatinine 0.99, Estimat Glomerular Filtration Rate 53, BUN/Creatinine Ratio 18, Glucose Level 102, Calcium Level 8.9, Corrected Calcium 9.6, Total Bilirubin 0.4, Aspartate Amino Transf (AST/SGOT) 25, Alanine Aminotransferase (ALT/SGPT) 28, Alkaline Phosphatase 86, Total Protein 6.2L, Albumin 3.1L Microbiology 08/17/20 MRSA Screen - Final, Complete MRSA not isolated 08/17/20 Urine Culture - Final, Complete NO GROWTH Pending Labs Microbiology Date/Time Source Procedure Growth Status 08/17/20 22:55 Nasal MRSA Screen - Final MRSA not isolated Complete 08/17/20 21:45 Urine Najera Cath Urine Culture - Final NO GROWTH Complete Laboratory Tests 08/17/20 20:10: White Blood Count 9.3, Red Blood Count 4.61, Hemoglobin 13.2, Hematocrit 41, Mean Corpuscular Volume 90, Mean Corpuscular Hemoglobin 29, Mean Corpuscular Hemoglobin Concent 32, Red Cell Distribution Width 14.2, Platelet Count 268, Mean Platelet Volume 9.7, Immature Granulocyte % (Auto) 0, Neutrophils (%) (Auto) 92, Lymphocytes (%) (Auto) 5, Monocytes (%) (Auto) 3, Eosinophils (%) (Auto) 0, Basophils (%) (Auto) 1, Neutrophils # (Auto) 8.6, Lymphocytes # (Auto) 0.5, Monocytes # (Auto) 0.2, Eosinophils # (Auto) 0.0, Basophils # (Auto) 0.1, Immature Granulocyte # (Auto) 0.0, Neutrophils % (Manual) 88, Lymphocytes % (Manual) 5, Monocytes % (Manual) 6, Eosinophils % (Manual) 1, Blood Morphology Comment NORMAL, Prothrombin Time 13.3, INR Comment 1.0, Activated Partial Thromboplast Time 29, Sodium Level 135, Potassium Level 4.1, Chloride Level 100, Carbon Dioxide Level 19, Anion Gap 16, Blood Urea Nitrogen 31, Creatinine 1.51, Estimat Glomerular Filtration Rate 32, BUN/Creatinine Ratio 21, Glucose Level 14 3, Calcium Level 9.1, Corrected Calcium 9.3, Magnesium Level 1.9, Total Bilirubin 1.2, Aspartate Amino Transf (AST/SGOT) 57, Alanine Aminotransferase (ALT/SGPT) 38, Alkaline Phosphatase 109, Total Creatine Kinase 230, Creatine Kinase MB 7.0, Myoglobin 540.0, Troponin I 0.099, B-Type Natriuretic Peptide 511.3, Total Protein 7.1, Albumin 3.7, Amylase Level 60, Lipase < 4, TSH [place] Testing 1.37 08/17/20 21:45: Urine Color YELLOW, Urine Clarity CLEAR, Urine pH 6.0, Urine Specific [place] 1.020, Urine Protein 2+, Urine Glucose (UA) NEGATIVE, Urine Ketones TRACE, Urine Nitrite NEGATIVE, Urine Bilirubin NEGATIVE, Urine Urobilinogen 0.2, Urine Leukocyte Esterase 2+, Urine RBC (Auto) 2+, Urine RBC 10-25, Urine WBC 25-50, Urine Squamous Epithelial Cells 0-2, Urine Crystals PRESENT, Urine Amorphous Sediment FEW CHEN URATES, Urine Bacteria MODERATE, Urine Casts NONE, Urine Mucus NEGATIVE, Urine Culture Indicated YES 08/18/20 02:53: Sodium Level 134, Potassium Level 4.4, Chloride Level 104, Carbon Dioxide Level 21, Anion Gap 9, Blood Urea Nitrogen 30, Creatinine 1.49, Estimat Glomerular Filtration Rate 33, BUN/Creatinine Ratio 20, Glucose Level 179, Calcium Level 8.1, Corrected Calcium 9.1, Total Bilirubin 0.6, Aspartate Amino Transf (AST/SGOT) 34, Alanine Aminotransferase (ALT/SGPT) 27, Alkaline Phosphatase 77, Total Protein 5.4, Albumin 2.8 08/18/20 03:09: Magnesium Level 2.0 08/18/20 03:30: Total Creatine Kinase 260, Myoglobin 536.4, Troponin I 0.167 08/18/20 04:29: White Blood Count 11.5, Red Blood Count 3.67, Hemoglobin 10.4, Hematocrit 33, Mean Corpuscular Volume 90, Mean Corpuscular Hemoglobin 28, Mean Corpuscular Hemoglobin Concent 31, Red Cell Distribution Width 14.1, Platelet Count 254, Mean Platelet Volume 10.8, Immature Granulocyte % (Auto) 0, Neutrophils (%) (Auto) 79, Lymphocytes (%) (Auto) 8, Monocytes (%) (Auto) 12, Eosinophils (%) (Auto) 1, Basophils (%) (Auto) 0, Neutrophils # (Auto) 9.1, Lymphocytes # (Auto) 0.9, Monocytes # (Auto) 1.4, Eosinophils # (Auto) 0.1, Basophils # (Auto) 0.1, Immature Granulocyte # (Auto) 0.0, Neutrophils % (Manual) 86, Lymphocytes % (Manual) 5, Monocytes % (Manual) 10, Band Neutrophils 3, Blood Morphology Comment NORMAL 08/19/20 03:17: White Blood Count 6.2, Red Blood Count 4.10, Hemoglobin 11.6, Hematocrit 37, Mean Corpuscular Volume 91, Mean Corpuscular Hemoglobin 28, Mean Corpuscular Hemoglobin Concent 31, Red Cell Distribution Width 14.1, Platelet Count 249, Mean Platelet Volume 10.6, Immature Granulocyte % (Auto) 1, Neutrophils (%) (Auto) 72, Lymphocytes (%) (Auto) 11, Monocytes (%) (Auto) 15, Eosinophils (%) (Auto) 1, Basophils (%) (Auto) 1, Neutrophils # (Auto) 4.5, Lymphocytes # (Auto) 0.7, Monocytes # (Auto) 0.9, Eosinophils # (Auto) 0.1, Basophils # (Auto) 0.0, Immature Granulocyte # (Auto) 0.0, Sodium Level 136, Potassium Level 4.1, Chloride Level 102, Carbon Dioxide Level 22, Anion Gap 12, Blood Urea Nitrogen 24, Creatinine 1.18, Estimat Glomerular Filtration Rate 43, BUN/Creatinine Ratio 20, Glucose Level 103, Calcium Level 8.2, Corrected Calcium 9.2, Total Bilirubin 0.5, Aspartate Amino Transf (AST/SGOT) 39, Alanine Aminotransferase (ALT/SGPT) 33, Alkaline Phosphatase 87, Total Protein 5.6, Albumin 2.8 08/19/20 17:22: Vancomycin Level Trough 13.0 08/20/20 07:53: White Blood Count 5.6, Red Blood Count 4.26, Hemoglobin 12.0, Hematocrit 38, Mean Corpuscular Volume 90, Mean Corpuscular Hemoglobin 28, Mean Corpuscular Hemoglobin Concent 31, Red Cell Distribution Width 13.9, Platelet Count 268, Mean Platelet Volume 9.7, Immature Granulocyte % (Auto) 1, Neutrophils (%) (Auto) 65, Lymphocytes (%) (Auto) 14, Monocytes (%) (Auto) 20, Eosinophils (%) (Auto) 0, Basophils (%) (Auto) 1, Neutrophils # (Auto) 3.6, Lymphocytes # (Auto) 0.8, Monocytes # (Auto) 1.1, Eosinophils # (Auto) 0.0, Basophils # (Auto) 0.0, Immature Granulocyte # (Auto) 0.0, Neutrophils % (Manual) 58, Lymphocytes % (Manual) 20, Monocytes % (Manual) 20, Eosinophils % (Manual) 0, Basophils % (Manual) 1, Band Neutrophils 1, Blood Morphology Comment NORMAL, Sodium Level 138, Potassium Level 4.2, Chloride Level 105, Carbon Dioxide Level 19, Anion Gap 14, Blood Urea Nitrogen 18, Creatinine 0.99, Estimat Glomerular Filtration Rate 53, BUN/Creatinine Ratio 18, Glucose Level 102, Calcium Level 8.9, Corrected Calcium 9.6, Total Bilirubin 0.4, Aspartate Amino Transf (AST/SGOT) 25, Alanine Aminotransferase (ALT/SGPT) 28, Alkaline Phosphatase 86, Total Protein 6.2, A lbumin 3.1 Discharge Home Medications: Active Scripts Active Aspirin EC (Aspirin) 81 Mg Tablet.dr 81 Mg PO DAILY 365 Days Reported Tylenol (Acetaminophen) 325 Mg Tablet 325-650 Mg PO Q8H PRN Cefdinir 300 Mg Capsule 300 Mg PO BID FILLED 08-17-2020 #14/7 DAY SUPPLY Diltiazem 24Hr ER (Diltiazem HCl) 240 Mg Cap.er.24h 240 Mg PO HS Clonidine HCl 0.1 Mg Tablet 0.1 Mg PO TID foodpanda / hellofood Capsule (l Gasseri/B Bifidum/B Longum) 1 Each Capsule 1 Each PO HS Allopurinol 100 Mg Tablet 100 Mg PO HS Vitamin D3 (Cholecalciferol (Vitamin D3)) 25 Mcg Tablet 25 Mcg PO HS Levothyroxine Sodium 50 Mcg Tablet 50 Mcg PO DAILY Instructions to patient/family Please see electronic discharge instructions given to patient. Diagnosis/Problems Diagnosis/Problems (1) Urinary tract infection Status: Acute (2) Failure of outpatient treatment Status: Acute (3) Frequent PVCs Status: Acute (4) Presence of permanent cardiac pacemaker Status: Acute (5) Elevated troponin Status: Acute (6) HTN (hypertension) Status: Acute (7) CHF (congestive heart failure) Status: Acute DANA GALARZA DO Aug 21, 2020 12:40
--- NOTE | 2020-08-21 14:00 | Cardiology Progress Note ---
Cardiology SOAP Progress Note Subjective: No cardiac complaints. Objective: I&O/Vital Signs 08/21/20 08/21/20 08/21/20 08/21/20 04:00 08:00 08:00 12:00 Temp 36.7 36.5 36.1 Pulse 67 66 155 Resp 18 20 16 B/P (MAP) 171/74 (106) 185/85 (118) 188/77 (114) Pulse Ox 95 96 90 91 O2 Delivery Room Air Nasal Cannula Room Air Room Air O2 Flow Rate 1.50 08/21/20 00:00 Intake Total 1645 ml Balance 1645 ml Weight (Pounds): 143 Weight (Ounces): 0.0 Weight (Calculated Kilograms): 64.983342 Constitutional: AAO x 3, well-developed, well-nourished Respiratory: No accessory muscle use, No respiratory distress; chest expansion is symmetric, chest is bilaterally symmetric, lungs clear to auscultation Cardiovascular: irregularly irregular; No JVD; S1 and S2 Gastrointestional: No tender; soft, round, audible bowel sounds Extremities: no lower extremity edema bilateral Neurologic/Psychiatric: grossly intact (moves all extremities) Skin: No rash on exposed areas, No ulcerations on exposed areas Results/Procedures: Labs Microbiology 08/17/20 MRSA Screen - Final, Complete MRSA not isolated 08/17/20 Urine Culture - Final, Complete NO GROWTH A/P: Assessment/Dx: UTI and probable sepsis - management per medical services Mildy elevated troponin - Type 2 [place] due to sepsis PAF - first diagnosed on pacemaker interrogation of Dec 16, 2019 Spontaneous hematoma of the R leg in mid November 2019 and since been off apixaban; currently considered intolerant to anticoag Symptomatic, 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 No distinct evidence of pericarditis. 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 Limited echo on 06/18/19: normal LVEF, small amount pericardial fluid (within physiologic limit and not much different from 06/18/19). Limited echo non 06/19/19: normal LVEF, small amount of pericardial fluid (no significant change compared to 06/18/19) Mild carotid arterial disease on carotid u/s of 08/24/19 Hypertension Reported intolerance to BB tx d/t insomnia Plan: Complex management due to multiple comorbidities (see above) and competing issues of need to give oral anticoag and contraindication to anticoag Management of UTI per Medical Services Previously taking OAC in 2019 d/t PAF - stopped d/t spontaneous hematoma - has been on ASA tx alone since Continue ASA Continue Cardizem CD Monitor lab Replace electrolytes as indicated Further recs will be based on her hospital course Thank you for your consultation. Please call me if you have any questions. Christiano Floyd MD, FACP, FACC, FSCAI, FHRS, CCDS Interventional Cardiology Cardiac Electrophysiology Vascular Medicine and Endovascular Interventions Matilda FLOYD MD Aug 21, 2020 14:00
== END 2020-08-21 13:30 | disposition home or self-care (01) | DRG 689 ==
LOC: EDUNIT# 19:45 → ER 19:47 → ICU 21:15 → 4TH 08-19 13:30 → OBSVTOIN 08-19 14:14
PROVIDERS: ADMIT Internal Medicine; ATTEND Internal Medicine
DX: N39.0 Urinary tract infection, site not specified (principal); I21.A1 Myocardial infarction type 2; I24.9 Acute ischemic heart disease, unspecified; D62 Acute posthemorrhagic anemia; N17.9 Acute kidney failure, unspecified; M25.061 Hemarthrosis, right knee; I48.0 Paroxysmal atrial fibrillation; E78.00 Pure hypercholesterolemia, unspecified; E78.5 Hyperlipidemia, unspecified; I11.0 Hypertensive heart disease with heart failure; I50.9 Heart failure, unspecified; G62.9 Polyneuropathy, unspecified; I34.0 Nonrheumatic mitral (valve) insufficiency; E03.9 Hypothyroidism, unspecified; H91.91 Unspecified hearing loss, right ear; I49.3 Ventricular premature depolarization; R00.0 Tachycardia, unspecified; E86.0 Dehydration; K52.9 Noninfective gastroenteritis and colitis, unspecified; K57.90 Diverticulosis of intestine, part unspecified, without perforation or abscess without bleeding; K59.00 Constipation, unspecified; M10.9 Gout, unspecified; Z95.0 Presence of cardiac pacemaker; Z96.612 Presence of left artificial shoulder joint; Z79.2 Long term (current) use of antibiotics; Z79.82 Long term (current) use of aspirin; Z88.6 Allergy status to analgesic agent; Z88.1 Allergy status to other antibiotic agents; Z88.2 Allergy status to sulfonamides; Z88.8 Allergy status to other drugs, medicaments and biological substances; Z82.49 Family history of ischemic heart disease and other diseases of the circulatory system
CPT/HCPCS: 36415; 51702; 71045; 80053; 80202; 81000; 82150; 82550; 82553; 83690; 83735; 83874; 83880; 84443; 84484; 85007; 85025; 85027; 85610; 85730; 87081; 87088; 93005; 93041; 93306; 93926; 94760; G0378

== ENCOUNTER 2020-09-16 11:08 | Outpatient (RCR) | payer MEDICARE, OTHER ==
[~2020-09-16 11:08] MED LIST changes: +ACET325T38 PO; +ASPI-1238 PO; +CEFD300C3 PO
== END 2020-09-18 | disposition home or self-care (01) ==
LOC: CR3 11:08
PROVIDERS: ATTEND Family Medicine
DX: Z29.8 Encounter for other specified prophylactic measures (principal)

== ENCOUNTER → 2020-10-19 | Outpatient (RCR) | payer MEDICARE, OTHER | END | disposition home or self-care (01) | LOC: CR3 09-19 14:37 | PROVIDERS: ATTEND Family Medicine | DX: Z29.8 Encounter for other specified prophylactic measures (principal) ==

== ENCOUNTER 2020-11-18 11:04 | Outpatient (RCR) | payer MEDICARE, OTHER | END 2020-11-20 | disposition home or self-care (01) | LOC: CR3 11:04 | PROVIDERS: ATTEND Family Medicine | DX: Z29.8 Encounter for other specified prophylactic measures (principal) ==